=== PATIENT | female | born 1950 | race African-American/Black ===

== ENCOUNTER 2020-02-23 15:12 | Emergency (ER) | payer MEDICARE ==
[~2020-02-23] VITALS: Ht 160 cm; Wt 127.0 kg
--- NOTE | 2020-02-23 15:45 | Emergency Department Note ---
History of Present Illnes History of Present Illness Chief Complaint: Extremity Trauma/Pain History of Present Illness This is a 69 year old female, with a history of ESRD on hemodialysis, chronic atrial fibrillation, CHF, GERD, and NIDDM presents for evaluation of a 62 history of right shoulder pain. Patient's pain is top of the right shoulder, and she denies any falling or trauma to the right upper extremity. Patient has taken Tylenol without relief of pain. The pain sometimes radiates into the right upper extremity, but she's had no numbness, or tingling in the right upper extremity. Patient did attend dialysis today, and came here after her session, due to worsening right shoulder pain. Historian: Patient Arrival Mode: [employer] Required: No Onset (how long ago): day(s) (6) Location: right shoulder Quality: aching, sharp pain Radiation: Reports extremity (RUE;) Severity: moderate Onset quality: gradual Duration (how long): day(s) (6) Timing of current episode: constant Progression: worsening Chronicity: new Context: Denies recent surgery, Denies trauma/injury, Denies new medications Relieving factors: none Exacerbating factors: movement (abducting the RUE increases pain;) Associated symptoms: Reports denies other symptoms Treatments prior to arrival: none Risk factors: DM, Morbid Obesity, ESRD; Past Medical/Family History Physician Review I have reviewed the patient's past medical and family history. Any updates have been documented here. Past Medical History Recent Fever: No Clinical Suspicion of Infectio: No New/Unexplained Change in Ment: No Past Medical History: Diabetes (NIDDM), CHF, A-Fib, ESRD, Hemodyalisis Other Medical History: Adrenal Insufficiency Chronic Steroid Use - for adrenal insufficiency Past Surgical History: T&A, Pacer/AICD Other Surgery: RUE - fistula placement for HD; Social History Smoking Cessation: Never Smoker Counseling Performed: No Alcohol Use: None Any Illegal Drug Use: No TB Exposure/Symptoms: No Physically hurt or threatened: No Family History Family history of heart diseas: Yes Other Is patient up to date on immun: Yes Review of Systems Review of Systems Constitutional: Denies chills, Denies fever EENTM: Denies eye pain Cardiovascular: Reports no symptoms Respiratory: Reports no symptoms Gastrointestinal: Denies nausea Musculoskeletal: Reports joint pain (Right superior shoulder) Integumentary: Denies change in color, Denies change in hair/nails, Denies lumps Neurological: Denies headache, Denies numbness Psychological: Reports no symptoms Hematological/Lymphatic: Reports no symptoms Review of other systems: All other systems negative Physical Exam Related Data Allergies: Coded Allergies: Iodinated Contrast Media (Verified Allergy, Intermediate, rash and skin mcneill, 02/23/20) Physical Exam CONSTITUTIONAL Constitutional: Present well-developed, Present well-nourished, Present other (appears chronically ill;); Absent distressed HENT HENT: Present normocephalic, Present atraumatic, Present oropharynx clear/moist, Present nose normal HENT L/R: Present left ext ear normal, Present right ext ear normal EYES Eyes: Reports PERRL, Reports conjunctivae normal NECK Neck: Present ROM normal PULMONARY Pulmonary: Present effort normal, Present breath sounds normal CARDIOVASCULAR Cardiovascular: Present regular rhythm, Present heart sounds normal, Present capillary refill normal, Present normal rate GASTROINTESTINAL GENITOURINARY SKIN Skin: Present warm, Present dry; Absent rash MUSCULOSKELETAL Musculoskeletal: Present tenderness (ttp of right AC joint, with worsening pain on attempts at abduction, no crepitus; no erythema or warmth); Absent ROM normal NEUROLOGICAL Neurological: Present alert, Present oriented x 3, Present no gross motor or sensory deficits; Absent cranial nerve deficit PSYCHOLOGICAL Psychological: Present mood/affect normal, Present judgement normal Assessment & Plan Medical Decision Making MDM - Explained to patient that she seems to have tendinitis of the right shoulder and possible bursitis of the right before meals joint. X-rays will not revealed this problem. Explained that she can also have a component of arthritis in the right shoulder, as well. Patient is encouraged to the PCP for further diagnostic evaluation and possible referral if her symptoms worsen or persist. - Apply ice to the right shoulder for 15 - 20 minutes several times throughout the day, to help with pain. - Take medications, as directed. - Follow-up with your PCP, for possible Orthopedic referral, if the shoulder pain is persistent. Assessment & Plan Final Impression: (1) Tendonitis of shoulder, right (2) Shoulder pain, right (3) CHF (congestive heart failure) (4) Supplemental oxygen dependent (5) Adrenal insufficiency (6) ESRD (end stage renal disease) on dialysis (7) Diabetes Depart Disposition: HOME, SELF-correction Meds Active Scripts Tramadol Hcl (ULTRAM) 50 Mg Tablet, 1-2 TAB PO Q6H PRN for pain, #20 TAB 0 Refills Do [address] take and drive or operate machinery. Prov:NAEL ALEGRIA MD 02/23/20 NAEL ALEGRIA MD Feb 23, 2020 15:45
--- OUTSIDE RECORDS SUMMARY | 2020-02-23 16:14 | XMS REPORT | Clinical Summary ---
Author Author [facility] Organization [facility] Address Unknown Phone Unavailable Care Team Providers Care Bottling Line Attendant Name Role Phone López Chino MD, Homer PCP Allergies Comments Active Allergy Reactions Severity Noted Date Skin burning Iodine And Iodide Other (See High 07/08/2019 Containing Products Comments) Yeast infections Penicillins Other (See High 07/08/2019 Comments) Vancomycin Itching High 07/08/2019 Medications End Date Status Medication Sig Dispensed Refills Start Date Active pregabalin (LYRICA) 150 150 mg daily. 0 /14/ 201 MG capsule 8 Active apixaban (ELIQUIS) 2.5 mg Take 2.5 mg 0 tablet by mouth 2 (two) times a day. Active glipiZIDE (GLUCOTROL) 2.5 Take 2.5 mg 0 10/0 7/201 MG 24 hr tablet by mouth 9 daily. Active atorvastatin (LIPITOR) 10 Take 10 mg by 0 05/1 9/201 MG tablet mouth daily. 0 Active sevelamer (RENVELA) 800 Take 2,400 mg 0 mg tablet by mouth 3 (three) times a day with meals. Active vit B complex-vitamin Take 1 tablet 0 C-folic acid (NEPHRO-ALEXIS by mouth OTC) 0.8 mg tablet daily. Active levocetirizine (XYZAL) 5 Take 5 mg by 0 MG tablet mouth every evening. Active ergocalciferol (VITAMIN Take 50,000 0 D2) 50,000 unit capsule Units by mouth every 14 (fourteen) days. Active hydrocortisone (CORTEF) 5 Take 10 mg by 0 MG tablet mouth every evening. Active hydrocortisone (CORTEF) Take 20 mg by 0 20 MG tablet mouth every morning. Active midodrine (PROAMATINE) 10 Take 10 mg by 0 MG tablet mouth 3 (three) times a day. Active pantoprazole (PROTONIX) Take 20 mg by 0 20 MG EC tablet mouth daily. 07/29/2019 Discontinued (Stop Taking at Discharge) meloxicam (MOBIC) 7.5 mg Take 7.5 mg 0 tablet by mouth daily. 07/11/2019 Discontinued methylPREDNISolone Take 1 tablet 2 tablet 0 07/08 (MEDROL) 32 MG tablet (32 mg total) 0 by mouth daily for 2 days. Take 32mg oral route 12hrs and 2hrs prior to procedure. 07/11/2019 Discontinued (Stop Taking at Discharge) diphenhydrAMINE Take 2 2 capsule 0 (BenadryL) 25 mg capsule capsules (50 0 mg total) by mouth daily for 1 day. Take 50mg oral route 2hrs prior to procedure. 07/12/2019 Discontinued methylPREDNISolone Take 1 tablet 2 tablet 0 07/11 (MEDROL) 32 MG tablet (32 mg total) 0 by mouth daily for 2 days. Take 32mg oral route 12hrs and 2hrs prior to procedure. 07/29/2019 Discontinued (Stop Taking at Discharge) acetaminophen-codeine Take 1 tablet 15 tablet 0 (TYLENOL WITH CODEINE #3) by mouth 0 300-30 mg per every 6 (six) tabletIndications: acute hours as pain needed for moderate pain for up to 10 days .acute pain. 07/29/2019 Discontinued hydrocortisone (CORTEF) Take 1 tablet 30 tablet 0 20 MG tablet (20 mg total) 0 by mouth daily for 30 days. 07/29/2019 Discontinued hydrocortisone (CORTEF) Take 1 tablet 30 tablet 0 10 MG tablet (10 mg total) 0 by mouth daily for 30 days. 08/28/2019 midodrine (PROAMATINE) 10 Take 2 180 tablet 0 MG tablet tablets (20 0 mg total) by mouth 3 (three) times a day for 30 days. 08/29/2019 pantoprazole (PROTONIX) Take 1 tablet 30 tablet 0 40 MG EC tablet (40 mg total) 0 by mouth daily for 30 days. 08/28/2019 hydrocortisone (CORTEF) Take 1 tablet 30 tablet 0 20 MG tablet (20 mg total) 0 by mouth every morning for 30 days. 08/28/2019 hydrocortisone (CORTEF) Take 1 tablet 30 tablet 0 10 MG tablet (10 mg total) 0 by mouth every evening for 30 days. 09/30/2019 Discontinued linezolid (ZYVOX) 600 mg Take 1 tablet 8 tablet 0 tablet (600 mg 0 total) by mouth 2 (two) times a day for 4 days. 09/30/2019 Discontinued (Stop Taking at Discharge) fluconazole (DIFLUCAN) Take 1 tablet 1 tablet 0 0 150 MG tablet (150 mg 0 total) by mouth once for 1 dose. 10/22/2019 ondansetron ODT (Zofran Take 1 tablet 10 tablet 0 ODT) 4 MG disintegrating (4 mg total) 0 tablet by mouth every 8 (eight) hours as needed for nausea or vomiting for up to 30 days. 09/30/2019 Discontinued (Stop Taking at Discharge) linezolid (ZYVOX) 600 mg Take 1 tablet 8 tablet 0 tablet (600 mg 0 total) by mouth 2 (two) times a day for 4 days. Active Problems Problem Noted Date Encephalopathy acute 07/15/2019 Agitation requiring sedation protocol 07/15/2019 Shock circulatory 07/15/2019 Acute respiratory failure with hypoxia and hypercapni a 07/15/2019 Acute acalculous cholecystitis 07/15/2019 Groin hematoma 07/15/2019 Acute blood loss anemia 07/15/2019 Secondary adrenal insufficiency 07/15/2019 Type 2 diabetes mellitus with hyperglycemia 07/15/19 20 Steroid-induced hyperglycemia 07/15/2019 Current use of steroid medication 07/15/2019 Hypotension 07/14/2019 Cellulitis of arm, right 07/12/2019 ESRD (end stage renal disease) (HCC) 2007 MWF 2019 Last Assessment & Plan: Right arm fistula with malfunction with volume flow of 169 and cephalic outflow occlusion. We will plan for rig ht arm AV fistula revision. We discussed operative complications inclu ding bleeding, thrombosis, failure of the access, swelling, steal syndrome , and need for additional procedures. Atrial fibrillation 07/08/2019 Neuropathy 07/08/2019 HLD (hyperlipidemia) 07/08/2019 Type 2 diabetes mellitus 07/08/2019 Resolved Problems Problem Noted Date Resolved Date Abscess of groin, right 09/11/2019 09/22/2019 Encounters Care Team Description Date Type Specialty Amber Aviles MD ESRD (end stage renal disease) ([facility]) (Pr imary Dx) 12/01/2019 Telemedicine Cardiovascular [facility] 11/27/2019 Abstract Cardiovascular Amber Aviles MD Visit for wound check (Primary Dx) 10/27/2019 Telephone Cardiovascular Consult 10/27/2019 Travel Amber Aviles MD 10/27/2019 Telephone Cardiovascular [facility] 10/23/2019 Abstract Cardiovascular 10/09/2019 Travel Amber Aviles MD 10/08/2019 Telephone Cardiovascular Prosper Banuelos MD Senior, Farhana Babcock MD 09/28/2019 Anesthesia Cardiothoracic Surg Duong Flores MD Right groin incision and drainage and wa shout 09/28/2019 Surgery Cardiothoracic Surg Darryl Armenta MD Nguyen, Thuyen T., MD ESRD (end stage renal disease) ([facility]) (Pr imary Dx); Dyspnea, unspecified type; Bleeding from right hip wound, subsequent encounter; ESRD (end stage renal disease) ([facility]) 2007 MWF; Longstanding persistent atrial fibrillation; Hematoma of groin, subsequent encounter; Type 2 diabetes mellitus with hyperglycemia, without long-term current use of insulin ([facility]) 09/27/2019 [facility] [place] dicine - Encounter 09/30/2019 09/27/2019 Travel Lydia Yanez MD RIGHT GROIN WOUND VAC EXCHANGE, DEBRIDEM ENT 09/19/2019 Surgery Cardiothoracic Surg Tegan Vicente MD McGhee, Myra N., CRNA 09/19/2019 Anesthesia Cardiothoracic Surg Amber Donovan MD RIGHT MEDIAL THIGH WOUND DEBRIDEMENT, LO WER EXTREMITY 09/17/2019 Surgery Cardiothoracic Surg Zurdo Clifton MD Haack, Kristen 09/17/2019 Anesthesia Cardiothoracic Surg Amber Donovan MD INCISION AND DRAINAGE, RIGHT THIGH ABSCE SS 09/12/2019 Surgery Cardiothoracic Surg Prosper Branch MD Alexander, Jason Kad[place]unnel, MD 09/12/2019 Anesthesia Cardiothoracic Surg priscila Event Stacy Go MD Patel, Sachin P., MD Abscess of groin, right (Primary Dx) 09/11/2019 Hospital Nephrology - Encounter 09/22/2019 09/11/2019 Travel Conchita Perez RN 09/11/2019 Telephone Cardiovascular Duong Marshall MD ESRD (end stage renal disease) ([facility]) 200 8 MWF (Primary Dx) 08/26/2019 Telemedicine Cardiovascular Crispin Norton MA 08/25/2019 Telephone Cardiovascular Ivanna Tam MA 08/21/2019 Telephone Cardiovascular Duong Marshall MD 08/20/2019 Telephone Cardiovascular Conchita Perez RN ESRD (end stage renal disease) ([facility]) 200 8 MWF (Primary Dx) 07/28/2019 Telephone Cardiovascular Moody Mayo DO Phan, Hoang Minh, MD Nguyen, Leanne, MD Septic shock ([facility]) (Primary Dx); Cellulitis of arm, right; ESRD (end stage renal disease) ([facility]) 2008 MWF; Hemodynamically unstable; Respiratory distress; Mucopurulent chronic bronchitis ([facility]) 07/12/2019 [facility] dicine - Encounter 07/29/2019 Isaias Lynn MD Weaver, Robert L, MD 07/10/2019 Anesthesia Vascular Surgery Event Duong Marshall MD Revision of right arm AV Fistula with ar tegraft insertion, fistulogram with angioplasty under yenny 07/10/2019 Surgery Vascular Surgery Duong Marshall MD ESRD (end stage renal disease) ([facility]) 07/10/2019 [facility] dicine - Encounter 07/11/2019 Duong Marshall MD ESRD (end stage renal disease) on dialys is ([facility]) 07/10/2019 [facility] Radiology Encounter Duong Marshall MD ESRD (end stage renal disease) on dialys is ([facility]) 07/09/2019 Hospital Radiology Encounter Duong Marshall MD 07/09/2019 Telephone Cardiovascular Duong Marshall MD ESRD (end stage renal disease) ([facility]) (Pr imary Dx) 07/08/2019 Office Visit Cardiovascular Duong Marshall MD End stage renal disease (HCC) (Primary D x) 06/11/2019 Telephone Cardiovascular after 02/22/2019 Surgical History Surgery Date Site/Laterality Comments ARTERIOVENOUS GRAFT PLACEMENT DIALYSIS FISTULA CREATION INSERTION, REVISION, 07/10/2019 Arm Upper/Right Procedur e: Revision of right arm AV Fistula with EXCISION CATHETER, HERO artegraft insertion, fistu logram with angioplasty under yenny; Surgeon: Duong Marshall MD; Location: [facility] OR; Service: Vascular ; Laterality: Right; Medical devices from this surgery are i n the Implants section. INSERT / REPLACE / REMOVE PACEMAKER INCISION AND DRAINAGE, 09/12/2019 Groin/Right Procedu re: INCISION AND DRAINAGE, RIGHT THIGH LOWER EXTREMITY ABSCESS; Surgeon: Amber Aviles MD; Location: [facility]; Service: Vascular; Lat erality: Right; DEBRIDEMENT, LOWER 09/17/2019 Groin/Right Procedure: RIGHT MEDIAL THIGH WOUND DEBRIDEMENT, EXTREMITY LOWER EXTREMITY; Surgeon: Amber Aviles MD; Location: [facility]; Service: Vasc ular; Laterality: Right; APPLICATION OR 09/19/2019 Right Procedure: RIGH T GROIN WOUND VAC EXCHANGE, REPLACEMENT, WOUND VAC DEBRIDEMENT; Surgeon: Lydia Mccormack MD; Location: [facility]; Service: Vascular; Laterality: Right; INCISION AND DRAINAGE, 09/28/2019 Groin/Right Procedu re: Right groin incision and drainage and LOWER EXTREMITY washout; Surgeon: Dara Marshall MD; Location: [facility]; Service: [facility]de; Laterality: Right; SECTION TUBAL LIGATION Medical History Medical History Date Comments Clot right thigh Hyperlipidemia Diabetes mellitus (HCC) Heart disease ESRD (end stage renal disease) ([facility]) MWF with Dr. Jazz Britton at [facility] Arthritis Cataract Both eyes (per patient) CHF (congestive heart failure) ([facility]) GERD (gastroesophageal reflux disease) Neuromuscular disorder ([facility]) Family History Medical History Relation Name Comments Diabetes Brother Kidney disease Brother Diabetes Father Heart disease Father Hypertension Father Kidney disease Father Hypertension Maternal Grandmother Diabetes Mother Hypertension Mother Cancer Sister Relation Name Status Comments Brother Father Maternal Grandmother Mother Sister Social History Date Tobacco Use Types Packs/Day Years Used Quit: 1999 Former Smoker Cigarettes 0.25 Smokeless Tobacco: Never Used Drinks/Week oz/Week Comments Alcohol Use rarely Yes Alcohol Habits Answer Date Recorded How often do you have a drink containing alcohol? Monthly or less 07/08/2019 How many drinks containing alcohol do you have on 1 or 2 07/08/2019 a typical day when you are drinking? How often do you have six or more drinks on one Not asked occasion? Sex Assigned at Date Recorded Female 08/26/2019 10:24 AM CDT Last Filed Vital Signs Reading Time Taken Comments Vital Sign 98/75 09/30/2019 10:48 AM CDT Blood Pressure 83 09/30/2019 10:48 AM CDT Pulse 35.7 C (96.2 F) 09/30/2019 10:48 AM CDT Temperature 18 09/30/2019 10:48 AM CDT Respiratory Rate 96% 09/30/2019 10:48 AM CDT Oxygen Saturation - - Inhaled Oxygen Concentration 118 kg (260 lb) 09/28/2019 12:19 PM CDT Weight 160 cm (5' 3") 09/28/2019 12:19 PM CDT Height 46.06 09/28/2019 12:19 PM CDT Body Mass Index Plan of Treatment Health Maintenance Due Date Last Done Comments DIABETIC RETINAL EYE EXAM 1952 DIABETIC FOOT EXAM 1962 URINE MICROALBUMIN 1962 BREAST CANCER SCREENING 2002 COLONOSCOPY SCREENING 2002 SHINGLES VACCINES (#1) 2002 65+ PNEUMOCOCCAL VACCINE 2017 (1 of 1 - PPSV23) INFLUENZA VACCINE 12/20/2019 Implants Device Identifier Shelf Expiration Date Model / Serial / L ot Implanted Type Area Manufactur er 01/29/2023 [id number] / / [id number] Clip [employer]igt[employer] Weck Hemoclip Plus W/ Medical N/A: N/A TELEFLEX Tape Ti - [id number] Clips for MEDICAL Implanted: Qty: 2 on 07/10/2019 by Duong Michael MD at [facility] 11/20/2023 [id number] / / [id number] Clip Ligtng Weck Hemoclip Plus W/ Medical N/A: N/A TELEFLEX Tape Ti [facility] - [id number] Clips for MEDICAL Implanted: Qty: 1 on 07/10/2019 by Duong Michael, MD at [facility] Pacemaker Pacemaker 02/17/2022 [id number] / / [id number] Graft Artery Bovine Crtd 40cm 7mm - Vascular Right: Arm , ARTEGRAFT [id number] Graft Upper Implanted: Qty: 1 on 07/10/2019 by Duong Marshall MD at [facility] Procedures Comments Procedure Name Priority Date/Time Associated Diag nosis POC GLUCOSE Routine 09/30/2019 12:34 PM CDT POC GLUCOSE Routine 09/30/2019 8:29 AM CDT POC GLUCOSE Routine 09/30/2019 6:18 AM CDT ESTIMATED GFR Routine 09/30/2019 3:45 AM CDT PROTHROMBIN TIME WITH INR Routine 09/30/2019 3:45 AM CDT BASIC METABOLIC PANEL Routine 09/30/2019 3:45 AM CDT HC COMPLETE BLD COUNT Routine 09/30/2019 W/AUTO DIFF 3:45 AM CDT POC GLUCOSE Routine 09/29/2019 9:07 PM CDT POC GLUCOSE Routine 09/29/2019 6:02 PM CDT HC COMPLETE BLD COUNT Routine 09/29/2019 W/AUTO DIFF 2:45 PM CDT POC GLUCOSE Routine 09/29/2019 12:28 PM CDT POC GLUCOSE Routine 09/29/2019 7:19 AM CDT HEMODIALYSIS Routine 09/29/2019 6:44 AM CDT ESTIMATED GFR Routine 09/29/2019 4:00 AM CDT BASIC METABOLIC PANEL Routine 09/29/2019 4:00 AM CDT POC GLUCOSE Routine 09/28/2019 9:01 PM CDT POTASSIUM LEVEL Routine 09/28/2019 8:48 PM CDT HEMODIALYSIS Routine 09/28/2019 6:48 PM CDT POC GLUCOSE Routine 09/28/2019 5:19 PM CDT POC GLUCOSE Routine 09/28/2019 3:17 PM CDT POC GLUCOSE Routine 09/28/2019 2:38 PM CDT POC GLUCOSE Routine 09/28/2019 1:12 PM CDT POC GLUCOSE Routine 09/28/2019 12:47 PM CDT TYPE AND SCREEN Routine 09/28/2019 12:34 PM CDT POTASSIUM LEVEL STAT 09/28/2019 10:26 AM CDT POC GLUCOSE Routine 09/28/2019 7:28 AM CDT PROTHROMBIN TIME WITH INR Routine 09/28/2019 5:40 AM CDT HC COMPLETE BLD COUNT Routine 09/28/2019 W/AUTO DIFF 5:40 AM CDT POC GLUCOSE Routine 09/28/2019 5:03 AM CDT ESTIMATED GFR Routine 09/28/2019 4:00 AM CDT PHOSPHORUS LEVEL Routine 09/28/2019 4:00 AM CDT MAGNESIUM LEVEL Routine 09/28/2019 4:00 AM CDT BASIC METABOLIC PANEL Routine 09/28/2019 4:00 AM CDT POC GLUCOSE Routine 09/27/2019 10:40 PM CDT POC GLUCOSE Routine 09/27/2019 7:25 PM CDT HEPATITIS B SURFACE STAT 09/27/2019 ANTIGEN 5:30 PM CDT HEMODIALYSIS Routine 09/27/2019 4:52 PM CDT POC GLUCOSE Routine 09/27/2019 3:04 PM CDT XR CHEST 1 VW PORTABLE STAT 09/27/2019 12:09 PM CDT ESTIMATED GFR Routine 09/27/2019 11:42 AM CDT TROPONIN Routine 09/27/2019 11:42 AM CDT COMPREHENSIVE METABOLIC Routine 09/27/2019 PANEL 11:42 AM CDT PARTIAL THROMBOPLASTIN Routine 09/27/2019 TIME (PTT) 11:42 AM CDT PROTHROMBIN TIME WITH INR Routine 09/27/2019 11:42 AM CDT HC COMPLETE BLD COUNT Routine 09/27/2019 W/AUTO DIFF 11:42 AM CDT ECG 12-LEAD STAT 09/27/2019 11:16 AM CDT ECG ED PRELIMINARY Routine 09/27/2019 INTERPRETATION 10:59 AM CDT WOUND VAC PLACEMENT Routine 09/22/2019 Abscess of groin, right 2:43 PM CDT POC GLUCOSE Routine 09/22/2019 2:03 PM CDT POC GLUCOSE Routine 09/22/2019 8:39 AM CDT MANUAL DIFFERENTIAL Routine 09/22/2019 8:20 AM CDT ESTIMATED GFR Routine 09/22/2019 8:20 AM CDT PHOSPHORUS LEVEL Routine 09/22/2019 8:20 AM CDT BASIC METABOLIC PANEL Routine 09/22/2019 8:20 AM CDT CBC WITH PLATELET AND Routine 09/22/2019 DIFFERENTIAL 8:20 AM CDT HEMODIALYSIS Routine 09/22/2019 7:22 AM CDT POC GLUCOSE Routine 09/21/2019 9:30 PM CDT POC GLUCOSE Routine 09/21/2019 5:24 PM CDT POC GLUCOSE Routine 09/21/2019 12:28 PM CDT POC GLUCOSE Routine 09/21/2019 8:11 AM CDT POC GLUCOSE Routine 09/20/2019 8:51 PM CDT POC GLUCOSE Routine 09/20/2019 4:53 PM CDT POC GLUCOSE Routine 09/20/2019 12:34 PM CDT POC GLUCOSE Routine 09/20/2019 7:42 AM CDT POC GLUCOSE Routine 09/20/2019 12:06 AM CDT POC GLUCOSE Routine 09/19/2019 7:26 PM CDT POC GLUCOSE Routine 09/19/2019 5:44 PM CDT POC GLUCOSE Routine 09/19/2019 11:49 AM CDT POC GLUCOSE Routine 09/19/2019 10:14 AM CDT POC GLUCOSE Routine 09/19/2019 7:43 AM CDT ESTIMATED GFR Routine 09/19/2019 4:00 AM CDT TYPE AND SCREEN Routine 09/19/2019 4:00 AM CDT PARTIAL THROMBOPLASTIN Routine 09/19/2019 TIME (PTT) 4:00 AM CDT PROTHROMBIN TIME WITH INR Routine 09/19/2019 4:00 AM CDT BASIC METABOLIC PANEL Routine 09/19/2019 4:00 AM CDT HC COMPLETE BLD COUNT Routine 09/19/2019 W/AUTO DIFF 4:00 AM CDT POC GLUCOSE Routine 09/18/2019 8:41 PM CDT POC GLUCOSE Routine 09/18/2019 5:11 PM CDT POC GLUCOSE Routine 09/18/2019 12:09 PM CDT HEMODIALYSIS Routine 09/18/2019 11:25 AM CDT POC GLUCOSE Routine 09/18/2019 8:00 AM CDT HC COMPLETE BLD COUNT Routine 09/18/2019 W/AUTO DIFF 6:20 AM CDT ESTIMATED GFR Routine 09/18/2019 4:00 AM CDT MAGNESIUM LEVEL Routine 09/18/2019 4:00 AM CDT BASIC METABOLIC PANEL Routine 09/18/2019 4:00 AM CDT POC GLUCOSE Routine 09/17/2019 8:51 PM CDT POC GLUCOSE Routine 09/17/2019 6:30 PM CDT POC GLUCOSE Routine 09/17/2019 5:32 PM CDT POC GLUCOSE Routine 09/17/2019 3:51 PM CDT POC GLUCOSE Routine 09/17/2019 2:46 PM CDT POC GLUCOSE Routine 09/17/2019 12:21 PM CDT POC GLUCOSE Routine 09/17/2019 11:34 AM CDT POC GLUCOSE Routine 09/17/2019 7:39 AM CDT POC GLUCOSE Routine 09/17/2019 6:42 AM CDT ESTIMATED GFR Routine 09/17/2019 5:30 AM CDT PARTIAL THROMBOPLASTIN Routine 09/17/2019 TIME (PTT) 5:30 AM CDT PROTHROMBIN TIME WITH INR Routine 09/17/2019 5:30 AM CDT HC COMPLETE BLD COUNT Routine 09/17/2019 W/AUTO DIFF 5:30 AM CDT BASIC METABOLIC PANEL Routine 09/17/2019 5:30 AM CDT POC GLUCOSE Routine 09/17/2019 2:09 AM CDT POC GLUCOSE Routine 09/17/2019 1:02 AM CDT POC GLUCOSE Routine 09/16/2019 8:11 PM CDT POC GLUCOSE Routine 09/16/2019 3:52 PM CDT HEMODIALYSIS Routine 09/16/2019 2:36 PM CDT POC GLUCOSE Routine 09/16/2019 2:14 PM CDT POC GLUCOSE Routine 09/16/2019 12:37 PM CDT POC GLUCOSE Routine 09/16/2019 11:59 AM CDT POC GLUCOSE Routine 09/16/2019 8:25 AM CDT POC GLUCOSE Routine 09/16/2019 7:24 AM CDT HC COMPLETE BLD COUNT Routine 09/16/2019 W/AUTO DIFF 5:00 AM CDT ESTIMATED GFR Routine 09/16/2019 4:00 AM CDT BASIC METABOLIC PANEL Routine 09/16/2019 4:00 AM CDT POC GLUCOSE Routine 09/15/2019 8:15 PM CDT POC GLUCOSE Routine 09/15/2019 6:04 PM CDT POC GLUCOSE Routine 09/15/2019 1:08 PM CDT POC GLUCOSE Routine 09/15/2019 8:37 AM CDT HC COMPLETE BLD COUNT Routine 09/15/2019 W/AUTO DIFF 5:11 AM CDT ESTIMATED GFR Routine 09/15/2019 4:00 AM CDT BASIC METABOLIC PANEL Routine 09/15/2019 4:00 AM CDT POC GLUCOSE Routine 09/14/2019 7:56 PM CDT POC GLUCOSE Routine 09/14/2019 5:05 PM CDT HEMODIALYSIS Routine 09/14/2019 3:25 PM CDT POC GLUCOSE Routine 09/14/2019 12:50 PM CDT POC GLUCOSE Routine 09/14/2019 8:03 AM CDT POC GLUCOSE Routine 09/13/2019 8:23 PM CDT POC GLUCOSE Routine 09/13/2019 5:33 PM CDT POC GLUCOSE Routine 09/13/2019 11:37 AM CDT POC GLUCOSE Routine 09/13/2019 8:06 AM CDT POC GLUCOSE Routine 09/13/2019 5:20 AM CDT PHOSPHORUS LEVEL Routine 09/13/2019 5:00 AM CDT POC GLUCOSE Routine 09/12/2019 10:57 PM CDT POC GLUCOSE Routine 09/12/2019 6:52 PM CDT POC GLUCOSE Routine 09/12/2019 2:41 PM CDT HEMODIALYSIS Routine 09/12/2019 1:35 PM CDT HEPATITIS B SURFACE Routine 09/12/2019 ANTIGEN 1:25 PM CDT POC GLUCOSE Routine 09/12/2019 11:48 AM CDT POC GLUCOSE Routine 09/12/2019 8:47 AM CDT GRAM STAIN Timed 09/12/2019 8:18 AM CDT FUNGUS SMEAR Timed 09/12/2019 8:18 AM CDT AFB CULTURE Timed 09/12/2019 8:18 AM CDT AEROBIC CULTURE Timed 09/12/2019 8:18 AM CDT AFB STAIN Timed 09/12/2019 8:18 AM CDT FUNGUS CULTURE Timed 09/12/2019 8:18 AM CDT ANAEROBIC CULTURE Timed 09/12/2019 8:18 AM CDT ID AN ELECTIVE Routine 09/12/2019 ENDOTRACHEAL AIRWAY 7:52 AM CDT POC GLUCOSE Routine 09/12/2019 6:02 AM CDT ESTIMATED GFR Routine 09/12/2019 1:04 AM CDT HEMOGLOBIN A1C Routine 09/12/2019 1:04 AM CDT PROTHROMBIN TIME WITH INR Routine 09/12/2019 1:04 AM CDT PARTIAL THROMBOPLASTIN Routine 09/12/2019 TIME (PTT) 1:04 AM CDT BASIC METABOLIC PANEL Routine 09/12/2019 1:04 AM CDT HC COMPLETE BLD COUNT Routine 09/12/2019 W/AUTO DIFF 1:04 AM CDT TYPE AND SCREEN Routine 09/12/2019 1:04 AM CDT ESTIMATED GFR STAT 09/11/2019 8:17 PM CDT CREATININE LEVEL STAT 09/11/2019 8:17 PM CDT BLOOD CULTURE, AEROBIC & Routine 09/11/2019 ANAEROBIC 8:17 PM CDT POC GLUCOSE Routine 09/11/2019 7:[address] LOWER EXTREMITY WO Routine 09/11/2019 CONTRAST RIGHT 7:10 PM CDT POC GLUCOSE Routine 09/11/2019 5:54 PM CDT POC GLUCOSE Routine 09/11/2019 12:25 PM CDT SIX MINUTE WALK W/ PULSE Routine 07/29/2019 Septi c shock (HCC) OXIMETRY 2:27 PM CDT POC GLUCOSE Routine 07/29/2019 11:31 AM CDT SMEAR REVIEW Routine 07/29/2019 10:00 AM CDT ESTIMATED GFR Routine 07/29/2019 10:00 AM CDT HC COMPLETE BLD COUNT Routine 07/29/2019 W/AUTO DIFF 10:00 AM CDT BASIC METABOLIC PANEL Routine 07/29/2019 10:00 AM CDT POC GLUCOSE Routine 07/29/2019 7:35 AM CDT POC GLUCOSE Routine 07/29/2019 4:40 AM CDT POC GLUCOSE Routine 07/28/2019 11:26 PM CDT POC GLUCOSE Routine 07/28/2019 9:09 PM CDT POC GLUCOSE Routine 07/28/2019 6:32 PM CDT POC GLUCOSE Routine 07/28/2019 12:50 PM CDT POC GLUCOSE Routine 07/28/2019 8:46 AM CDT HC COMPLETE BLD COUNT Routine 07/28/2019 W/AUTO DIFF 7:20 AM CDT ESTIMATED GFR Routine 07/28/2019 4:00 AM CDT BASIC METABOLIC PANEL Routine 07/28/2019 4:00 AM CDT POC GLUCOSE Routine 07/27/2019 8:33 PM CDT POC GLUCOSE Routine 07/27/2019 4:58 PM CDT HEMODIALYSIS Routine 07/27/2019 4:44 PM CDT SMEAR REVIEW Routine 07/27/2019 10:05 AM CDT HC COMPLETE BLD COUNT Routine 07/27/2019 W/AUTO DIFF 10:05 AM CDT POC GLUCOSE Routine 07/27/2019 9:03 AM CDT ESTIMATED GFR Routine 07/27/2019 4:00 AM CDT BASIC METABOLIC PANEL Routine 07/27/2019 4:00 AM CDT POC GLUCOSE Routine 07/26/2019 8:59 PM SURGICAL PRODUCT SALES CONSULTANT POC GLUCOSE Routine 07/26/2019 4:30 PM SURGICAL PRODUCT SALES CONSULTANT POC GLUCOSE Routine 07/26/2019 11:58 AM SURGICAL PRODUCT SALES CONSULTANT POC GLUCOSE Routine 07/26/2019 8:12 AM SURGICAL PRODUCT SALES CONSULTANT POC GLUCOSE Routine 07/26/2019 5:20 AM SURGICAL PRODUCT SALES CONSULTANT ESTIMATED GFR Routine 07/26/2019 4:09 AM SURGICAL PRODUCT SALES CONSULTANT BASIC METABOLIC PANEL Routine 07/26/2019 4:09 AM SURGICAL PRODUCT SALES CONSULTANT SMEAR REVIEW Routine 07/26/2019 4:00 AM SURGICAL PRODUCT SALES CONSULTANT HC COMPLETE BLD COUNT Routine 07/26/2019 W/AUTO DIFF 4:00 AM SURGICAL PRODUCT SALES CONSULTANT POC GLUCOSE Routine 07/26/2019 12:43 AM SURGICAL PRODUCT SALES CONSULTANT SMEAR REVIEW STAT 07/25/2019 11:00 PM SURGICAL PRODUCT SALES CONSULTANT PROTHROMBIN TIME WITH INR STAT 07/25/2019 11:00 PM SURGICAL PRODUCT SALES CONSULTANT PARTIAL THROMBOPLASTIN STAT 07/25/2019 TIME (PTT) 11:00 PM SURGICAL PRODUCT SALES CONSULTANT HC COMPLETE BLD COUNT STAT 07/25/2019 W/AUTO DIFF 11:00 PM SURGICAL PRODUCT SALES CONSULTANT TROPONIN STAT 07/25/2019 11:00 PM SURGICAL PRODUCT SALES CONSULTANT XR CHEST 1 VW PORTABLE STAT 07/25/2019 10:55 PM [employer] ESTIMATED GFR STAT 07/25/2019 10:18 PM [employer] PHOSPHORUS LEVEL STAT 07/25/2019 10:18 PM [employer]ANT MAGNESIUM LEVEL STAT 07/25/2019 10:18 PM [employer]ANT BASIC METABOLIC PANEL STAT 07/25/2019 10:18 PM [employer]ANT LACTIC ACID LEVEL STAT 07/25/2019 10:18 PM [employer] RESPIRATORY PATHOGEN Routine 07/25/2019 PANEL 10:18 PM [employer]ODUCT SALES CONSULTANT POC GLUCOSE Routine 07/25/2019 9:58 PM [employer]ODUCT SALES CONSULTANT ECG 12-LEAD Routine 07/25/2019 9:57 PM [employer]ODUCT SALES CONSULTANT BLOOD CULTURE, AEROBIC & Routine 07/25/2019 ANAEROBIC 9:12 PM [employer]ODUCT SALES CONSULTANT POC GLUCOSE Routine 07/25/2019 9:10 PM SUR[employer]ICAL [employer]ODUCT SALES CONSULTANT POC GLUCOSE Routine 07/25/2019 4:55 PM SURGICAL [employer]ODUCT SALES CONSULTANT POC GLUCOSE Routine 07/25/2019 1:05 PM SURGICAL [employer]ODUCT SALES CONSULTANT PARTIAL THROMBOPLASTIN Routine 07/25/2019 TIME (PTT) 9:30 AM SURGICAL PRODUCT SALES CONSULTANT PROTHROMBIN TIME WITH INR Routine 07/25/2019 9:30 AM SUR[employer]ICAL [employer]ODUCT SALES CONSULTANT POC GLUCOSE Routine 07/25/2019 7:36 AM SURGICAL [employer]ODUCT SALES CONSULTANT POC GLUCOSE Routine 07/25/2019 6:16 AM SURGICAL PRODUCT SALES CONSULTANT PARTIAL THROMBOPLASTIN Routine 07/25/2019 TIME (PTT) 6:08 AM SURGICAL PRODUCT SALES CONSULTANT POC GLUCOSE Routine 07/25/2019 1:03 AM SURGICAL [employer]ODUCT SALES CONSULTANT TROPONIN Routine 07/25/2019 1:01 AM SURGICAL [employer]ODUCT SALES CONSULTANT MANUAL DIFFERENTIAL STAT 07/25/2019 1:00 AM SURGICAL PRODUCT SALES CONSULTANT PROTHROMBIN TIME WITH INR STAT 07/25/2019 1:00 AM SUR[employer]ICAL [employer]ODUCT SALES CONSULTANT PHOSPHORUS LEVEL STAT 07/25/2019 1:00 AM SUR[employer]ICAL PRODUCT SALES CONSULTANT MAGNESIUM LEVEL STAT 07/25/2019 1:00 AM [employer]ICAL [employer]ODUCT SALES CONSULTANT CBC WITH PLATELET AND STAT 07/25/2019 DIFFERENTIAL 1:00 AM SURGICAL PRODUCT SALES CONSULTANT ESTIMATED GFR STAT 07/25/2019 1:00 AM [employer]ICAL [employer]ODUCT SALES CONSULTANT BASIC METABOLIC PANEL STAT 07/25/2019 1:00 AM SUR[employer]ICAL [employer]ODUCT SALES CONSULTANT ECG 12-LEAD STAT 07/25/2019 12:49 AM SUR[employer]ICAL [employer]ODUCT SALES CONSULTANT POC GLUCOSE Routine 07/24/2019 11:16 PM SUR[employer]ICAL [employer]ODUCT SALES CONSULTANT PARTIAL THROMBOPLASTIN STAT 07/24/2019 TIME (PTT) 10:45 PM [employer]ICAL [employer]ODUCT SALES CONSULTANT PARTIAL THROMBOPLASTIN Routine 07/24/2019 TIME (PTT) 6:30 PM SURGICAL [employer]ODUCT SALES CONSULTANT POC GLUCOSE Routine 07/24/2019 5:59 PM [employer]GICAL [employer]ODUCT SALES CONSULTANT HEMODIALYSIS Routine 07/24/2019 3:16 PM [employer]ICAL [employer]ODUCT SALES CONSULTANT PARTIAL THROMBOPLASTIN Routine 07/24/2019 TIME (PTT) 12:00 PM [employer]ICAL [employer]ODUCT SALES CONSULTANT POC GLUCOSE Routine 07/24/2019 11:30 AM SURGICAL [employer]ODUCT SALES CONSULTANT ULTRAFILTRATION Routine 07/24/2019 9:43 AM SURGICAL [employer]ODUCT SALES CONSULTANT XR CHEST 1 VW PORTABLE STAT 07/24/2019 7:56 AM [employer]ODUCT SALES CONSULTANT POC GLUCOSE Routine 07/24/2019 7:54 AM SUR[employer]ODUCT SALES CONSULTANT POC GLUCOSE Routine 07/24/2019 5:22 AM SUR[employer]ICAL [employer]ODUCT SALES CONSULTANT MANUAL DIFFERENTIAL Routine 07/24/2019 3:30 AM SURGICAL PRODUCT SALES CONSULTANT ESTIMATED GFR Routine 07/24/2019 3:30 AM SURGICAL [employer]ODUCT SALES CONSULTANT BASIC METABOLIC PANEL Routine 07/24/2019 3:30 AM SURGICAL [employer]ODUCT SALES CONSULTANT CBC WITH PLATELET AND Routine 07/24/2019 DIFFERENTIAL 3:30 AM SURGICAL [employer]ODUCT SALES CONSULTANT PARTIAL THROMBOPLASTIN Routine 07/24/2019 TIME (PTT) 3:30 AM SUR[employer]ICAL [employer]ODUCT SALES CONSULTANT POC GLUCOSE Routine 07/24/2019 1:02 AM SUR[employer]ICAL [employer]ODUCT SALES CONSULTANT POC GLUCOSE Routine 07/23/2019 8:39 PM [employer]ODUCT SALES CONSULTANT POC GLUCOSE Routine 07/23/2019 4:47 PM [employer]ODUCT SALES CONSULTANT POC GLUCOSE Routine 07/23/2019 11:39 AM SUR[employer]ODUCT SALES CONSULTANT POC GLUCOSE Routine 07/23/2019 8:57 AM SUR[employer]ICAL [employer]ODUCT SALES CONSULTANT XR CHEST 1 VW PORTABLE STAT 07/23/2019 7:25 AM SUR[employer]ICAL [employer]ODUCT SALES CONSULTANT POC GLUCOSE Routine 07/23/2019 4:55 AM SUR[employer]ICAL [employer]ODUCT SALES CONSULTANT MANUAL DIFFERENTIAL Routine 07/23/2019 3:10 AM SURGICAL [employer]ODUCT SALES CONSULTANT ESTIMATED GFR Routine 07/23/2019 3:10 AM SURGICAL [employer]ODUCT SALES CONSULTANT PHOSPHORUS LEVEL Routine 07/23/2019 3:10 AM SUR[employer]ICAL [employer]ODUCT SALES CONSULTANT MAGNESIUM LEVEL Routine 07/23/2019 3:10 AM SURGICAL [employer]ODUCT SALES CONSULTANT PARTIAL THROMBOPLASTIN Routine 07/23/2019 TIME (PTT) 3:10 AM SURGICAL [employer]ODUCT SALES CONSULTANT BASIC METABOLIC PANEL Routine 07/23/2019 3:10 AM SUR[employer]ICAL [employer]ODUCT SALES CONSULTANT CBC WITH PLATELET AND Routine 07/23/2019 DIFFERENTIAL 3:10 AM SUR[employer]ICAL [employer]ODUCT SALES CONSULTANT POC GLUCOSE Routine 07/23/2019 1:11 AM SUR[employer]ICAL [employer]ODUCT SALES CONSULTANT POC GLUCOSE Routine 07/22/2019 8:14 PM [employer]ICAL [employer]ODUCT SALES CONSULTANT POC GLUCOSE Routine 07/22/2019 4:05 PM [employer]ICAL [employer]ODUCT SALES CONSULTANT POC GLUCOSE Routine 07/22/2019 11:24 AM SUR[employer]ICAL [employer]ODUCT SALES CONSULTANT HEMODIALYSIS Routine 07/22/2019 11:20 AM SUR[employer]ICAL [employer]ODUCT SALES CONSULTANT ULTRAFILTRATION Routine 07/22/2019 9:34 AM SUR[employer]ODUCT SALES CONSULTANT POC GLUCOSE Routine 07/22/2019 8:03 AM [employer]ICAL [employer]ODUCT SALES CONSULTANT XR CHEST 1 VW PORTABLE STAT 07/22/2019 7:05 AM SUR[employer]ODUCT SALES CONSULTANT POC GLUCOSE Routine 07/22/2019 4:38 AM [employer]ODUCT SALES CONSULTANT MANUAL DIFFERENTIAL Routine 07/22/2019 4:10 AM SURGICAL [employer]ODUCT SALES CONSULTANT ESTIMATED GFR Routine 07/22/2019 4:10 AM SURGICAL [employer]ODUCT SALES CONSULTANT PARTIAL THROMBOPLASTIN Routine 07/22/2019 TIME (PTT) 4:10 AM [employer]ODUCT SALES CONSULTANT BASIC METABOLIC PANEL Routine 07/22/2019 4:10 AM [employer]ODUCT SALES CONSULTANT CBC WITH PLATELET AND Routine 07/22/2019 DIFFERENTIAL 4:10 AM SUR[employer]ODUCT SALES CONSULTANT POC GLUCOSE Routine 07/22/2019 12:54 AM [employer]ODUCT SALES CONSULTANT POC GLUCOSE Routine 07/21/2019 8:38 PM SUR[employer]ICAL [employer]ODUCT SALES CONSULTANT PARTIAL THROMBOPLASTIN Timed 07/21/2019 TIME (PTT) 8:25 PM [employer]ICAL [employer]ODUCT SALES CONSULTANT HEMODIALYSIS Routine 07/21/2019 4:22 PM [employer]ICAL [employer]ODUCT SALES CONSULTANT POC GLUCOSE Routine 07/21/2019 4:11 PM [employer]ICAL [employer]ODUCT SALES CONSULTANT POC GLUCOSE Routine 07/21/2019 12:07 PM [employer]ICAL [employer]ODUCT SALES CONSULTANT PARTIAL THROMBOPLASTIN Timed 07/21/2019 TIME (PTT) 10:20 AM SUR[employer]ICAL [employer]ODUCT SALES CONSULTANT XR CHEST 1 VW PORTABLE STAT 07/21/2019 10:05 AM [employer]ODUCT SALES CONSULTANT POC GLUCOSE Routine 07/21/2019 8:09 AM SUR[employer]ICAL [employer]ODUCT SALES CONSULTANT ECG 12-LEAD Routine 07/21/2019 4:49 AM SUR[employer]ODUCT SALES CONSULTANT POC GLUCOSE Routine 07/21/2019 4:37 AM SUR[employer]ICAL [employer]ODUCT SALES CONSULTANT IONIZED CALCIUM, ARTERIAL Routine 07/21/2019 4:15 AM SUR[employer]ICAL [employer]ODUCT SALES CONSULTANT ARTERIAL BLOOD GAS Routine 07/21/2019 4:15 AM SUR[employer]ICAL [employer]ODUCT SALES CONSULTANT PHOSPHORUS LEVEL Routine 07/21/2019 3:45 AM SUR[employer]ICAL [employer]ODUCT SALES CONSULTANT LACTIC ACID LEVEL Routine 07/21/2019 3:45 AM SUR[employer]ODUCT SALES CONSULTANT MAGNESIUM LEVEL Routine 07/21/2019 3:45 AM SUR[employer]ICAL [employer]ODUCT SALES CONSULTANT MANUAL DIFFERENTIAL Routine 07/21/2019 3:45 AM SURGICAL [employer]ODUCT SALES CONSULTANT ESTIMATED GFR Routine 07/21/2019 3:45 AM SUR[employer]ICAL [employer]ODUCT SALES CONSULTANT BASIC METABOLIC PANEL Routine 07/21/2019 3:45 AM SUR[employer]ICAL [employer]ODUCT SALES CONSULTANT CBC WITH PLATELET AND Routine 07/21/2019 DIFFERENTIAL 3:45 AM SURGICAL [employer]ODUCT SALES CONSULTANT PARTIAL THROMBOPLASTIN Timed 07/21/2019 TIME (PTT) 3:45 AM SUR[employer]ICAL [employer]ODUCT SALES CONSULTANT POC GLUCOSE Routine 07/21/2019 12:46 AM SUR[employer]ICAL [employer]ODUCT SALES CONSULTANT POC GLUCOSE Routine 07/20/2019 8:42 PM [employer]ICAL [employer]ODUCT SALES CONSULTANT POC GLUCOSE Routine 07/20/2019 4:43 PM SUR[employer]ICAL [employer]ODUCT SALES CONSULTANT POC GLUCOSE Routine 07/20/2019 12:30 PM SUR[employer]ICAL [employer]ODUCT SALES CONSULTANT POC GLUCOSE Routine 07/20/2019 8:33 AM SUR[employer]ICAL [employer]ODUCT SALES CONSULTANT POC GLUCOSE Routine 07/20/2019 8:30 AM SUR[employer]ICAL [employer]ODUCT SALES CONSULTANT XR CHEST 1 VW PORTABLE STAT 07/20/2019 6:56 AM SUR[employer]ICAL [employer]ODUCT SALES CONSULTANT POC GLUCOSE Routine 07/20/2019 4:44 AM [employer]ICAL [employer]ODUCT SALES CONSULTANT MANUAL DIFFERENTIAL Routine 07/20/2019 4:10 AM SURGICAL [employer]ODUCT SALES CONSULTANT ESTIMATED GFR Routine 07/20/2019 4:10 AM SUR[employer]ICAL [employer]ODUCT SALES CONSULTANT VENOUS BLOOD GAS Routine 07/20/2019 4:10 AM SUR[employer]ICAL [employer]ODUCT SALES CONSULTANT PARTIAL THROMBOPLASTIN Routine 07/20/2019 TIME (PTT) 4:10 AM SURGICAL [employer]ODUCT SALES CONSULTANT PROTHROMBIN TIME WITH INR Routine 07/20/2019 4:10 AM SUR[employer]ICAL [employer]ODUCT SALES CONSULTANT PHOSPHORUS LEVEL Routine 07/20/2019 4:10 AM SUR[employer]ICAL [employer]ODUCT SALES CONSULTANT MAGNESIUM LEVEL Routine 07/20/2019 4:10 AM SUR[employer]ICAL [employer]ODUCT SALES CONSULTANT BASIC METABOLIC PANEL Routine 07/20/2019 4:10 AM [employer]ODUCT SALES CONSULTANT CBC WITH PLATELET AND Routine 07/20/2019 DIFFERENTIAL 4:10 AM SURGICAL [employer]ODUCT SALES CONSULTANT POC GLUCOSE Routine 07/20/2019 1:13 AM SUR[employer]ICAL [employer]ODUCT SALES CONSULTANT PARTIAL THROMBOPLASTIN Routine 07/19/2019 TIME (PTT) 10:30 PM SUR[employer]ICAL [employer]ODUCT SALES CONSULTANT POC GLUCOSE Routine 07/19/2019 9:47 PM SUR[employer]ICAL [employer]ODUCT SALES CONSULTANT POC GLUCOSE Routine 07/19/2019 8:37 PM SURGICAL [employer]ODUCT SALES CONSULTANT CTA ABD/PEL FOR BLEEDING STAT 07/19/2019 8:15 PM SUR[employer]ICAL [employer]ODUCT SALES CONSULTANT POC GLUCOSE Routine 07/19/2019 3:43 PM SUR[employer]ICAL [employer]ODUCT SALES CONSULTANT PARTIAL THROMBOPLASTIN Routine 07/19/2019 TIME (PTT) 3:11 PM SURGICAL PRODUCT SALES CONSULTANT ESTIMATED GFR Routine 07/19/2019 1:03 PM SURGICAL [employer]ODUCT SALES CONSULTANT IONIZED CALCIUM Routine 07/19/2019 1:03 PM SURGICAL PRODUCT SALES CONSULTANT PHOSPHORUS LEVEL Routine 07/19/2019 1:03 PM SURGICAL PRODUCT SALES CONSULTANT MAGNESIUM LEVEL Routine 07/19/2019 1:03 PM SUR[employer]ICAL [employer]ODUCT SALES CONSULTANT BASIC METABOLIC PANEL Routine 07/19/2019 1:03 PM SUR[employer]ICAL [employer]ODUCT SALES CONSULTANT POC GLUCOSE Routine 07/19/2019 12:28 PM SUR[employer]ICAL [employer]ODUCT SALES CONSULTANT US DUPLEX ARTERIAL LOWER STAT 07/19/2019 EXTREMITY RIGHT 12:00 PM SUR[employer]ICAL [employer]ODUCT SALES CONSULTANT POC GLUCOSE Routine 07/19/2019 7:46 AM SURGICAL PRODUCT SALES CONSULTANT PARTIAL THROMBOPLASTIN Routine 07/19/2019 TIME (PTT) 7:30 AM SUR[employer]ICAL [employer]ODUCT SALES CONSULTANT XR CHEST 1 VW PORTABLE STAT 07/19/2019 6:37 AM SURGICAL [employer]ODUCT SALES CONSULTANT POC GLUCOSE Routine 07/19/2019 5:22 AM SURGICAL [employer]ODUCT SALES CONSULTANT SMEAR REVIEW Routine 07/19/2019 12:20 AM SURGICAL [employer]ODUCT SALES CONSULTANT IONIZED CALCIUM Routine 07/19/2019 12:20 AM SURGICAL PRODUCT SALES CONSULTANT ESTIMATED GFR Routine 07/19/2019 12:20 AM SURGICAL PRODUCT SALES CONSULTANT CREATINE KINASE, TOTAL Routine 07/19/2019 (CPK) 12:20 AM SURGICAL PRODUCT SALES CONSULTANT VENOUS BLOOD GAS Routine 07/19/2019 12:20 AM SURGICAL PRODUCT SALES CONSULTANT PARTIAL THROMBOPLASTIN Routine 07/19/2019 TIME (PTT) 12:20 AM SURGICAL PRODUCT SALES CONSULTANT PROTHROMBIN TIME WITH INR Routine 07/19/2019 12:20 AM SURGICAL PRODUCT SALES CONSULTANT PHOSPHORUS LEVEL Routine 07/19/2019 12:20 AM SURGICAL PRODUCT SALES CONSULTANT MAGNESIUM LEVEL Routine 07/19/2019 12:20 AM SURGICAL [employer]ODUCT SALES CONSULTANT BASIC METABOLIC PANEL Routine 07/19/2019 12:20 AM SURGICAL [employer]ODUCT SALES CONSULTANT HC COMPLETE BLD COUNT Routine 07/19/2019 W/AUTO DIFF 12:20 AM SURGICAL [employer]ODUCT SALES CONSULTANT POC GLUCOSE Routine 07/18/2019 9:00 PM SUR[employer]ICAL [employer]ODUCT SALES CONSULTANT POC GLUCOSE Routine 07/18/2019 3:40 PM SURGICAL PRODUCT SALES CONSULTANT ESTIMATED GFR Routine 07/18/2019 12:54 PM SURGICAL [employer]ODUCT SALES CONSULTANT PHOSPHORUS LEVEL Routine 07/18/2019 12:54 PM SURGICAL PRODUCT SALES CONSULTANT MAGNESIUM LEVEL Routine 07/18/2019 12:54 PM SURGICAL PRODUCT SALES CONSULTANT IONIZED CALCIUM Routine 07/18/2019 12:54 PM SURGICAL PRODUCT SALES CONSULTANT BASIC METABOLIC PANEL Routine 07/18/2019 12:54 PM SURGICAL [employer]ODUCT SALES CONSULTANT POC GLUCOSE Routine 07/18/2019 11:34 AM SURGICAL PRODUCT SALES CONSULTANT XR CHEST 1 VW PORTABLE STAT 07/18/2019 10:20 AM SURGICAL PRODUCT SALES CONSULTANT ARTERIAL BLOOD GAS STAT 07/18/2019 9:30 AM SUR[employer]ICAL [employer]ODUCT SALES CONSULTANT POC GLUCOSE Routine 07/18/2019 8:46 AM SURGICAL PRODUCT SALES CONSULTANT VENOUS BLOOD GAS STAT 07/18/2019 8:35 AM SURGICAL PRODUCT SALES CONSULTANT ARTERIAL BLOOD GAS STAT 07/18/2019 8:35 AM SURGICAL PRODUCT SALES CONSULTANT POC GLUCOSE Routine 07/18/2019 7:50 AM SURGICAL PRODUCT SALES CONSULTANT HC COMPLETE BLD COUNT Routine 07/18/2019 W/AUTO DIFF 7:15 AM SURGICAL PRODUCT SALES CONSULTANT POC GLUCOSE Routine 07/18/2019 7:02 AM SURGICAL PRODUCT SALES CONSULTANT POC GLUCOSE Routine 07/18/2019 6:47 AM SURGICAL [employer]ODUCT SALES CONSULTANT POC GLUCOSE Routine 07/18/2019 5:00 AM SURGICAL PRODUCT SALES CONSULTANT TRANSFUSE RED BLOOD CELLS STAT 07/18/2019 4:45 AM SURGICAL PRODUCT SALES CONSULTANT POC GLUCOSE Routine 07/18/2019 1:53 AM SURGICAL PRODUCT SALES CONSULTANT IONIZED CALCIUM, VENOUS Routine 07/18/2019 1:30 AM SURGICAL PRODUCT SALES CONSULTANT SMEAR REVIEW Routine 07/18/2019 1:30 AM SURGICAL PRODUCT SALES CONSULTANT ESTIMATED GFR Routine 07/18/2019 1:30 AM SURGICAL PRODUCT SALES CONSULTANT VENOUS BLOOD GAS Routine 07/18/2019 1:30 AM SURGICAL PRODUCT SALES CONSULTANT PARTIAL THROMBOPLASTIN Routine 07/18/2019 TIME (PTT) 1:30 AM SURGICAL PRODUCT SALES CONSULTANT PROTHROMBIN TIME WITH INR Routine 07/18/2019 1:30 AM SURGICAL PRODUCT SALES CONSULTANT PHOSPHORUS LEVEL Routine 07/18/2019 1:30 AM SURGICAL PRODUCT SALES CONSULTANT MAGNESIUM LEVEL Routine 07/18/2019 1:30 AM SURGICAL PRODUCT SALES CONSULTANT BASIC METABOLIC PANEL Routine 07/18/2019 1:30 AM SURGICAL PRODUCT SALES CONSULTANT HC COMPLETE BLD COUNT Routine 07/18/2019 W/AUTO DIFF 1:30 AM SURGICAL PRODUCT SALES CONSULTANT LACTIC ACID LEVEL Routine 07/18/2019 1:30 AM SURGICAL PRODUCT SALES CONSULTANT POC GLUCOSE Routine 07/17/2019 11:15 PM SURGICAL PRODUCT SALES CONSULTANT POC GLUCOSE Routine 07/17/2019 10:06 PM SURGICAL PRODUCT SALES CONSULTANT POC GLUCOSE Routine 07/17/2019 9:05 PM SURGICAL PRODUCT SALES CONSULTANT POC GLUCOSE Routine 07/17/2019 8:13 PM SURGICAL PRODUCT SALES CONSULTANT POC GLUCOSE Routine 07/17/2019 7:41 PM SURGICAL PRODUCT SALES CONSULTANT PARTIAL THROMBOPLASTIN STAT 07/17/2019 TIME (PTT) 7:40 PM SURGICAL [employer]ODUCT SALES CONSULTANT POC GLUCOSE Routine 07/17/2019 5:49 PM SURGICAL PRODUCT SALES CONSULTANT POC GLUCOSE Routine 07/17/2019 3:59 PM SURGICAL PRODUCT SALES CONSULTANT POC GLUCOSE Routine 07/17/2019 3:17 PM SURGICAL PRODUCT SALES CONSULTANT ESTIMATED GFR Routine 07/17/2019 1:24 PM SURGICAL PRODUCT SALES CONSULTANT PHOSPHORUS LEVEL Routine 07/17/2019 1:24 PM SURGICAL PRODUCT SALES CONSULTANT MAGNESIUM LEVEL Routine 07/17/2019 1:24 PM SURGICAL PRODUCT SALES CONSULTANT IONIZED CALCIUM Routine 07/17/2019 1:24 PM SURGICAL PRODUCT SALES CONSULTANT BASIC METABOLIC PANEL Routine 07/17/2019 1:24 PM SURGICAL PRODUCT SALES CONSULTANT VENOUS BLOOD GAS Routine 07/17/2019 1:05 PM SURGICAL [employer]ODUCT SALES CONSULTANT POC GLUCOSE Routine 07/17/2019 12:11 PM SURGICAL [employer]ODUCT SALES CONSULTANT XR ABDOMEN 1 VW PORTABLE STAT 07/17/2019 10:12 AM SURGICAL PRODUCT SALES CONSULTANT POC GLUCOSE Routine 07/17/2019 10:00 AM SURGICAL PRODUCT SALES CONSULTANT VENOUS BLOOD GAS STAT 07/17/2019 8:45 AM SURGICAL PRODUCT SALES CONSULTANT POC GLUCOSE Routine 07/17/2019 7:18 AM SURGICAL PRODUCT SALES CONSULTANT POC GLUCOSE Routine 07/17/2019 4:33 AM SURGICAL PRODUCT SALES CONSULTANT ARTERIAL BLOOD GAS STAT 07/17/2019 4:30 AM SURGICAL PRODUCT SALES CONSULTANT POC GLUCOSE Routine 07/17/2019 2:02 AM SURGICAL PRODUCT SALES CONSULTANT POC GLUCOSE Routine 07/17/2019 12:30 AM SURGICAL PRODUCT SALES CONSULTANT PREPARE RBC STAT 07/17/2019 12:15 AM SURGICAL PRODUCT SALES CONSULTANT MANUAL DIFFERENTIAL Routine 07/17/2019 12:15 AM SURGICAL PRODUCT SALES CONSULTANT IONIZED CALCIUM, ARTERIAL Routine 07/17/2019 12:15 AM SURGICAL PRODUCT SALES CONSULTANT ARTERIAL BLOOD GAS Routine 07/17/2019 12:15 AM SURGICAL PRODUCT SALES CONSULTANT TYPE AND SCREEN Routine 07/17/2019 12:15 AM SURGICAL PRODUCT SALES CONSULTANT PROTHROMBIN TIME WITH INR Routine 07/17/2019 12:15 AM SURGICAL PRODUCT SALES CONSULTANT PARTIAL THROMBOPLASTIN Routine 07/17/2019 TIME (PTT) 12:15 AM SURGICAL [employer]ODUCT SALES CONSULTANT CBC WITH PLATELET AND Routine 07/17/2019 DIFFERENTIAL 12:15 AM SURGICAL PRODUCT SALES CONSULTANT LACTIC ACID LEVEL Routine 07/17/2019 12:08 AM SURGICAL PRODUCT SALES CONSULTANT ESTIMATED GFR Routine 07/17/2019 12:08 AM SURGICAL PRODUCT SALES CONSULTANT PHOSPHORUS LEVEL Routine 07/17/2019 12:08 AM SURGICAL PRODUCT SALES CONSULTANT MAGNESIUM LEVEL Routine 07/17/2019 12:08 AM SURGICAL PRODUCT SALES CONSULTANT BASIC METABOLIC PANEL Routine 07/17/2019 12:08 AM SURGICAL PRODUCT SALES CONSULTANT POC GLUCOSE Routine 07/16/2019 10:07 PM SURGICAL [employer]ODUCT SALES CONSULTANT POC GLUCOSE Routine 07/16/2019 7:54 PM SURGICAL PRODUCT SALES CONSULTANT POC GLUCOSE Routine 07/16/2019 6:35 PM SURGICAL PRODUCT SALES CONSULTANT POC GLUCOSE Routine 07/16/2019 6:02 PM SURGICAL PRODUCT SALES CONSULTANT POC GLUCOSE Routine 07/16/2019 4:52 PM SURGICAL PRODUCT SALES CONSULTANT POC GLUCOSE Routine 07/16/2019 3:51 PM SUR[employer]ICAL PRODUCT SALES CONSULTANT POC GLUCOSE Routine 07/16/2019 3:11 PM SURGICAL PRODUCT SALES CONSULTANT POC GLUCOSE Routine 07/16/2019 2:05 PM SUR[employer]ICAL [employer]ODUCT SALES CONSULTANT HC COMPLETE BLD COUNT Timed 07/16/2019 W/AUTO DIFF 1:12 PM SURGICAL [employer]ODUCT SALES CONSULTANT ESTIMATED GFR Timed 07/16/2019 1:12 PM SURGICAL PRODUCT SALES CONSULTANT IONIZED CALCIUM Timed 07/16/2019 1:12 PM SURGICAL PRODUCT SALES CONSULTANT PHOSPHORUS LEVEL Timed 07/16/2019 1:12 PM SURGICAL PRODUCT SALES CONSULTANT MAGNESIUM LEVEL Timed 07/16/2019 1:12 PM SURGICAL PRODUCT SALES CONSULTANT BASIC METABOLIC PANEL Timed 07/16/2019 1:12 PM SURGICAL PRODUCT SALES CONSULTANT POC GLUCOSE Routine 07/16/2019 12:08 PM SURGICAL PRODUCT SALES CONSULTANT POC GLUCOSE Routine 07/16/2019 11:10 AM SURGICAL PRODUCT SALES CONSULTANT POC GLUCOSE Routine 07/16/2019 9:58 AM SURGICAL PRODUCT SALES CONSULTANT POC GLUCOSE Routine 07/16/2019 8:56 AM SURGICAL PRODUCT SALES CONSULTANT POC GLUCOSE Routine 07/16/2019 7:47 AM SURGICAL PRODUCT SALES CONSULTANT POC GLUCOSE Routine 07/16/2019 7:00 AM SURGICAL PRODUCT SALES CONSULTANT POC GLUCOSE Routine 07/16/2019 6:08 AM SURGICAL PRODUCT SALES CONSULTANT XR CHEST 1 VW PORTABLE STAT 07/16/2019 5:40 AM SURGICAL PRODUCT SALES CONSULTANT POC GLUCOSE Routine 07/16/2019 4:02 AM SURGICAL PRODUCT SALES CONSULTANT POC GLUCOSE Routine 07/16/2019 3:13 AM SURGICAL PRODUCT SALES CONSULTANT POC GLUCOSE Routine 07/16/2019 2:16 AM SURGICAL PRODUCT SALES CONSULTANT PHOSPHORUS LEVEL Routine 07/16/2019 1:16 AM SURGICAL PRODUCT SALES CONSULTANT MAGNESIUM LEVEL Routine 07/16/2019 1:16 AM SURGICAL PRODUCT SALES CONSULTANT HEPATIC FUNCTION PANEL Routine 07/16/2019 1:16 AM SURGICAL PRODUCT SALES CONSULTANT ESTIMATED GFR Routine 07/16/2019 1:16 AM SURGICAL PRODUCT SALES CONSULTANT LACTIC ACID LEVEL Routine 07/16/2019 1:16 AM SURGICAL PRODUCT SALES CONSULTANT BASIC METABOLIC PANEL Routine 07/16/2019 1:16 AM SURGICAL PRODUCT SALES CONSULTANT POC GLUCOSE Routine 07/16/2019 12:56 AM SURGICAL PRODUCT SALES CONSULTANT ARTERIAL BLOOD GAS Routine 07/16/2019 12:45 AM SURGICAL PRODUCT SALES CONSULTANT IONIZED CALCIUM, ARTERIAL Routine 07/16/2019 12:45 AM SURGICAL PRODUCT SALES CONSULTANT PROTHROMBIN TIME WITH INR Routine 07/16/2019 12:45 AM SURGICAL PRODUCT SALES CONSULTANT PARTIAL THROMBOPLASTIN Routine 07/16/2019 TIME (PTT) 12:45 AM SURGICAL PRODUCT SALES CONSULTANT HC COMPLETE BLD COUNT Routine 07/16/2019 W/AUTO DIFF 12:45 AM SURGICAL PRODUCT SALES CONSULTANT POC GLUCOSE Routine 07/16/2019 12:04 AM SUR[employer]ICAL [employer]ODUCT SALES CONSULTANT HEMODIALYSIS CATHETER Routine 07/15/2019 ESRD (en d stage renal PLACEMENT 11:20 PM SUR[employer]ICAL [employer]ODUCT SALES CONSULTANT disease) (HCC) 2008 MWF POC GLUCOSE Routine 07/15/2019 11:02 PM [employer]ICAL [employer]ODUCT SALES CONSULTANT POC GLUCOSE Routine 07/15/2019 10:18 PM SURGICAL PRODUCT SALES CONSULTANT US DUPLEX HEMODIALYSIS STAT 07/15/2019 AVG AVF ACCESS 9:21 PM [employer]ICAL [employer]ODUCT SALES CONSULTANT POC GLUCOSE Routine 07/15/2019 8:58 PM SUR[employer]ICAL PRODUCT SALES CONSULTANT TRANSFUSE RED BLOOD CELLS Routine 07/15/2019 8:16 PM SURGICAL PRODUCT SALES CONSULTANT POC GLUCOSE Routine 07/15/2019 7:53 PM SURGICAL PRODUCT SALES CONSULTANT POC GLUCOSE Routine 07/15/2019 6:43 PM SURGICAL PRODUCT SALES CONSULTANT TRANSFUSE RED BLOOD CELLS Routine 07/15/2019 4:17 PM SURGICAL PRODUCT SALES CONSULTANT NM HEPATOBILIARY STAT 07/15/2019 2:57 PM SUR[employer]ICAL [employer]ODUCT SALES CONSULTANT POC GLUCOSE Routine 07/15/2019 11:05 AM SURGICAL PRODUCT SALES CONSULTANT SMEAR REVIEW Routine 07/15/2019 8:54 AM SURGICAL PRODUCT SALES CONSULTANT HC COMPLETE BLD COUNT Routine 07/15/2019 W/AUTO DIFF 8:54 AM SUR[employer]ICAL PRODUCT SALES CONSULTANT POC GLUCOSE Routine 07/15/2019 7:18 AM SURGICAL PRODUCT SALES CONSULTANT XR CHEST 1 VW PORTABLE Routine 07/15/2019 6:00 AM SURGICAL PRODUCT SALES CONSULTANT POC GLUCOSE Routine 07/15/2019 4:34 AM SURGICAL PRODUCT SALES CONSULTANT TRANSFUSE RED BLOOD CELLS Routine 07/15/2019 1:53 AM SURGICAL PRODUCT SALES CONSULTANT ESTIMATED GFR Routine 07/15/2019 12:51 AM SURGICAL PRODUCT SALES CONSULTANT PHOSPHORUS LEVEL Routine 07/15/2019 12:51 AM SURGICAL PRODUCT SALES CONSULTANT MAGNESIUM LEVEL Routine 07/15/2019 12:51 AM SURGICAL PRODUCT SALES CONSULTANT BASIC METABOLIC PANEL Routine 07/15/2019 12:51 AM SURGICAL PRODUCT SALES CONSULTANT SMEAR REVIEW Routine 07/15/2019 12:44 AM SURGICAL PRODUCT SALES CONSULTANT PARTIAL THROMBOPLASTIN Routine 07/15/2019 TIME (PTT) 12:44 AM SURGICAL PRODUCT SALES CONSULTANT PROTHROMBIN TIME WITH INR Routine 07/15/2019 12:44 AM SURGICAL PRODUCT SALES CONSULTANT IONIZED CALCIUM, ARTERIAL Routine 07/15/2019 12:44 AM SURGICAL PRODUCT SALES CONSULTANT ARTERIAL BLOOD GAS Routine 07/15/2019 12:44 AM SURGICAL PRODUCT SALES CONSULTANT HC COMPLETE BLD COUNT Routine 07/15/2019 W/AUTO DIFF 12:44 AM SURGICAL PRODUCT SALES CONSULTANT POC GLUCOSE Routine 07/15/2019 12:28 AM SURGICAL PRODUCT SALES CONSULTANT POC GLUCOSE Routine 07/14/2019 8:34 PM SURGICAL [employer]ODUCT SALES CONSULTANT US DUPLEX ARTERIAL UPPER STAT 07/14/2019 EXTREMITY RIGHT 5:11 PM [employer]ICAL [employer]ODUCT SALES CONSULTANT US DUPLEX ARTERIAL LOWER STAT 07/14/2019 EXTREMITY RIGHT 4:00 PM [employer]ODUCT SALES CONSULTANT POC GLUCOSE Routine 07/14/2019 3:31 PM SURGICAL PRODUCT SALES CONSULTANT MANUAL DIFFERENTIAL STAT 07/14/2019 11:45 AM SURGICAL PRODUCT SALES CONSULTANT PARTIAL THROMBOPLASTIN STAT 07/14/2019 TIME (PTT) 11:45 AM [employer]ICAL [employer] SALES CONSULTANT PROTHROMBIN TIME WITH INR STAT 07/14/2019 11:45 AM [employer] SALES CONSULTANT CBC WITH PLATELET AND STAT 07/14/2019 DIFFERENTIAL 11:45 AM [employer]ICAL [employer] SALES CONSULTANT ESTIMATED GFR STAT 07/14/2019 11:41 AM [employer]ICAL [employer] SALES CONSULTANT IONIZED CALCIUM STAT 07/14/2019 11:41 AM [employer] SALES CONSULTANT PHOSPHORUS LEVEL STAT 07/14/2019 11:41 AM [employer] SALES CONSULTANT MAGNESIUM LEVEL STAT 07/14/2019 11:41 AM [employer] SALES CONSULTANT BASIC METABOLIC PANEL STAT 07/14/2019 11:41 AM [employer] SALES CONSULTANT POC GLUCOSE Routine 07/14/2019 11:17 AM [employer] SALES CONSULTANT US DUPLEX HEMODIALYSIS STAT 07/14/2019 AVG AVF ACCESS 10:30 AM SUR[employer]ICAL [employer]ODUCT SALES CONSULTANT TTE COMPLETE, WO STAT 07/14/2019 CONTRAST, W DOPPLER 9:00 AM SUR[employer]ICAL [employer]ODUCT SALES CONSULTANT ([id number]) ESTIMATED GFR STAT 07/14/2019 8:59 AM [employer]ICAL [employer]ODUCT SALES CONSULTANT IONIZED CALCIUM, ARTERIAL STAT 07/14/2019 8:59 AM [employer]ICAL [employer]ODUCT SALES CONSULTANT PROTHROMBIN TIME WITH INR STAT 07/14/2019 8:59 AM [employer]ICAL [employer]ODUCT SALES CONSULTANT PHOSPHORUS LEVEL STAT 07/14/2019 8:59 AM SUR[employer]ICAL [employer] SALES CONSULTANT PARTIAL THROMBOPLASTIN STAT 07/14/2019 TIME (PTT) 8:59 AM [employer]ICAL [employer]ODUCT SALES CONSULTANT MAGNESIUM LEVEL STAT 07/14/2019 8:59 AM [employer]ICAL [employer]ODUCT SALES CONSULTANT LDH STAT 07/14/2019 8:59 AM SUR[employer]ICAL [employer]ODUCT SALES CONSULTANT LACTIC ACID LEVEL STAT 07/14/2019 8:59 AM [employer] SALES CONSULTANT HEPATIC FUNCTION PANEL STAT 07/14/2019 8:59 AM [employer] SALES CONSULTANT HC COMPLETE BLD COUNT STAT 07/14/2019 W/AUTO DIFF 8:59 AM [employer] SALES CONSULTANT BASIC METABOLIC PANEL STAT 07/14/2019 8:59 AM [employer] SALES CONSULTANT ARTERIAL BLOOD GAS STAT 07/14/2019 8:59 AM [employer] SALES CONSULTANT POC GLUCOSE Routine 07/14/2019 7:18 AM [employer] SALES CONSULTANT XR CHEST 1 VW PORTABLE Routine 07/14/2019 6:14 AM [employer] SALES CONSULTANT HEMOGLOBIN A1C Routine 07/14/2019 5:00 AM [employer] SAL[employer] CONSULTANT POC GLUCOSE Routine 07/14/2019 4:58 AM [employer] SALES CONSULTANT HC CVL NON-TUNNELED Routine 07/14/2019 Septic eusebia ck (HCC) INSERT 5YRS OR > 2:43 AM SUR[employer]ICAL [employer]ODUCT SALES CONSULTANT ID INSERT NON-TUNNEL CV Routine 07/14/2019 Septic shock (HCC) CATH 2:43 AM SURGICAL PRODUCT SALES CONSULTANT POC GLUCOSE Routine 07/14/2019 1:37 AM SURGICAL PRODUCT SALES CONSULTANT FIBRINOGEN Timed 07/14/2019 1:30 AM SUR[employer]ICAL PRODUCT SALES CONSULTANT IONIZED CALCIUM, ARTERIAL Routine 07/14/2019 1:30 AM SURGICAL PRODUCT SALES CONSULTANT ESTIMATED GFR Routine 07/14/2019 1:30 AM SURGICAL PRODUCT SALES CONSULTANT PARTIAL THROMBOPLASTIN Timed 07/14/2019 TIME (PTT) 1:30 AM SURGICAL PRODUCT SALES CONSULTANT TROPONIN Routine 07/14/2019 1:30 AM SURGICAL PRODUCT SALES CONSULTANT PHOSPHORUS LEVEL Routine 07/14/2019 1:30 AM SURGICAL PRODUCT SALES CONSULTANT MAGNESIUM LEVEL Routine 07/14/2019 1:30 AM SURGICAL PRODUCT SALES CONSULTANT LDH Routine 07/14/2019 1:30 AM SURGICAL PRODUCT SALES CONSULTANT HEPATIC FUNCTION PANEL Routine 07/14/2019 1:30 AM SURGICAL PRODUCT SALES CONSULTANT ARTERIAL BLOOD GAS Routine 07/14/2019 1:30 AM SURGICAL PRODUCT SALES CONSULTANT HC COMPLETE BLD COUNT Routine 07/14/2019 W/AUTO DIFF 1:30 AM SURGICAL PRODUCT SALES CONSULTANT BASIC METABOLIC PANEL Routine 07/14/2019 1:30 AM SURGICAL PRODUCT SALES CONSULTANT RESPIRATORY PATHOGEN Routine 07/13/2019 PANEL 10:20 PM SURGICAL PRODUCT SALES CONSULTANT GRAM STAIN Routine 07/13/2019 10:20 PM SURGICAL PRODUCT SALES CONSULTANT RESPIRATORY CULTURE Routine 07/13/2019 10:20 PM SURGICAL PRODUCT SALES CONSULTANT US CAROTID DUPLEX RIGHT STAT 07/13/2019 10:05 PM SURGICAL PRODUCT SALES CONSULTANT POC GLUCOSE Routine 07/13/2019 8:47 PM SURGICAL PRODUCT SALES CONSULTANT US GALLBLADDER STAT 07/13/2019 8:11 PM SURGICAL PRODUCT SALES CONSULTANT LACTIC ACID LEVEL STAT 07/13/2019 7:37 PM SURGICAL PRODUCT SALES CONSULTANT ESTIMATED GFR STAT 07/13/2019 7:37 PM SURGICAL PRODUCT SALES CONSULTANT ANTI XA, UNFRACTIONATED STAT 07/13/2019 7:37 PM SURGICAL PRODUCT SALES CONSULTANT TROPONIN STAT 07/13/2019 7:37 PM SURGICAL PRODUCT SALES CONSULTANT BASIC METABOLIC PANEL STAT 07/13/2019 7:37 PM SURGICAL PRODUCT SALES CONSULTANT HC COMPLETE BLD COUNT STAT 07/13/2019 W/AUTO DIFF 7:37 PM SURGICAL PRODUCT SALES CONSULTANT ARTERIAL BLOOD GAS STAT 07/13/2019 7:37 PM SURGICAL PRODUCT SALES CONSULTANT T4, FREE STAT 07/13/2019 7:37 PM SURGICAL PRODUCT SALES CONSULTANT THYROID STIMULATING STAT 07/13/2019 HORMONE 7:37 PM SURGICAL [employer]ODUCT SALES CONSULTANT PARTIAL THROMBOPLASTIN Routine 07/13/2019 TIME (PTT) 7:37 [address] [employer] [address] UPPER EXTREMITY W STAT 07/13/2019 CONTRAST RIGHT 6:46 PM SURGICAL PRODUCT SALES CONSULTANT XR CHEST 1 VW PORTABLE STAT 07/13/2019 6:23 PM SURGICAL [employer]ODUCT SAL[employer]ANT CT ANGIOGRAM CHEST STAT 07/13/2019 ABDOMEN PELVIS W AND OR 5:39 PM SURGICAL [employer]ODUCT SALES CONSULTANT WITHOUT CONTRAST POC GLUCOSE Routine 07/13/2019 5:34 PM SURGICAL [employer] CT HEAD WO CONTRAST STAT 07/13/2019 5:09 PM SUR[employer]ICAL [employer]ODUCT SALES CONSULTANT INTUBATION Routine 07/13/2019 Respiratory dis tress 2:51 PM [employer]ICAL [employer]ODUCT SALES CONSULTANT ID INSERT Routine 07/13/2019 Hemodynamically unstable CATH,ART,PERCUT,SHORTTERM 2:47 PM SURGICAL [employer]ODUCT SALES CONSULTANT HEMOGLOBIN, SYRINGE STAT 07/13/2019 2:35 PM SURGICAL [employer]ODUCT SALES CONSULTANT IONIZED CALCIUM, ARTERIAL STAT 07/13/2019 2:35 PM SURGICAL PRODUCT SALES CONSULTANT LACTIC ACID, SYRINGE STAT 07/13/2019 2:35 PM SURGICAL [employer]ODUCT SALES CONSULTANT ARTERIAL BLOOD GAS STAT 07/13/2019 2:35 PM SUR[employer]ICAL [employer]ODUCT SALES CONSULTANT HEMODIALYSIS CATHETER Routine 07/13/2019 ESRD (en d stage renal PLACEMENT 2:29 PM SURGICAL [employer]ODUCT SALES CONSULTANT disease) (HCC) 2007 MWF XR CHEST 1 VW PORTABLE STAT 07/13/2019 1:32 PM SURGICAL [employer]ODUCT SALES CONSULTANT XR ABDOMEN 1 VW PORTABLE STAT 07/13/2019 1:32 PM SURGICAL [employer]ODUCT SALES CONSULTANT POC GLUCOSE Routine 07/13/2019 11:50 AM SURGICAL PRODUCT SALES CONSULTANT MANUAL DIFFERENTIAL Routine 07/13/2019 11:49 AM SURGICAL PRODUCT SALES CONSULTANT ESTIMATED GFR Routine 07/13/2019 11:49 AM SURGICAL PRODUCT SALES CONSULTANT IONIZED CALCIUM, ARTERIAL Routine 07/13/2019 11:49 AM SURGICAL PRODUCT SALES CONSULTANT ANTI XA, UNFRACTIONATED Routine 07/13/2019 11:49 AM SURGICAL PRODUCT SALES CONSULTANT PARTIAL THROMBOPLASTIN Routine 07/13/2019 TIME (PTT) 11:49 AM SURGICAL PRODUCT SALES CONSULTANT CBC WITH PLATELET AND Routine 07/13/2019 DIFFERENTIAL 11:49 AM SURGICAL PRODUCT SALES CONSULTANT PROTHROMBIN TIME WITH INR Routine 07/13/2019 11:49 AM SURGICAL PRODUCT SALES CONSULTANT PHOSPHORUS LEVEL Routine 07/13/2019 11:49 AM SURGICAL PRODUCT SALES CONSULTANT ARTERIAL BLOOD GAS Routine 07/13/2019 11:49 AM SURGICAL PRODUCT SALES CONSULTANT MAGNESIUM LEVEL Routine 07/13/2019 11:49 AM SURGICAL PRODUCT SALES CONSULTANT LACTIC ACID LEVEL Routine 07/13/2019 11:49 AM SURGICAL PRODUCT SALES CONSULTANT BASIC METABOLIC PANEL Routine 07/13/2019 11:49 AM SURGICAL PRODUCT SALES CONSULTANT BLOOD CULTURE, AEROBIC & Routine 07/13/2019 ANAEROBIC 11:49 AM SURGICAL [employer]ODUCT SALES CONSULTANT POC GLUCOSE Routine 07/13/2019 9:49 AM SURGICAL PRODUCT SALES CONSULTANT BLOOD CULTURE, AEROBIC & Routine 07/13/2019 ANAEROBIC 9:31 AM SURGICAL [employer]ODUCT SALES CONSULTANT XR CHEST 1 VW PORTABLE STAT 07/13/2019 8:29 AM SURGICAL PRODUCT SALES CONSULTANT PREPARE RBC STAT 07/13/2019 8:10 AM SURGICAL PRODUCT SALES CONSULTANT PREPARE RBC STAT 07/13/2019 8:10 AM SURGICAL PRODUCT SALES CONSULTANT ESTIMATED GFR STAT 07/13/2019 8:10 AM SURGICAL PRODUCT SALES CONSULTANT PARTIAL THROMBOPLASTIN STAT 07/13/2019 TIME (PTT) 8:10 AM SURGICAL PRODUCT SALES CONSULTANT PROTHROMBIN TIME WITH INR STAT 07/13/2019 8:10 AM SURGICAL PRODUCT SALES CONSULTANT TYPE AND SCREEN STAT 07/13/2019 8:10 AM SURGICAL PRODUCT SALES CONSULTANT D-DIMER STAT 07/13/2019 8:10 AM SURGICAL PRODUCT SALES CONSULTANT TROPONIN STAT 07/13/2019 8:10 AM SURGICAL PRODUCT SALES CONSULTANT PHOSPHORUS LEVEL STAT 07/13/2019 8:10 AM SURGICAL PRODUCT SALES CONSULTANT MAGNESIUM LEVEL STAT 07/13/2019 8:10 AM SURGICAL PRODUCT SALES CONSULTANT COMPREHENSIVE METABOLIC STAT 07/13/2019 PANEL 8:10 AM SURGICAL PRODUCT SALES CONSULTANT HC COMPLETE BLD COUNT STAT 07/13/2019 W/AUTO DIFF 8:10 AM SURGICAL PRODUCT SALES CONSULTANT LACTIC ACID LEVEL STAT 07/13/2019 8:09 AM SURGICAL PRODUCT SALES CONSULTANT ECG 12-LEAD STAT 07/13/2019 7:32 AM SURGICAL PRODUCT SALES CONSULTANT ECG 12-LEAD Routine 07/13/2019 7:32 AM SURGICAL PRODUCT SALES CONSULTANT POC GLUCOSE Routine 07/13/2019 7:32 AM SURGICAL PRODUCT SALES CONSULTANT TROPONIN Routine 07/13/2019 5:15 AM SURGICAL PRODUCT SALES CONSULTANT LACTIC ACID LEVEL, SEPSIS Routine 07/13/2019 - NOW AND REPEAT 2X EVERY 5:15 AM SURGICAL PRODUCT SALES CONSULTANT 3 HOURS ESTIMATED GFR Routine 07/13/2019 5:15 AM SURGICAL PRODUCT SALES CONSULTANT BASIC METABOLIC PANEL Routine 07/13/2019 5:15 AM SURGICAL PRODUCT SALES CONSULTANT PARTIAL THROMBOPLASTIN Routine 07/13/2019 TIME (PTT) 5:15 AM SURGICAL PRODUCT SALES CONSULTANT PROTHROMBIN TIME WITH INR Routine 07/13/2019 5:15 AM SURGICAL PRODUCT SALES CONSULTANT HC COMPLETE BLD COUNT Routine 07/13/2019 W/AUTO DIFF 5:15 AM SURGICAL PRODUCT SALES CONSULTANT US DUPLEX VENOUS UPPER STAT 07/13/2019 EXTREMITY RIGHT 1:55 AM SURGICAL PRODUCT SALES CONSULTANT ESTIMATED GFR STAT 07/12/2019 9:27 PM SURGICAL PRODUCT SALES CONSULTANT LACTIC ACID LEVEL, SEPSIS STAT 07/12/2019 - NOW AND REPEAT 2X EVERY 9:27 PM SURGICAL PRODUCT SALES CONSULTANT 3 HOURS COMPREHENSIVE METABOLIC STAT 07/12/2019 PANEL 9:27 PM SURGICAL PRODUCT SALES CONSULTANT PARTIAL THROMBOPLASTIN STAT 07/12/2019 TIME (PTT) 9:27 PM SURGICAL PRODUCT SALES CONSULTANT PROTHROMBIN TIME WITH INR STAT 07/12/2019 9:27 PM SURGICAL PRODUCT SALES CONSULTANT HC COMPLETE BLD COUNT STAT 07/12/2019 W/AUTO DIFF 9:27 PM SURGICAL PRODUCT SALES CONSULTANT BLOOD CULTURE, AEROBIC & Routine 07/12/2019 ANAEROBIC 9:27 PM SURGICAL PRODUCT SALES CONSULTANT POC GLUCOSE Routine 07/11/2019 11:10 AM SURGICAL PRODUCT SALES CONSULTANT HEPATITIS B SURFACE STAT 07/11/2019 ANTIGEN 9:45 AM SURGICAL PRODUCT SALES CONSULTANT POC GLUCOSE Routine 07/11/2019 6:44 AM SURGICAL PRODUCT SALES CONSULTANT HC COMPLETE BLD COUNT Routine 07/11/2019 W/AUTO DIFF 6:40 AM SURGICAL PRODUCT SALES CONSULTANT ESTIMATED GFR Routine 07/11/2019 6:38 AM SURGICAL PRODUCT SALES CONSULTANT BASIC METABOLIC PANEL Routine 07/11/2019 6:38 AM SURGICAL PRODUCT SALES CONSULTANT POC GLUCOSE Routine 07/10/2019 9:24 PM SURGICAL PRODUCT SALES CONSULTANT HEMODIALYSIS Routine 07/10/2019 9:04 PM SURGICAL PRODUCT SALES CONSULTANT POC GLUCOSE Routine 07/10/2019 6:38 PM SURGICAL PRODUCT SALES CONSULTANT OR FL > 1 HOUR Routine 07/10/2019 ESRD (end stage renal 5:30 PM SURGICAL [employer]ODUCT SALES CONSULTANT disease) on dialysis (HCC) INSERTION, REVISION, 07/10/2019 ESRD (end stage renal EXCISION CATHETER, HERO 3:38 PM SURGICAL PRODUCT SALES CONSULTANT disease) (HCC ) Case Notes EXTENDED RECOVERY NEEDED Special Needs EXTENDED RECOVERY NEEDED POC PANEL 4 Routine 07/10/2019 2:36 PM SURGICAL PRODUCT SALES CONSULTANT XR CHEST 1 VW PORTABLE Routine 07/10/2019 2:14 PM SURGICAL PRODUCT SALES CONSULTANT ECG 12-LEAD Routine 07/10/2019 1:45 PM SURGICAL PRODUCT SALES CONSULTANT POC GLUCOSE Routine 07/10/2019 1:45 PM SURGICAL PRODUCT SALES CONSULTANT ID AN PERIPHERAL BLOCK Routine 07/10/2019 PROCEDURE FOR PAIN 1:28 PM SURGICAL PRODUCT SALES CONSULTANT POTASSIUM LEVEL STAT 07/10/2019 12:56 PM SURGICAL PRODUCT SALES CONSULTANT POC PANEL 4 Routine 07/10/2019 12:49 PM SURGICAL PRODUCT SALES CONSULTANT POC PANEL 4 Routine 07/10/2019 12:23 PM SURGICAL PRODUCT SALES CONSULTANT US DUPLEX HEMODIALYSIS Routine 07/07/2019 End sta ge renal disease AVG AVF ACCESS 3:03 PM SURGICAL PRODUCT SALES CONSULTANT ([facility] after 02/22/2019 Results * POC glucose (09/30/2019 12:34 PM CDT) Only the most recent of 207 results within the time period is included. [facility] POC glucose 105 (H) 65 - 99 mg/dL JEROME Comment: CATHOLIC Plant Operations Worker Name: [facility] Device ID: [id number] Chartable: [facility] Notified RN Specimen Blood Performing Organization Address City/[facility] Code P abeba Number [facility] DEPARTMENT [address] * Estimated GFR (09/30/2019 3:45 AM CDT) Only the most recent of 41 results within the time period is included. [facility] Estimated GFR 8 (A) mL/min/1.73 m2 JEROME Comment: CATHOLIC [facility] Interpretation G1 >=90 Normal or high G2 60-89 Mildly decreased G3a 45-59 Mildly to moderately decreased G3b 30-44 Moderately to severely decreased G4 15-29 Severely decreased G5 <15 Kidney failure The eGFR was calculated using the Chronic Kidney Disease Epidemiology Collaboration (CKD-EPI) equation. Interpretation is based on recommendations of the National Kidney Foundation-Kidney Disease Outcomes Quality Initiative (NKF-KDOQI) published in 2014. Specimen Performing Organization Address City/[facility]/ZIP Code P abeba Number [facility] [place] [address] PATHOLOGY AND GENOMIC MEDICINE [address] * Prothrombin time with INR (09/30/2019 3:45 AM CDT) Only the most recent of 21 results within the time period is included. [facility] Prothrombin 15.8 (H) 11.5 - 14.5 sec [facility] INR 1.2 JEROME Comment: CATHOLIC The International Normalized HOSPITAL Ratio (INR) is a therapeutic monitoring tool for patients who are stable on oral anticoagulant therapy. An INR of 2.0-3.0 is suggested for deep vein thrombosis/pulmonary embolism. Specimen Blood Performing Organization Address City/State/ZIP Code P abeba Number [facility] DEPARTMENT OF [address] [place] [address] PATHOLOGY [facility] MEDICINE [address] * CBC with platelet and differential (09/30/2019 3:45 AM CDT) Only the most recent of 39 results within the time period is included. [facility] WBC 7.02 4.50 - 11.00 k/uL [facility] RBC 3.43 (L) 4.20 - 5.50 m/uL [facility] HGB 9.6 (L) 12.0 - 16.0 g/dL [facility] HCT 32.4 (L) 37.0 - 47.0 % [facility] MCV 94.5 82.0 - 100.0 fL [facility] MCH 28.0 27.0 - 34.0 pg [facility] MCHC 29.6 (L) 31.0 - 37.0 g/dL [facility] RDW - SD 60.4 (H) 37.0 - 55.0 fL [facility] MPV 12.2 8.8 - 13.2 fL [facility] Platelet count 66 (L) 150 - 400 k/uL [facility] Nucleated RBC 0.00 /100 WBC [facility] Neutrophils 62.7 39.0 - 69.0 % [facility] Lymphocytes 18.9 (L) 25.0 - 45.0 % [facility] Monocytes 15.0 (H) 0.0 - 10.0 % [facility] Eosinophils 2.7 0.0 - 5.0 % [facility] Basophils 0.4 0.0 - 1.0 % [facility] Immature 0.3Comment: "Immature 0.0 - 1.0 % JEROME granulocytes granulocytes" (promyelocytes, METHOD IST myelocytes, metamyelocytes) HOSPITAL Specimen Blood Performing Organization Address City/[facility] P abeba Number [facility] [place] [address] PATHOLOGY AND GENOMIC MEDICINE [address] * Basic metabolic panel (09/30/2019 3:45 AM CDT) Only the most recent of 37 results within the time period is included. Sodium 140 135 - 148 mEq/L [facility] Potassium 4.7 3.5 - 5.0 mEq/L [facility] Chloride 98 98 - 112 mEq/L [facility] CO2 29 24 - 31 mEq/L [facility] Anion gap 13@ANIO 7 - 15 mEq/L [facility] BUN 34 (H) 8 - 23 mg/dL [facility] Creatinine 5.99 (H) 0.50 - 0.90 mg/dL [facility] Glucose 56 (L) 65 - 99 mg/dL [facility] Calcium 8.4 (L) 8.8 - 10.2 mg/dL [facility] Specimen Blood Performing Organization Address [facility] P abeba Number [facility] [place] [address] PATHOLOGY AND [facility] MEDICINE [address] * Potassium level (09/28/2019 8:48 PM CDT) Only the most recent of 3 results within the time period is included. Potassium 4.9 3.5 - 5.0 mEq/L [facility] Specimen Blood Performing Organization Address City/[facility] P abeba Number [facility] [place] [address] PATHOLOGY AND GENOMIC MEDICINE [address] * Type and screen (09/28/2019 12:34 PM CDT) Only the most recent of 5 results within the time period is included. ABO grouping A [facility] Rh type POS [facility] Antibody screen NEG JEROME (gel) [facility] Specimen Blood Performing Organization Address City/State/ZIP Code P abeba Number [facility] [place] [address] PATHOLOGY AND GENOMIC MEDICINE [address] * Phosphorus level (09/28/2019 4:00 AM CDT) Only the most recent of 22 results within the time period is included. Phosphorus 2.9 2.4 - 4.5 mg/dL [facility] Specimen Blood Performing Organization Address City/[facility] P abeba Number [facility] [place] [address] PATHOLOGY AND GENOMIC MEDICINE [address] * Magnesium level (09/28/2019 4:00 AM CDT) Only the most recent of 21 results within the time period is included. Magnesium 2.0 1.6 - 2.4 mg/dL [facility] Specimen Blood Performing Organization Address [facility] P abeba Number [facility] [place] [address] PATHOLOGY AND GENOMIC MEDICINE [address] * Hepatitis B surface antigen (09/27/2019 5:30 PM CDT) Only the most recent of 3 results within the time period is included. Hepatitis B Non-reactive Non-reactive JEROME surface [facility] Specimen Blood Performing Organization Address City/[facility] P abeba Number [facility] DEPARTMENT OF [address] [place] [address] PATHOLOGY AND GENOMIC MEDICINE [address] * XR Chest 1 Vw Portable (09/27/2019 12:09 PM CDT) Only the most recent of 16 results within the time period is included. Specimen Narrative Performed At EXAMINATION: XR CHEST 1 VW PORTABLE RADIANT CLINICAL HISTORY: [address] pain COMPARISON: July 24 IMPRESSION: Cardiomediastinal silhouette is unchang ed. Vascular congestion, bibasilar volume l oss, and pleural effusions are unchanged. A ge related changes in the osseous struc tures. Cardiac conduction device is unchanged . Procedure Note Hm Interface, Radiology Results Incoming - 09/27/2019 12:35 PM CDT EXAMINATION: XR CHEST 1 VW PORTABLE CLINICAL HISTORY: 69 years Female chest pain COMPARISON: July 24 IMPRESSION: Cardiomediastinal silhouette is unchanged. Vascular congestion, bibasilar volume loss, and pleural effusions are unchanged. Age related changes in the osseous structures. Cardiac conduction device is unchanged . Performing Organization Address City/State/ZIP Code P abeba Number [facility] [address] [place] [address] * Troponin (09/27/2019 11:42 AM CDT) Only the most recent of 7 results within the time period is included. Troponin 0.163 (H) 0.000 - 0.040 ng/mL JEROME Comment: CATHOLIC In patients suspected of HOSPITAL having a myocardial infarction, along with all other appropriate clinical measures and actions including ECG and other diagnostics as appropriate, measure Ultra TnI at 0 hrs and at 3 hrs. Myocardial infarction VERY LIKELY The 0 hr TnI level is > 0.10 ng/mL Myocardial infarction LIKELY The 0 hr TnI level is > 0.04 ng/mL and 3 hr level is increased or decreased by at least 0.020 ng/mL Myocardial infarction VERY UNLIKELY Both the 0 hr and 3 hr TnI levels <= 0.04 ng/mL(within normal limits) OR 0 hr is > 0.04 ng/mL and 3 hr is increased OR decreased by less than 0.020 ng/mL Specimen Blood Performing Organization Address City/State/ZIP Code P abeba Number [facility] DEPARTMENT OF [address] [place] [address] PATHOLOGY AND GENOMIC MEDICINE JEROME CATHOLIC [address] [place] [address] HOSPITAL * Partial thromboplastin time, activated (09/27/2019 11:42 AM CDT) Only the most recent of 34 results within the time period is included. PTT 36.1 (H) 23.0 - 36.0 sec JEROME Comment: CATHOLIC PTT therapeutic range for HOSPITAL unfractionated heparin is 61.0-112.0 seconds which corresponds to Anti-Xa 0.3-0.7 U/ml. Specimen Blood Performing Organization Address [facility] P abeba Number [facility] DEPARTMENT OF [address] [place] [address] PATHOLOGY AND GENOMIC MEDICINE [address] * Comprehensive metabolic panel (09/27/2019 11:42 AM CDT) Only the most recent of 3 results within the time period is included. Sodium 140 135 - 148 mEq/L [facility] Potassium 5.3 (H) 3.5 - 5.0 mEq/L [facility] Chloride 98 98 - 112 mEq/L [facility] CO2 23 (L) 24 - 31 mEq/L [facility] Anion gap 19@ANIO (H) 7 - 15 mEq/L [facility] BUN 89 (H) 8 - 23 mg/dL [facility] Creatinine 10.46 (H) 0.50 - 0.90 mg/dL [facility] Glucose 99 65 - 99 mg/dL [facility] Calcium 8.6 (L) 8.8 - 10.2 mg/dL [facility] Protein 8.0 6.3 - 8.3 g/dL JEROME Comment: [facility] [place] 4.6-7.0 g/dL 1 week 4.4-7.6 g/dL 7 months-1year 5.1-7.3 g/dL 1-2 years 5.6-7.5 g/dL >3 years 6.0-8.0 g/dL 18-150 6.3-8.3 g/dL Albumin 3.3 (L) 3.5 - 5.0 g/dL [facility] A/G ratio 0.7 0.7 - 3.8 [facility] Alkaline 68 35 - 104 U/L JEROME phosphatase [facility] AST 25 10 - 35 U/L [facility] ALT 30 5 - 50 U/L [facility] Total bilirubin 0.5 0.0 - 1.2 mg/dL [facility] Specimen Blood Performing Organization Address City/State/ZIP Code P abeba Number [facility] DEPARTMENT OF [address] [place] [address] PATHOLOGY AND GENOMIC MEDICINE JEROME CATHOLIC [address] [place] [address] HOSPITAL * ECG 12 lead (09/27/2019 11:16 AM CDT) Only the most recent of 6 results within the time period is included. Ventricular 80 [facility] rate Atrial rate 80 [facility] ID interval 220 [facility] QRSD interval 154 [facility] QT interval 446 [facility] QTC interval 514 [facility] P axis 1 26 [facility] QRS axis 1 -44 [facility] T wave axis 129 [facility] EKG impression AV dual-paced rhythm with [facility] prolonged AV conduction- Specimen Narrative Performed At This result has an attachment that is n ot available. Performing Organization Address [facility] Code P abeba Number [facility] [address] [place] [address] * ECG ED Preliminary Interpretation - Not an Order (09/27/2019 10:59 AM CDT) Narrative Performed At Darryl Lebron MD 09/30/2019 10 :27 AM ECG ED Preliminary Interpretation - Not an Order Performed by: Darryl Lebron MD Authorized by: Darryl Lebron MD ECG reviewed by ED Physician in the abs ence of a flamer after lasting: yes Interpretation: Interpretation: abnormal Rate: ECG rate: 80 ECG rate assessment: normal Rhythm: Rhythm: paced Ectopy: Ectopy: none QRS: QRS axis: Normal QRS intervals: Normal Conduction: Conduction: normal ST segments: ST segments: Normal T waves: T waves: normal * Wound vac placement (09/22/2019 2:43 PM CDT) Narrative Performed At Adan Middleton NP 09/22/2019 2:45 PM Wound vac placement Date/Time: 09/22/2019 2:43 PM Performed by: Adan Middleton NP Authorized by: Adan Middleton NP Pre-procedure details: Indication: Wound care Wound Description: Wound type: Surgical Eschar tissue present in wound: No Debridement attempted in last 10 days : Yes Debridement date: 09/19/2019 Debridement type: Excisional Serial debridements required: No Wound Measurements: Length (cm): 9 Width (cm): 2 Depth (cm): 2 Area (cm3) formula based on LxW: 18 Volume (cm3) based on Area x D: 36 Wound measurement date: 09/22/2019 Appearance of Wound/Wound Description: Wound full thickness: Yes Undermining: No Tunneling/Sinus: No Granulation: 75-100% Granulation color: Red Drainage: Serosanguinous Drainage amount: Scant Type of foam: Black Size of foam: Medium Malodorous?: Yes Wound Vac Settings: Pressure: 125 Status: Continuous Post-procedure: Patient tolerance: Patient tolerated the procedure well with no immediate complications * Manual differential (09/22/2019 8:20 AM CDT) Only the most recent of 10 results within the time period is included. Manual PERFORMED JEROME differential [facility] Neutrophils 57.0 39.0 - 69.0 % [facility] Lymphocytes 40.0 25.0 - 45.0 % [facility] Monocytes 2.0 0.0 - 10.0 % [facility] Eosinophils 1.0 0.0 - 5.0 % [facility] Basophils 0.0 0.0 - 1.0 % [facility] Metamyelocytes 0 % [facility] Promyelocytes 0 % [facility] Platelet slide Decreased (A) JEROME review [facility] Enlarged Moderate (A) JEROME platelets [facility] Specimen Performing Organization Address City/[facility] Code P abeba Number [facility] [place] [address] PATHOLOGY AND GENOMIC MEDICINE [address] * Fungus smear (09/12/2019 8:18 AM CDT) Fungus smear No fungi observed. JEROME Comment: CATHOLIC Specimen Information HOSPITAL Specimen Source: Abscess Specimen Site: Thigh: Right thigh abscess culture Specimen Abscess Performing Organization Address City/[facility]/[place] [address] PATHOLOGY AND GENOMIC MEDICINE [address] * AFB culture (09/12/2019 8:18 AM CDT) AFB culture No growth after 6 weeks of JEROME isolate incubation. CATHOLIC Comment: HOSPITAL Specimen Information Specimen Source: Abscess Specimen Site: Thigh: Right thigh abscess culture Specimen Tissue - Thigh Performing Organization Address City/[facility]/ZIP Code P abeba Number [facility] DEPARTMENT OF [address] [place] [id number] PATHOLOGY AND [employer] / [employer] MEDICINE JEROME CATHOLIC [address] [place], [place] [id number] HOSPITAL * Aerobic culture (09/12/2019 8:18 AM CDT) Aerobic culture Staphylococcus aureus DIA isolate Many CATHOLIC susceptibility to follow HOSPITAL This organism is Methicillin Resistant. (A) Comment: Specimen Information Specimen Source: Abscess Specimen Site: Thigh: Right thigh abscess culture Aerobic culture Enterococcus faecalis ALVARES isolate Many CATHOLIC susceptibility to follow HOSPITAL Enterococcus susceptible to high levels of Gentamicin. Susceptibility results indicate synergy with Penicillins and Vancomycin. This organism is Vancomycin Sensitive. (A) Specimen Tissue - Thigh Antibiotic Method Susceptibility Organism Ampicillin BETZY mcg/mL: Resistant Staphylococcus aureus Cefazolin BETZY mcg/mL: Resistant Staphylococcus aureus Chloramphenicol BETZY mcg/mL: Susceptible Staphylococcus aureus Clindamycin BETZY >4 mcg/mL: Resistant Staphylococcus aureus Doxycycline BETZY <=0.5 mcg/mL: Susceptible Staphylococcus aureus Erythromycin BETZY >4 mcg/mL: Resistant Staphylococcus aureus Linezolid BETZY <=1 mcg/mL: Susceptible Staphylococcus aureus Minocycline BETZY <=1 mcg/mL: Susceptible Staphylococcus aureus Oxacillin BETZY >4 mcg/mL: Resistant Staphylococcus aureus Penicillin G BETZY >1 mcg/mL: Resistant Staphylococcus aureus Rifampin BETZY <=0.25 mcg/mL: Susceptible Staphylococcus aureus Tetracycline BETZY <=0.5 mcg/mL: Susceptible Staphylococcus aureus Tigecycline BETZY <=0.125 mcg/mL: Susceptible Staphylococcus aureus Trimethoprim/Sulfamethoxazole BETZY <=0.5/9.5 mcg/mL: Susceptible Staphylococcus aureus Vancomycin BETZY 1 mcg/mL: Susceptible Staphylococcus aureus Ciprofloxacin BETZY mcg/mL: Resistant Staphylococcus aureus Ampicillin BETZY 1 mcg/mL: Susceptible Enterococcus faecalis Erythromycin BETZY >4 mcg/mL: Resistant Enterococcus faecalis Gentamicin-Syn BETZY <=500 mcg/mL: Susceptible Enterococcus faecalis Linezolid BETZY <=1 mcg/mL: Susceptible Enterococcus faecalis Minocycline BETZY >8 mcg/mL: Resistant Enterococcus faecalis Vancomycin BETZY 1 mcg/mL: Susceptible Enterococcus faecalis Tigecycline BETZY <=0.125 mcg/mL: Susceptible Enterococcus faecalis Performing Organization Address City/State/ZIP Code P abeba Number [facility] DEPARTMENT OF [address] [place] [id number] PATHOLOGY AND GENOMIC MEDICINE JEROME CATHOLIC [address] [place] [address] * Gram stain (09/12/2019 8:18 AM CDT) Only the most recent of 2 results within the time period is included. Gram stain Rare WBC's ALVARES isolate Occasional Gram positive cocci METHOD IST in [facility] HOSPITAL Comment: Specimen Information Specimen Source: Abscess Specimen Site: Thigh: Right thigh abscess culture Specimen Abscess Performing Organization Address [facility]/ZIP [facility] P abeba Number [facility] [place] [address] PATHOLOGY AND GENOMIC MEDICINE JEROME CATHOLIC [address] [place] [address] * AFB stain (09/12/2019 8:18 AM CDT) AFB stain No acid fast bacilli (AFB) JEROME seen. CATHOLIC Comment: HOSPITAL Specimen Information Specimen Source: Abscess Specimen Site: Thigh: Right thigh abscess culture Specimen Tissue - Thigh Performing Organization Address [facility] P abeba Number [facility] [place] [address] PATHOLOGY AND GENOMIC MEDICINE JEROME CATHOLIC [address] [place] [address] HOSPITAL * Fungus culture (09/12/2019 8:18 AM CDT) Fungus culture No growth after 4 weeks of JEROME isolate incubation. CATHOLIC Comment: HOSPITAL Specimen Information Specimen Source: Abscess Specimen Site: Thigh: Right thigh abscess culture Specimen Tissue - Thigh Performing Organization Address [facility] P abeba Number [facility] [place] [address] PATHOLOGY AND GENOMIC MEDICINE JEROME CATHOLIC [address] [place] [address] HOSPITAL * Anaerobic culture (09/12/2019 8:18 AM CDT) Anaerobic No anaerobic organisms JEROME culture isolate isolated. CATHOLIC Comment: HOSPITAL Specimen Information Specimen Source: Abscess Specimen Site: Thigh: Right thigh abscess culture Specimen Tissue - Thigh Performing Organization Address City/[facility]/ZIP [facility] [place] [address] PATHOLOGY AND GENOMIC MEDICINE [place] [address] HOSPITAL * Airway (09/12/2019 7:52 AM CDT) Narrative Performed At Onesimo Carreno MD 09/12/2019 7:52 AM Airway Date/Time: 09/12/2019 7:52 AM Performed by: Onesimo Carreno MD Authorized by: Prosper Banuelos MD Location: OR Urgency: Elective Difficult Airway: No Resident/NET UI DEVELOPER/AA: Onesimo Carreno MD Performed by: resident/NET UI DEVELOPER/AA Preoxygenated with 100% O2: Yes C-spine Precautions Maintained Througho ut: No Mask Ventilation: Not attempted Final Airway Type: Endotracheal airwa y Final Endotracheal Airway: ETT Cuffed: Yes Technique Used: Video laryngoscopy Insertion Site: Oral Laryngoscope Blade/Videolaryngoscope Bl sandy Size: 4 ETT Size (mm): 7.0 Measured from: Teeth ETT to Teeth (cm): 20 Placement Verified by: CO2 detection Laryngoscopic view: Grade I - full vi ew of glottis Rapid Sequence Induction (RSI): No Modified RSI: No Number of Attempts at Approach: 1 * Hemoglobin A1c (09/12/2019 1:04 AM CDT) Only the most recent of 2 results within the time period is included. Hemoglobin A1C 6.8 (H) 4.0 - 5.6 % JEROME Comment: CATHOLIC HbA1c cutoffs for diagnosing HOSPITAL diabetes: 4.0% - 5.6% = normal 5.7% - 6.4% = increased risk for diabetes (prediabetes)9 >=6.5% = diabetes9 Goals for glycemic control (ADA 2016) < 7.0% Target for non adults with diabetes. More or less stringent targets may be appropriate for individual patients. <7.5% Target for Children and adolescents with type 1 diabetes. A hemoglobin variant peak was detected in the A1c HPLC study. This peak did not seem to interfere with the A1c percentage calculation. However, if clinically indicated, hemoglobin electrophoresis should be ordered to further evaluate this finding. This variant may impact the red blood cell turnover rate. The clinical utility of Hemoglobin A1c measurement for monitoring long-term glucose control in the setting of hemoglobin variants has not been well characterized. REVIEWED BY DADA MEJIA [facility] Blood Performing Organization Address City/State/ZIP Code P abeba Number [facility] DEPARTMENT OF [address] [place] [address] PATHOLOGY AND GENOMIC MEDICINE JEROME CATHOLIC [address] [place] [address] HOSPITAL * Blood culture, aerobic & anaerobic (09/11/2019 8:17 PM CDT) Only the most recent of 5 results within the time period is included. Blood culture No growth after 5 days of JEROME isolate incubation. CATHOLIC Comment: HOSPITAL Specimen Information Specimen Source: Blood Specimen Site: Antecubital Left Specimen Blood Performing Organization Address City/[facility]/ZIP Code P abeba Number [facility] [place] [address] PATHOLOGY AND GENOMIC MEDICINE [address] * Creatinine level (09/11/2019 8:17 PM CDT) Creatinine 7.17 (H) 0.50 - 0.90 mg/dL [facility] Specimen Blood Performing Organization Address City/[facility] [place] [address] PATHOLOGY AND GENOMIC MEDICINE [address] * CT Lower Extremity Wo Contrast Right (09/11/2019 7:10 PM CDT) Specimen Narrative Performed At EXAMINATION: CT LOWER EXTREMITY WO CONTRAST RIGHT [facility] CLINICAL HISTORY: Right thigh abscess TECHNIQUE: Multi-detector computed axia l tomography of the thigh was performed without IV iodinated contrast. Sagittal and coronal computerized reformatted images of the body were created at a rkstation and archived for review. DOSE REDUCTION: CT imaging was performe d with iterative reconstruction technique and/or automated exposure control to re duce radiation dose. COMPARISON: None IMPRESSION: 1.Large subcutaneous abscess in the pro ximal aspect of the anteromedial right thigh. FINDINGS: 9.2 x 0.7 x 4.9 cm complex fl uid collection located within the subcutaneous fat of the proximal jesus medial right thigh. The presence of associated inflammatory changes within the subcutaneous fat and skin favor abscess. Reactive right iliac and inguinal chain lymphadenopathy. Diffuse and severe arterial calcificati ons. Deep soft tissues are unremarkable. Severe degenerative disc disease and sp ondylosis at the lumbosacral junction. Moderate arthrosis of the right hip and knee. Remainder of the exam is unremarkable. [facility] Procedure Note Hm Interface, Radiology Results Incoming - 09/11/2019 7:21 PM CDT EXAMINATION: CT LOWER EXTREMITY WO CONTRAST RIGHT CLINICAL HISTORY: Right thigh abscess TECHNIQUE: Multi-detector computed axial tomography of the thigh was performed without IV iodinated contrast. Sagittal and coronal computerized reformatted images of the body were created at a workstation and archived for review. DOSE REDUCTION: CT imaging was performed with iterative reconstruction technique and/or automated exposure control to reduce radiation dose. COMPARISON: None IMPRESSION: 1.Large subcutaneous abscess in the prox imal aspect of the anteromedial right thigh. FINDINGS: 9.2 x 0.7 x 4.9 cm complex fluid collection located within the subcutaneous fat of the proximal anteromedial right thigh. The presence of associated inflammatory changes within the subcutaneous fat and skin favor abscess. Reactive right iliac and inguinal chain lymphadenopathy. Diffuse and severe arterial calcifications. Deep soft tissues are unremarkable. Severe degenerative disc disease and spondylosis at the lumbosacral junction. Moderate arthrosis of the right hip and knee. Remainder of the exam is unremarkable. [facility] Performing Organization Address City/State/ZIP Code P abeba Number [facility] [address] [place] [address] * Six minute walk w/ pulse oximetry (07/29/2019 2:27 PM CDT) Heart Rate at 86.00 1/min [facility] Rest SPO2 at Rest 100.00 % [facility] BP Systolic at 92.00 mmHg [facility] Rest BP Diastolic at 53.00 mmHg [facility] Rest Supplemental O2 0.00 L/min [facility] at Rest Heart Rate 107.00 1/min [facility] after 1 minute SPO2 after 1 99.00 % [facility] minute Supplemental O2 0.00 L/min [facility] after 1 minute Heart Rate 113.00 1/min [facility] after 2 minutes SPO2 after 2 99.00 % [facility] minutes Supplemental O2 0.00 L/min [facility] after 2 minutes Heart Rate 118.00 1/min [facility] after 3 minutes SPO2 after 3 95.00 % [facility] minutes Supplemental O2 0.00 L/min [facility] after 3 minutes Heart Rate 101.00 1/min [facility] after 4 minutes SPO2 after 4 87.00 % [facility] minutes Supplemental O2 2.00 L/min [facility] after 4 minutes Heart Rate 108.00 1/min [facility] after 5 minutes SPO2 after 5 99.00 % [facility] minutes Supplemental O2 2.00 L/min [facility] after 5 minutes Six Minute Walk 20.00 192.73 - 470.73 m [facility] ON Distance in m Heart Rate 105.00 1/min [facility] after 6 minutes Highest Heart 118.00 1/min [facility] Rate SPO2 after 6 98.00 % [facility] minutes Lowest SpO2 87.00 % [facility] BP Systolic 116.00 mmHg [facility] after 6 minutes BP Diastolic 55.00 mmHg [facility] after 6 minutes Supplemental O2 2.00 L/min [facility] after 6 minutes Lap Count 0.00 [facility] Six Minute Walk 332 [facility] Distance Predicted Specimen Narrative Performed At This result has an attachment that is n ot available. Performing Organization Address City/[facility]/ZIP [place] [address] * Smear review (07/29/2019 10:00 AM CDT) Only the most recent of 8 results within the time period is included. Platelet slide Wily slt decr JEROME review [facility] Anisocytosis Moderate [facility] Polychromasia Moderate [facility] Ovalocytes Moderate [facility] Enlarged Moderate (A) JEROME platelets [facility] Giant platelets Occasional [facility] Specimen Performing Organization Address [facility] P abeba Number [facility] DEPARTMENT OF [address] [place] [address] PATHOLOGY AND GENOMIC MEDICINE [address] * Respiratory pathogen panel (07/25/2019 10:18 PM SURGICAL PRODUCT SALES CONSULTANT) Only the most recent of 2 results within the time period is included. Respiratory Negative for all pathogens JEROME pathogen panel tested: CATHOLIC Negative for Adenovirus [facility] Negative for Coronavirus HKU1 Negative for Coronavirus NL63 Negative for Coronavirus 229E Negative for Coronavirus OC43 Negative for Human Metapneumovirus Negative for Rhinovirus/Enterovirus Negative for Influenza A Negative for Influenza A/H1 Negative for Influenza A/H3 Negative for Influenza A/H1-2009 Negative for Influenza B Negative for Parainfluenza Virus 1 Negative for Parainfluenza Virus 2 Negative for Parainfluenza Virus 3 Negative for Parainfluenza Virus 4 Negative for Respiratory Syncytial Virus Negative for Bordetella pertussis Negative for Chlamydophila pneumoniae Negative for Mycoplasma pneumoniae This real-time PCR assay detects the presence of nucleic acids (RNA or DNA) for the respiratory pathogens listed. A result of "Not-detected" does not exclude the possibility of the presence of one or more pathogens at concentrations less than the detectable limits of the assay. Comment: Specimen Information Specimen Source: Nares Specimen Site: Not specified Specimen Nares - Not specified Performing Organization Address [facility]/[place] [address] * Lactic acid level (07/25/2019 10:18 PM SURGICAL PRODUCT SALES CONSULTANT) Only the most recent of 9 results within the time period is included. Lactic acid 2.8 (H) 0.5 - 2.2 mmol/L [facility] Specimen Blood Performing Organization Address City/[facility]/ZIP Code P abeba Number [address] * Ionized calcium, arterial (07/21/2019 4:15 AM SURGICAL PRODUCT SALES CONSULTANT) Only the most recent of 8 results within the time period is included. Ionized 1.10 (L) 1.11 - 1.32 mmol/L [facility] Specimen Blood Narrative Performed At ____ABG results called to and read back by MAINE JONES ON/[facility](name/location) [facility] DEPARTMENT OF at 07/21/2019 04:31 (date/time) by YOUSIF_. PATHOLOGY AND [facility] MEDICINE Performing Organization Address City/[facility]/ZIP [facility] [place] [address] PATHOLOGY AND [facility] MEDICINE [address] * Arterial blood gas (07/21/2019 4:15 AM SURGICAL PRODUCT SALES CONSULTANT) Only the most recent of 12 results within the time period is included. pH, arterial 7.31 (L)Comment: Results 7.35 - 7.45 [place] double checked. [facility] pCO2, arterial 49 (H) 35 - 45 mmHg [facility] pO2, arterial 42 (LL) 80 - 90 mmHg [facility] Bicarbonate, 24.0 21.0 - 28.0 mmol/L [facility] Base excess, -2 -2 - 2 mEq/L [facility] O2 saturation, 75 (L) 95 - 100 % JEROME arterial [facility] Specimen Blood Performing Organization Address City/State/ZIP Code P abeba Number [facility] [place] [address] PATHOLOGY AND GENOMIC MEDICINE [address] * Venous blood gas (07/20/2019 4:10 AM SURGICAL PRODUCT SALES CONSULTANT) Only the most recent of 6 results within the time period is included. pH, venous 7.31 (L) 7.32 - 7.42 [facility] pCO2, venous 50 45 - 51 mmHg [facility] pO2, venous 42 (H) 25 - 40 mmHg [facility] Base excess, -1 -2 - 2 meq/L JEROME venous [facility] O2 saturation, 76 (H) 40 - 70 % [facility] Bicarbonate, 24.5 21.0 - 28.0 mmol/L [facility] Specimen Blood Performing Organization Address City/[facility] [place] [address] PATHOLOGY AND GENOMIC MEDICINE [address] * CTA ABD/PEL for BLEEDING (07/19/2019 8:15 PM SURGICAL PRODUCT SALES CONSULTANT) Specimen Narrative Performed At EXAMINATION: CTA ABD PEL FOR BLEEDING [facility] CLINICAL HISTORY: right gorin hematom a COMPARISON: CTA abdomen and pelvis Fe brumomence 2019 TECHNIQUE: Precontrast scans obtained t hrough the abdomen and pelvis Post intravenous scans were obtained fo llowing bolus intravenous contrast administration from the abdomen through the pelvis. Delayed abdomen and pelvis scans obtained. 2-D and 3-D reconstruct ions obtained. [address] imaging was performed with iterative reconstruction technique and/or automated exposure control to reduce ra diation dose. FINDINGS: Abdomen: Small right pleural effusion which is n ew as compared to previous Mild patchy bibasilar atelectasis. Mode rate cardiomegaly. Diffuse coronary artery calcifications. No free intraperitoneal air or fluid. Vicarious excretion of contrast in the gallbladder. Mild fatty infiltration of the liver. N o focal hepatic abnormality. Spleen unremarkable. Adrenal glands normal size. Pancreas unremarkable in appearance. Atrophic appearing kidneys demonstratin g symmetrical bilateral function. No renal mass or hydronephrosis. No obstru cting tract calculus. Bilateral small renal cortical cyst spine in appearance . Abdominal aorta normal caliber. Scatter ed atherosclerosis. No abdominal adenopathy. No bowel obstruction in the abdomen. Sc attered diverticulosis. No diverticulitis. Pelvis: Moderate soft tissue hematoma medial ri ght inguinal region which is new compared to previous. Hematoma measures up to ap proximately 8.1 cm x 4.8 cm and extends over approximately 15 cm in superior in ferior extent. Focal 2.7 cm x 1.8 cm hyperdensity just inferior to the superficial femoral vei n bifurcation. No active extravasation seen on CTA sequences. Findings are mos t in keeping with a hematoma. Scattered diverticulosis. No bowel obst ruction. Fat-containing umbilical hernia similar to previous. Normal appendix. Uterus grossly unremarkable. Ovaries ar e grossly unremarkable and similar in appearance to previous. No pelvic mass or sidewall adenopathy. No free fluid in the pelvis. Bladder grossly unremarkable. CTA: Right-sided medial inguinal and up per thigh hematoma is confirmed. There is no arterial extravasation associated wi th a hematoma. Considerable cardiomegaly. Pacer device in place. Abdominal aorta normal caliber. Mild sc attered atherosclerosis. Celiac axis and superior mesenteric artery origins inta ct. Renal artery origins intact. Atherosclerotic change at the inferior mesenteric artery origin without significant occlusive change Aortic bifurcation well-maintained. Mil d diffuse atherosclerotic changes in the common iliac arteries bilaterally. Lopez c bifurcation well-maintained. External iliac arteries intact in appearance bryan aterally. Common femoral arteries well-maintained. Mild scattered atherosclerotic changes at th e superficial femoral profunda bifurcation levels. Inferior epigastric arteries are well-m aintained bilaterally. Left-sided femoral venous catheter exte nds to left mid external iliac vein. Moderate degenerative changes throughou t the visualized thoracic and lumbar spine IMPRESSION: Moderate right inguinal and medial thig h hematoma. No arterial extravasation. Hematoma is medial to the venous struct ures. Small right pleural effusion Cardiomegaly as before. Diffuse atherosclerosis Fatty infiltration liver. Atrophic appearing kidneys as on previo us with bilateral benign-appearing renal cortical cysts Scattered diverticulosis without divert iculitis or bowel obstruction Normal appendix [facility]-[id number] Procedure Note Hm Interface, Radiology Results Incoming - 07/19/2019 8:45 PM SURGICAL PRODUCT SALES CONSULTANT EXAMINATION: CTA ABD PEL FOR BLEEDING CLINICAL HISTORY: right gorin hematoma COMPARISON: CTA abdomen and pelvis July 13, 2019 TECHNIQUE: Precontrast scans obtained through the abdomen and pelvis Post intravenous scans were obtained following bolus intravenous contrast administration from the abdomen through the pelvis. Delayed abdomen and pelvis scans obtained. 2-D and 3-D reconstructions obtained. [address] imaging was performed with iterative reconstruction technique and/or automated exposure control to reduce radiation dose. FINDINGS: Abdomen: Small right pleural effusion which is new as compared to previous Mild patchy bibasilar atelectasis. Moderate cardiomegaly. Diffuse coronary artery calcifications. No free intraperitoneal air or fluid. Vicarious excretion of contrast in the gallbladder. Mild fatty infiltration of the liver. No focal hepatic abnormality. Spleen unremarkable. Adrenal glands normal size. Pancreas unremarkable in appearance. Atrophic appearing kidneys demonstrating symmetrical bilateral function. No renal mass or hydronephrosis. No obstructing tract calculus. Bilateral small renal cortical cyst spine in appearance. Abdominal aorta normal caliber. Scattered atherosclerosis. No abdominal adenopathy. No bowel obstruction in the abdomen. Scattered diverticulosis. No diverticulitis. Pelvis: Moderate soft tissue hematoma medial right inguinal region which is new compared to previous. Hematoma measures up to approximately 8.1 cm x 4.8 cm and extends over approximately 15 cm in superior inferior extent. Focal 2.7 cm x 1.8 cm hyperdensity just inferior to the superficial femoral vein bifurcation. No active extravasation seen on CTA sequences. Findings are most in keeping with a hematoma. Scattered diverticulosis. No bowel obstruction. Fat-containing umbilical hernia similar to previous. Normal appendix. Uterus grossly unremarkable. Ovaries are grossly unremarkable and similar in appearance to previous. No pelvic mass or sidewall adenopathy. No free fluid in the pelvis. Bladder grossly unremarkable. CTA: Right-sided medial inguinal and upper thigh hematoma is confirmed. There is no arterial extravasation associated with a hematoma. Considerable cardiomegaly. Pacer device in place. Abdominal aorta normal caliber. Mild scattered atherosclerosis. Celiac axis and superior mesenteric artery origins intact. Renal artery origins intact. Atherosclerotic change at the inferior mesenteric artery origin without significant occlusive change Aortic bifurcation well-maintained. Mild diffuse atherosclerotic changes in the common iliac arteries bilaterally. Iliac bifurcation well-maintained. External iliac arteries intact in appearance bilaterally. Common femoral arteries well- maintained. Mild scattered atherosclerotic changes at the superficial femoral profunda bifurcation levels. Inferior epigastric arteries are well-maintained bilaterally. Left-sided femoral venous catheter extends to left mid external iliac vein. Moderate degenerative changes throughout the visualized thoracic and lumbar spine IMPRESSION: Moderate right inguinal and medial thigh hematoma. No arterial extravasation. Hematoma is medial to the venous structures. Small right pleural effusion Cardiomegaly as before. Diffuse atherosclerosis Fatty infiltration liver. Atrophic appearing kidneys as on previous with bilateral benign-appearing renal cortical cysts Scattered diverticulosis without diverticulitis or bowel obstruction Normal appendix [facility]-[id number] Performing Organization Address City/[facility]/ZIP Code P abeba Number [facility] [address] [place] [address] * Ionized calcium (07/19/2019 1:03 PM SURGICAL PRODUCT SALES CONSULTANT) Only the most recent of 6 results within the time period is included. pH 7.45 [facility] Ionized calcium 1.16 1.11 - 1.32 mmol/L [facility] Specimen Plasma specimen Performing Organization Address City/[facility] P abeba Number [facility] DEPARTMENT OF [address] [place] [address] PATHOLOGY AND GENOMIC MEDICINE [address] * Us duplex arterial lower extremity (07/19/2019 12:00 PM SURGICAL PRODUCT SALES CONSULTANT) Only the most recent of 2 results within the time period is included. Specimen Narrative Performed At [facility] U ltrasound Laboratory Lower Extremity Arterial Duplex Report [address] [place] [address] Pat.Name: MARY DE LA GARZA Pat.ID: [id number] .Date: 07/19/2019 Refer.MD: ERLINDA GO MD Exam Time: 11:35:00 AM Study Type:LE Arterial Height: 63in Age: 12 1950,69Y Sex: FEMALE Sonogrphr: Harris Ruffin RDMS, AURELIOT Pat. Stat.:Inpatient Room: [place] [address] Tape Vol: ST, CPT - 4: 52096 Echo Event ID:[id number] Order ID: [id number] Reason for Study:Palpable lump noted in the right groin following catheterization of the femoral artery. History of ESRD, afib, neuropathy, hyperlipidemia, type 2 diab etes, hypotension. Procedures: Colorflow, Grayscale/2D, Pu lsed wave Doppler Race: B SUMMARY: DUPLEX SCAN OBSERVATIONS: RIGHT: The common femoral artery and vein is visualized . Hypoechoic, well-defined areas noted in the medial right groin; Doppler signals are absent. Measurement of the first lesion closer (anteromedial) to the common femoral ar ynes measures 1.39 x 0.78 x 1.28 cm (Trans x AP x Long); the second lesion, located more medially measures: 3.89 x 2.73 x 1.47 cm (Long x Trans x AP). The visualized veins are compressible without echogeni c material noted within the lumen; colorflow and Doppler signals ar e normal. PRELIMINARY FINDINGS: 1. Two hematomas noted in the right joni in, anteromedial to the right common femoral vessels. 1A. First lesion closer (anteromedial) to the common femoral artery measures 1.39 x 0.78 x 1.28 cm (Trans x AP x Long); 1B. The second lesion, located more med ially measures: 3.89 x 2.73 x 1.47 cm (Long x Trans x AP). 2. No evidence of a pseudoaneurysm (P SA) or PSA neck noted. 3. Visualized veins demonstrate lakisha l findings; no evidence of a traumatic fistula present. Findings given to Dr. Jaz Molina ring Duplex on 07/19/19. PHYSICIAN INTERPRETATION: 1. Two hematomas noted in the right joni in, anteromedial to the right common femoral vessels. 1A. First lesion closer (anteromedial) to the common femoral artery measures 1.39 x 0.78 x 1.28 cm (Trans x AP x Long); 1B. The second lesion, located more med ially measures: 3.89 x 2.73 x 1.47 cm (Long x Trans x AP). 2. No evidence of a pseudoaneurysm (P SA) or PSA neck noted. 3. Visualized veins demonstrate lakisha l findings; no evidence of a traumatic fistula present. FINDINGS: Signed 07/19/2019 03:25 PM Sunny Knight MD, RPVI Procedure Note Interface, Radiology Results In - 07/19/2019 3:[address] [facility] Vascular Ultrasound Laboratory Lower Extremity Arterial Duplex Report [id number] [address] Pat.Name: MARY DE LA GARZA Pat.ID: [id number] .Date: 07/19/2019 Refer.MD: ERLINDA GO MD Exam Time: 11:35:00 AM Study Type:LE Arterial Height: 63in Age: 14 1950,69Y Sex: FEMALE Sonogrphr: Harris Ruffin RDMS, RVT Pat. Stat.:Inpatient Room: [address] Vol: , [facility] - 4: [address] Echo Event ID:[id number] Order ID: [id number] Reason for Study:Palpable lump noted in the right groin following catheterization of the femoral artery. History of ESRD, afib, neuropathy, hyperlipidemia, type 2 diabetes, hypotension. Procedures: Colorflow, Grayscale/2D, Pulsed wave Doppler Race: B SUMMARY: DUPLEX SCAN OBSERVATIONS: RIGHT: The common femoral artery and vein is visualized . Hypoechoic, well-defined areas noted in the medial right groin; Doppler signals are absent. Measurement of the first lesion closer (anteromedial) to the common femoral art priscila measures 1.39 x 0.78 x 1.28 cm (Trans x AP x Long); the second lesion, located more medially measures: 3.89 x 2.73 x 1.47 cm (Long x Trans x AP). The visualized veins are compressible without echogenic material noted within the lumen; colorflow and Doppler signals are normal. PRELIMINARY FINDINGS: 1. Two hematomas noted in the right groi n, anteromedial to the right common femoral vessels. 1A. First lesion closer (anteromedial) t o the common femoral artery measures 1.39 x 0.78 x 1.28 cm (Trans x AP x Long); 1B. The second lesion, located more medi ally measures: 3.89 x 2.73 x 1.47 cm (Long x Trans x AP). 2. No evidence of a pseudoaneurysm (PSA ) or PSA neck noted. 3. Visualized veins demonstrate normal findings; no evidence of a traumatic fistula present. Findings given to Dr. Jaz Wang during Duplex on 07/19/19. PHYSICIAN INTERPRETATION: 1. Two hematomas noted in the right groi n, anteromedial to the right common femoral vessels. 1A. First lesion closer (anteromedial) t o the common femoral artery measures 1.39 x 0.78 x 1.28 cm (Trans x AP x Long); 1B. The second lesion, located more medi ally measures: 3.89 x 2.73 x 1.47 cm (Long x Trans x AP). 2. No evidence of a pseudoaneurysm (PSA ) or PSA neck noted. 3. Visualized veins demonstrate normal findings; no evidence of a traumatic fistula present. FINDINGS: Signed 07/19/2019 03:25 PM Sunny Knight MD, RPVI Performing Organization Address [facility] Code P abeba Number [facility] [address] [place] [address] * Creatine kinase, total (CPK) (07/19/2019 12:20 AM SURGICAL PRODUCT SALES CONSULTANT) Creatine kinase 106 26 - 192 U/L [facility] Specimen Plasma specimen Performing Organization Address [facility] P abeba Number [facility] DEPARTMENT OF [address] [place] [address] PATHOLOGY AND GENOMIC MEDICINE [address] * Ionized calcium, venous (07/18/2019 1:30 AM SURGICAL PRODUCT SALES CONSULTANT) Pathologist Hector Ionized 1.11 1.11 - 1.32 mmol/L [facility] calcium, venous [facility] Specimen Performing Organization Address [facility] P abeba Number [facility] DEPARTMENT OF [address] [place] [address] PATHOLOGY AND GENOMIC MEDICINE [address] * XR Abdomen 1 Vw Portable (07/17/2019 10:12 AM SURGICAL PRODUCT SALES CONSULTANT) Only the most recent of 2 results within the time period is included. Specimen Narrative Performed At EXAMINATION: XR ABDOMEN 1 VW PORTABLE [facility] CLINICAL HISTORY: NGT placement COMPARISON: 07/13/2019 IMPRESSION: Nasogastric tube has advanced and now h as its tip in gastric antrum. Bowel gas pattern is nonobstructive. There is no gross intra-abdominal free air. [facility]-[id number] Procedure Note Hm Interface, Radiology Results Incoming - 07/17/2019 10:32 AM SURGICAL PRODUCT SALES CONSULTANT EXAMINATION: XR ABDOMEN 1 VW PORTABLE CLINICAL HISTORY: NGT placement COMPARISON: 07/13/2019 IMPRESSION: Nasogastric tube has advanced and now has its tip in gastric antrum. Bowel gas pattern is nonobstructive. There is no gross intra-abdominal free air. [facility]-[id number] Performing Organization Address [facility] [place] [address] * Prepare RBC, 1 Units (07/17/2019 12:15 AM SURGICAL PRODUCT SALES CONSULTANT) Only the most recent of 3 results within the time period is included. Pathologist [facility] Product name Red Blood Cells -1, Leukored [facility] Unit number [id number] [facility] Product code [id number] [facility] Dispense status Transfused [facility] Blood [id number] JEROME expiration date [facility] Blood type code 6200 [facility] Blood type A POSITIVE [facility] Compatibility Compatible [facility] Specimen Blood Performing Organization Address [facility] P aebba Number [facility] DEPARTMENT [address] [address] PATHOLOGY AND GENOMIC MEDICINE [address] * Hepatic function panel (07/16/2019 1:16 AM SURGICAL PRODUCT SALES CONSULTANT) Only the most recent of 3 results within the time period is included. Pathologist [facility] Albumin 2.8 (L) 3.5 - 5.0 g/dL [facility] Total bilirubin 0.7 0.0 - 1.2 mg/dL [facility] Bilirubin 0.3 0.0 - 0.3 mg/dL [facility] direct [facility] Alkaline 39 35 - 104 U/L [facility] phosphatase [facility] Protein 6.1 (L) 6.3 - 8.3 g/dL [facility] Comment: CATHOLIC Wmtirku1651.6-7.0 g/dL [facility] 1 jjui9788.4-7.6 g/dL 7 months-1xtpk785.1-7.3 g/dL 1-2 dyvuu799.6-7.5 g/dL >3 kyqgm156.0-8.0 g/dL 18-6886777.3-8.3 g/dL ALT 14 5 - 50 U/L [facility] AST 50 (H) 10 - 35 U/L [facility] Specimen Plasma specimen Performing Organization Address City/State/ZIP Code P abeba Number [facility] DEPARTMENT OF [address] [place] [address] PATHOLOGY AND GENOMIC MEDICINE [address] * HEMODIALYSIS CATHETER PLACEMENT (07/15/2019 11:20 PM SURGICAL PRODUCT SALES CONSULTANT) Narrative Performed At Thalia Benitez 07/15/2019 11 :25 PM Hemodialysis catheter placement Date/Time: 07/15/2019 11:20 PM Performed by: Thalia Benitez Authorized by: Thalia Benitez Consent: Consent obtained: Emergent situatio n and written Consent given by: Patient and healt hcare agent Risks discussed: Arterial puncture, incorrect placement, pneumothorax, nerve damage, infection and bleeding Alternatives discussed: Delayed joe atment and no treatment Theodore protocol: Procedure explained and questions ans wered to patient or proxy's satisfaction: yes Relevant documents present and verifi ed: yes Test results available and properly l abeled: yes Imaging studies available: yes Required blood products, implants, de vices, and special equipment available: yes Site/side marked: yes Immediately prior to procedure, a ryan funez out was called: yes Patient identity confirmed: [facility] hospital-assigned identification number Pre-procedure details: Indication: Vascular access for HD Hand hygiene: Hand hygiene performed prior to insertion Sterile barrier technique: All elemen ts of maximal sterile technique followed Skin preparation: 2% chlorhexidine Skin preparation agent: Skin preparat ion agent completely dried prior to procedure Procedure details: Procedure supplies: Temporary dialy sis catheter Catheter size: 20 cm Catheter Site Laterality: Left Post-procedure details: Post-procedure: Dressing applied an d line sutured Patient tolerance of procedure: Antionette erated well, no immediate complications Comments: Previous temporary dialysis catheter malfunction. Hemodialysis catheter replaced using J- wire technique. * Us duplex hemodialysis avg avf access (07/15/2019 9:21 PM SURGICAL PRODUCT SALES CONSULTANT) Only the most recent of 3 results within the time period is included. Specimen Narrative Performed At [facility] ltrasound Laboratory AV [place] t - Fistula Report [address] [place] [address] Pat.Name: MARY DE LA GARZA Pat.ID: [id number] .Date: 07/15/2019 Refer.MD: ERLINDA GO MD Exam Time: 7:43:00 PM Study Type:AV Graft - Fistula Height: 63in Weight: 260lb BSA: 2.16 m2 Age: 14 1950,69Y Sex: FEMALE Sonogrphr: Roblero Vi, RVT Pat. Stat.:Inpatient Room: [address] Vol: , CPT - 4: 79844 Echo Event ID:[id number] Order ID: [id number] Reason for Study:Concern for thrombosis of right upper arm AVF. S/P revision of right arm AV Fistula with a rtegraft insertion on 07/10/2019. Procedures: B-flow imaging, Colorflow, Grayscale/2D, Pulsed wave Doppler Race: B SUMMARY: DUPLEX SCAN OBSERVATIONS: RIGHT: There is a patent AV fistula see n in the distal upper arm. The arterial anastomosis is seen at the fee ding brachial artery. Elevated velocity is seen in the arterial anasto mosis (ratio 4.52). There is bright echogenic material seen in the A V fistula at the distal upper arm. There is a thickening wall with hy poechonic material seen in the AV fistula at the distal upper arm. Pat ency is seen throughout the AVF at the mid and proximal upper arm. Ther e is an artegraft which is connected to the axillary vein, as well as the venous portion of the venous fistula. Elevated velocity is se en at the venous anastomosis (ratio 3.47). The axillary vein and sub clavian vein are patent. Volume flow of brachial artery and axillary ar ynes are listed below. There is absent colorflow and Doppler signals se en in the proximal upper arm cephalic vein. DOPPLER FINDINGS: ARTERY LOCATION PSV (cm/sec) RIGHT Brachial Proximal-third 153 Mid-third 139 Distal-third 63 AV fistula Anastamosis 285 Juxta 511 Distal-third 215 151 Mid-thid 91 Proximal-third 74 Jump graft UA-proximal 91 Venous Anastomosis UA-proximal 316 374 Axillary vein Proximal-third 152 Armpit 35 Shoulder 47 Subclavian vein Proximal-third 57 VOLUME FLOW: Brachial 518 cc/min 482 cc/min Axillary 586 cc/min 540 cc/min PRELIMINARY FINDINGS: 1. Patent AV fistula seen in the right distal upper arm. 2. Patent right artegraft which is conn ected to the right axillary vein, as well as the venous portion of the right venous fistula. 3. >50% stenosis of right arterial anas tomosis (ratio 4.52). 4. >50% stenosis of right venous anasto mosis (ratio 3.47). 5. Volume flow of right brachial melvi ry and axillary artery are listed above. 6. Occlusion of right cephalic vein at proximal upper arm; this is a known thing. PHYSICIAN INTERPRETATION: Decreased flow volume. >50% stenosis of right arterial anastom osis (ratio 4.52). >50% stenosis of right venous anastomos is (ratio 3.47). Occlusion of right cephalic vein at pro ximal upper arm; this is a known thing. FINDINGS: Signed 07/15/2019 10:46 PM Sunny Knight MD, RPVI Procedure Note Interface, Radiology Results In - 07/15/2019 10:[address] [facility] Vascular Ultrasound Laboratory AV Graft - Fistula Report [address] [place] [address], [place] [address] Pat.Name: MARY DE LA GARZA.ID: [id number] .Date: 07/15/2019 Refer.MD: ERLINDA GO MD Exam Time: 7:43:00 PM Study Type:AV Graft - Fistula Height: 63in Weight: 260lb BSA: 2.16 m2 Age: 14 1950,69Y Sex: FEMALE Sonogrphr: Roblero Vi, RVT Pat. Stat.:Inpatient Room: [place] [address] Tape Vol: , CPT - 4: 52945 Echo Event ID:[id number] Order ID: [id number] Reason for Study:Concern for thrombosis of right upper arm AVF. S/P revision of right arm AV Fistula with artegraft insertion on 07/10/2019. Procedures: B-flow imaging, Colorflow, Grayscale/2D, Pulsed wave Doppler Race: B SUMMARY: DUPLEX SCAN OBSERVATIONS: RIGHT: There is a patent AV fistula seen in the distal upper arm. The arterial anastomosis is seen at the feeding brachial artery. Elevated velocity is seen in the arterial anastomosis (ratio 4.52). There is bright echogenic material seen in the AV fistula at the distal upper arm. There is a thickening wall with hypoechonic material seen in the AV fistula at the distal upper arm. Patency is seen throughout the AVF at the mid and proximal upper arm. There is an artegraft which is connected to the axillary vein, as well as the venous portion of the venous fistula. Elevated velocity is seen at the venous anastomosis (ratio 3.47). The axillary vein and subc lavian vein are patent. Volume flow of brachial artery and axillary artery are listed below. There is absent colorflow and Doppler signals seen in the proximal upper arm cephalic vein. DOPPLER FINDINGS: ARTERY LOCATION PSV (cm/sec) RIGHT Brachial Proximal-third 153 Mid-third 139 Distal-third 63 AV fistula Anastamosis 285 Juxta 511 Distal-third 215 151 Mid-thid 91 Proximal-third 74 Jump graft UA-proximal 91 Venous Anastomosis UA-proximal 316 374 Axillary vein Proximal-third 152 Armpit 35 Shoulder 47 Subclavian vein Proximal-third 57 VOLUME FLOW: Brachial 518 cc/min 482 cc/min Axillary 586 cc/min 540 cc/min PRELIMINARY FINDINGS: 1. Patent AV fistula seen in the right d istal upper arm. 2. Patent right artegraft which is conne cted to the right axillary vein, as well as the venous portion of the right venous fistula. 3. >50% stenosis of right arterial anast omosis (ratio 4.52). 4. >50% stenosis of right venous anastom osis (ratio 3.47). 5. Volume flow of right brachial artery and axillary artery are listed above. 6. Occlusion of right cephalic vein at p roximal upper arm; this is a known thing. PHYSICIAN INTERPRETATION: Decreased flow volume. >50% stenosis of right arterial anastomosis (ratio 4.52). >50% stenosis of right venous anastomosis (ratio 3.47). Occlusion of right cephalic vein at proximal upper arm; this is a known thing. FINDINGS: Signed 07/15/2019 10:46 PM Sunny Knight MD, RPVI Performing Organization Address City/State/ZIP Code [facility] Number CUPID [address] [place] [address] * Transfuse RBC (07/15/2019 8:16 PM SURGICAL PRODUCT SALES CONSULTANT) Only the most recent of 2 results within the time period is included. * NM Hepatobiliary (HIDA Scan) (07/15/2019 2:57 PM SURGICAL PRODUCT SALES CONSULTANT) Specimen Narrative Performed At PROCEDURE: RI HEPATOBILIARY (HIDA SCAN) [facility] INDICATION: Evaluate for cholecystiti s. TECHNIQUE: The patient was injected wit h 5 mCi of Tc-99m Choletec, IV. Dynamic planar images of the abdomen were acqui red for 1 hour. FINDINGS: Tracer is seen within the g allbladder and small bowel by one hour. IMPRESSION: 1. No evidence for acute cholecystiti s, cystic duct obstruction, or common bile duct obstruction. [facility]-[id number] Procedure Note Interface, Radiology Results Incoming - 07/15/2019 3:04 PM SURGICAL PRODUCT SALES CONSULTANT PROCEDURE: NM HEPATOBILIARY (HIDA SCAN) INDICATION: Evaluate for cholecystitis. TECHNIQUE: The patient was injected with 5 mCi of Tc-99m Choletec, IV. Dynamic planar images of the abdomen were acquired for 1 hour. FINDINGS: Tracer is seen within the gallbladder and small bowel by one hour. IMPRESSION: 1. No evidence for acute cholecystitis, cystic duct obstruction, or common bile duct obstruction. [facility]-[id number] Performing Organization Address City/State/ZIP Code P abeba Number [facility] [address] [place] [address] * Us duplex arterial upper extremity (07/14/2019 5:11 PM SURGICAL PRODUCT SALES CONSULTANT) Specimen Narrative Performed At [facility] Vascular U ltrasound Laboratory Upper Extr emity Arterial Report [address] [facility] [address], [place] [address] Pat.Name: MARY DE LA GARZA Pat.ID: [id number] St.Date: 07/14/2019 Refer.MD: ANGY AMATO MD Exam Time: 10:14:00 AM Study Type:UE Arterial Height: 63in Weight: 260lb BSA: 2.16 m2 Age: 14 1950,69Y Sex: FEMALE Sonogrphr: Sugar Yan RVT, COURTNEY Chinchilla, ANUJA Pat. Stat.:Inpatient Room: [place] [address] Tape Vol: JJ, CPT - 4: 38604 Echo Event ID:[id number] Order ID: [id number] Reason for Study:Evaluation for steal study on right upper arm. PMH of ESRD on HD MWF, T2DM, CAD, PAF on el iquis, s/p RUE AVF revision and thrombectomy who initially presented to ED on 07/12 with RUE pain and swelling 2 days postop. Procedures: Colorflow, Grayscale/2D, No n-imaging continuous wave Doppler, PPG waveform tracing, Pulsed w ave Doppler Race: B SUMMARY: DUPLEX SCAN OBSERVATIONS: Right: Calcified arterial jose are not ed throughout the extremity. Diminished colorflow and Doppler signal s are noted in the proximal and mid radial artery; absent flow noted in the distal segment. Remaining of the visualized arteries are patent; colorflow and Doppler signals are present. SEGMENTAL PRESSURE: RIGHT LEFT Brachial 101 132 3rd Finger 0.30 0.94 PRELIMINARY FINDINGS: 1. Diminished colorflow and Doppler sig nals are noted in the right proximal and mid radial artery. 2. Possible occlusion of the right dist al radial artery. 3. Calcified arterial jose noted throu ghout the extremity. 4. The finger/brachial index on the rig ht falls into the moderate-severe category and normal on the left. 5. Abnormal waveforms seen in the 3rd f ingers, bilaterally. 6. Physiological study demonstrates neg ative for steal study. 7. Technically difficult and limited st udy due to patient unstable and unable to cooperate. PHYSICIAN INTERPRETATION: 1. Diminished colorflow and Doppler sig nals are noted in the right proximal and mid radial artery. 2. Possible occlusion of the right dist al radial artery. 3. Calcified arterial jose noted throu ghout the extremity. 4. The finger/brachial index on the rig ht falls into the moderate-severe category and normal on the left. 5. Abnormal waveforms seen in the 3rd f ingers, bilaterally. 6. Physiological study demonstrates neg ative for steal study. FINDINGS: MEASUREMENTS: DOPPLER Right Brachial Dist Brachial Dist P 159 cm/s Right Brachial Mid Brachial Mid PS 109 cm/s Right D Radial Radial Dist PSV 0 cm/s Right M Radial Radial Mid PSV 35.5 cm/s Right P Radial Radial Prox PSV 34 cm/s Right Ulnar Dist Ulnar Dist PSV 110 cm/s Right Ulnar Mid Ulnar Mid PSV 54 cm/s Right P Ulnar Ulnar Prox PSV 59.2 cm/s Right Axillary Mid Axillary Mid PS 129 cm/s Right Brachial Prox Brachial Prox P 111 cm/s Signed 07/14/2019 06:21 PM Sunny Knight MD, RPVI Procedure Note Interface, Radiology Results In - 07/14/2019 6:22 PM SURGICAL PRODUCT SALES CONSULTANT Vascular Ultrasound Laboratory Upper Extremity Arterial Report [address] [place] [address] Pat.Name: MARY DE LA GARZA Pat.ID: [id number] .Date: 07/14/2019 Refer.MD: ANGY AMATO MD Exam Time: 10:14:00 AM Study Type:UE Arterial Height: 63in Weight: 260lb BSA: 2.16 m2 Age: 14 1950,69Y Sex: FEMALE Sonogrphr: Sugar Yan RVT, COURTNEY Renteria, ANUJA Pat. Stat.:Inpatient Room: [place] [address] Tape Vol: JJ, CPT - 4: 91049 Echo Event ID:[id number] Order ID: [id number] Reason for Study:Evaluation for steal study on right upper arm. PMH of ESRD on HD MWF, T2DM, CAD, PAF on eliquis, s/p RUE AVF revision and thrombectomy who initially presented to ED on 07/12 with RUE pain and swelling 2 days postop. Procedures: Colorflow, Grayscale/2D, Non-imaging continuous wave Doppler, PPG waveform tracing, Pulsed wave Doppler Race: B SUMMARY: DUPLEX SCAN OBSERVATIONS: Right: Calcified arterial jose are noted throughout the extremity. Diminished colorflow and Doppler signals are noted in the proximal and mid radial artery; absent flow noted in the distal segment. Remaining of the visualized arteries are patent; colorflow and Doppler signals are present. SEGMENTAL PRESSURE: RIGHT LEFT Brachial 101 132 3rd Finger 0.30 0.94 PRELIMINARY FINDINGS: 1. Diminished colorflow and Doppler sign als are noted in the right proximal and mid radial artery. 2. Possible occlusion of the right dista l radial artery. 3. Calcified arterial jose noted throug hout the extremity. 4. The finger/brachial index on the righ t falls into the moderate-severe category and normal on the left. 5. Abnormal waveforms seen in the 3rd fi ngers, bilaterally. 6. Physiological study demonstrates nega tive for steal study. 7. Technically difficult and limited nigel dy due to patient unstable and unable to cooperate. PHYSICIAN INTERPRETATION: 1. Diminished colorflow and Doppler sign als are noted in the right proximal and mid radial artery. 2. Possible occlusion of the right dista l radial artery. 3. Calcified arterial jose noted throug hout the extremity. 4. The finger/brachial index on the righ t falls into the moderate-severe category and normal on the left. 5. Abnormal waveforms seen in the 3rd fi ngers, bilaterally. 6. Physiological study demonstrates nega tive for steal study. FINDINGS: MEASUREMENTS: DOPPLER Right Brachial Dist Brachial Dist P 159 cm/s Right Brachial Mid Brachial Mid PS 109 cm/s Right D Radial Radial Dist PSV 0 cm/s Right M Radial Radial Mid PSV 35.5 cm/s Right P Radial Radial Prox PSV 34 cm/s Right Ulnar Dist Ulnar Dist PSV 110 cm/s Right Ulnar Mid Ulnar Mid PSV 54 cm/s Right P Ulnar Ulnar Prox PSV 59.2 cm/s Right Axillary Mid Axillary Mid PS 129 cm/s Right Brachial Prox Brachial Prox P 111 cm/s Signed 07/14/2019 06:21 PM Sunny Knight MD, RPVI Performing Organization Address City/State/ZIP Code P abeba Number [facility] [address] [place] [address] * Echocardiogram complete w contrast and 3D if needed (07/14/2019 9:00 AM SURGICAL PRODUCT SALES CONSULTANT) Specimen Narrative Performed At [facility] Echo cardiography Report [id number] [facility], [place] [address] Pat.Name: MARY DE LA GARZA.ID: [id number] .Date: 07/14/2019 Refer.MD: ERLINDA GO MD Exam Time: 7:55:00 AM Study Type:Routine Echo Height: 63in Weight: 260lb BSA: 2.16 m2 Age: 14 1950,69Y Sex: FEMALE BP: 111/54 Sonogrphr: Lizzy Cortes RDCS, RVSPat. Stat.:Inpatient Room: [place] [address] Study Status:Final Echo Event ID:[id number] Order ID: [id number] Reason for Study:Hypotension-suspected cardiac etiology History / Clinical:Atrial Fibrillation, Chronic Renal Failure, Diabetes, Hyperlipidemia Procedures: 2D Echo, Colorflow Doppler, Intravenous Optison Contrast SUMMARY: Technically difficult study. Severe asymmetric septal hypertrophy (h ypertrophic cardiomyopathy cannot be excluded). No evidence of dynamic LVOT obstruction . Normal LVEF Normal RV systolic function. FINDINGS: LV: LV size is normal. There i s severe asymmetric LV hypertrophy. LV EF is n ormal. Overall wall motion is normal. Estimated EF is 65-69% Septal motion is paradoxical secondary to LBBB or co nduction abnormality. RV: RV size is normal. A pacem rj wire is seen in the RV. RV systolic function is no rmal. LA: LA volume is difficult to assess. RA: RA volume is difficult to assess. A pacemaker wire is seen. AO: Aortic root diameter is no rmal in size. Ascending aorta diameter is normal. AMANDA: No pericardial effusion. Th ere is an anterior space consistent with a promi nent epicardial fat pad. SVn: Inferior vena cava is norm al. AV: Mild calcification of AV l eaflets. Tri cuspid aortic valve. MV: Mild mitral annular calcif ication. Mild mitral regurgitation. PV: No structural PV abnormali ties noted. TV: No structural TV abnormali ties noted. Roa: LV relaxation is impaired. Other: Estimated PA systolic press ure is 35 mmHg, assuming a mean RAP of 5 mmHg. MEASUREMENTS: 2D Parasternal Long Kegley Ao An 2.4 cm LVPWd 1.1 cm Ao Rtd 3.8 cm Index 1.7 cm/m2 LA Ds 3.7 cm LVIDd 4.6 cm Index 2.1 cm/m2 RWT 0.48 LVIDs 3.3 cm LV Mass 217 g (87-129) LV%fs 28 % LVM Index 100 g/m Ventricular Septum IVSd 1.8 cm LA Sng Plane LA Area 25 cm (8.8-2 3.4) LA Vol 68 ml Index 32 ml/m2 LA LngAx 8.2 cm Aorta Ao Asc 3.8 cm (2.1-3. 4) LVOT Stroke Vol LVOT 2.1 cm LVOT LVOT Area 3.5 cm DOPPLER LVOT Stroke Vol LVOT TVI 16 cm LVOT CI 2.1 l/m/m LVOT SV 57 ml HR 80 bpm LVOT CO 4.5 l/min LVOT SVi 26 ml/m Signed 07/14/2019 10:48 AM Adeel Godwin MD Procedure Note Interface, Radiology Results In - 07/14/2019 10:[address] [facility] Echocardiography Report [id number] [address] [facility].Name: MARY DE LA GARZA.ID: [id number] St.Date: 07/14/2019 Refer.MD: ERLINDA GO MD Exam Time: 7:55:00 AM Study Type:Routine Echo Height: 63in Weight: 260lb BSA: 2.16 m2 Age: 14 1950,69Y Sex: FEMALE BP: 111/54 Sonogrphr: Lizzy Cortes RDCS, RVSPat. Stat.:Inpatient Room: [place] [address] Study Status:Final Echo Event ID:[id number] Order ID: [id number] Reason for Study:Hypotension-suspected cardiac etiology History / Clinical:Atrial Fibrillation, Chronic Renal Failure, Diabetes, Hyperlipidemia Procedures: 2D Echo, Colorflow Doppler, Intravenous Optison Contrast SUMMARY: Technically difficult study. Severe asymmetric septal hypertrophy (hypertrophic cardiomyopathy cannot be excluded). No evidence of dynamic LVOT obstruction. Normal LVEF Normal RV systolic function. FINDINGS: LV: LV size is normal. There is severe asymmetric LV hypertrophy. LV EF is normal. Overall wall motion is normal. Estimated EF is 65-69% Septal motion is paradoxical secondary to LBBB or conduction abnormality. RV: RV size is normal. A pacemaker wire is seen in the RV. RV systolic function is normal. LA: LA volume is difficult to assess. RA: RA volume is difficult to assess. A pacemaker wire is seen. AO: Aortic root diameter is normal in size. Ascending aorta diameter is normal. AMANDA: No pericardial effusion. There is an anterior space consistent with a prominent epicardial fat pad. SVn: Inferior vena cava is normal. AV: Mild calcification of AV leaflets. Tri cuspid aortic valve. MV: Mild mitral annular calcification. Mild mitral regurgitation. PV: No structural PV abnormalities noted. TV: No structural TV abnormalities noted. Roa: LV relaxation is impaired. Other: Estimated PA systolic pressure is 35 mmHg, assuming a mean RAP of 5 mmHg. MEASUREMENTS: 2D Parasternal Long Kegley Ao An 2.4 cm LVPWd 1.1 cm Ao Rtd 3.8 cm Index 1.7 cm/m2 LA Ds 3.7 cm LVIDd 4.6 cm Index 2.1 cm/m2 RWT 0.48 LVIDs 3.3 cm LV Mass 217 g (87-129) LV%fs 28 % LVM Index 100 g/m Ventricular Septum IVSd 1.8 cm LA Sng Plane LA Area 25 cm (8.8-23.4) LA Vol 68 ml Index 32 ml/m2 LA LngAx 8.2 cm Aorta Ao Asc 3.8 cm (2.1-3.4) LVOT Stroke Vol LVOT 2.1 cm LVOT LVOT Area 3.5 cm DOPPLER LVOT Stroke Vol LVOT TVI 16 cm LVOT CI 2.1 l/m/m LVOT SV 57 ml HR 80 bpm LVOT CO 4.5 l/min LVOT SVi 26 ml/m Signed 07/14/2019 10:48 AM Adeel Godwin MD Performing Organization Address City/[facility]/ZIP Code P abeba Number [facility] [address] [place] [address] * LDH (07/14/2019 8:59 AM SURGICAL PRODUCT SALES CONSULTANT) Only the most recent of 2 results within the time period is included. LDH 246 (H) 87 - 225 U/L [facility] Specimen Plasma specimen Performing Organization Address City/State/ZIP Code P abeba Number [facility] DEPARTMENT OF [address] [place] [address] PATHOLOGY AND GENOMIC MEDICINE [address] * Central Line Insertion (07/14/2019 2:43 AM SURGICAL PRODUCT SALES CONSULTANT) Narrative Performed At Emilia Owens NP 07/14/2019 2:45 AM Central Line Insertion Performed by: Emilia Owens NP Authorized by: Emilia Owens NP Consent: Consent obtained: Written Consent given by: Healthcare agent (son) Risks discussed: Arterial puncture, incorrect placement, nerve damage, infection and bleeding Alternatives discussed: No treatmen t and delayed treatment Theodore protocol: Procedure explained and questions ans wered to patient or proxy's satisfaction: yes Immediately prior to procedure, a ryan funez out was called: yes Patient identity confirmed: Sanford tejeda Pre-procedure details: Hand hygiene: Hand hygiene performed prior to insertion Sterile barrier technique: All elemen ts of maximal sterile technique followed Skin preparation: Chloraprep Skin preparation agent: Skin preparat ion agent completely dried prior to procedure Anesthesia (see MAR for exact dosages): Anesthesia method: Local infiltrati on Local anesthetic: Lidocaine 1% w/o epi Procedure details: Catheter type: Triple lumen Catheter size: 7 Fr Catheter length (cm): 20cm Catheter site: femoral vein Catheter Site Laterality: Left Patient position: Flat Ultrasound guidance: yes Successful placement: yes Post-procedure details: Post-procedure: Dressing applied an d line sutured Assessment: Blood return through al l ports and free fluid flow Patient tolerance of procedure: Antionette erated well, no immediate complications * Fibrinogen (07/14/2019 1:30 AM SURGICAL PRODUCT SALES CONSULTANT) Pathologist [facility] Fibrinogen 559 (H) 200 - 450 mg/dL [facility] Specimen Blood Performing Organization Address City/[facility] P abeba Number [facility] DEPARTMENT OF [address] [place] [address] PATHOLOGY AND GENOMIC MEDICINE [address] * Respiratory culture (07/13/2019 10:20 PM SURGICAL PRODUCT SALES CONSULTANT) Pathologist [facility] Respiratory No growth after 2 days. JEROME culture isolate Comment: CATHOLIC Specimen Information HOSPITAL Specimen Source: Mini bronchial alveolar lavage Specimen Site: RIGHT LUNG Specimen Mini bronchial alveolar lavage Performing Organization Address City/State/ZIP Code P abeba Number [facility] DEPARTMENT OF [address] [facility] [place] [address] PATHOLOGY AND GENOMIC MEDICINE JEROME CATHOLIC [address] [place] [address] HOSPITAL * Us carotid duplex (07/13/2019 10:05 PM SURGICAL PRODUCT SALES CONSULTANT) Specimen Narrative Performed At [facility] Carotid A rtery Duplex Report [address] [facility] [address], [place] [address] For data quality consultant purposes, the cat egorization of the degree of the stenosis of this exam is based on criteria descr ibed in the IAC carotid stenosis grading white paper( www.intersocietal.org/Vasc ular) and Kaylin Easley., Kaci Foy., et al. Carotid artery stenosis: klein-scale and Doppler US diagnosis--Society of Radiologists in Ultrasound Consensus Conference. Radiol ogy. 2003 Nov; 229(2):340-6. Pat.Name: MARY DE LA GARZA Pat.ID: [id number] St.Date: 07/13/2019 Refer.MD: ERLINDA GO MD Exam Time: 8:20:00 PM Study Type:Carotid Height: 53in Weight: 260lb BSA: 1.91 m2 Age: 14 1950,69Y Sex: FEMALE Sonogrphr: COURTNEY Claros Pat. Stat.:Inpatient Room: [place] [address] Tape Vol: , CPT - 4: 55414 Echo Event ID:[id number] Order ID: [id number] Reason for Study:New onset of visual ch anges. History DM2, ESRD, Afib, and HLD. Procedures: Colorflow, Grayscale/2D, Pu lsed wave Doppler Race: -Honduran SUMMARY: PHYSICAL ASSESSMENT Blood Pressure Right AV fistula Left 127/61 CAROTID ARTERY SCAN RIIGHT: There is hard calcified plaqu e in the mid common carotid artery, bulb extending to the external and internal carotid artery. Difficulty in visualizing the internal and external carotid artery due to body habitus. Colorlfow and Doppler are normal. There is antegrade vertebral flow noted. LEFT: Not visualized due to lines and dressing. PRELIMINARY FINDINGS 1. <50% stenosis in the right bulb an d proximal internal carotid artery. 2. <50% stenosis in the right proximale xternal carotid artery. 3. There is antegrade vertebral flow on the right. 4. Non-stenotic hard calcified plaque i n the mid common carotid artery on the right. 5. The mid and distal internal carotid arteriey was not visualized due to body habitus of patient and no bobil ity. PHYSICIAN INTERPRETATION Unilateral carotid duplex examination d emonstrated atherosclerotic plaques in the right bulb/ CCA. Less than 50% stenosis in the right int ernal carotid artery. FINDINGS: Carotid Findings: Right Left Verteb.Flw Antegrade Subclavian AVF MEASUREMENTS: DOPPLER Right CCA Dist CCA Dist PSV 57.5 cm/s CCA Dist EDV 8.64 cm/s Right CCA Mid CCA Mid PSV 57.3 cm/s CCA Mid EDV 7.7 cm/s Right CCA Prox CCA Prox PSV 95.1 cm/s CCA Prox EDV 10.3 cm/s Right ICA Prox ICA Prox PSV 36.4 cm/s ICA Prox EDV 7.8 cm/s Right ECA Prox ECA Prox PSV 75.8 cm/s ECA Prox EDV 7.9 cm/s Right ICA/CCA Ratio ICA/CCA PSV 0.635 Signed 07/14/2019 08:02 AM Sunny Knight MD, RPVI Procedure Note Interface, Radiology Results In - 07/14/2019 8:[address] [facility] Vascular Ultrasound Laboratory Carotid Artery Duplex Report [address] [facility], [place] [address], [place] [address] For data quality consultant purposes, the categorization of the degree of the stenosis of this exam is based on criteria described in the IAC carotid stenosis grading white paper( www.intersocietal.org/Vascular) and Kaylin Easley., Tessy Foy, et al. Carotid artery stenosis: klein-scale and Doppler US diagnosis--Society of Radiologists in Ultrasound Consensus Conference. Radiology. 2003 Nov; 229(2):340-6. Pat.Name: MARY DE LA GARZA Pat.ID: [id number] St.Date: 07/13/2019 Refer.MD: ERLINDA GO MD Exam Time: 8:20:00 PM Study Type:Carotid Height: 53in Weight: 260lb BSA: 1.91 m2 Age: 14 1950,69Y Sex: FEMALE Sonogrphr: COURTNEY Claros Pat. Stat.:Inpatient Room: [place] [address] Tape Vol: , CPT - 4: 809[address] Echo Event ID:[id number] Order ID: [id number] Reason for Study:New onset of visual changes. History DM2, ESRD, Afib, and HLD. Procedures: Colorflow, Grayscale/2D, Pulsed wave Doppler Race: -Honduran SUMMARY: PHYSICAL ASSESSMENT Blood Pressure Right AV fistula Left 127/61 CAROTID ARTERY SCAN RIIGHT: There is hard calcified plaque in the mid common carotid artery, bulb extending to the external and internal carotid artery. Difficulty in visualizing the internal and external carotid artery due to body habitus. Colorlfow and Doppler are normal. There is antegrade vertebral flow noted. LEFT: Not visualized due to lines and dressing. PRELIMINARY FINDINGS 1. <50% stenosis in the right bulb and proximal internal carotid artery. 2. <50% stenosis in the right proximalex ternal carotid artery. 3. There is antegrade vertebral flow on the right. 4. Non-stenotic hard calcified plaque in the mid common carotid artery on the right. 5. The mid and distal internal carotid a rteriey was not visualized due to body habitus of patient and no bobility. PHYSICIAN INTERPRETATION Unilateral carotid duplex examination demonstrated atherosclerotic plaques in the right bulb/ CCA. Less than 50% stenosis in the right internal carotid artery. FINDINGS: Carotid Findings: Right Left Verteb.Flw Antegrade Subclavian AVF MEASUREMENTS: DOPPLER Right CCA Dist CCA Dist PSV 57.5 cm/s CCA Dist EDV 8.64 cm/s Right CCA Mid CCA Mid PSV 57.3 cm/s CCA Mid EDV 7.7 cm/s Right CCA Prox CCA Prox PSV 95.1 cm/s CCA Prox EDV 10.3 cm/s Right ICA Prox ICA Prox PSV 36.4 cm/s ICA Prox EDV 7.8 cm/s Right ECA Prox ECA Prox PSV 75.8 cm/s ECA Prox EDV 7.9 cm/s Right ICA/CCA Ratio ICA/CCA PSV 0.635 Signed 07/14/2019 08:02 AM Sunny Knight MD, RPVI Performing Organization Address City/State/ZIP Code P [facility] Number C[facility] [address] [place] [address] * US Gallbladder (07/13/2019 8:11 PM SURGICAL PRODUCT SALES CONSULTANT) Specimen Narrative Performed At EXAMINATION: US GALLBLADDER [facility] CLINICAL HISTORY: stranding on CT kallie und gallbladder COMPARISON: None. FINDINGS: Gallbladder: There is mild to moderate distention of the gallbladder with circumferential wall thickening measuri ng up to 9 mm. No definite stones are seen. CBD: 3 mm , within normal limits. Portal vein: The portal vein demonstrat es normal hepatopedal flow. The portal vein measures 1 cm. IMPRESSION: Circumferential gallbladder wall thicke yakov, with onion peel appearance. Acalculous cholecystitis should be cons idered and correlated. [facility]-[id number] Procedure Note Hm Interface, Radiology Results Incoming - 07/13/2019 8:56 PM SURGICAL PRODUCT SALES CONSULTANT EXAMINATION: US GALLBLADDER CLINICAL HISTORY: stranding on CT around gallbladder COMPARISON: None. FINDINGS: Gallbladder: There is mild to moderate distention of the gallbladder with circumferential wall thickening measuring up to 9 mm. No definite stones are seen. CBD: 3 mm , within normal limits. Portal vein: The portal vein demonstrates normal hepatopedal flow. The portal vein measures 1 cm. IMPRESSION: Circumferential gallbladder wall thickening, with onion peel appearance. Acalculous cholecystitis should be considered and correlated. [facility]-[id number] Performing Organization Address [facility]/ZIP [facility] P abeba Number [facility] [address] [place] [address] * Anti Xa, unfractionated (07/13/2019 7:37 PM SURGICAL PRODUCT SALES CONSULTANT) Only the most recent of 2 results within the time period is included. [facility] Anti Xa, >1.10 (H)Comment: Therapeutic 0.30 - 0.70 U/mL JEROME unfractionated Range: 0.30 - 0.70 U/mL [facility] Specimen Blood Performing Organization Address [facility] [place] [address] PATHOLOGY AND [facility] MEDICINE [address] * Thyroid stimulating hormone (07/13/2019 7:37 PM SURGICAL PRODUCT SALES CONSULTANT) [facility] TSH 0.66 0.27 - 4.20 uIU/mL [facility] Specimen Plasma specimen Performing Organization Address [facility] [place] [address] PATHOLOGY AND [facility] MEDIC[facility] [address] * T4, free (07/13/2019 7:37 PM SURGICAL PRODUCT SALES CONSULTANT) [facility] T4, free 1.4 0.9 - 1.7 ng/dL [facility] Specimen Plasma specimen Performing Organization Address [facility]/ZIP Code P abeba Number [place] [id number] [place] [address] PATHOLOGY AND GENOMIC MEDICINE ALVARES CATHOLIC [address] [place] [address] HOSPITAL * CT Upper Extremity W Contrast Rt (07/13/2019 6:46 PM SURGICAL PRODUCT SALES CONSULTANT) Specimen Narrative Performed At EXAMINATION: CT UPPER EXTREMITY W CONTRAST RIGHT H M [facility] CLINICAL HISTORY: Possible cellulitis vs AV fistula infection TECHNIQUE: CT of the right upper arm wi th contrast. Reformatted images also reviewed. Automatic exposure control or iterative reconstruction techniques used to reduce dose. COMPARISON: None. IMPRESSION: 1.Right upper arm AV fistula is seen fr om the level of the elbow to the upper arm. The dilated segment of the AV fist mohan appears patent although there may be small amount of peripheral thrombus pro ducing heterogeneity. No drainable fluid collections are seen around the AV fistula. Just above the AV fistula, there is a thrombosed vascular structure or graft, with small amount of adjacent gas and no associated fluid collection, best seen on images 9 8 through 111 of series 306. Small amount of gas is also noted more distally at the arterial joe stomosis without collection. Findings should be correlated with timing and ty pe of recent procedure. 2.Bones and joints are intact. Muscles of the right upper arm appear unremarkable. [facility]-[id number] Procedure Note [facility], Radiology Results Incoming - 07/13/2019 7:40 PM SURGICAL PRODUCT SALES CONSULTANT EXAMINATION: CT UPPER EXTREMITY W CONTRAST RIGHT CLINICAL HISTORY: Possible cellulitis vs AV fistula infection TECHNIQUE: CT of the right upper arm with contrast. Reformatted images also reviewed. Automatic exposure control or iterative reconstruction techniques used to reduce dose. COMPARISON: None. IMPRESSION: 1.Right upper arm AV fistula is seen fro m the level of the elbow to the upper arm. The dilated segment of the AV fistula appears patent although there may be small amount of peripheral thrombus producing heterogeneity. No drainable fluid collections are seen around the AV fistula. Just above the AV fistula, there is a thrombosed vascular structure or graft, with small amount of adjacent gas and no associated fluid collection, best seen on images 98 through 111 of series 306. Small amount of gas is also noted more distally at the arterial anastomosis without collection. Findings should be correlated with timing and type of recent procedure. 2.Bones and joints are intact. Muscles o f the right upper arm appear unremarkable. [id number] Performing Organization Address City/State/ZIP Code P abeba Number [facility] [address] [place] [address] * CT Angiogram Chest W Contrast Abdomen W Contrast Pelvis W Contrast (07/13/2019 5:39 PM SURGICAL PRODUCT SALES CONSULTANT) Specimen Narrative Performed At EXAMINATION: CT ANGIOGRAM CHEST ABDOMEN PELVIS W AN D OR WITHOUT CONTRAST OTONIEL ZIMMERMAN CLINICAL HISTORY: Possible mesenteric ischemia TECHNIQUE: Multiple CT angiographic lorrie ges of the chest, abdomen, and pelvis were obtained following intravenous adm inistration of iodinated contrast. Multiple computerized reformatted image s as well as 3-D volume rendered images on a dedicated postprocessing workstation at the [employer] scanner under concurrent supervision archived and interpreted pe r CTA protocol.. All CT images were acquired using radiation dose lowering technique with automated exposure control and / or iterative reconstruction. COMPARISON: No IMPRESSION: CTA: Mild calcified plaque in the thoracic a josé luis only at the arch. The thoracic aorta is well-maintained with no stenosis, di lation or dissection. Aortic arch branch vessels are widely p atent. Mild to moderate coronary artery calcif ications. Abdominal aorta tapers normally with on ly mild calcified plaque distally. It is slightly tortuous, though no stenosis, dilation or dissection. Calcified plaque in the common and inte rnal and external iliacs bilaterally, most pronounced in the common iliacs, w hich are tortuous, though appear widely patent. Calcified plaque in the interna l iliacs with mild diffuse disease. The external iliacs are widely patent. Common femoral and visua lized portions of profundus femoris and superficial femoral arteries are widely patent with only mild scattered calcified plaque. Calcified plaque within the celiac trun k, mild, without stenosis. More pronounced calcified plaque throughout the splenic artery with mild diffuse disease distally, otherwise well-mainta ined. The other celiac trunk branch vessels are widely patent. Mild plaque within the common hepatic artery . The SMA demonstrates mild calcified migdalia que distally, though no significant stenosis is identified. Calcified plaqu e at the LORRIE origin, with possible short segment of mild stenosis at the origin, otherwise well-maintained. Minimal calcified plaque in the main re nal arteries bilaterally, though otherwise well-maintained. CHEST: Bibasilar atelectasis. Lungs otherwise clear. ET tube tip in the trachea above the ca luis antonio satisfactory. Pacemaker left chest wall. Tiny amount of soft tissue gas at the right axilla consistent with recent intervention, can be correlated with th e clinical scenario. No fluid collection. No axillary, mediastinal or hilar lymph adenopathy. Heart is enlarged. No pericardial or pleural effusion. ABDOMEN: Evaluation of solid abdominal organs li mited as they are imaged in the arterial phase only per CTA protocol. Morbid obe sity. Associated beam hardening artifact from the large body habitus degrades im age quality and decreases sensitivity of exam. Vicarious excretion of contrast in the gallbladder, with adjacent mild stranding, correlation with ultrasound advised. The liver is lobulated in surface conto ur indicating chronic liver disease, with heterogeneous enhancement somewhat nodu lar, inferiorly in the right hepatic lobe, likely from perfusional anomalies . No definite liver mass is detected. Pancreas, spleen, adrenals grossly unre markable. The kidneys are atrophic with subcentim eter hypodensities likely all cysts. PELVIS: Small ventral on the local hernia conta ining fat only. Normal-sized external iliac chain lymph nodes. No free fluid or fluid collection identified within the abdomen or pelvis Urinary bladder collapsed. Uterus and r ight adnexa grossly unremarkable. The left ovary is somewhat prominent in size for patient's age. No discrete mass is identified, though an outpatient ult rasound is advised once acute issues resolve. Pelvic floor relaxation with mild recta l prolapse. The sigmoid is tortuous. Colonic diverticulosis most pronounced distally. NG tube tip in the mid body of stomach. Bowel loop show no evidence of obstruction. Otherwise grossly unremarkable without enteric contrast. Visualized bones show no suspicious lesion. SUMMARY: 1.Scattered calcified plaque without fo abran stenosis or thrombosis identified. Image quality degraded as detailed abov e. No bowel wall thickening to indicate ischemia. 2.Stranding adjacent to the gallbladder , further evaluation by ultrasound is recommended. 3.Many other incidental findings, see jaren pabon. [facility]-[id number] Procedure Note Interface, Radiology Results - 07/13/2019 6:01 PM SURGICAL PRODUCT SALES CONSULTANT EXAMINATION: CT ANGIOGRAM CHEST ABDOMEN PELVIS W AND OR WITHOUT CONTRAST CLINICAL HISTORY: Possible mesenteric ischemia TECHNIQUE: Multiple CT angiographic images of the chest, abdomen, and pelvis were obtained following intravenous administration of iodinated contrast. Multiple computerized reformatted images as well as 3-D volume rendered images on a dedicated postprocessing workstation at the acquisition scanner under concurrent supervision archived and interpreted per CTA protocol.. All CT images were acquired using radiation dose lowering technique with automated exposure control and / or iterative reconstruction. COMPARISON: No IMPRESSION: CTA: Mild calcified plaque in the thoracic aorta only at the arch. The thoracic aorta is well-maintained with no stenosis, dilation or dissection. Aortic arch branch vessels are widely patent. Mild to moderate coronary artery calcifications. Abdominal aorta tapers normally with only mild calcified plaque distally. It is slightly tortuous, though no stenosis, dilation or dissection. Calcified plaque in the common and internal and external iliacs bilaterally, most pronounced in the common iliacs, which are tortuous, though appear widely patent. Calcified plaque in the internal iliacs with mild diffuse disease. The external iliacs are widely patent. Common femoral and visualized portions of profundus femoris and superficial femoral arteries are widely patent with only mild scattered calcified plaque. Calcified plaque within the celiac trunk, mild, without stenosis. More pronounced calcified plaque throughout the splenic artery with mild diffuse disease distally, otherwise well-maintained. The other celiac trunk branch vessels are widely patent. Mild plaque within the common hepatic artery. The SMA demonstrates mild calcified plaque distally, though no significant stenosis is identified. Calcified plaque at the LORRIE origin, with possible short segment of mild stenosis at the origin, otherwise well-maintained. Minimal calcified plaque in the main renal arteries bilaterally, though otherwise well-maintained. CHEST: Bibasilar atelectasis. Lungs otherwise clear. ET tube tip in the trachea above the pito satisfactory. Pacemaker left chest wall. Tiny amount of soft tissue gas at the right axilla consistent with recent intervention, can be correlated with the clinical scenario. No fluid collection. No axillary, mediastinal or hilar lymphadenopathy. Heart is enlarged. No pericardial or pleural effusion. ABDOMEN: Evaluation of solid abdominal organs limited as they are imaged in the arterial phase only per CTA protocol. Morbid obesity. Associated beam hardening artifact from the large body habitus degrades image quality and decreases sensitivity of exam. Vicarious excretion of contrast in the gallbladder, with adjacent mild stranding, correlation with ultrasound advised. The liver is lobulated in surface contour indicating chronic liver disease, with heterogeneous enhancement somewhat nodular, inferiorly in the right hepatic lobe, likely from perfusional anomalies. No definite liver mass is detected. Pancreas, spleen, adrenals grossly unremarkable. The kidneys are atrophic with subcentimeter hypodensities likely all cysts. PELVIS: Small ventral on the local hernia containing fat only. Normal-sized external iliac chain lymph nodes. No free fluid or fluid collection identified within the abdomen or pelvis Urinary bladder collapsed. Uterus and right adnexa grossly unremarkable. The left ovary is somewhat prominent in size for patient's age. No discrete mass is identified, though an outpatient ultrasound is advised once acute issues resolve. Pelvic floor relaxation with mild rectal prolapse. The sigmoid is tortuous. Colonic diverticulosis most pronounced distally. NG tube tip in the mid body of stomach. Bowel loop show no evidence of obstruction. Otherwise grossly unremarkable without enteric contrast. Visualized bones show no suspicious lesion. SUMMARY: 1.Scattered calcified plaque without foc al stenosis or thrombosis identified. Image quality degraded as detailed above. No bowel wall thickening to indicate ischemia. 2.Stranding adjacent to the gallbladder, further evaluation by ultrasound is recommended. 3.Many other incidental findings, see ab ove. [id number] Performing Organization Address City/State/ZIP Code P abeba Number [facility] [address] [place] [address] * CT Head Wo Contrast (07/13/2019 5:09 PM SURGICAL PRODUCT SALES CONSULTANT) Specimen Narrative Performed At EXAMINATION: CT HEAD WO CONTRAST [facility] COMPARISON: None CLINICAL HISTORY Altered level of consc iousness (LOC) unexplained. TECHNIQUE: Non-contrast CT scan of the head with thin-section contiguous transaxial images from the skull base t o the vertex. CT scans are performed using radiation dose reduction techniques. Technical factors are evaluated and adjusted to e nsure appropriate moderation of exposure. Automated dose management technology is applied to adjust radiation exposure while achieving a highly diagnostic quality image. FINDINGS: Nonenhanced emergency cranial CT was pe rformed at approximately 1513 hours. There is ventricular and sulcal dilatat ion consistent with generalized atrophy. There are white matter lucencies in the centrum semiovale bilaterally. There is no acute hemorrhage or extra-a xial mass or fluid collection Bone settings demonstrate the calvarium to be intact. There is mucosal thickening throughout the sinuses. Bila teral symmetrical exophthalmos with increased intraorbital fat and prominen ce of the rectus muscles suggestive of thyroid eye disease. Please correlate clinically IMPRESSION: Generalized involutional changes and di ffuse chronic microvascular disease. No acute hemorrhage. Bilateral symmetrical exophthalmos with increased intraorbital fat and prominence of the rectus muscles sugges tive of thyroid eye disease. Please correlate clinically. [facility]-[id number] Procedure Note Interface, Radiology Results Incoming - 07/13/2019 5:18 PM SURGICAL PRODUCT SALES CONSULTANT EXAMINATION: CT HEAD WO CONTRAST COMPARISON: None CLINICAL HISTORY Altered level of consciousness (LOC) unexplained. TECHNIQUE: Non-contrast CT scan of the head with thin-section contiguous transaxial images from the skull base to the vertex. CT scans are performed using radiation dose reduction techniques. Technical factors are evaluated and adjusted to ensure appropriate moderation of exposure. Automated dose management technology is applied to adjust radiation exposure while achieving a highly diagnostic quality image. FINDINGS: Nonenhanced emergency cranial CT was performed at approximately 1513 hours. There is ventricular and sulcal dilatation consistent with generalized atrophy. There are white matter lucencies in the centrum semiovale bilaterally. There is no acute hemorrhage or extra-axial mass or fluid collection Bone settings demonstrate the calvarium to be intact. There is mucosal thickening throughout the sinuses. Bilateral symmetrical exophthalmos with increased intraorbital fat and prominence of the rectus muscles suggestive of thyroid eye disease. Please correlate clinically IMPRESSION: Generalized involutional changes and diffuse chronic microvascular disease. No acute hemorrhage. Bilateral symmetrical exophthalmos with increased intraorbital fat and prominence of the rectus muscles suggestive of thyroid eye disease. Please correlate clinically. [id number] Performing Organization Address City/State/ZIP Code P abeba Number [facility] [address] [place] [address] * Intubation (07/13/2019 2:51 PM SURGICAL PRODUCT SALES CONSULTANT) Narrative Performed At Ehsan Richardson DO 020 3:10 PM Intubation Date/Time: 07/13/2019 2:51 PM Performed by: Adal Yanes Authorized by: Ehsan Richardson DO Consent: Consent obtained: Emergent situatio n Theodore protocol: Test results available and properly l abeled: yes Imaging studies available: yes Required blood products, implants, de vices, and special equipment available: yes Immediately prior to procedure, a ryan funez out was called: yes Patient identity confirmed: [facility] hospital-assigned identification number Pre-procedure details: Patient status: Altered mental stat us Mallampati score: 3 Pretreatment medications: Fentanyl Induction: ketamine. Paralytics: Rocuronium Procedure details: Preoxygenation: Bag valve mask CPR in progress: no Intubation method: Oral Technique: Video laryngoscopy Laryngoscope blade: Mac 3 Grade view: 2 Difficult airway?: Yes Tube size (mm): 7.5 Tube type: Cuffed Number of attempts: 1 Tube visualized through cords: yes Placement assessment: ETT to lip: 25 ETT to teeth: 24 Tube secured with: ETT contreras Breath sounds: Equal Placement verification: chest rise, c ondensation, CXR verification, direct visualization, equal breath soun ds, ETCO2 detector and tube exhalation CXR findings: ETT in proper place Post-procedure details: Patient tolerance of procedure: Antionette erated well, no immediate complications * Arterial Line Insertion (07/13/2019 2:47 PM SURGICAL PRODUCT SALES CONSULTANT) Narrative Performed At Ehsan Richardson DO 020 3:11 PM Arterial Line Insertion Date/Time: 07/13/2019 2:47 PM Performed by: Adal Yanes Authorized by: Ehsan Richardson DO Consent: Consent obtained: Emergent situatio n Indications: Indications: hemodynamic monitoring a nd multiple ABGs Pre-procedure details: Skin preparation: 2% Chlorhexidine Sedation: Sedation type: Anxiolysis and deep Anesthesia (see MAR for exact dosages): Anesthesia method: None Procedure details: Location: R femoral Placement technique: Seldinger Ultrasound guidance: yes Number of attempts: 1 Transducer: waveform confirmed Post-procedure details: Post-procedure: Sterile dressing ap plied and sutured Patient tolerance of procedure: Antionette erated well, no immediate complications Comments: Indication: Hemodynamic instability Assessment: Ultrasound information and findings: -Prior to insertion of arterial line, U ltrasound used to visualized the Right : Femoral. The vessel was shown t o be patent. No stenosis or thrombus identified. -Contraindication for placement with an y surveyed vessels: Yes, Location: Left, Radial, Describe issue: unable to visualize, no strong palpable pulse Procedure: -Using real-time ultrasound guidance, n eedle tip visualized entering vessel and J-wire inserted through need le with modified Seldinger technique. -Right : Femoral cannulated successfull y, longitudinal and lateral views of guide wire obtained via Ultrasound t o verify placement. Hard copy of images placed in patient chart. Ultrasound Vascular access CPT: 11982 * Lactic acid, syringe (07/13/2019 2:35 PM SURGICAL PRODUCT SALES CONSULTANT) Lactic acid, 2.5 (H) 0.5 - 2.2 mmol/L [facility] Specimen Blood Performing Organization Address City/State/ZIP Code P abeba Number [facility] DEPARTMENT OF [address] [place] [address] PATHOLOGY AND GENOMIC MEDICINE [address] * Hemoglobin, syringe (07/13/2019 2:35 PM SURGICAL PRODUCT SALES CONSULTANT) Hemoglobin, 9.7 (L) 12.0 - 16.0 g/dL [facility] Specimen Blood Performing Organization Address City/State/ZIP Code P abeba Number [facility] DEPARTMENT OF [address] [place] [address] PATHOLOGY AND GENOMIC MEDICINE [address] * HEMODIALYSIS CATHETER PLACEMENT (07/13/2019 2:29 PM SURGICAL PRODUCT SALES CONSULTANT) Narrative Performed At Ehsan Richardson DO 020 12:51 PM Hemodialysis catheter placement Date/Time: 07/13/2019 2:30 PM Performed by: Rani Payan Authorized by: Erlinda Go MD Consent: Consent obtained: Emergent situatio n Theodore protocol: Relevant documents present and verifi ed: yes Test results available and properly l abeled: yes Imaging studies available: yes Required blood products, implants, de vices, and special equipment available: yes Immediately prior to procedure, a ryan e out was called: yes Patient identity confirmed: Verball y with patient and arm band Pre-procedure details: Indication: Vascular access for HD Hand hygiene: Hand hygiene performed prior to insertion Sterile barrier technique: All elemen ts of maximal sterile technique followed Skin preparation: 2% chlorhexidine Skin preparation agent: Skin preparat ion agent completely dried prior to procedure Anesthesia (see MAR for exact dosages): Anesthesia method: Local infiltrati on Local anesthetic: Lidocaine 1% w/o epi Procedure details: Procedure supplies: Trialysis Catheter size: 24cm Catheter Site Laterality: Left Post-procedure details: Post-procedure: Dressing applied an d line sutured Patient tolerance of procedure: Antionette erated well, no immediate complications Comments: Indication: Hemodialysis Assessment: Ultrasound information and findings: -Prior to insertion of CVC, Ultrasound used to visualized the Left : Internal Jugular. The vessel was shown to be patent and compressible. No stenosis or thrombus identified. -Contraindication for placement with an y surveyed vessels: Yes, Location: Right, Internal Jugular, Describe issue : not clearly visualized, short wide enck Procedure: -Using real-time ultrasound guidance, n eedle tip visualized entering vessel and J-wire inserted through need le with modified Seldinger technique. -Left : Internal Jugular cannulated suc cessfully, longitudinal and lateral views of guide wire obtained via Ultras ound to verify placement. Hard copy of images placed in patient chart. Ultrasound Vascular access CPT: 95450 Central line / HD catheter CPT: 28049 * D-dimer (07/13/2019 8:10 AM SURGICAL PRODUCT SALES CONSULTANT) D-dimer 1.45 (H) 0.00 - 0.40 ug/mL JEROME Comment: FEU CATHOLIC Units are ug/ml F[facility] Equivalent Unit. When combined with low clinical probability, D-dimer results of less than 0.5 ug/ml FEU have a good negative predictive value in excluding PE or DVT. For D-dimer results greater than 0.5 ug/ml FEU further testing is indicated if PE or DVT is suspected clinically. Elevated D-dimer results have been reported in DVT, PE, and DIC cases and may indicate the presence of a clot. D-dimer results may be elevated due to old age, , inflammatory diseases, trauma, post-operative states, sepsis, and malignancies. Specimen Blood Performing Organization Address [facility] P abeba Number [facility] [place] [address] PATHOLOGY AND [facility] MEDICINE [address] * Lactic acid level, SEPSIS - Now and repeat 2x every 3 hours (07/13/2019 5:15 AM SURGICAL PRODUCT SALES CONSULTANT) Only the most recent of 2 results within the time period is included[facility] Lactic acid 6.6 (HH) 0.5 - 2.2 mmol/L [facility] Specimen Plasma specimen Performing Organization Address [facility] P abeba Number [facility] [place] [address] PATHOLOGY AND GENOMIC MEDICINE [address] * Us duplex venous upper extremity (07/13/2019 1:55 AM SURGICAL PRODUCT SALES CONSULTANT) Specimen Narrative Performed At [facility] CUPSD Vascular U ltrasound Laboratory Upper Extr emity Venous Report [address] [place] [address] [address], [place] [address] Pat.Name: MARY DE LA GARZA Pat.ID: [id number] .Date: 07/13/2019 Refer.MD: ANGY AMATO MD Exam Time: 12:44:00 AM Study Type:UE Venous Height: 53in BSA: 1.91 m2 Age: 12 1950,69Y Sex: FEMALE Sonogrphr: COURTNEY Claros Pat . Stat.:Inpatient Room: ED41 Tape Vol: VM, CPT - 4: 15244 Echo Event ID:[id number] Order ID: [id number] Reason for Study:Right arm pain and swe lling. History of cellulitis of right arm, ESRD, DM2, and HLD. Procedures: Colorflow, Grayscale/2D, Pu lsed wave Doppler Race: B SUMMARY: DUPLEX SCAN OBSERVATIONS Right Left IJ Normal Subclavian Patent Patent Axillary Normal Brachial Normal Basilic Normal Cephalic Obstructed RIGHT: The cephalic vein is non-compr essible and filled with echogenic material within the lumen, co lorlfow and Doppler is absent. The proximal axillary vein was not visu alized. The subclavian vein is difficult to visualize and to see compr ession, although colorflow and Doppler are present. There is an AV fis keila noted in the upper arm. The internal jugular vein is small in c aliber proximally. LEFT: The subclavian vein is difficul t to visualize and see compressions. Colorlfow and Doppler sig nals are present. PRELIMINARY FINDINGS 1.Evidence of superficial venous thromb osis of the cephalic vein on the right. 2. 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 3. Unable to rule out thrombosis in bot h right and left subclavian veins due to difficulty in visualizatio n, but colorflow and Doppler are present. 4.Technically difficult study due to un cooperative patient and body habitus. PHYSICIAN INTERPRETATION Venous examination of the right upper e xtremity and neck demonstrated no evidence of deep venous thrombosis . Evidence of superficial venous thrombos is of the cephalic vein on the right. There is an AV fistula noted in the r [facility] upper [facility]. FINDINGS: Signed 07/13/2019 09:39 PM Sunny Knight MD, RPVI Procedure Note Interface, Radiology Results In - 07/13/2019 9:[address] [facility] Vascular Ultrasound Laboratory Upper Extremity Venous Report [address] [place] [address] Pat.Name: MARY DE LA GARZA Pat.ID: [id number] .Date: 07/13/2019 Refer.MD: ANGY AMATO MD Exam Time: 12:44:00 AM Study Type:UE Venous Height: 53in BSA: 1.91 m2 Age: 14 1950,69Y Sex: FEMALE Sonogrphr: COURTNEY Claros Pat. Stat.:Inpatient Room: ED41 Tape Vol: VM, CPT - 4: 49674 Echo Event ID:[id number] Order ID: [id number] Reason for Study:Right arm pain and swelling. History of cellulitis of right arm, ESRD, DM2, and HLD. Procedures: Colorflow, Grayscale/2D, Pulsed wave Doppler Race: B SUMMARY: DUPLEX SCAN OBSERVATIONS Right Left IJ Normal Subclavian Patent Patent Axillary Normal Brachial Normal Basilic Normal Cephalic Obstructed RIGHT: The cephalic vein is non-compressible and filled with echogenic material within the lumen, colorlfow and Doppler is absent. The proximal axillary vein was not visualized. The subclavian vein is difficult to visualize and to see compression, although colorflow and Doppler are present. There is an AV fistula noted in the upper arm. The internal jugular vein is small in caliber proximally. LEFT: The subclavian vein is difficult to visualize and see compressions. Colorlfow and Doppler signals are present. PRELIMINARY FINDINGS 1.Evidence of superficial venous thrombo sis of the cephalic vein on the right. 2. There is an AV fistula noted in the r ight upper arm. 3. Unable to rule out thrombosis in both right and left subclavian veins due to difficulty in visualization, but colorflow and Doppler are present. 4.Technically difficult study due to unc ooperative patient and body habitus. PHYSICIAN INTERPRETATION Venous examination of the right upper extremity and neck demonstrated no evidence of deep venous thrombosis. Evidence of superficial venous thrombosis of the cephalic vein on the right. 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 FINDINGS: Signed 07/13/2019 09:39 PM Sunny Knight MD, RPVI Performing Organization Address [facility]/ZIP Code P abeba Number [facility] [address] [place] [address] * OR [place] > I Hour (07/10/2019 5:30 PM SURGICAL PRODUCT SALES CONSULTANT) Specimen Narrative Performed At EXAMINATION: OR [place] > 1 HOUR HM [facility] C-arm fluoroscopy was requested in OR. Location: [facility] OR 1 Procedure: Right Upper Extremity AVF Re vision W/ Graft Placement and Angioplasty Start: 160 End: 1729 Fluoro Time: 2:32 min Dose: 22.77 mGy Tech: SW Chooos OEC 10 IMPRESSION: Separate operative report will be issue d by the physician performing the procedure. [id number] Procedure Note Hm Interface, Radiology Results Incoming - 07/10/2019 7:37 PM SURGICAL PRODUCT SALES CONSULTANT EXAMINATION: OR [place] > 1 HOUR C-arm fluoroscopy was requested in OR. Location: [facility] OR 1 Procedure: Right Upper Extremity AVF Revision W/ Graft Placement and Angioplasty Start: 160 End: 1730 Fluoro Time: 2:32 min Dose: 22.77 mGy Tech: SW GE OEC 10 IMPRESSION: Separate operative report will be issued by the physician performing the procedure. [id number] Performing Organization Address City/State/ZIP Code P abeba Number [facility] [address] [place] [address] * POC panel 4 (07/10/2019 2:36 PM SURGICAL PRODUCT SALES CONSULTANT) Only the most recent of 3 results within the time period is included. POC sodium 134 (L) 135 - 148 mmol/L [facility] POC potassium 5.6 (H) 3.5 - 5.0 mmol/L [facility] POC hematocrit 37 37 - 47 % [facility] POC glucose 187 (H) 65 - 99 mg/dL [facility] Comment: CATHOLIC Plant Operations Worker Name: [id number] Device ID: [id number] Specimen Performing Organization Address City/State/ZIP Code P abeba Number [facility] DEPARTMENT OF [address] [place] [address] PATHOLOGY AND GENOMIC MEDICINE [address] * Peripheral Block (07/10/2019 1:28 PM SURGICAL PRODUCT SALES CONSULTANT) Narrative Performed At Eric Samson MD 07/10/2019 1:46 PM Peripheral Block Performed by: Eric Samson MD Authorized by: Duong Marshall MD Patient Location: Pre-op End Time: 07/10/2019 1:44 PM Reason for Block: at surgeon's request, post-op pain management, primary anesthetic Staff: Resident/NET UI DEVELOPER/AA: Eric Samson MD Performed by: Resident/NET UI DEVELOPER/AA Preprocedure: patient identified, IV ch ecked, site and side verified, risks and benefits discussed, procedure verified, surgical consent complete, patient position confirmed, m onitors and equipment checked, pre-op evaluation complete and site tejinder gil Time Out Performed: 07/10/2019 1:31 PM Peripheral Nerve Block: Patient Position: Sitting Prep: ChloraPrep Monitoring: Blood pressure monitori ng, continuous pulse oximetry and heart rate Block Type: Interscalene (28ml for sc and 10 ml for ICBN) Laterality: Right Injection Technique: Single injection Procedures: ultrasound guided and nerve stimulator Ultrasound documentation: Printed/migdalia winston in chart Local Infiltration (See MAR for details ): Lidocaine Loss of Twitch: 0.4 mA Needle: Needle Type: Pajunk Needle Gauge: 22 G Needle Length: 8 cm Assessment: Injection Assessment: Visualized ne edle/local anesthetic surrounding nerve, visualized pertinent vascular st ructures and nerves, needle tip visualized at all times during injectio n of medication, intermittent aspiration during local anesthetic admi nistration and no symptoms of intraneural/intravenous injection Paresthesia Pain: None Heart Rate Change: No Slow Fractionated Injection: Yes Block outcome: No apparent complica tions, patient comfortable and patient tolerated procedure well after 02/22/2019 Additional Health Concerns Last Indicated Resolved Time Infection Onset Date 09/15/2019 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
--- OUTSIDE RECORDS SUMMARY | 2020-02-23 16:15 | XMS REPORT | Clinical Summary ---
Author Author [facility] Address Unknown Phone Unavailable Care Team Providers Care Medicare Biller Name Role Phone Homer Dawn MD PCP Unavailable Chalino Ramos 33 Unavailable Allergies Comments Active Allergy Reactions Severity Noted Date Codeine 07/10/2016 Colchicine 07/10/2016 Agent given was Isovue-300. Vaginal burning during injection. Swollen lips. Mucocitis. Iodine And Iodide Hives, High 11/14/2016 Containing Products Itching Yeast infection Penicillins Other (See High 10/03/2007 Comments) Swelling of lips Vancomycin Analogues Swelling Medium 6 Medications End Date Status Medication Sig Dispensed Refills Start Date Active sevelamer (RENVELA) 800 Take 4,000 mg 0 mg tablet by mouth 3 (three) times daily with meals . Active HYDROcodone-acetaminophen Take 1 tablet 0 (NORCO 10-325) 10-325 mg by mouth per tabletIndications: every 12 pain (twelve) hours as needed. Active calcitriol (ROCALTROL) Take 0.5 mcg 0 0.5 MCG by mouth capsuleIndications: low daily Take on amount of calcium in the mon, wed and blood Sunday, Take every day on non-dialysis days.. Active allopurinol (ZYLOPRIM) Take 300 mg 0 300 MG tablet by mouth daily. Active atorvastatin (LIPITOR) 10 Take 10 mg by 0 MG tablet mouth nightly. Active CALCIUM CARBONATE (TUMS Take 2 0 ULTRA ORAL)Indications: tablets by ESRD (end stage renal mouth as disease) (HCC) needed (Takes at dialysis) . Active apixaban (ELIQUIS) 2.5 mg Take 2.5 mg 0 Tab tablet by mouth 2 (two) times daily. Active pregabalin (LYRICA) 150 Resume if 0 MG capsule taking prior 8 to admission. Active hydrOXYzine (ATARAX) 50 Take 1 tablet 15 tablet 0 MG tablet (50 mg total) 9 by mouth every 8 (eight) hours as needed for Itching for up to 15 doses. Active glipiZIDE (GLUCOTROL XL) Take 2.5 mg 1 02/24 2.5 MG 24 hr tablet by mouth 9 daily. Active hydrocortisone (CORTEF) Take 1 tablet 30 tablet 0 10 MG tablet (10 mg total) 0 by mouth daily with dinner. Active hydrocortisone (CORTEF) Take 1 tablet 30 tablet 0 20 MG tablet (20 mg total) 0 by mouth daily with breakfast. 05/21/2019 Discontinued midodrine (PROAMATINE) 10 Take 10 mg by 0 MG tablet mouth 3 (three) times daily. 05/21/2019 Discontinued fludrocortisone Take 1 tablet 60 tablet 0 02/09/20 1 (FLORINEF) 0.1 mg tablet (0.1 mg 9 total) by mouth 2 (two) times daily. 05/24/2019 Discontinued cetirizine (ZYRTEC) 10 MG Take 1 tablet 5 tablet 0 tablet (10 mg total) 9 by mouth daily. 05/24/2019 Discontinued famotidine (PEPCID) 40 MG Take 1 tablet 5 tablet 0 tablet (40 mg total) 9 by mouth daily for 5 doses. 05/24/2019 Discontinued predniSONE (DELTASONE) 20 Take 2 8 tablet 0 MG tablet tablets (40 9 mg total) by mouth daily for 4 days. 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 04/30/2018 Atrial fib/flutter, transient 01/03/2018 ESRD (end stage renal disease) 01/03/2018 COPD (chronic obstructive pulmonary disease) 018 Hyperkalemia 12/24/2017 Malfunction of arteriovenous dialysis fistula 2016 ESRD (end stage renal disease) on dialysis 6 Congestive heart failure 08/13/2007 Overview: Overview: ICD-10 Depressive disorder, not elsewhere classified 2007 Gout, unspecified 08/13/2007 Overview: Overview: ICD-10 Diabetes mellitus Sleep apnea Coronary artery disease Chronic back pain CHF (congestive heart failure) ESRD on hemodialysis Resolved Problems Problem Noted Date Resolved Date Severe sepsis 02/05/2019 05/23/2019 Hypotension 02/05/2019 05/23/2019 Acute on chronic diastolic (congestive) heart failure 04/2005/23/2019 Fever in adult 04/30/2018 05/23/2019 Pleural effusion on right 04/30/2018 05/23/2019 Volume overload 01/05/2018 05/23/2019 Hypercapnia 12/26/2017 05/23/2019 Hypotension 12/21/2016 05/23/2019 Acute post-hemorrhagic anemia 02/09/2016 05/23/19 20 Hemorrhage of arteriovenous fistula, initial encounter 05/23/2019 Substernal chest pain 05/24/2015 05/23/2019 Chest pain 04/21/2013 05/23/2019 Encounters Care Team Description Date Type Specialty Victoriano Shepard MD Yoon, MD Ginger Llanos, Justice Maldonado MD Hypoglycemia (Primary Dx); Hyperkalemia; ESRD (end stage renal disease) ([facility]); Pruritus; Generalized weakness; Elevated troponin 05/21/2019 Hospital General Internal [place] dicine - Encounter 05/25/2019 05/21/2019 Travel Praveen Bolaños MD Pruritus (Primary Dx); ESRD (end stage renal disease) on dialysis ([facility]) 2019 Emergency Emergency Medicine 2019 Orders Only General Internal Oh dicine 2019 Travel Yuriy Yu Jr., MD Allergic reaction, initial encounter (Pr imary Dx); Pruritus; ESRD (end stage renal disease) ([facility]) 05/16/2019 Emergency Emergency Medicine 05/16/2019 Travel after 02/22/2019 Immunizations Name Dates Previously Given Next Due Pneumococcal Conjugate 04/30/2018 (Deferred: ) (Prevnar) 13-Valent Social History Date Tobacco Use Types Packs/Day Years Used Former Smoker Smokeless Tobacco: Never Used Comments: quit in 1996 Alcohol Use Drinks/Week oz/Week Comments Yes "occassional adi" Sex Assigned at Date Recorded Not on file Industry Job Start Date Occupation Not on file Not on file Not on file Travel End Travel History Travel Start No recent travel history available. Last Filed Vital Signs Time Taken Vital Sign Reading 05/24/2019 7:44 PM FISHING MANAGER Blood Pressure 117/59 05/24/2019 7:44 PM FISHING MANAGER Pulse 61 05/24/2019 7:44 PM FISHING MANAGER Temperature 37.1 C (98.8 F) 05/24/2019 7:44 PM FISHING MANAGER Respiratory Rate 18 05/24/2019 7:44 PM FISHING MANAGER Oxygen Saturation 97% 05/23/2019 11:50 PM FISHING MANAGER Inhaled Oxygen 21% Concentration 05/23/2019 4:25 PM FISHING MANAGER Weight 112.8 kg (248 lb 10.9 oz) 05/21/2019 6:41 AM FISHING MANAGER Height 160 cm (5' 3") 05/23/2019 4:25 PM FISHING MANAGER Body Mass Index 44.05 Plan of Treatment Health Maintenance Due Date Last Done Comments BREAST CANCER SCREENING 1952 COLON CANCER SCREENING 1952 COLONOSCOPY DIABETIC EYE EXAM 1962 DIABETIC FOOT EXAM 1962 URINE MICROALBUMIN 1962 MEDICARE ANNUAL WELLNESS 07/20/2002 (YEAR 2 or FIRST YEAR if no IPPE) PNEUMOCOCCAL 65+ 2017 HIGH/HIGHEST RISK (1 of 2 - PCV13) HEMOGLOBIN A1C 11/20/2019 05/22/2019, 019, 02/06/2019, Additional history exists INFLUENZA VACCINE (#1) 2020 04/06/2006 Implants Device Identifier Shelf Expiration Date Model / Serial / L ot Implanted Type Area Manufactur er 02/17/2021 [id number] / [id number] / [id number] Graft,Seal Ptfe Straight Central Graft/Patc Left: Arm Upp er TERUMO Supp Vascutek [id number] - h CARDIOVASC [id number] ULAR Implanted: Qty: 1 on 12/21/2016 by Victoriano Prado MD Procedures Comments Procedure Name Priority Date/Time Associated Diag nosis RHYTHM STRIP - SCAN 05/27/2019 2:02 PM FISHING MANAGER POCT-GLUCOSE METER Routine 05/24/2019 7:57 PM FISHING MANAGER HEMODIALYSIS INPATIENT Routine 05/24/2019 4:42 PM FISHING MANAGER POCT-GLUCOSE METER Routine 05/24/2019 4:34 PM FISHING MANAGER POCT-GLUCOSE METER Routine 05/24/2019 11:49 AM FISHING MANAGER POCT-GLUCOSE METER Routine 05/24/2019 8:[address] LUMBAR SPINE WITHOUT CHELLY 05/24/2019 IV CONTRAST 8:28 AM FISHING MANAGER POCT-GLUCOSE METER Routine 05/24/2019 7:53 AM FISHING MANAGER PHOSPHORUS Routine 05/24/2019 6:51 AM FISHING MANAGER MAGNESIUM Routine 05/24/2019 6:51 AM FISHING MANAGER BASIC METABOLIC PANEL (7) Routine 05/24/2019 6:51 AM FISHING MANAGER POCT-GLUCOSE METER Routine 05/23/2019 7:58 PM FISHING MANAGER POCT-GLUCOSE METER Routine 05/23/2019 5:11 PM FISHING MANAGER REPORT OF PROCEDURE - 05/23/2019 ENDOSCOPY SCAN 2:23 PM FISHING MANAGER HEMODIALYSIS INPATIENT Routine 05/23/2019 1:28 PM FISHING MANAGER POCT-GLUCOSE METER Routine 05/23/2019 11:25 AM FISHING MANAGER POCT-GLUCOSE METER Routine 05/23/2019 7:01 AM FISHING MANAGER POCT-GLUCOSE METER Routine 05/23/2019 5:53 AM FISHING MANAGER CORTISOL,60 MIN Routine 05/23/2019 1:40 AM FISHING MANAGER PHOSPHORUS Add-On 05/23/2019 1:40 AM FISHING MANAGER MAGNESIUM Routine 05/23/2019 1:40 AM FISHING MANAGER BASIC METABOLIC PANEL (7) Routine 05/23/2019 1:40 AM FISHING MANAGER CORTISOL,30 MIN Routine 05/23/2019 1:13 AM FISHING MANAGER CORTISOL,BASELINE Routine 05/23/2019 12:20 AM FISHING MANAGER ACTH STIMULATION Routine 05/23/2019 12:20 AM FISHING MANAGER POCT-GLUCOSE METER Routine 05/22/2019 10:23 PM FISHING MANAGER POCT-GLUCOSE METER Routine 05/22/2019 5:[address] BRAIN WITHOUT IV Routine 05/22/2019 CONTRAST 3:54 PM FISHING MANAGER POCT-GLUCOSE METER Routine 05/22/2019 11:42 AM FISHING MANAGER POCT-GLUCOSE METER Routine 05/22/2019 8:36 AM FISHING MANAGER POCT-GLUCOSE METER Routine 05/22/2019 7:40 AM FISHING MANAGER CREATINE KINASE (CK) Add-On 05/22/2019 4:52 AM FISHING MANAGER TSH/FREE T4 IF INDICATED Routine 05/22/2019 4:52 AM FISHING MANAGER CORTISOL Routine 05/22/2019 4:52 AM FISHING MANAGER CBC (HEMOGRAM ONLY) Routine 05/22/2019 4:52 AM FISHING MANAGER MAGNESIUM Routine 05/22/2019 4:52 AM FISHING MANAGER BASIC METABOLIC PANEL (7) Routine 05/22/2019 4:52 AM FISHING MANAGER HEMOGLOBIN A1C Routine 05/22/2019 4:52 AM FISHING MANAGER POCT-GLUCOSE METER Routine 05/22/2019 1:41 AM FISHING MANAGER HEMODIALYSIS INPATIENT Routine 05/21/2019 8:21 PM FISHING MANAGER ECG 12-LEAD Routine 05/21/2019 5:22 PM FISHING MANAGER Procedure Note - Interface, External Ris In - 05/21/2019 5:25 PM FISHING MANAGER Ventricula r Rate 60 BPM Atrial Rate 60 BPM QRS Duration 198 ms Q-T Interval 590 ms QTC Calculatio n(Bazett) 590 ms R [place] -60 degrees T [place] 127 degrees AV dual-paced rhythm Abnormal ECG When compared with ECG of 9 10:55, Premature ventricula r complexes are no longer Present Vent. rate has decreased BY 11 BPM ECG 12-LEAD STAT 05/21/2019 5:22 PM FISHING MANAGER LIPASE Add-On 05/21/2019 3:43 PM FISHING MANAGER TROPONIN I Routine 05/21/2019 3:43 PM FISHING MANAGER HEPATITIS B SURFACE Routine 05/21/2019 ANTIGEN 3:42 PM FISHING MANAGER POCT-GLUCOSE METER Routine 05/21/2019 3:30 PM FISHING MANAGER ALKALINE PHOSPHATASE STAT 05/21/2019 8:33 AM FISHING MANAGER BILIRUBIN, ADULT TOTAL STAT 05/21/2019 8:33 AM FISHING MANAGER AST (SGOT) STAT 05/21/2019 8:33 AM FISHING MANAGER ALT (SGPT) STAT 05/21/2019 8:33 AM FISHING MANAGER TROPONIN I STAT 05/21/2019 8:33 AM FISHING MANAGER BASIC METABOLIC PANEL (7) STAT 05/21/2019 8:33 AM FISHING MANAGER B-TYPE NATRIURETIC FACTOR STAT 05/21/2019 (BNP) 8:02 AM FISHING MANAGER XR CHEST 1 VIEW STAT 05/21/2019 PORTABLE/BEDSIDE 7:20 AM FISHING MANAGER CBC W/PLT COUNT & AUTO STAT 05/21/2019 DIFFERENTIAL 7:11 AM FISHING MANAGER CBC W/PLT COUNT & AUTO STAT 05/21/2019 DIFFERENTIAL 7:11 AM FISHING MANAGER POTASSIUM STAT 2019 12:29 PM FISHING MANAGER XR CHEST 1 VIEW STAT 2019 PORTABLE/BEDSIDE 11:35 AM FISHING MANAGER CBC W/PLT COUNT & AUTO STAT 2019 DIFFERENTIAL 11:23 AM FISHING MANAGER MAGNESIUM STAT 2019 11:23 AM FISHING MANAGER TROPONIN I STAT 2019 11:23 AM FISHING MANAGER COMPREHENSIVE METABOLIC STAT 2019 PANEL 11:23 AM FISHING MANAGER CBC W/PLT COUNT & AUTO STAT 2019 DIFFERENTIAL 11:23 AM FISHING MANAGER ECG 12-LEAD STAT 2019 10:55 AM FISHING MANAGER after 02/22/2019 Results * RHYTHM STRIP - SCAN (05/27/2019 2:02 PM FISHING MANAGER) Narrative Performed At This result has an attachment that is n ot available. * POC-Glucose meter (05/24/2019 7:57 PM FISHING MANAGER) Only the most recent of 17 results within the time period is included. POC-Glucose Meter 129 (H)Comment: : TESTED AT 70 - 110 mg/dL [address] [address]: [employer] Tender ID = [id number] for CARLOS MCCLOUD Specimen Blood Performing Organization Address City/State/Zipcode Ph one Number [address] [facility] * HEMODIALYSIS INPATIENT (05/24/2019 4:42 PM FISHING MANAGER) Narrative Performed At Lloyd Galloway RN 05/24/2019 4:47 PM HD terminated early per pt request due to having stomach cramps. Notified Panda Lieberman And benito to di scontinue HD. Total UF-2.5L. Pt awake and alert, not in dis tress. Lab Results Component Value Date WBC 5.4 05/22/2019 HGB 11.8 05/22/2019 HCT 34.7 05/22/2019 MCV 89.0 05/22/2019 PLT 108 (L) 05/22/2019 Lab Results Component Value Date GLUCOSE 77 05/24/2019 CALCIUM 7.4 (L) 05/24/2019 NA 136 05/24/2019 K 4.8 05/24/2019 CO2 20 (L) 05/24/2019 CL 99 05/24/2019 BUN 105 (H) 05/24/2019 CREATININE 14.41 (H) 05/24/2019 Lab Results Component Value Date HEPBSAG Nonreactive 05/21/2019 Vitals: 05/24/19 1643 BP: Pulse: 60 Resp: 18 Temp: 98.3 F (36.8 C) SpO2: 99% * CT spine lumbar without IV contrast (05/24/2019 8:28 AM FISHING MANAGER) Specimen Narrative Performed At FINAL REPORT [place] RIS CT, SPINE, LUMBAR, WO CONTRAST INDICATION: CT lumbosacral spine - 69 y o ESRD on HD pt admitted with c/o b/l LE weakness, had steroid inject ion done \\E\\E E\\E\\2 weeks ago for back pain. COMPARISON: None TECHNIQUE: Contiguous noncontrast axial images of the lumbar spine are obtained. Computer reformatted coronal and sagitt al images are also provided. Axial images are available in both bone and soft tissue algorithm. DOSE REDUCTION: Dose modulation, iterat deangelo reconstruction, and/or weight-based adjustment of the mA/kV wa s utilized to reduce the radiation dose to as low as reasonably achievable. FINDINGS: Nomenclature: L5-S1 is axial image 73. Alignment: Normal. Vertebrae: No acute fracture. Advanced endplate degenerative changes throughout. No aggressive osseous lesio ns. Spondylosis: Extensive calcification of the ligamentum flavum combined with facet arthropathy produci ng severe canal stenosis at L2-3, L3-4, and L4-5. Severe right fora hosea stenosis at L5-S1. Moderate foraminal stenosis bilaterally at multiple other levels. Soft tissues: Extensive arterial athero sclerosis. Atrophic kidneys. IMPRESSION: Advanced degenerative changes of the lesli mbar spine as above. Signed: Jorje Garcia MD Report Verified Date/Time: 0 08:49:04 Procedure Note Interface, External Ris In - 05/24/2019 8:52 AM FISHING MANAGER FINAL REPORT CT, SPINE, LUMBAR, WO CONTRAST INDICATION: CT lumbosacral spine - 69 yo ESRD on HD pt admitted with c/o b/l LE weakness, had steroid injection done \\E\\E E\\E\\2 weeks ago for back pain. COMPARISON: None TECHNIQUE: Contiguous noncontrast axial images of the lumbar spine are obtained. Computer reformatted coronal and sagittal images are also provided. Axial images are available in both bone and soft tissue algorithm. DOSE REDUCTION: Dose modulation, iterative reconstruction, and/or weight-based adjustment of the mA/kV was utilized to reduce the radiation dose to as low as reasonably achievable. FINDINGS: Nomenclature: L5-S1 is axial image 73. Alignment: Normal. Vertebrae: No acute fracture. Advanced endplate degenerative changes throughout. No aggressive osseous lesions. Spondylosis: Extensive calcification of the ligamentum flavum combined with facet arthropathy producing severe canal stenosis at L2-3, L3-4, and L4-5. Severe right foraminal stenosis at L5-S1. Moderate foraminal stenosis bilaterally at multiple other levels. Soft tissues: Extensive arterial atherosclerosis. Atrophic kidneys. IMPRESSION: Advanced degenerative changes of the lumbar spine as above. Signed: Jorje Garcia MD Report Verified Date/Time: 05/24/2019 08:49:04 Performing Organization Address City/[facility] Ph one Number [facility] RIS * Phosphorus (05/24/2019 6:51 AM FISHING MANAGER) Only the most recent of 2 results within the time period is included. Phosphorus 9.2 (HH) 2.3 - 4.7 mg/dL [facility] Specimen Blood Performing Organization Address City/[facility] Ph one Number [place] [address] [facility] * Magnesium (05/24/2019 6:51 AM FISHING MANAGER) Only the most recent of 4 results within the time period is included. Magnesium 2.2 1.6 - 2.6 mg/dL [facility] Specimen Blood Performing Organization Address [facility]/Zipcode Ph one Number [place] [phone] [place], [place] [address] [facility] * Basic metabolic panel (05/24/2019 6:51 AM FISHING MANAGER) Only the most recent of 4 results within the time period is included. Sodium 136 136 - 145 meq/L [facility] Potassium 4.8 3.5 - 5.1 meq/L [facility] Chloride 99 98 - 107 meq/L [facility] CO2 20 (L) 22 - 29 meq/L [facility] BUN 105 (H) 7 - 21 mg/dL [facility] Creatinine 14.41 (H) 0.57 - 1.25 mg/dL [facility] Glucose 77 70 - 105 mg/dL [facility] Calcium 7.4 (L) 8.4 - 10.2 mg/dL [facility] EGFR 3Comment: ESTIMATED GFR IS NOT mL/min/1.[address] [facility] ACCURATE CREATININE [facility] CLEARANCE IN PREDICTING GLOMERULAR FILTRATION RATE. ESTIMATED GFR IS NOT APPLICABLE FOR DIALYSIS PATIENTS. Specimen Blood Performing Organization Address City/[facility] one [address] [facility] * EKG-SCANNED (05/23/2019 2:23 PM FISHING MANAGER) Narrative Performed At This result has an attachment that is n ot available. * CORTISOL,60 MIN (05/23/2019 1:40 AM FISHING MANAGER) Cortisol, Baseline 3.1 mcg/dL [facility] Cortisol 30 minute 10.5 mcg/dL [facility] Cortisol, 60 Minute 11.6 ug/dL [facility] Specimen Blood Narrative Performed At ACTH STIMULATION TEST INTERPRETATION MARQUES HANLEY [facility] (Synonyms: Cortrosyn Test, Cosyntropin or Corticotrop in Stimulation Test) [facility] Adenocorticotropic hormone (ACTH)is a t ropic hormone, made in the pituitary gland, which travels trhough the bloods tream and stimulates the cortex of the adrenal glands to release cortisol. Cor tisol is a primary hormone, which aids the body's metabolism of fats, carbohyd rates, and protein as well as sodium and potassium regulation. ACTH Stimulation Test: Exogenous admini stration of biologically active ACTH stimulates the secretion of cortisol fr om the adrenal gland. This test is used to evaluate adrenal function by measuri ng cortisol levels at baseline and at 30 and 60 minutes after the administration of 250 micrograms of cosyntropin (Cortrosyn). Patients who have received exogenous corticosteroids immediately prior to performing the ACTH Stimulatio n Test will often have elevated baseline cortisol levels, which may lead to erro neous interpretation of test results. The notable exception is with dexamethasone . Normal Response: An increase in cortiso l after stimulation by ACTH is normal. Post-stimulation cortisol concentration should be greater than 20 mcg/dL or the rate of rise from baseline cortisol eusebia uld be greater than or equal to 9 mcg/dL. Patients with sepsis or septic shock: A ccording to a study by Saundra et al (LEBRON 2000,283(8):1038-45), the ACTH Stimulat ion Test provides important prognostic information. This study defined 3 group s of patients with sepsis or septic shock: 1. Good Survival: Low basal cortiso l (<or=34 mcg/dL) and high ACTH response (>9mcg/dL) 2.Intermediate Survival: Low ba keyur cortisol (<34 mcg/dL) and low response to ACTH (<or=9 mcg/dL) OR High basal cortisol (>34 mc g/dL) or high ACTH response (>9 mcg/dL) 3.Poor Survival: High basal cor tisol (>34 mcg/dL) and low ACTH response (<or=9 mcg/dL). Treatment of patients with relative adr enal dysfunction may be indicated based on test results and the clinical condit ion of the patient. Additional information, including treatment recomm endations, is available in critically ill patients, approved by the Pharmacy, Nut rition, and Therapeutics Committee on 04/29/2004 and available through the [facility] Policy and Procedure Section on The Source. Do not run this test if systemic hydroc ortisone, methylprednisolone, prednisolone or prednisone has been adm inistered within the past 24 hours.Draw baseline cortisol level just prior to cosyntropin administration.Administer cosyntrop in 0.25 mg diluted in 2-5 mL of normal saline slow IV Push over a period of 2 minutes.Draw serum cortisol level 3 0 minutes after cosyntropin administration.Draw serum cortisol level 60 minutes after cosyntropin administration. Performing Organization Address City/State/Zipcode Ph one Number [address] [facility] [facility] * CORTISOL,30 MIN (05/23/2019 1:13 AM FISHING MANAGER) Cortisol, Baseline 3.1 mcg/dL [facility] Cortisol, 30 Minute 10.5 ug/dL [facility] Specimen Blood Narrative Performed At ACTH STIMULATION TEST INTERPRETATION MARQUES HANLEY [facility] (Synonyms: Cortrosyn Test, Cosyntropin or Corticotrop in Stimulation Test) [facility] Adenocorticotropic hormone (ACTH)is a t ropic hormone, made in the pituitary gland, which travels trhough the bloods tream and stimulates the cortex of the adrenal glands to release cortisol. Cor tisol is a primary hormone, which aids the body's metabolism of fats, carbohyd rates, and protein as well as sodium and potassium regulation. ACTH Stimulation Test: Exogenous admini stration of biologically active ACTH stimulates the secretion of cortisol fr om the adrenal gland. This test is used to evaluate adrenal function by measuri ng cortisol levels at baseline and at 30 and 60 minutes after the administration of 250 micrograms of cosyntropin (Cortrosyn). Patients who have received exogenous corticosteroids immediately prior to performing the ACTH Stimulatio n Test will often have elevated baseline cortisol levels, which may lead to erro neous interpretation of test results. The notable exception is with dexamethasone . Normal Response: An increase in cortiso l after stimulation by ACTH is normal. Post-stimulation cortisol concentration should be greater than 20 mcg/dL or the rate of rise from baseline cortisol eusebia uld be greater than or equal to 9 mcg/dL. Patients with sepsis or septic shock: A ccording to a study by Saundra et al (LEBRON 2000,283(8):1487-71), the ACTH Stimulat ion Test provides important prognostic information. This study defined 3 group s of patients with sepsis or septic shock: 1. Good Survival: Low basal cortiso l (<or=34 mcg/dL) and high ACTH response (>9mcg/dL) 2.Intermediate Survival: Low ba keyur cortisol (<34 mcg/dL) and low response to ACTH (<or=9 mcg/dL) OR High basal cortisol (>34 mc g/dL) or high ACTH response (>9 mcg/dL) 3.Poor Survival: High basal cor tisol (>34 mcg/dL) and low ACTH response (<or=9 mcg/dL). Treatment of patients with relative adr enal dysfunction may be indicated based on test results and the clinical condit ion of the patient. Additional information, including treatment recomm endations, is available in critically ill patients, approved by the Pharmacy, Nut rition, and Therapeutics Committee on 04/29/2004 and available through the [facility] Policy and Procedure Section on The Source. Do not run this test if systemic hydroc ortisone, methylprednisolone, prednisolone or prednisone has been adm inistered within the past 24 hours.Draw baseline cortisol level just prior to cosyntropin administration.Administer cosyntrop in 0.25 mg diluted in 2-5 mL of normal saline slow IV Push over a period of 2 minutes.Draw serum cortisol level 3 0 minutes after cosyntropin administration.Draw serum cortisol level 60 minutes after cosyntropin administration. Performing Organization Address City/State/Zipcode Ph one Number [place] [place] [address] [facility] * CORTISOL,BASELINE (05/23/2019 12:20 AM FISHING MANAGER) Cortisol, Baseline 3.1 ug/dL [facility] Specimen Blood Narrative Performed At ACTH STIMULATION TEST INTERPRETATION MARQUES HANLEY [facility] (Synonyms: Cortrosyn Test, Cosyntropin or Corticotrop in Stimulation Test) [facility] Adenocorticotropic hormone (ACTH)is a t ropic hormone, made in the pituitary gland, which travels trhough the bloods tream and stimulates the cortex of the adrenal glands to release cortisol. Cor tisol is a primary hormone, which aids the body's metabolism of fats, carbohyd rates, and protein as well as sodium and potassium regulation. ACTH Stimulation Test: Exogenous admini stration of biologically active ACTH stimulates the secretion of cortisol fr om the adrenal gland. This test is used to evaluate adrenal function by measuri ng cortisol levels at baseline and at 30 and 60 minutes after the administration of 250 micrograms of cosyntropin (Cortrosyn). Patients who have received exogenous corticosteroids immediately prior to performing the ACTH Stimulatio n Test will often have elevated baseline cortisol levels, which may lead to erro neous interpretation of test results. The notable exception is with dexamethasone . Normal Response: An increase in cortiso l after stimulation by ACTH is normal. Post-stimulation cortisol concentration should be greater than 20 mcg/dL or the rate of rise from baseline cortisol eusebia uld be greater than or equal to 9 mcg/dL. Patients with sepsis or septic shock: A ccording to a study by Saundra et al (LEBRON 2000,283(8):1038-45), the ACTH Stimulat ion Test provides important prognostic information. This study defined 3 group s of patients with sepsis or septic shock: 1. Good Survival: Low basal cortiso l (<or=34 mcg/dL) and high ACTH response (>9mcg/dL) 2.Intermediate Survival: Low ba keyur cortisol (<34 mcg/dL) and low response to ACTH (<or=9 mcg/dL) OR High basal cortisol (>34 mc g/dL) or high ACTH response (>9 mcg/dL) 3.Poor Survival: High basal cor tisol (>34 mcg/dL) and low ACTH response (<or=9 mcg/dL). Treatment of patients with relative adr enal dysfunction may be indicated based on test results and the clinical condit ion of the patient. Additional information, including treatment recomm endations, is available in critically ill patients, approved by the Pharmacy, Nut rition, and Therapeutics Committee on 04/29/2004 and available through the [facility] Policy and Procedure Section on The Source. Do not run this test if systemic hydroc ortisone, methylprednisolone, prednisolone or prednisone has been adm inistered within the past 24 hours.Draw baseline cortisol level just prior to cosyntropin administration.Administer cosyntrop in 0.25 mg diluted in 2-5 mL of normal saline slow IV Push over a period of 2 minutes.Draw serum cortisol level 3 0 minutes after cosyntropin administration.Draw serum cortisol level 60 minutes after cosyntropin administration. Performing Organization Address City/State/Zipcode bret Number [facility] [address] [place], [place] [address] [facility] * CT brain without IV contrast (05/22/2019 3:54 PM FISHING MANAGER) Specimen Narrative Performed At FINAL REPORT [facility] CT, BRAIN, WITHOUT CONTRAST INDICATION: generalized weakness, thoug h more so in b/l proximal LE - ongoing for past 2 weeks generalized weakness, though more so in b/l proximal LE - ongoing for past 2 weeks TECHNIQUE: Noncontrast axial imaging wa s obtained from the vertex to the skull base. Axial images were recon structed using a bone algorithm. DOSE REDUCTION: Dose modulation, iterat deangelo reconstruction, and/or weight-based adjustment of the mA/kV wa s utilized to reduce the radiation dose to as low as reasonably achievable. COMPARISON: CT 11/21/2011 FINDINGS: Intracranial: Generalized cerebral atro phy with ex vacuo dilatation of the ventricular system proportionate to sulci. Scattered foci of hypoattenuation within the periventricu lar and subcortical white matter are a nonspecific finding common ly attributed to chronic small vessel ischemic disease. No intracrania l hemorrhage or abnormal extra-axial collection. No evidence of acute territorial infarct. No mass effect. No hydrocephalus. Osseous structures: No fracture. No mary picious lesion. Paranasal sinuses and mastoid air cells : No evidence of sinusitis. Mastoids are clear. Orbital contents: Globes are intact. IMPRESSION: No acute intracranial hemorrhage or ter ritorial infarct. Generalized parenchymal volume loss and chronic microvascular changes, commensurate with age. If there is persistent clinical concern for intracranial pathology, MR examination is recommended [facility]. Signed: Jorje Garcia MD Report Verified Date/Time: 0 16:58:01 Procedure Note Interface, External Ris In - 05/22/2019 5:00 PM FISHING MANAGER FINAL REPORT CT, BRAIN, WITHOUT CONTRAST INDICATION: generalized weakness, though more so in b/l proximal LE - ongoing for past 2 weeks generalized weakness, though more so in b/l proximal LE - ongoing for past 2 weeks TECHNIQUE: Noncontrast axial imaging was obtained from the vertex to the skull base. Axial images were reconstructed using a bone algorithm. DOSE REDUCTION: Dose modulation, iterative reconstruction, and/or weight-based adjustment of the mA/kV was utilized to reduce the radiation dose to as low as reasonably achievable. COMPARISON: CT 11/21/2011 FINDINGS: Intracranial: Generalized cerebral atrophy with ex vacuo dilatation of the ventricular system proportionate to sulci. Scattered foci of hypoattenuation within the periventricular and subcortical white matter are a nonspecific finding commonly attributed to chronic small vessel ischemic disease. No intracranial hemorrhage or abnormal extra-axial collection. No evidence of acute territorial infarct. No mass effect. No hydrocephalus. Osseous structures: No fracture. No suspicious lesion. Paranasal sinuses and mastoid air cells: No evidence of sinusitis. Mastoids are clear. Orbital contents: Globes are intact. IMPRESSION: No acute intracranial hemorrhage or territorial infarct. Generalized parenchymal volume loss and chronic microvascular changes, commensurate with age. If there is persistent clinical concern for intracranial pathology, MR examination is recommended for further characterization. Signed: Jorje Garcia MD Report Verified Date/Time: 05/22/2019 16:58:01 Performing Organization Address City/[facility] Ph one Number [facility] * Cortisol (05/22/2019 4:52 AM FISHING MANAGER) Cortisol, Total 2.7 (L) 3.7 - 19.4 ug/dL [facility] Specimen Blood Performing Organization Address [facility] Ph one Number [facility] [address] [place], [place] [address] [facility] * TSH/Free T4 If Indicated (05/22/2019 4:52 AM FISHING MANAGER) TSH 0.43 0.35 - 4.94 uIU/mL [facility] Specimen Blood Performing Organization Address [facility] Ph one Number [address] 0 [phone] [place] [address] * CBC (Hemogram only) (05/22/2019 4:52 AM FISHING MANAGER) WBC 5.4 3.5 - 10.5 K/L [facility] RBC 3.90 (L) 3.93 - 5.22 M/L [facility] Hemoglobin 11.8 11.2 - 15.7 GM/DL [facility] Hematocrit 34.7 34.1 - 44.9 % [facility] MCV 89.0 79.4 - 94.8 fL [facility] MCH 30.3 25.6 - 32.2 pg [facility] MCHC 34.0 32.2 - 35.5 GM/DL [facility] RDW 14.8 (H) 11.7 - 14.4 % [facility] Platelets 108 (L) 150 - 450 K/CU MM [facility] MPV 12.4 (H) 9.4 - 12.3 fL [facility] nRBC 0 0 - 0 /100 WBC [facility] Specimen Blood Performing Organization Address City/[facility] Ph one Number [place] [address] [address] [phone] [place] [address] * Hemoglobin A1c (05/22/2019 4:52 AM FISHING MANAGER) Hemoglobin A1C 7.2 (H) 4.3 - 6.1 % [facility] Specimen Blood Performing Organization Address City/[facility] Ph one Number [place] [address] [address] [phone] [place] [address] * Creatine Kinase (CK) (05/22/2019 4:52 AM FISHING MANAGER) Total CK 53 29 - 200 U/L [facility] Specimen Blood Performing Organization Address City/State/Zipcode Ph one Number [facility] [address] [place] [id number] [facility] * HEMODIALYSIS INPATIENT (05/21/2019 8:21 PM FISHING MANAGER) Narrative Performed At Anju Mayen RN 05/22/2019 12: 23 AM Completed 4 hours of HD via right UA AV F, with net fluid removed of 4 liters.Asymptomatic hypotensio n during dialysis treatment. MAP was WDL.Report given to primary RNSara. Lab Results Component Value Date WBC 5.6 05/21/2019 HGB 12.3 05/21/2019 HCT 37.4 05/21/2019 MCV 92.1 05/21/2019 PLT 125 (L) 05/21/2019 Lab Results Component Value Date GLUCOSE 59 (L) 05/21/2019 CALCIUM 7.8 (L) 05/21/2019 NA 137 05/21/2019 K 5.9 (H) 05/21/2019 CO2 22 05/21/2019 CL 96 (L) 05/21/2019 BUN 121 (H) 05/21/2019 CREATININE 16.11 (H) 05/21/2019 Results for MARY DE LA GARZA ( ) as of 05/21/2019 20:22 Ref. Range 05/21/2019 15:42 Hepatitis B Surface Ag Latest Ref Range : NonreactiveNonreactive * ECG 12 lead (05/21/2019 5:22 PM FISHING MANAGER) Only the most recent of 2 results within the time period is included. Specimen Narrative Performed At Ventricular Rate 60 BPM GE MUSE Atrial Rate 60 BPM QRS Duration 198 ms Q-T Interval 590 ms QTC Calculation(Bazett) 590 ms R [place] -60 degrees T [place] 127 degrees AV dual-paced rhythm Abnormal ECG When compared with ECG of 18-MAY-2019 1 0:55, Premature ventricular complexes are no longer Present Vent. rate has decreased BY11 BPM Confirmed by MD ARUN, TANIYA ([id number]) o n 05/22/2019 3:50:33 PM Procedure Note Interface, External Ris In - 05/22/2019 3:50 PM FISHING MANAGER Ventricular Rate 60 BPM Atrial Rate 60 BPM QRS Duration 198 ms Q-T Interval 590 ms QTC Calculation(Bazett) 590 ms R [place] -60 degrees T [place] 127 degrees AV dual-paced rhythm Abnormal ECG When compared with ECG of 18-MAY-2019 10:55, Premature ventricular complexes are no longer Present Vent. rate has decreased BY 11 BPM Confirmed by MD DIAS JORGE ([id number]) on 05/22/2019 3:50:33 PM Performing Organization Address [facility] one Number TATIANA PETE * Troponin I (05/21/2019 3:43 PM FISHING MANAGER) Only the most recent of 3 results within the time period is included. Troponin I 0.10 (H) 0.00 - 0.03 ng/mL [facility] Specimen Blood Narrative Performed At Troponin I (TnI) levels must be interpreted in the co ntext of the presenting [facility] symptoms and the clinical findings. Elevated TnI leve ls indicate myocardial [facility] damage, but are not specific for ischem ic heart disease. Elevated TnI levels are seen in patients with other cardiac con ditions (including myocarditis and congestive heart failure), and slight T nI elevations occur in patients with other conditions, including sepsis, gabriella al failure, acidosis, acute neurological disease, and persistent tachyarrhythmia . Performing Organization Address [facility] one Number [address] [address] [facility] * Lipase (05/21/2019 3:43 PM FISHING MANAGER) Lipase 105 (H) 8 - 78 U/L [facility] Specimen Blood Narrative Performed At Add on please [facility] Performing Organization Address [facility] one Number [address] [facility] * Hepatitis B surface antigen (05/21/2019 3:42 PM FISHING MANAGER) HBsAg Screen Nonreactive Nonreactive [facility] Specimen Blood Performing Organization Address [facility] one Number [address] [facility] [place] * ALT (SGPT) (05/21/2019 8:33 AM FISHING MANAGER) ALT 26 6 - 55 U/L [facility] Specimen Blood Performing Organization Address [facility] Ph one Number [address] 0 [phone] [place] [address] * AST (SGOT) (05/21/2019 8:33 AM FISHING MANAGER) AST 17 5 - 34 U/L [facility] Specimen Blood Performing Organization Address [facility] Ph one [address] 0 [phone] [place] [address] * Alkaline phosphatase (05/21/2019 8:33 AM FISHING MANAGER) Alkaline Phosphatase 47 40 - 150 U/L [facility] Specimen Blood Performing Organization Address [facility] one [address] 0 [phone] [place] [address] * Bilirubin, adult total (05/21/2019 8:33 AM FISHING MANAGER) Total Bilirubin 0.9 0.2 - 1.2 mg/dL [facility] Specimen Blood Performing Organization Address [facility] one [address] 0 [phone] [place] [address] * B-type Natriuretic Factor (BNP) (05/21/2019 8:02 AM FISHING MANAGER) BNP 479 (H) 0 - 100 pg/mL [facility] Specimen Blood Performing Organization Address [facility] one [address] 0 [phone] [place] [address] * XR chest 1 view portable / bedside (05/21/2019 7:20 AM FISHING MANAGER) Only the most recent of 2 results within the time period is included. Specimen Narrative Performed At FINAL REPORT [facility] INDICATION: CHEST PAIN TECHNIQUE: Chest radiograph, single view, portable technique. FINDINGS / IMPRESSION: The heart shadow is enlarged and there is a multilead left subclavian pacemaker. No definite pulmonary edema, sensitivity decreased because of large habitus. No focal lung abnorma lity, pneumothorax, or pleural effusion demonstrated. Signed: Hector Mosquera MD Report Verified Date/Time: 0 07:43:57 Reading Location: [address] Transiti onal Reading Room Procedure Note Interface, External Ris In - 05/21/2019 7:46 AM FISHING MANAGER FINAL REPORT INDICATION: CHEST PAIN TECHNIQUE: Chest radiograph, single view, portable technique. FINDINGS / IMPRESSION: The heart shadow is enlarged and there is a multilead left subclavian pacemaker. No definite pulmonary edema, sensitivity decreased because of large habitus. No focal lung abnormality, pneumothorax, or pleural effusion demonstrated. Signed: Hector Mosquera MD Report Verified Date/Time: 05/21/2019 07:43:57 Reading Location: [address] Transitional Reading Room Performing Organization Address City/State/Zipcode Ph one Number [facility] * CBC with platelet count + automated diff (05/21/2019 7:11 AM FISHING MANAGER) Only the most recent of 2 results within the time period is included. WBC 5.6 3.5 - 10.5 K/L [facility] RBC 4.06 3.93 - 5.22 M/L [facility] Hemoglobin 12.3 11.2 - 15.7 GM/DL [facility] Hematocrit 37.4 34.1 - 44.9 % [facility] MCV 92.1 79.4 - 94.8 fL [facility] MCH 30.3 25.6 - 32.2 pg [facility] MCHC 32.9 32.2 - 35.5 GM/DL [facility] RDW 15.3 (H) 11.7 - 14.4 % [facility] Platelets 125 (L) 150 - 450 K/CU MM [facility] MPV 12.7 (H) 9.4 - 12.3 fL [facility] nRBC 0 0 - 0 /100 WBC [facility] % Neutros 60 % [facility] % Lymphs 25 % [facility] % Monos 13 % [facility] % Eos 1 % [facility] % Baso 0 % [facility] # Neutros 3.36 1.56 - 6.13 K/L [facility] # Lymphs 1.43 1.18 - 3.74 K/L [facility] # Monos 0.74 (H) 0.24 - 0.36 K/L [facility] # Eos 0.07 0.04 - 0.36 K/L [facility] # Baso 0.01 0.01 - 0.08 K/L [facility] Immature 1 0 - 1 % [facility] Granulocytes-Relative [facility] Specimen Blood Performing Organization Address City/[facility] one Number [address] [facility] * Potassium (2019 12:29 PM FISHING MANAGER) Potassium 4.8 3.5 - 5.1 meq/L [facility] Specimen Blood Performing Organization Address City/[facility] Ph one Number [address] [facility] * Comprehensive metabolic panel (2019 11:23 AM FISHING MANAGER) Protein, Total 7.9Comment: Specimen slightly 6.0 - 8.3 gm/dL [facility] Albumin 4.0Comment: Specimen slightly 3.5 - 5.0 g/dL [facility] Alkaline Phosphatase 49 40 - 150 U/L [facility] Total Bilirubin 0.7Comment: Specimen slightly 0.2 - 1.2 mg/dL [facility] Sodium 138 136 - 145 meq/L [facility] Potassium 5.4 (H)Comment: Specimen 3.5 - 5.1 meq/L [facility] Chloride 98 98 - 107 meq/L [facility] CO2 19 (L) 22 - 29 meq/L [facility] BUN 125 (H) 7 - 21 mg/dL [facility] Creatinine 16.10 (H)Comment: Specimen 0.57 - 1.25 mg/dL [facility] Glucose 148 (H) 70 - 105 mg/dL [facility] Calcium 8.5 8.4 - 10.2 mg/dL [facility] AST 23Comment: Specimen slightly 5 - 34 U/L [facility] ALT 21Comment: Specimen slightly 6 - 55 U/L [facility] EGFR 3Comment: ESTIMATED GFR IS NOT mL/min/1.[address] [facility] ACCURATE CREATININE [facility] CLEARANCE IN PREDICTING GLOMERULAR FILTRATION RATE. ESTIMATED GFR IS NOT APPLICABLE FOR DIALYSIS PATIENTS. Specimen Blood Performing Organization Address City/State/Zipcode Ph one Number [address] MEDICAL CENTER after 02/22/2019 Insurance Payer Benefit Subscriber ID Type Phone Address Plan / Group MEDICARE MEDICARE A xxxxxxxxxxx Medicare B MEDICAID MEDICAID xxxxxxxxx [place] [id number] Advance Directives For more information, please contact: [facility] [address] [place], [place] [address] Date Inactivated Comments Code Status Date Activated 05/25/2019 8:47 AM Full Code 05/21/2019 3:46 PM This code status was determined by: Patient 02/08/2019 9:17 PM Full Code 02/05/2019 11:01 AM This code status was determined by: Patient 02/05/2019 11:01 AM Full Code 02/05/2019 3:17 AM This code status was determined by: Patient 04/19/2017 8:34 PM Full Code 04/17/2017 6:38 PM This code status was determined by: Patient 12/22/2016 5:51 PM Full Code 12/21/2016 7:02 AM This code status was determined by: Patient
--- OUTSIDE RECORDS SUMMARY | 2020-02-23 16:16 | XMS REPORT | Continuity of Care Document ---
Author Author [facility] t Organization [facility] t Address [address] [place] [address] Phone Unavailable Care Team Providers Care Remote Computer Terminal Operator Name Role Phone López NICOLE, Homer PCP Unavailable Stefan NICOLE, Fouzia Attphys Arjun BROOKS, Caroline Attphys Unavailable Bernardino NICOLE, Darryl Attphys Leidy NICOLE, Sunitha Kumar Attphys Joanna NICOLE, Felipe Watters Attphys Vin NICOLE, Ritesh Cheng Attphys Senior NICOLE, Yoko Delcid Attphys Carlos NICOLE, Marilynn Herr Attphys Beau NICOLE, Indra Freeman Attphys [phone] Amandeep NICOLE, Wili Javed Attphys Rosa Maria Manuel CRNA Attphys Kathleen NICOLE, Gene Renner Attphys [phone] Briana Reyes Attphys Hiram NICOLE, Korey Nino Attphys [phone] Chris TORREZ, Conchita Attphys Unavailable Errol BROOKS, Crispin Attphys Unavailable Winnie Tam MA Attphys Unavailable Jose Mayo DO Attphys Christiano NICOLE, Cordell Nelson Attphys Leidy NICOLE, Km Attphys Leah NICOLE, Isaias Attphys Mali NICOLE, Oracio Reyes Attphys Devyn NICOLE, David Pastrana Attphys Tamra NICOLE, Alexandro Alysia Attphys Ginger NICOLE, Ralph Rendon Attphys DAVID KUMARI Attphys Unavailable Miky NICOLE, Heather Morton Attphys HEATHER CANNON Attphys Unavailable Gigi NICOLE, Samra Yan Attphys JESSIE MARTINEZ Attphys Unavailable JORJE BENITEZ Attphys Unavailable Ritesh PEARCE Attphys Unavailable Panda ULLOA Attphys Unavailable JESSIE ART Attphys Unavailable SHANA VILLA Attphys Unavailable STACY GO Admphys Unavailable ANGY ALVARADO Admphys Unavailable DUONG BANG Admphys Unavailable RALPH MILES JUSTICE Admphys Unavailable TAMRA, HYUNNA ALYSIA Admphys Unavailable DELICIA BEASLEY Admphys Unavailable Ritesh PEARCE Admphys Unavailable LOTUS SANDOVAL Admphys Unavailable JUSTICE BAER Admphys Unavailable SHANA VILLA Admphys Unavailable Payers Payer Name Policy Type Policy Number Effective Date Expiration Date S kelsey MEDICAREMEDICARE PART A AND [id number] 2002-PresentHOUS GABRIELLE PAMedicare [id number] 2001 00:00:00 Clyde Uatsdin [id number] 2017-PresentMedicaid [id number] 2017 00:00:00 Clyde Alcaraz MEDICAREMEDICARE A BxxxxxxxxxxxMedicare xxxxxxxxxxx [facility] MEDICAIDMEDICAID OF [place]xxxxxxxx[place]icaid xxxxxxxxx [facility] Problems Condition Name Condition Details Condition Category Status Onset Date Resolution Date Last Treatment Date Treating Clinician Comments Source Encephalopathy acute Encephalopathy acute Disease Active 00:00:00 Clyde Alcaraz Agitation requiring sedation protocol Agitation requiring se dation protocol Disease Active 2019-07-15 00:00:00 Clyde Alcaraz Shock circulatory Shock circulatory Disease Active 2019-07-15 00:00:00 Clyde Alcaraz Acute respiratory failure with hypoxia and hypercapnia Acute respiratory failure with hypoxia and hypercapnia Disease Active 2019-07-15 00:00:00 Clyde Alcaraz Acute acalculous cholecystitis Acute acalculous cholecystitis Disea se Active 2019-07-15 00:00:00 Clyde Alcaraz Groin hematoma Groin hematoma Disease Active 2019-07-15 00:00:00 Clyde Alcaraz Acute blood loss anemia Acute blood loss anemia Disease Active 2019-07-15 00:00:00 Clyde molina Secondary adrenal insufficiency Secondary adrenal insufficiency Dis ease Active 2019-07-15 00:00:00 Clyde Alcaraz Type 2 diabetes mellitus with hyperglycemia Type 2 kanika betes mellitus with hyperglycemia Disease Active 2019-07-15 00:00:00 Clyde Alcaraz Steroid-induced hyperglycemia Steroid-induced hyperglycemia Disease Active 2019-07-15 00:00:00 Clyde Alcaraz Current use of steroid medication Current use of steroid medicat ion Disease Active 2019-07-15 00:00:00 [place] [facility] Hypotension Hypotension Disease Active 2019-07-14 00:00:00 Clyde Alcaraz Cellulitis of arm, right Cellulitis of arm, right Disease Acti ve 2019-07-12 00:00:00 Clyde molina ESRD (end stage renal disease) ([facility]) 2007 MWF ESRD (en d stage renal disease) ([facility]) 2007 MWF Disease Active 2019-07-08 00:00:00 Last Assessment & Plan: Right arm fistula with malfunction with volume flow of 169 and cephalic outflow occlusion. We will plan for right arm AV fistula revision. We discussed operative complications including bleeding, thrombosis, failure of the access, swelling, steal syndrome, and need for additional procedures. Clyde Alcaraz Atrial fibrillation Atrial fibrillation Disease Active 2019-07-08 00:00 :00 Clyde Alcaraz Neuropathy Neuropathy Disease Active 2019-07-08 00:00:00 Clyde Alcaraz HLD (hyperlipidemia) HLD (hyperlipidemia) Disease Active 00:00:00 Clyde Alcaraz Type 2 diabetes mellitus Type 2 diabetes mellitus Disease Acti ve 2019-07-08 00:00:[address] Lumbosacral stenosis Lumbosacral stenosis Disease Active 00:00:00 [facility] Elevated troponin I level Elevated troponin I level Disease Ac tive 2019-05-23 00:00:00 [facility] Hypoglycemia Hypoglycemia Disease Active 2019-05-21 00:00:00 [facility] Hypertension Hypertension Disease Active 2019-02-07 00:00:00 [facility] Peripheral vascular disease Peripheral vascular disease Disease Active 2019-02-07 00:00:00 [facility] Chronic renal failure Chronic renal failure Disease Active 201 01-28-20 00:00:00 [facility] Arthritis Arthritis Disease Active 2019-02-07 00:00:00 [facility] Hyperlipidemia Hyperlipidemia Disease Active 2019-02-07 00:00:00 [facility] Anemia in ESRD (end-stage renal disease) Anemia in ESR D (end-stage renal disease) Disease Active 2019-02-06 00:00:00 [facility] Thrombocytopenia Thrombocytopenia Disease Active 2018-05-03 00:00:00 [facility] Chronic anticoagulation Chronic anticoagulation Disease Active 2018-05-03 00:00:00 [facility] Non-insulin treated type 2 diabetes mellitus Non-insul in treated type 2 diabetes mellitus Disease Active 2018-05-03 00:00:00 [facility] Chronic combined systolic and diastolic 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 Disease Act deangelo 2018-04-30 00:00:00 [facility] Atrial fib/flutter, transient Atrial fib/flutter, transient Disease Active 2018-01-03 00:00:00 [facility] ESRD (end stage renal disease) ESRD (end stage renal disease) Disea se Active 2018-01-03 00:00:00 [facility] COPD (chronic obstructive pulmonary disease) COPD (chr onic obstructive pulmonary disease) Disease Active 2017-12-26 00:00:00 [facility] Hyperkalemia Hyperkalemia Disease Active 2017-12-24 00:00:00 [facility] Malfunction of arteriovenous dialysis fistula Malfunct ion of arteriovenous dialysis fistula Disease Active 2016-11-23 00:00:00 [facility] ESRD (end stage renal disease) on dialysis ESRD (end s tage renal disease) on dialysis Disease Active 2016-02-09 00:00:00 [facility] Depressive disorder, not elsewhere classified Depressi ve disorder, not elsewhere classified Disease Active 2007-08-13 00:00:00 [facility] Gout, unspecified Gout, unspecified Disease Active 2007-08-13 00:00:00 Overview: Overview: ICD-10 [facility] Diabetes mellitus Diabetes mellitus Disease Active [facility] Sleep apnea Sleep apnea Disease Active [facility] Coronary artery disease Coronary artery disease Disease Active [facility] Chronic back pain Chronic back pain Disease Active [facility] CHF (congestive heart failure) CHF (congestive heart failure) Disease Active [facility] ESRD on hemodialysis ESRD on hemodialysis Disease Active [facility] History of Past Illness Condition Name Condition Details Condition Category Status Onset Date Resolution Date Last Treatment Date Treating Clinician Comments Source Abscess of groin, right Abscess of groin, right Disease Resolv ed 2019-09-11 00:00:00 2019-09-22 00:00:00 2019-09-22 10:42:08 H maile Alcaraz Severe sepsis Severe sepsis Disease Resolved 2019-02-05 00:00:00 2019-05-23 00:00:00 2019-05-23 08:36:38 [facility] Hypotension Hypotension Disease Resolved 2019-02-05 00:00:00 00:00:00 2019-05-23 08:36:47 [facility] Acute on chronic diastolic (congestive) heart failure Acute on chronic diastolic (congestive) heart failure Disease Resolved 2018-05-03 00:00:00 2 00:00:00 2019-05-23 08:37:30 [facility] Fever in adult Fever in adult Disease Resolved 2018-04-30 00:00: 00 2019-05-23 00:00:00 2019-05-23 08:36:59 [facility] Pleural effusion on right Pleural effusion on right Disease Re solved 2018-04-30 00:00:00 2019-05-23 00:00:00 2019-05-23 08:36:43 [facility] Volume overload Volume overload Disease Resolved 2018-01-05 00:0 0:00 2019-05-23 00:00:00 2019-05-23 08:36:29 [facility] Hypercapnia Hypercapnia Disease Resolved 2017-12-26 00:00:00 202 00:00:00 2019-05-23 08:36:51 [facility] Hypotension Hypotension Disease Resolved 2016-12-21 00:00:00 202 00:00:00 2019-05-23 08:36:46 [facility] Acute post-hemorrhagic anemia Acute post-hemorrhagic anemia Disease Resolved 2016-02-09 00:00:00 2019-05-23 00:00:00 2019-05-23 08:37:25 [facility] Hemorrhage of arteriovenous fistula, initial encounter Hemorrhage of arteriovenous fistula, initial encounter Disease Resolved 2016-01 00:00:00 2019-05-23 00:00:00 2019-05-23 08:36:54 [facility] Substernal chest pain Substernal chest pain Disease Resolved 2015-05-24 00:00:00 2019-05-23 00:00:00 2019-05-23 08:36:33 [facility] Chest pain Chest pain Disease Resolved 2013-04-21 00:00:00 00:00:00 2019-05-23 08:37:19 [facility] Allergies, Adverse Reactions, Alerts Allergy Name Allergy Type Status Severity Reaction(s) Onset Date Inacti ve Date Treating Clinician Comments Source Iodine And Iodide Containing Products Propensity to adverse reactions to drug Active Other (See Comments) 2019-07-08 00:00:00 Skin burning Tang Uatsdin Penicillins Propensity to adverse reactions to drug Active Other (See Comments) 2019-07-08 00:00:00 Yeast infections [place] [facility] Vancomycin Propensity to adverse reactions to drug Active Itching 2019-07-08 00:00:00 Tang Method[facility] t Iodine And Iodide Containing Products Drug Allergy Active Hives, Itching 2016-11-14 00:00:00 Agent given was Isov ue-300. Vaginal burning during injection. Swollen lips. Mucocitis. [facility] Codeine Propensity to adverse reactions Active 2016-07-10 0 0:00:00 [facility] Colchicine Propensity to adverse reactions Active 2016-06-22 0 00:00:00 [facility] Vancomycin Analogues Propensity to adverse reactions Active Swelling 2016-02-11 00:00:00 Swelling of lips [facility] Penicillins Drug Allergy Active Other (See Comments) 2007-10-03 00:00:00 Yeast infection [facility] Family History Family Member Diagnosis Comments Start Date Stop Date Source Natural brother Diabetes [place] [facility] Natural brother Kidney disease [place] [facility] Natural father Diabetes [place] [facility] Natural father Heart disease [place] [facility] Natural father Hypertension [place] [facility] Natural father Kidney disease [place] Maternal grandmother Hypertension [place] Natural mother Diabetes [place] [facility] Natural mother Hypertension [place] [facility] Natural sister Cancer [place] [facility] Social History Social Habit Start Date Stop Date Quantity Comments Source History of tobacco use Current smoker Tang [facility] History SDOH Alcohol Binge [place] [facility] Sex Assigned At F Cristiana ston Uatsdin Cigarettes smoked current (pack per day) - Reported 00:00:00 2019-11-27 00:00:00 Clyde Colinist Tobacco use and exposure 2019-11-27 00:00:00 2019-11-27 00:00:00 Suzan byrd used Tang Uatsdin Alcohol intake 2019-11-27 00:00:00 2019-11-27 00:00:00 Current drinker of alcohol (finding) Tang Uatsdin Alcohol Comment 2019-09-12 00:00:2019-09-12 00:00:00 rarely Clyde Alcaraz History SDOH Alcohol Frequency 2019-07-08 00:00:00 2019-07-08 00:00:0 0 2 Clyde Alcaraz History SDOH Alcohol Std Drinks 2019-07-08 00:00:00 2019-07-08 00:00: 00 1 Clyde Alcaraz Tobacco Comment 2016-11-23 00:00:00 2016-11-23 00:00:00 quit in 1996 [facility] Smoking Status Start Date Stop Date Source Former smoker 2019-11-27 00:00:00 2019-11-27 00:00:00 Clyde Alcaraz Medications Ordered Medication Name Filled Medication Name Start Date Stop Da te Current Medication? Ordering Clinician Indication Dosage Frequency Signature (SIG) Comments Components Source apixaban (ELIQUIS) 2.5 mg tablet 2019-11-27 13:57:32 Yes 2.5mg Q.5D Take 2.5 mg by mouth 2 (two) times a day. Gee Alcaraz sevelamer (RENVELA) 800 mg tablet 2019-11-27 13:57:32 Ye s 2400mg Q.[id number] Take 2,400 mg by mouth 3 (three) times a day with meals. Clyde Alcaraz vit B complex-vitamin C-folic acid (NEPHRO-ALEXIS OTC) 0.8 mg tablet 2019-11-27 13:57:32 Yes 1{tbl} QD Take 1 tablet by mouth daily. Clyde Alcaraz levocetirizine (XYZAL) 5 MG tablet 2019-11-27 13:57:32 Yes 5mg QD Take 5 mg by mouth every evening. Clyde Metho dist ergocalciferol (VITAMIN D2) 50,000 unit capsule 2019-11-27 13:57 :32 Yes [id number] Q14D Take 50,000 Units by mouth every 14 (fourteen) days. Clyde Alcaraz hydrocortisone (CORTEF) 5 MG tablet 2019-11-27 13:57:32 Yes 10mg QD Take 10 mg by mouth every evening. Clyde Il thodist hydrocortisone (CORTEF) 20 MG tablet 2019-11-27 13:57:32 Ye s 20mg QD Take 20 mg by mouth every morning. Shae Alcaraz midodrine (PROAMATINE) 10 MG tablet 2019-11-27 13:57:32 Yes 10mg Q.[id number] Take 10 mg by mouth 3 (three) times a day. Clyde Alcaraz pantoprazole (PROTONIX) 20 MG EC tablet 2019-11-27 13:57:32 Yes 20mg QD Take 20 mg by mouth daily. Clyde jain linezolid (ZYVOX) 600 mg tablet 2019-09-30 00:00:00 00:00:00 No 600mg Q.5D Take 1 tablet (600 m g total) by mouth 2 (two) times a day for 4 days. Clyde Alcaraz fluconazole (DIFLUCAN) 150 MG tablet 2019-09-26 00:00: 00 2019-09-30 00:00:00 No 150mg Take 1 tablet (150 mg total) by mouth on ce for 1 dose. Clyde Alcaraz ondansetron ODT (Zofran ODT) 4 MG disintegrating tablet 2019-09-22 00:00:00 2019-10-22 23:59:00 No 4mg Q8H Take 1 tablet (4 mg total) by mouth every 8 (eight) hours as needed for nausea or vomiting for up to 30 days. Clyde Alcaraz linezolid (ZYVOX) 600 mg tablet 2019-09-22 00:00:00 00:00:00 No 600mg Q.5D Take 1 tablet (600 m g total) by mouth 2 (two) times a day for 4 days. Clyde Alcaraz pantoprazole (PROTONIX) 40 MG EC tablet 00:00:00 2019-08-29 23:59:00 No 40mg QD Take 1 tablet (40 mg total) by mouth daily for 30 days. Clyde Alcaraz hydrocortisone (CORTEF) 20 MG tablet 2019-07-30 00:00: 00 2019-07-29 00:00:00 No 20mg QD Take 1 tablet (20 mg total) by mouth [place] for 30 days. Clyde Alcaraz meloxicam (MOBIC) 7.5 mg tablet 2019-07-29 17:41:14 00:00:00 No 7.5mg QD Take 7.5 mg by mouth daily. Clyde Alcaraz midodrine (PROAMATINE) 10 MG tablet 2019-07-29 00:00:0 0 2019-08-28 23:59:00 No 20mg Q.[id number] Take 2 tablets (20 mg total) by mouth 3 (three) times a day for 30 days. Clyde molina hydrocortisone (CORTEF) 20 MG tablet 2019-07-29 00:00: 00 2019-08-28 23:59:00 No 20mg QD Take 1 tablet (20 mg tota l) by mouth every morning for 30 days. Clyde Alcaraz hydrocortisone (CORTEF) 10 MG tablet 2019-07-29 00:00: 00 2019-08-28 23:59:00 No 10mg QD Take 1 tablet (10 mg tota l) by mouth every evening for 30 days. Clyde Alcaraz hydrocortisone (CORTEF) 10 MG tablet 2019-07-29 00:00: 00 2019-07-29 00:00:00 No 10mg QD Take 1 tablet (10 mg total) by mouth [place] for 30 days. Clyde Alcaraz acetaminophen-codeine (TYLENOL WITH CODEINE #3) 300-30 mg pe r tablet 2019-07-11 00:00:00 2019-07-29 00:00:00 No acute pain 1{tbl} Q6H Take 1 tablet by mouth every 6 (six) hours as needed for moderate pain for up to 10 days .acute pain. Clyde Alcaraz methylPREDNISolone (MEDROL) 32 MG tablet 2019-06 00:00:00 2019-07-12 00:00:00 No 32mg QD Take 1 tablet (32 mg total) by mouth daily for 2 days. Take 32mg oral route 12hrs and 2hrs prior to procedure. Clyde Alcaraz methylPREDNISolone (MEDROL) 32 MG tablet 2019-06 00:00:2019-07-11 00:00:00 No 32mg QD Take 1 tablet (32 mg total) by mouth daily for 2 days. Take 32mg oral route 12hrs and 2hrs prior to procedure. Clyde Alcaraz diphenhydrAMINE (BenadryL) 25 mg capsule 2019-06 00:00:00 2019-07-11 00:00:00 No 50mg QD Take 2 capsule s (50 mg total) by mouth daily for 1 day. Take 50mg oral route 2hrs prior to procedure. Clyde Alcaraz sevelamer (RENVELA) 800 mg tablet 2019-05-25 06:47:34 Yes 4000mg Take 4,000 mg by mouth 3 (three) times daily with meals . [facility] calcitriol (ROCALTROL) 0.5 MCG capsule 2019-05-25 06:47:34 Yes low amount of calcium in the blood .5ug QD Take 0.5 mcg by mouth daily Take on sun, sun and Sunday, Take every day on non-dialysis days.. [facility] hydrocortisone (CORTEF) 10 MG tablet 2019-05-25 00:00:00 Ye s 10mg Take 1 tablet (10 mg total) by mouth daily with dinner. [facility] hydrocortisone (CORTEF) 20 MG tablet 2019-05-25 00:00:00 Ye s 20mg Take 1 tablet (20 mg total) by mouth daily with breakfast. [facility] midodrine (PROAMATINE) 10 MG tablet 2019-05-21 15:40:5 0 2019-05-21 00:00:00 No 10mg Q.[id number] Take 10 mg by mouth 3 (th ree) times daily. [facility] hydrOXYzine (ATARAX) 50 MG tablet 2019 00:00:00 Yes 50mg Take 1 tablet (50 mg total) by mouth every 8 (eight) hours as needed for Itching for up to 15 doses. [facility] cetirizine (ZYRTEC) 10 MG tablet 2019-05-16 00:00:00 2019-05 00:00:00 No 10mg QD Take 1 tablet (10 mg total) by mouth daily. [facility] famotidine (PEPCID) 40 MG tablet 2019-05-16 00:00:00 2019-05 00:00:00 No 40mg QD Take 1 tablet (40 mg total) by mouth daily for 5 doses. [facility] predniSONE (DELTASONE) 20 MG tablet 2019-05-16 00:00:0 0 2019-05-24 00:00:00 No 40mg QD Take 2 tablets (40 mg total) by mouth da frantz for 4 days. [facility] glipiZIDE (GLUCOTROL XL) 2.5 MG 24 hr tablet 2019-02-24 00:00:00 Yes 2.5mg QD Take 2.5 mg by mouth daily. [facility] glipiZIDE (GLUCOTROL) 2.5 MG 24 hr tablet 2019-02-24 00:00:00 Yes 2.5mg QD Take 2.5 mg by mouth daily. Cristiana Alcaraz fludrocortisone (FLORINEF) 0.1 mg tablet 2019-01 00:00:00 2019-05-21 00:00:00 No .1mg Q.5D Take 1 tablet (0.1 mg total) by mouth 2 (two) times daily. [facility] CALCIUM CARBONATE (TUMS ULTRA ORAL) 2019-02-05 09:27:48 Yes ESRD (end stage renal disease) (HCC) 2{tbl} Take 2 tablet s by mouth as needed (Takes at dialysis) . [facility] pregabalin (LYRICA) 150 MG capsule 2018-05-03 00:00:00 Yes Resume if taking prior to admission. [facility] pregabalin (LYRICA) 150 MG capsule 2018-05-03 00:00:00 Yes 150mg QD 150 mg daily. Clyde Alcaraz apixaban (ELIQUIS) 2.5 mg Tab tablet 2017-12-24 12:19:49 Ye s 2.5mg Q.5D Take 2.5 mg by mouth 2 (two) times daily. [facility] allopurinol (ZYLOPRIM) 300 MG tablet 2013-10-22 17:11:37 Ye s 300mg QD Take 300 mg by mouth daily. [facility] atorvastatin (LIPITOR) 10 MG tablet 2013-10-22 17:11:37 Yes 10mg QD Take 10 mg by mouth nightly. [facility] HYDROcodone-acetaminophen (NORCO 10-325) 10-325 mg per table t 2013-04-22 02:07:40 Yes pain 1{tbl} Take 1 tab let by mouth every 12 (twelve) hours as needed. [facility] atorvastatin (LIPITOR) 10 MG tablet 2009-10-06 00:00:00 Yes 10mg QD Take 10 mg by mouth daily. Clyde Alcaraz Vital Signs Vital Name Observation Time Observation Value Comments Source Systolic blood pressure 2019-09-30 10:48:20 98 mm[Hg] Clyde Alcaraz Diastolic blood pressure 2019-09-30 10:48:20 75 mm[Hg] Clyde Alcaraz Heart rate 2019-09-30 10:48:20 83 /min Clyde Alcaraz Body temperature 2019-09-30 10:48:20 35.67 Lisa [place] Respiratory rate 2019-09-30 10:48:20 18 /min [place] Oxygen saturation in Arterial blood by Pulse oximetry 09-29 10:48:20 96 /min Clyde Alcaraz Body height 2019-09-28 12:19:00 160 cm Cldye Alcaraz Body weight 2019-09-28 12:19:00 117.935 kg Clyde Alcaraz BMI 2019-09-28 12:19:00 46.06 kg/m2 [place] [facility] Systolic blood pressure 2019-05-24 19:44:00 117 mm[Hg] [facility] Diastolic blood pressure 2019-05-24 19:44:00 59 mm[Hg] [facility] Heart rate 2019-05-24 19:44:00 61 /min [facility] Body temperature 2019-05-24 19:44:00 37.11 Lisa [facility] Respiratory rate 2019-05-24 19:44:00 18 /min [facility] Oxygen saturation in Arterial blood by Pulse oximetry 05-24 19:44:00 97 [facility] Measured 2019-05-23 16:25:00 112.8 kg [facility] BMI 2019-05-23 16:25:00 44.05 kg/m2 [facility] Body height 2019-05-21 06:41:00 160 cm [facility] Procedures Procedure Date / Time Performed Performing Clinician Sourc e POC GLUCOSE 2019-09-30 12:34:00 Stacy Go [facility] POC GLUCOSE 2019-09-30 08:29:00 Stacy Go [facility] POC GLUCOSE 2019-09-30 06:18:00 Stacy Go [facility] HC COMPLETE BLD COUNT W/AUTO DIFF 2019-09-30 03:45:00 GoArchie paz brandi RalphVinicius Tang [facility] BASIC METABOLIC PANEL 2019-09-30 03:45:00 GoStacy paz [place] PROTHROMBIN TIME WITH INR 2019-09-30 03:45:00 Go Farheencassi RalphVinicius Tang [place] ESTIMATED GFR 2019-09-30 03:45:00 Go, Archiebrandi RalphVinicius Tang [facility] POC GLUCOSE 2019-09-29 21:07:00 Go Stacy SmithVinicius [facility] POC GLUCOSE 2019-09-29 18:02:00 Go Stacy SmithVinicius [facility] HC COMPLETE BLD COUNT W/AUTO DIFF 2019-09-29 14:45:00 Go, Archie brandi RalphVinicius Tang [place] POC GLUCOSE 2019-09-29 12:28:00 Go, Farheencassi RalphVinicius [facility] POC GLUCOSE 2019-09-29 07:19:00 Go, Farheencassi RalphVinicius [facility] HEMODIALYSIS 2019-09-29 06:44:04 Joey Doty Meth odist BASIC METABOLIC PANEL 2019-09-29 04:00:00 GoStacy paz [place] ESTIMATED GFR 2019-09-29 04:00:00 Go, Archiebrandi RalphVinicius [facility] POC GLUCOSE 2019-09-28 21:01:00 Leidy Farheencassi RalphVinicius [facility] POTASSIUM LEVEL 2019-09-28 20:48:00 Kathryn Hale [facility] HEMODIALYSIS 2019-09-28 18:48:20 Kathryn Hale [place] POC GLUCOSE 2019-09-28 17:19:00 GoStacy [facility] POC GLUCOSE 2019-09-28 15:17:00 GoStacy [facility] POC GLUCOSE 2019-09-28 14:38:00 Go Archiebrandi [facility] POC GLUCOSE 2019-09-28 13:12:00 GoStacy [facility] POC GLUCOSE 2019-09-28 12:47:00 Go Archiebrandi SmithVinicius [facility] TYPE AND SCREEN 2019-09-28 12:34:00 Duong Bang [facility] POTASSIUM LEVEL 2019-09-28 10:26:00 Poppy Dalton [facility] POC GLUCOSE 2019-09-28 07:28:00 GoStacy RalphVinicius [facility] HC COMPLETE BLD COUNT W/AUTO DIFF 2019-09-28 05:40:00 Archie Go PROTHROMBIN TIME WITH INR 2019-09-28 05:40:00 Stacy Go [place] POC GLUCOSE 2019-09-28 05:03:00 Stacy [facility] BASIC METABOLIC PANEL 2019-09-28 04:00:00 Stacy Go [facility] MAGNESIUM LEVEL 2019-09-28 04:00:00 Stacy [facility] PHOSPHORUS LEVEL 2019-09-28 04:00:00 Stacy Go M ethodist ESTIMATED GFR 2019-09-28 04:00:00 Stacy Go [facility] POC GLUCOSE 2019-09-27 22:40:00 Stacy [facility] POC GLUCOSE 2019-09-27 19:25:00 Stacy [facility] HEPATITIS B SURFACE ANTIGEN 2019-09-27 17:30:00 Kathryn Hale HEMODIALYSIS 2019-09-27 16:52:22 Kathryn Haleist POC GLUCOSE 2019-09-27 15:04:00 Stacy [facility] XR CHEST 1 VW PORTABLE 2019-09-27 12:09:20 Darryl Lebron HC COMPLETE BLD COUNT W/AUTO DIFF 2019-09-27 11:42:00 Jazz Lebron PROTHROMBIN TIME WITH INR 2019-09-27 11:42:00 Darryl Lebron PARTIAL THROMBOPLASTIN TIME (PTT) 2019-09-27 11:42:00 Jazz Lebron COMPREHENSIVE METABOLIC PANEL 2019-09-27 11:42:00 BernardinoFatimah [place] [facility] TROPONIN 2019-09-27 11:42:00 Darryl Lebron [facility] ESTIMATED GFR 2019-09-27 11:42:00 Darryl Lebron [facility] ECG 12-LEAD 2019-09-27 11:16:05 Darryl Lebron [facility] ECG ED PRELIMINARY INTERPRETATION 2019-09-27 10:59:21 Jazz Lebron [facility] WOUND VAC PLACEMENT 2019-09-22 14:43:44 Adan Middleton Clyde [facility] POC GLUCOSE 2019-09-22 14:03:00 Nemesio Kennedy [facility] POC GLUCOSE 2019-09-22 08:39:00 Nemesio Kennedy [facility] CBC WITH PLATELET AND DIFFERENTIAL 2019-09-22 08:20:00 Ashvin Hale [facility] BASIC METABOLIC PANEL 2019-09-22 08:20:00 Kathryn Hale [facility] PHOSPHORUS LEVEL 2019-09-22 08:20:00 Kathryn Hale [facility] ESTIMATED GFR 2019-09-22 08:20:00 Kathryn Hale MANUAL DIFFERENTIAL 2019-09-22 08:20:00 Kathryn Hale [facility] HEMODIALYSIS 2019-09-22 07:22:07 Kathryn Hale [facility] POC GLUCOSE 2019-09-21 21:30:00 Nemesio Kennedy [facility] POC GLUCOSE 2019-09-21 17:24:00 Nemesio Kennedy [facility] POC GLUCOSE 2019-09-21 12:28:00 Nemesio Kennedy [facility] POC GLUCOSE 2019-09-21 08:11:00 Nemesio Kennedy [facility] POC GLUCOSE 2019-09-20 20:51:00 Nemesio Kennedy [facility] POC GLUCOSE 2019-09-20 16:53:00 Nemesio Kennedy [facility] POC GLUCOSE 2019-09-20 12:34:00 Nemesio Kennedy [facility] POC GLUCOSE 2019-09-20 07:42:00 Carlos Nemesio Tang [facility] POC GLUCOSE 2019-09-20 00:06:00 Nemesio Kennedy [facility] POC GLUCOSE 2019-09-19 19:26:00 Nemesio Kennedy [facility] POC GLUCOSE 2019-09-19 17:44:00 Nemesio Kennedy [facility] POC GLUCOSE 2019-09-19 11:49:00 Nemesio Kennedy [facility] POC GLUCOSE 2019-09-19 10:14:00 Kennedy Nemesio Tang [facility] POC GLUCOSE 2019-09-19 07:43:00 Nemesio Kennedy [facility] HC COMPLETE BLD COUNT W/AUTO DIFF 2019-09-19 04:00:00 Rohan An BASIC METABOLIC PANEL 2019-09-19 04:00:00 Rohan Busby PROTHROMBIN TIME WITH INR 2019-09-19 04:00:00 Katalina Busby PARTIAL THROMBOPLASTIN TIME (PTT) 2019-09-19 04:00:00 Rohan An [facility] TYPE AND SCREEN 2019-09-19 04:00:00 Rohan Busby ESTIMATED GFR 2019-09-19 04:00:00 Nemesio Kennedy [facility] POC GLUCOSE 2019-09-18 20:41:00 Nemesio Kennedy [facility] POC GLUCOSE 2019-09-18 17:11:00 Nemesio Kennedy [facility] POC GLUCOSE 2019-09-18 12:09:00 Nemesio Kennedy [facility] HEMODIALYSIS 2019-09-18 11:25:23 Lydia Yanez [facility] POC GLUCOSE 2019-09-18 08:00:00 Nemesio Kennedy [facility] HC COMPLETE BLD COUNT W/AUTO DIFF 2019-09-18 06:20:00 Jayla Murray BASIC METABOLIC PANEL 2019-09-18 04:00:00 Faisal Murray MAGNESIUM LEVEL 2019-09-18 04:00:00 Faisal Murray ESTIMATED GFR 2019-09-18 04:00:00 Nemesio Kennedy [facility] POC GLUCOSE 2019-09-17 20:51:00 Nemesio Kennedy [facility] POC GLUCOSE 2019-09-17 18:30:00 Nemesio Kennedy [facility] POC GLUCOSE 2019-09-17 17:32:00 Nemesio Kennedy [facility] POC GLUCOSE 2019-09-17 15:51:00 Nemesio Kennedy [facility] POC GLUCOSE 2019-09-17 14:46:00 Nemesio Kennedy [facility] POC GLUCOSE 2019-09-17 12:21:00 Nemesio Kennedy [facility] POC GLUCOSE 2019-09-17 11:34:00 Nemesio Kennedy [facility] POC GLUCOSE 2019-09-17 07:39:00 Nemesio Kennedy [facility] POC GLUCOSE 2019-09-17 06:42:00 Nemesio Kennedy [facility] BASIC METABOLIC PANEL 2019-09-17 05:30:00 Gene Rowley HC COMPLETE BLD COUNT W/AUTO DIFF 2019-09-17 05:30:00 Scotty Rowley PROTHROMBIN TIME WITH INR 2019-09-17 05:30:00 Gene oRwley PARTIAL THROMBOPLASTIN TIME (PTT) 2019-09-17 05:30:00 Scotty Rowley ESTIMATED GFR 2019-09-17 05:30:00 Nemesio Kennedy [facility] POC GLUCOSE 2019-09-17 02:09:00 Nemesio Kennedy [facility] POC GLUCOSE 2019-09-17 01:02:00 Nemesio Kennedy [facility] POC GLUCOSE 2019-09-16 20:11:00 Nemesio Kennedy [facility] POC GLUCOSE 2019-09-16 15:52:00 Nemesio Kennedy [facility] HEMODIALYSIS 2019-09-16 14:36:47 Joey Doty Meth odist POC GLUCOSE 2019-09-16 14:14:00 Nemesio Kennedy [facility] POC GLUCOSE 2019-09-16 12:37:00 Nemesio Kennedy [facility] POC GLUCOSE 2019-09-16 11:59:00 Nemesio Kennedy [facility] POC GLUCOSE 2019-09-16 08:25:00 Nemesio Kennedy [facility] POC GLUCOSE 2019-09-16 07:24:00 Carlos Nemesio Tang [facility] HC COMPLETE BLD COUNT W/AUTO DIFF 2019-09-16 05:00:00 Genesis Kennedy [facility] BASIC METABOLIC PANEL 2019-09-16 04:00:00 Nemesio Kennedy on [facility] ESTIMATED GFR 2019-09-16 04:00:00 Nemesio Kennedy [facility] POC GLUCOSE 2019-09-15 20:15:00 Nemesio Kennedy [facility] POC GLUCOSE 2019-09-15 18:04:00 Nemesio Kennedy [facility] POC GLUCOSE 2019-09-15 13:08:00 Nemesio Kennedy [facility] POC GLUCOSE 2019-09-15 08:37:00 Nemesio Kennedy [facility] HC COMPLETE BLD COUNT W/AUTO DIFF 2019-09-15 05:11:00 Genesis Kennedy [facility] BASIC METABOLIC PANEL 2019-09-15 04:00:00 Nemesio Kennedy on [facility] ESTIMATED GFR 2019-09-15 04:00:00 Nemesio Kennedy [facility] POC GLUCOSE 2019-09-14 19:56:00 Nemesio Kennedy [facility] POC GLUCOSE 2019-09-14 17:05:00 Nemesio Kennedy [facility] HEMODIALYSIS 2019-09-14 15:25:55 Harsh Joshi on [facility] POC GLUCOSE 2019-09-14 12:50:00 Nemesio Kennedy [facility] POC GLUCOSE 2019-09-14 08:03:00 Nemesio Kennedy [facility] POC GLUCOSE 2019-09-13 20:23:00 Nemesio Kennedy [facility] POC GLUCOSE 2019-09-13 17:33:00 Nemesio Kennedy [facility] POC GLUCOSE 2019-09-13 11:37:00 Nemesio Kennedy [facility] POC GLUCOSE 2019-09-13 08:06:00 Nemesio Kennedy [facility] POC GLUCOSE 2019-09-13 05:20:00 Nemesio Kennedy [facility] PHOSPHORUS LEVEL 2019-09-13 05:00:00 Harsh Joshi [facility] POC GLUCOSE 2019-09-12 22:57:00 Nemesio Kennedy [facility] POC GLUCOSE 2019-09-12 18:52:00 Nemesio Kennedy [facility] POC GLUCOSE 2019-09-12 14:41:00 Nemesio Kennedy [facility] HEMODIALYSIS 2019-09-12 13:35:11 Harsh Joshi on [facility] HEPATITIS B SURFACE ANTIGEN 2019-09-12 13:25:00 Harsh Joshi [facility] POC GLUCOSE 2019-09-12 11:48:00 Nemesio Kennedy [facility] POC GLUCOSE 2019-09-12 08:47:00 Nemesio Kennedy [facility] ANAEROBIC CULTURE 2019-09-12 08:18:00 Fouzia Ricketts [facility] FUNGUS CULTURE 2019-09-12 08:18:00 Fouzia Ricketts Meth [facility] AFB STAIN 2019-09-12 08:18:00 Fouzia Ricketts [facility] AEROBIC CULTURE 2019-09-12 08:18:00 Fouzia Ricketts Meth [facility] AFB CULTURE 2019-09-12 08:18:00 Fouzia Ricketts [facility] GRAM STAIN 2019-09-12 08:18:00 Fouzia Ricketts Meth od[facility] DC AN ELECTIVE ENDOTRACHEAL AIRWAY 2019-09-12 07:52:12 Onesimo Valdes [facility] POC GLUCOSE 2019-09-12 06:02:00 Nemesio Kennedy [facility] TYPE AND SCREEN 2019-09-12 01:04:00 Rohan Busby [facility] HC COMPLETE BLD COUNT W/AUTO DIFF 2019-09-12 01:04:00 Genesis Kennedy [facility] BASIC METABOLIC PANEL 2019-09-12 01:04:00 Nemesio Kennedy on [facility] PARTIAL THROMBOPLASTIN TIME (PTT) 2019-09-12 01:04:00 Rohan An [facility] PROTHROMBIN TIME WITH INR 2019-09-12 01:04:00 Katalina Busby [facility] HEMOGLOBIN A1C 2019-09-12 01:04:00 Nemesio Kennedy [facility] ESTIMATED GFR 2019-09-12 01:04:00 Nemesio Kennedy [facility] BLOOD CULTURE, AEROBIC & ANAEROBIC 2019-09-11 20:17:00 James Pinon [facility] CREATININE LEVEL 2019-09-11 20:17:00 James Pinon [facility] ESTIMATED GFR 2019-09-11 20:17:00 James Pinon [facility] POC GLUCOSE 2019-09-11 19:39:[address] Nem[address] Met hod[facility] CT LOWER EXTREMITY WO CONTRAST RIGHT 2019-09-11 19:10:23 Lydia Camacho [facility] POC GLUCOSE 2019-09-11 17:54:00 Nemesio Kennedy [facility] POC GLUCOSE 2019-09-11 12:25:00 Stacy Go Il thodist SIX MINUTE WALK W/ PULSE OXIMETRY 2019-07-29 14:27:50 Erica Go [facility] POC GLUCOSE 2019-07-29 11:31:00 Km Go odhoward BASIC METABOLIC PANEL 2019-07-29 10:00:00 Km Go [facility] HC COMPLETE BLD COUNT W/AUTO DIFF 2019-07-29 10:00:00 Erica Go ESTIMATED GFR 2019-07-29 10:00:00 Km Go [facility] SMEAR REVIEW 2019-07-29 10:00:00 Go[facility]m [place] [facility] POC GLUCOSE 2019-07-29 07:35:00 [facility] [place] [facility] POC GLUCOSE 2019-07-29 04:40:00 [facility] [place] [facility] POC GLUCOSE 2019-07-28 23:26:00 [facility] [place] [facility] POC GLUCOSE 2019-07-28 21:09:00 Go[facility] [place] [facility] POC GLUCOSE 2019-07-28 18:32:00 Go[facility] [place] [facility] POC GLUCOSE 2019-07-28 12:50:00 [facility] [place] [facility] POC GLUCOSE 2019-07-28 08:46:00 Go[facility] [place] [facility] HC COMPLETE BLD COUNT W/AUTO DIFF 2019-07-28 07:20:00 GoErica paz [place] [facility] BASIC METABOLIC PANEL 2019-07-28 04:00:00 Go Km Lazaro n [facility] ESTIMATED GFR 2019-07-28 04:00:00 GoKm ye [place] [facility] POC GLUCOSE 2019-07-27 20:33:00 Go[facility] [place] [facility] POC GLUCOSE 2019-07-27 16:58:00 [facility] [place] [facility] HEMODIALYSIS 2019-07-27 16:44:00 Jesus Farnsworth [place] [facility] HC COMPLETE BLD COUNT W/AUTO DIFF 2019-07-27 10:05:00 GoErica ye Tang [facility] SMEAR REVIEW 2019-07-27 10:05:00 Go[facility] [place] [facility] POC GLUCOSE 2019-07-27 09:03:00 Go[facility] [place] [facility] BASIC METABOLIC PANEL 2019-07-27 04:00:00 Go, Km Robertto n [facility] ESTIMATED GFR 2019-07-27 04:00:00 OgKm [place] [facility] POC GLUCOSE 2019-07-26 20:59:00 GoKm [place] [facility] POC GLUCOSE 2019-07-26 16:30:00 GoKm [place] [facility] POC GLUCOSE 2019-07-26 11:58:00 Go[facility]m [place] [facility] POC GLUCOSE 2019-07-26 08:12:00 GoKm paz Meth odist POC GLUCOSE 2019-07-26 05:20:00 GoKm ye [facility] odist BASIC METABOLIC PANEL 2019-07-26 04:09:00 eLidy Km Robertto femi [facility] ESTIMATED GFR 2019-07-26 04:09:00 Go, Km Tang [facility] HC COMPLETE BLD COUNT W/AUTO DIFF 2019-07-26 04:00:00 LeidyErica Clyde [facility] SMEAR REVIEW 2019-07-26 04:00:00 Km Go Meth odist POC GLUCOSE 2019-07-26 00:43:00 GoKm paz Meth odist TROPONIN 2019-07-25 23:00:00 Emelia Neves odist HC COMPLETE BLD COUNT W/AUTO DIFF 2019-07-25 23:00:00 Gilberto Neves PARTIAL THROMBOPLASTIN TIME (PTT) 2019-07-25 23:00:00 Gilberto Neves PROTHROMBIN TIME WITH INR 2019-07-25 23:00:00 Emelia Neves [facility] SMEAR REVIEW 2019-07-25 23:00:00 Emelia Neves odhoward XR CHEST 1 VW PORTABLE 2019-07-25 22:55:12 Emelia Neves on [facility] RESPIRATORY PATHOGEN PANEL 2019-07-25 22:18:00 Emelia Neves [facility] LACTIC ACID LEVEL 2019-07-25 22:18:00 Emelia Neves [facility] BASIC METABOLIC PANEL 2019-07-25 22:18:00 Emelia Neves [facility] MAGNESIUM LEVEL 2019-07-25 22:18:00 Emelia Neves Meth odist PHOSPHORUS LEVEL 2019-07-25 22:18:00 Emelia Neves hodist ESTIMATED GFR 2019-07-25 22:18:00 Emelia Neves Meth od[facility] POC GLUCOSE 2019-07-25 21:58:00 Leidy Km Tang Meth [facility] ECG 12-LEAD 2019-07-25 21:57:40 Carolina Clemens on [facility] BLOOD CULTURE, AEROBIC & ANAEROBIC 2019-07-25 21:12:00 Oracio Go [facility] POC GLUCOSE 2019-07-25 21:10:00 GoKm paz Meth odist POC GLUCOSE 2019-07-25 16:55:00 GoKm paz Meth odist POC GLUCOSE 2019-07-25 13:05:00 GoKm ye Meth odist PROTHROMBIN TIME WITH INR 2019-07-25 09:30:00 Km Go [facility] PARTIAL THROMBOPLASTIN TIME (PTT) 2019-07-25 09:30:00 Erica Go [facility] POC GLUCOSE 2019-07-25 07:36:00 GoKm paz Meth odist POC GLUCOSE 2019-07-25 06:16:00 GoKm ye Meth odist PARTIAL THROMBOPLASTIN TIME (PTT) 2019-07-25 06:08:00 Leidy Erica schultz Tang [facility] POC GLUCOSE 2019-07-25 01:03:00 GoKm paz Meth odist TROPONIN 2019-07-25 01:01:00 GoKm paz Meth odist BASIC METABOLIC PANEL 2019-07-25 01:00:00 Kristen Elizondo [facility] ESTIMATED GFR 2019-07-25 01:00:00 Kristen Elizondo on [facility] CBC WITH PLATELET AND DIFFERENTIAL 2019-07-25 01:00:00 Winnie Elizondo [facility] MAGNESIUM LEVEL 2019-07-25 01:00:00 Kristen Elizondo on [facility] PHOSPHORUS LEVEL 2019-07-25 01:00:00 Kristen Elizondo [facility] PROTHROMBIN TIME WITH INR 2019-07-25 01:00:00 Kristen Elizondo [facility] MANUAL DIFFERENTIAL 2019-07-25 01:00:00 Kristen Elizondo [facility] ECG 12-LEAD 2019-07-25 00:49:06 Kristen Elizondo on [facility] POC GLUCOSE 2019-07-24 23:16:00 GoKm paz Meth odist PARTIAL THROMBOPLASTIN TIME (PTT) 2019-07-24 22:45:00 Erica Go [facility] PARTIAL THROMBOPLASTIN TIME (PTT) 2019-07-24 18:30:00 GoErica paz [facility] POC GLUCOSE 2019-07-24 17:59:00 GoKm paz Meth odist HEMODIALYSIS 2019-07-24 15:16:02 Jesus Farnsworth [facility] PARTIAL THROMBOPLASTIN TIME (PTT) 2019-07-24 12:00:00 Ehsan Richardson Clyde [facility] POC GLUCOSE 2019-07-24 11:30:00 GoKm ye Meth odist ULTRAFILTRATION 2019-07-24 09:43:31 Jesus Farnsworth [facility] XR CHEST 1 VW PORTABLE 2019-07-24 07:56:55 Adal Yanesu stofemi [facility] POC GLUCOSE 2019-07-24 07:54:00 GoKm ye Tang Meth odist POC GLUCOSE 2019-07-24 05:22:00 GoKm paz Meth odist PARTIAL THROMBOPLASTIN TIME (PTT) 2019-07-24 03:30:00 GoErica paz Tang [facility] CBC WITH PLATELET AND DIFFERENTIAL 2019-07-24 03:30:00 GoOracio easean Clyde [facility] BASIC METABOLIC PANEL 2019-07-24 03:30:00 GoKm paz n [facility] ESTIMATED GFR 2019-07-24 03:30:00 GoKm Tang Meth odist MANUAL DIFFERENTIAL 2019-07-24 03:30:00 GoKm paz [place] POC GLUCOSE 2019-07-24 01:02:00 GoKm paz Tang Meth odist POC GLUCOSE 2019-07-23 20:39:00 GoKm paz Tang Meth odist POC GLUCOSE 2019-07-23 16:47:00 GoKm ye Tang Meth odist POC GLUCOSE 2019-07-23 11:39:00 GoKm ye Tang Meth odist POC GLUCOSE 2019-07-23 08:57:00 GoKm paz Tang Meth odist XR CHEST 1 VW PORTABLE 2019-07-23 07:25:00 Adal Yanes Cristiana ston [facility] POC GLUCOSE 2019-07-23 04:55:00 GoKm ye Meth odist CBC WITH PLATELET AND DIFFERENTIAL 2019-07-23 03:10:00 [place] [facility] BASIC METABOLIC PANEL 2019-07-23 03:10:00 Aixa, [place] [facility] PARTIAL THROMBOPLASTIN TIME (PTT) 2019-07-23 03:10:00 GoErica paz [facility] MAGNESIUM LEVEL 2019-07-23 03:10:00 Elana Delong ethodist PHOSPHORUS LEVEL 2019-07-23 03:10:00 Elana Delong [facility] ESTIMATED GFR 2019-07-23 03:10:00 Elana Delong M ethodist MANUAL DIFFERENTIAL 2019-07-23 03:10:00 Elana Delong on [facility] POC GLUCOSE 2019-07-23 01:11:00 GoKm Tang Meth odist POC GLUCOSE 2019-07-22 20:14:00 Go Km [place] [facility] POC GLUCOSE 2019-07-22 16:05:00 GoKm [place] [facility] POC GLUCOSE 2019-07-22 11:24:00 GoKm Tang Meth odist HEMODIALYSIS 2019-07-22 11:20:27 Jesus Farnsworth [facility] ULTRAFILTRATION 2019-07-22 09:34:02 Jesus Farnsworth [facility] POC GLUCOSE 2019-07-22 08:03:00 GoConnorlamberto Tang Meth odist XR CHEST 1 VW PORTABLE 2019-07-22 07:05:00 Adal Yanes [facility] POC GLUCOSE 2019-07-22 04:38:00 GoKm Tang Meth odist CBC WITH PLATELET AND DIFFERENTIAL 2019-07-22 04:10:00 [place] [facility] BASIC METABOLIC PANEL 2019-07-22 04:10:00 [place] n [facility] PARTIAL THROMBOPLASTIN TIME (PTT) 2019-07-22 04:10:00 GoErica ye [facility] ESTIMATED GFR 2019-07-22 04:10:00 GoKm paz Tang Meth odist MANUAL DIFFERENTIAL 2019-07-22 04:10:00 Go, Km Colinist POC GLUCOSE 2019-07-22 00:54:00 Go Km Tang Meth odist POC GLUCOSE 2019-07-21 20:38:00 Go, Km Tang Meth odist PARTIAL THROMBOPLASTIN TIME (PTT) 2019-07-21 20:25:00 GoErica ye Clyde [facility] HEMODIALYSIS 2019-07-21 16:22:25 Jesus Farnsworth [facility] POC GLUCOSE 2019-07-21 16:11:00 Go Km Tang Meth odist POC GLUCOSE 2019-07-21 12:07:00 Go Km Tang Meth odist PARTIAL THROMBOPLASTIN TIME (PTT) 2019-07-21 10:20:00 Emilia Owens XR CHEST 1 VW PORTABLE 2019-07-21 10:05:55 Adal Yanes POC GLUCOSE 2019-07-21 08:09:00 GoKm paz odhoward ECG 12-LEAD 2019-07-21 04:49:22 Elana Delong M ethodist POC GLUCOSE 2019-07-21 04:37:00 GoKm paz odist ARTERIAL BLOOD GAS 2019-07-21 04:15:00 Elana Delong IONIZED CALCIUM, ARTERIAL 2019-07-21 04:15:00 Elana Delong PARTIAL THROMBOPLASTIN TIME (PTT) 2019-07-21 03:45:00 Emilia Owens CBC WITH PLATELET AND DIFFERENTIAL 2019-07-21 03:45:00 [place] BASIC METABOLIC PANEL 2019-07-21 03:45:00 [place] ESTIMATED GFR 2019-07-21 03:45:00 Km Go odist MANUAL DIFFERENTIAL 2019-07-21 03:45:00 Km Go MAGNESIUM LEVEL 2019-07-21 03:45:00 GoKm paz Meth odist LACTIC ACID LEVEL 2019-07-21 03:45:00 Km Go Me thodist PHOSPHORUS LEVEL 2019-07-21 03:45:00 GoKm paz hodist POC GLUCOSE 2019-07-21 00:46:00 GoKm paz [place] Meth odist POC GLUCOSE 2019-07-20 20:42:00 GoKm paz Tang Meth odist POC GLUCOSE 2019-07-20 16:43:00 GoKm paz [place] [facility] od[facility] POC GLUCOSE 2019-07-20 12:30:00 GoKm paz [place] Meth od[facility] POC GLUCOSE 2019-07-20 08:33:00 GoKm ye [place] Meth odist POC GLUCOSE 2019-07-20 08:30:00 GoKm paz [place] [facility] od[facility] XR CHEST 1 VW PORTABLE 2019-07-20 06:56:32 Adal Yanes [facility] POC GLUCOSE 2019-07-20 04:44:00 GoKm ye Tang Royce odist CBC WITH PLATELET AND DIFFERENTIAL 2019-07-20 04:10:00 Tabatha Yanes [facility] BASIC METABOLIC PANEL 2019-07-20 04:10:00 Adal Yanes ton [facility] MAGNESIUM LEVEL 2019-07-20 04:10:00 Adal Yanes Me [facility]odist PHOSPHORUS LEVEL 2019-07-20 04:10:00 Farzana Adaledgar Tang M ethodist PROTHROMBIN TIME WITH INR 2019-07-20 04:10:00 Adal Yanes [facility] PARTIAL THROMBOPLASTIN TIME (PTT) 2019-07-20 04:10:00 Adal Yanes Natelogan Tang [facility] VENOUS BLOOD GAS 2019-07-20 04:10:00 Farzana Adaledgar Tang M ethodist ESTIMATED GFR 2019-07-20 04:10:00 GoKm paz Tang Meth odist MANUAL DIFFERENTIAL 2019-07-20 04:10:00 GoKm paz Tang [facility] POC GLUCOSE 2019-07-20 01:13:00 GoKm paz Tang Meth odist PARTIAL THROMBOPLASTIN TIME (PTT) 2019-07-19 22:30:00 Angel Denis [facility] POC GLUCOSE 2019-07-19 21:47:00 GoKm paz [place] [facility] od[facility] POC GLUCOSE 2019-07-19 20:37:00 GoKm paz [place] Meth odist CTA ABD/PEL FOR BLEEDING 2019-07-19 20:15:19 JoleneDeboao Fernando maile [facility] POC GLUCOSE 2019-07-19 15:43:00 Km Go Meth odist PARTIAL THROMBOPLASTIN TIME (PTT) 2019-07-19 15:11:00 Angel Denis [facility] BASIC METABOLIC PANEL 2019-07-19 13:03:00 Ed Go [facility] MAGNESIUM LEVEL 2019-07-19 13:03:00 Ed Go ethodist PHOSPHORUS LEVEL 2019-07-19 13:03:00 Ed Goist IONIZED CALCIUM 2019-07-19 13:03:00 Ed Go ethodist ESTIMATED GFR 2019-07-19 13:03:00 Ed Go ethodist POC GLUCOSE 2019-07-19 12:28:00 Km Go Meth odist US DUPLEX ARTERIAL LOWER EXTREMITY RIGHT 2019-07-19 12:00:00 Zaynab Pak [facility] POC GLUCOSE 2019-07-19 07:46:00 Km Go Meth odist PARTIAL THROMBOPLASTIN TIME (PTT) 2019-07-19 07:30:00 Angel Denis XR CHEST 1 VW PORTABLE 2019-07-19 06:37:49 Adal Yanes [facility] POC GLUCOSE 2019-07-19 05:22:00 Km Go Meth odist HC COMPLETE BLD COUNT W/AUTO DIFF 2019-07-19 00:20:00 Adal Yanes [facility] BASIC METABOLIC PANEL 2019-07-19 00:20:00 Adal Yanes [facility] MAGNESIUM LEVEL 2019-07-19 00:20:00 Adal Yanes Me thodist PHOSPHORUS LEVEL 2019-07-19 00:20:00 Adal Yanes ethodist PROTHROMBIN TIME WITH INR 2019-07-19 00:20:00 Adal Yanes [facility] PARTIAL THROMBOPLASTIN TIME (PTT) 2019-07-19 00:20:00 Adal Yanes VENOUS BLOOD GAS 2019-07-19 00:20:00 Adal Yanesip Tang Jamaal ethodist CREATINE KINASE, TOTAL (CPK) 2019-07-19 00:20:00 Pinky Pinon jaren Clyde Colinist ESTIMATED GFR 2019-07-19 00:20:00 Zi nilay Tang Met hodist IONIZED CALCIUM 2019-07-19 00:20:00 Zi nilay Tang Met hodist SMEAR REVIEW 2019-07-19 00:20:00 James Pinon Met hodist POC GLUCOSE 2019-07-18 21:00:00 Go, Km Tang Meth odist POC GLUCOSE 2019-07-18 15:40:00 GoKm paz Tang Meth odist BASIC METABOLIC PANEL 2019-07-18 12:54:00 Lali Denis [facility] IONIZED CALCIUM 2019-07-18 12:54:00 Lali Denis Meth odist MAGNESIUM LEVEL 2019-07-18 12:54:00 Lali Denis Meth odist PHOSPHORUS LEVEL 2019-07-18 12:54:00 Lali Denis Met hodist ESTIMATED GFR 2019-07-18 12:54:00 Adeel Lalijian Tang Meth odist POC GLUCOSE 2019-07-18 11:34:00 Km Go Tang Royce odist XR CHEST 1 VW PORTABLE 2019-07-18 10:20:00 Adal Yanes Nate Zendejas rodger [facility] ARTERIAL BLOOD GAS 2019-07-18 09:30:00 AdeelLali Clyde M ethodist POC GLUCOSE 2019-07-18 08:46:00 GoKm paz Tang Meth odist VENOUS BLOOD GAS 2019-07-18 08:35:00 Rani Payan [facility] POC GLUCOSE 2019-07-18 07:50:00 GoKm paz Tang Meth odist HC COMPLETE BLD COUNT W/AUTO DIFF 2019-07-18 07:15:00 Johanna Stone [facility] POC GLUCOSE 2019-07-18 07:02:00 Go, Km Tang Meth odist POC GLUCOSE 2019-07-18 06:47:00 GoKm paz Tang Meth odist POC GLUCOSE 2019-07-18 05:00:00 GoKm paz [place] Meth odist TRANSFUSE RED BLOOD CELLS 2019-07-18 04:45:04 BerthaJohanna U[facility] POC GLUCOSE 2019-07-18 01:53:00 GoKm paz Meth odist LACTIC ACID LEVEL 2019-07-18 01:30:00 Adal Yanes [facility] HC COMPLETE BLD COUNT W/AUTO DIFF 2019-07-18 01:30:00 Adal Yanes [facility] BASIC METABOLIC PANEL 2019-07-18 01:30:00 Adal Yanes [facility] MAGNESIUM LEVEL 2019-07-18 01:30:00 Adal Yanes Me thodist PHOSPHORUS LEVEL 2019-07-18 01:30:00 Adal Yanes M ethodist PROTHROMBIN TIME WITH INR 2019-07-18 01:30:00 Adal Yanes [facility] PARTIAL THROMBOPLASTIN TIME (PTT) 2019-07-18 01:30:00 Adal Yanes VENOUS BLOOD GAS 2019-07-18 01:30:00 Adal Yanes ethodist ESTIMATED GFR 2019-07-18 01:30:00 Km Go Meth odist SMEAR REVIEW 2019-07-18 01:30:00 Km Go odist IONIZED CALCIUM, VENOUS 2019-07-18 01:30:00 Km Go ton [place] POC GLUCOSE 2019-07-17 23:15:00 GoKm paz [facility] odist POC GLUCOSE 2019-07-17 22:06:00 GoKm paz Tang [facility] od[facility] POC GLUCOSE 2019-07-17 21:05:00 Go[facility] pa[facility] POC GLUCOSE 2019-07-17 20:13:00 GoKm paz Tang [facility] POC GLUCOSE 2019-07-17 19:41:00 Km Go [facility] odist PARTIAL THROMBOPLASTIN TIME (PTT) 2019-07-17 19:40:00 Erica Go [place] POC GLUCOSE 2019-07-17 17:49:00 GoKm paz [facility] odist POC GLUCOSE 2019-07-17 15:59:00 GoKm paz Tang [facility] od[facility] POC GLUCOSE 2019-07-17 15:17:00 GoKm paz [facility] od[facility] BASIC METABOLIC PANEL 2019-07-17 13:24:00 Lali Denis [facility] IONIZED CALCIUM 2019-07-17 13:24:00 AdeelLali Clyde Meth odist MAGNESIUM LEVEL 2019-07-17 13:24:00 AdeelLali Tang [facility] odist PHOSPHORUS LEVEL 2019-07-17 13:24:00 Lali Denis Met hodist ESTIMATED GFR 2019-07-17 13:24:00 AdeelLali Tang [facility] od[facility] VENOUS BLOOD GAS 2019-07-17 13:05:00 AdeelLali Tang Met hodist POC GLUCOSE 2019-07-17 12:11:00 GoKm paz [facility] odist XR ABDOMEN 1 VW PORTABLE 2019-07-17 10:12:31 Lali Denis ston [facility] POC GLUCOSE 2019-07-17 10:00:00 GoKm paz Tang [facility] od[facility] VENOUS BLOOD GAS 2019-07-17 08:45:00 Adal Yanes ethodist POC GLUCOSE 2019-07-17 07:18:00 GoKm paz Tang [facility] od[facility] POC GLUCOSE 2019-07-17 04:33:00 GoKm paz Tang [facility] od[facility] ARTERIAL BLOOD GAS 2019-07-17 04:30:00 Johanna Stone ethodist POC GLUCOSE 2019-07-17 02:02:00 GoKm paz Atng Meth odist POC GLUCOSE 2019-07-17 00:30:00 GoKm paz Tang [facility] od[facility] CBC WITH PLATELET AND DIFFERENTIAL 2019-07-17 00:15:00 Johanna Stone PARTIAL THROMBOPLASTIN TIME (PTT) 2019-07-17 00:15:00 Johanna Stone PROTHROMBIN TIME WITH INR 2019-07-17 00:15:00 Johanna Stone [place] ARTERIAL BLOOD GAS 2019-07-17 00:15:00 Johanna Stone ethodist IONIZED CALCIUM, ARTERIAL 2019-07-17 00:15:00 Johanna Stoneist MANUAL DIFFERENTIAL 2019-07-17 00:15:00 Johanna Stone PREPARE RBC 2019-07-17 00:15:00 Johanna Stone Meth odist BASIC METABOLIC PANEL 2019-07-17 00:08:00 Bertha Johanna Adithya Lazaro n [place] MAGNESIUM LEVEL 2019-07-17 00:08:00 BerthaJohanna Tang Meth odist PHOSPHORUS LEVEL 2019-07-17 00:08:00 BerthaJohanna Tang Met hodist ESTIMATED GFR 2019-07-17 00:08:00 BerthaJohanna Tang Meth odist LACTIC ACID LEVEL 2019-07-17 00:08:00 Bertha Johanna Haji Tang [facility] POC GLUCOSE 2019-07-16 22:07:00 [facility] [place] [facility] POC GLUCOSE 2019-07-16 19:54:00 Go [facility] odist POC GLUCOSE 2019-07-16 18:35:00 Go [facility] odist POC GLUCOSE 2019-07-16 18:02:00 Go, [facility] Meth odist POC GLUCOSE 2019-07-16 16:52:00 Go, [facility] Meth odist POC GLUCOSE 2019-07-16 15:51:00 Go [facility] odist POC GLUCOSE 2019-07-16 15:11:00 Go [facility] odist POC GLUCOSE 2019-07-16 14:05:00 Go, [facility] [place] [facility] BASIC METABOLIC PANEL 2019-07-16 13:12:00 Vu Reyes on [facility] MAGNESIUM LEVEL 2019-07-16 13:12:00 Vu Reyes Met hodist PHOSPHORUS LEVEL 2019-07-16 13:12:00 Vu Reyes Me [facility] IONIZED CALCIUM 2019-07-16 13:12:00 Vu Reyes Met hodist ESTIMATED GFR 2019-07-16 13:12:00 Vu Reyes Met hodist HC COMPLETE BLD COUNT W/AUTO DIFF 2019-07-16 13:12:00 Rita Canales [facility] POC GLUCOSE 2019-07-16 12:08:00 GoKm paz [place] [facility] odist POC GLUCOSE 2019-07-16 11:10:00 GoKm paz [place] [facility] odist POC GLUCOSE 2019-07-16 09:58:00 Go, [facility] Meth odist POC GLUCOSE 2019-07-16 08:56:00 GoKm ye Tang Meth odist POC GLUCOSE 2019-07-16 07:47:00 GoKm paz Tang Meth odist POC GLUCOSE 2019-07-16 07:00:00 GoKm paz Tang Meth odist POC GLUCOSE 2019-07-16 06:08:00 GoKm paz [facility] odist XR CHEST 1 VW PORTABLE 2019-07-16 05:40:00 Thalia Benitez [place] POC GLUCOSE 2019-07-16 04:02:00 Go [facility] [place] [facility] POC GLUCOSE 2019-07-16 03:13:00 Go [facility] [place] [facility] od[facility] POC GLUCOSE 2019-07-16 02:16:00 Go, [facility] od[facility] BASIC METABOLIC PANEL 2019-07-16 01:16:00 Km Go n [place] LACTIC ACID LEVEL 2019-07-16 01:16:00 Adal Yanes ESTIMATED GFR 2019-07-16 01:16:00 Connor Gone [facility] HEPATIC FUNCTION PANEL 2019-07-16 01:16:00 Km Go on [place] MAGNESIUM LEVEL 2019-07-16 01:16:00 Km Go Tang Meth odist PHOSPHORUS LEVEL 2019-07-16 01:16:00 Km Go Met hodist POC GLUCOSE 2019-07-16 00:56:00 Km Go Tang Royce odist HC COMPLETE BLD COUNT W/AUTO DIFF 2019-07-16 00:45:00 Erica Go PARTIAL THROMBOPLASTIN TIME (PTT) 2019-07-16 00:45:00 Erica Go PROTHROMBIN TIME WITH INR 2019-07-16 00:45:00 Km Go IONIZED CALCIUM, ARTERIAL 2019-07-16 00:45:00 Km Go ARTERIAL BLOOD GAS 2019-07-16 00:45:00 Km Go M ethodist POC GLUCOSE 2019-07-16 00:04:00 Km Go Meth odist HEMODIALYSIS CATHETER PLACEMENT 2019-07-15 23:20:54 Farooq Benitez [facility] POC GLUCOSE 2019-07-15 23:02:00 Km Go Meth odist POC GLUCOSE 2019-07-15 22:18:00 Km Go Meth odist US DUPLEX HEMODIALYSIS AVG AVF ACCESS 2019-07-15 21:21:31 Arlet reneaLisa byrd Clyde [place]din POC GLUCOSE 2019-07-15 20:58:00 Km Go Meth odist TRANSFUSE RED BLOOD CELLS 2019-07-15 20:16:31 Adal Yanes [place] POC GLUCOSE 2019-07-15 19:53:00 Km Go Meth odist POC GLUCOSE 2019-07-15 18:43:00 Km Go odist TRANSFUSE RED BLOOD CELLS 2019-07-15 16:17:31 Adal Yanes NM HEPATOBILIARY 2019-07-15 14:57:59 Adal Yanes M ethodist POC GLUCOSE 2019-07-15 11:05:00 Km Go odist HC COMPLETE BLD COUNT W/AUTO DIFF 2019-07-15 08:54:00 Titi Benitez SMEAR REVIEW 2019-07-15 08:54:00 Thalia Benitez [place] POC GLUCOSE 2019-07-15 07:18:00 Km Go odist XR CHEST 1 VW PORTABLE 2019-07-15 06:00:00 Thalia Benitez [place] POC GLUCOSE 2019-07-15 04:34:00 Km Go Meth odist TRANSFUSE RED BLOOD CELLS 2019-07-15 01:53:54 Thalia Benitez BASIC METABOLIC PANEL 2019-07-15 00:51:00 Km Go MAGNESIUM LEVEL 2019-07-15 00:51:00 Thalia Benitez PHOSPHORUS LEVEL 2019-07-15 00:51:00 Thalia Benitez ESTIMATED GFR 2019-07-15 00:51:00 Km Go Meth odist HC COMPLETE BLD COUNT W/AUTO DIFF 2019-07-15 00:44:00 LeidyErica Clyde [place] ARTERIAL BLOOD GAS 2019-07-15 00:44:00 Thalia Benitez [place] IONIZED CALCIUM, ARTERIAL 2019-07-15 00:44:00 Leidy Km zarate [place] PROTHROMBIN TIME WITH INR 2019-07-15 00:44:00 Thalia Benitez [place] PARTIAL THROMBOPLASTIN TIME (PTT) 2019-07-15 00:44:00 Titi Benitez [place] SMEAR REVIEW 2019-07-15 00:44:00 GoKm paz Meth odist POC GLUCOSE 2019-07-15 00:28:00 Km Go Meth odist POC GLUCOSE 2019-07-14 20:34:00 Km Go Meth odist US DUPLEX ARTERIAL UPPER EXTREMITY RIGHT 2019-07-14 17:11:47 Zaynab Pak [place] US DUPLEX ARTERIAL LOWER EXTREMITY RIGHT 2019-07-14 16:00:00 Adal Mosher [place] POC GLUCOSE 2019-07-14 15:31:00 Km Go odhoward CBC WITH PLATELET AND DIFFERENTIAL 2019-07-14 11:45:00 Tabatha Yanes PROTHROMBIN TIME WITH INR 2019-07-14 11:45:00 Adal Yanes PARTIAL THROMBOPLASTIN TIME (PTT) 2019-07-14 11:45:00 Adal Yanes MANUAL DIFFERENTIAL 2019-07-14 11:45:00 Lali Denis [facility] BASIC METABOLIC PANEL 2019-07-14 11:41:00 Vu Reyes on [facility] MAGNESIUM LEVEL 2019-07-14 11:41:00 Vu Reyes Met hodist PHOSPHORUS LEVEL 2019-07-14 11:41:00 Vu Reyes Me thodist IONIZED CALCIUM 2019-07-14 11:41:00 Vu Reyes Met hodist ESTIMATED GFR 2019-07-14 11:41:00 Vu Reyes Met hodist POC GLUCOSE 2019-07-14 11:17:00 Km Go Meth odist US DUPLEX HEMODIALYSIS AVG AVF ACCESS 2019-07-14 10:30:00 Law Y jose antonio Rodriguez Clyde Alcaraz TTE COMPLETE, WO CONTRAST, W DOPPLER ([id number]) 2019-07-14 09:0 0:00 Eunice Canales ARTERIAL BLOOD GAS 2019-07-14 08:59:00 Eunice Canales BASIC METABOLIC PANEL 2019-07-14 08:59:00 Eunice Canales mba HC COMPLETE BLD COUNT W/AUTO DIFF 2019-07-14 08:59:00 Rita Canalesa Monique Alcaraz HEPATIC FUNCTION PANEL 2019-07-14 08:59:00 Eunice Canales LACTIC ACID LEVEL 2019-07-14 08:59:00 Eunice Canales LDH 2019-07-14 08:59:00 Eunice Canales [place] MAGNESIUM LEVEL 2019-07-14 08:59:00 KeEunice huertamba Gee usgabrielle [place] PARTIAL THROMBOPLASTIN TIME (PTT) 2019-07-14 08:59:00 Rita Canales PHOSPHORUS LEVEL 2019-07-14 08:59:00 KeEunice huertaa Fernando ouston [facility] PROTHROMBIN TIME WITH INR 2019-07-14 08:59:00 Eunice Canaels Che IONIZED CALCIUM, ARTERIAL 2019-07-14 08:59:00 Eunice Canales Che ESTIMATED GFR 2019-07-14 08:59:00 Euncie Canalesa Gee uston [place] POC GLUCOSE 2019-07-14 07:18:00 Km Go XR CHEST 1 VW PORTABLE 2019-07-14 06:14:43 Eunice Canales HEMOGLOBIN A1C 2019-07-14 05:00:00 Km Go Meth odist POC GLUCOSE 2019-07-14 04:58:00 GoKm paz odhoward HC CVL NON-TUNNELED INSERT 5YRS OR > 2019-07-14 02:43:23 Emilia Dooley POC GLUCOSE 2019-07-14 01:37:00 Km Go odhoward BASIC METABOLIC PANEL 2019-07-14 01:30:00 Km Go HC COMPLETE BLD COUNT W/AUTO DIFF 2019-07-14 01:30:00 Erica Go antoine Clyde Alcaraz ARTERIAL BLOOD GAS 2019-07-14 01:30:00 KeEunice huerta HEPATIC FUNCTION PANEL 2019-07-14 01:30:00 Eunice Canales LDH 2019-07-14 01:30:00 KeEunice huerta MAGNESIUM LEVEL 2019-07-14 01:30:00 KeEunice huerta [place] PHOSPHORUS LEVEL 2019-07-14 01:30:00 KeEunice huerta TROPONIN 2019-07-14 01:30:00 Charlotte Villafuerte hodist PARTIAL THROMBOPLASTIN TIME (PTT) 2019-07-14 01:30:00 Emilia Owens ESTIMATED GFR 2019-07-14 01:30:00 KeEunice huerta [place] IONIZED CALCIUM, ARTERIAL 2019-07-14 01:30:00 Eunice Canales Che FIBRINOGEN 2019-07-14 01:30:00 Emilia Oewns RESPIRATORY CULTURE 2019-07-13 22:20:00 Km Go GRAM STAIN 2019-07-13 22:20:00 Km Go RESPIRATORY PATHOGEN PANEL 2019-07-13 22:20:00 Km Go US CAROTID DUPLEX RIGHT 2019-07-13 22:05:30 Terrence Sun POC GLUCOSE 2019-07-13 20:47:00 Km Go US GALLBLADDER 2019-07-13 20:11:09 Detmelba, Charlotte Tang Met daríoist PARTIAL THROMBOPLASTIN TIME (PTT) 2019-07-13 19:37:00 Ercia Go antoine Clyde Alcaraz THYROID STIMULATING HORMONE 2019-07-13 19:37:00 Noy, Charlotte Alcaraz T4, FREE 2019-07-13 19:37:00 Detmelba, Charlotte Tang Met daríoist ARTERIAL BLOOD GAS 2019-07-13 19:37:00 Eunice Canales HC COMPLETE BLD COUNT W/AUTO DIFF 2019-07-13 19:37:00 Rita Canales BASIC METABOLIC PANEL 2019-07-13 19:37:00 Km Go TROPONIN 2019-07-13 19:37:00 Km Go odhoward ANTI XA, UNFRACTIONATED 2019-07-13 19:37:00 Km Go ESTIMATED GFR 2019-07-13 19:37:00 Km Go Meth odhoward LACTIC ACID LEVEL 2019-07-13 19:37:[address] UPPER EXTREMITY W CONTRAST RIGHT 2019-07-13 18:46:08 Gene Rowley XR CHEST 1 VW PORTABLE 2019-07-13 18:23:[address] ANGIOGRAM CHEST ABDOMEN PELVIS W AND OR WITHOUT CONTRAST 2019-07-13 17:39:52 Gene Rowley POC GLUCOSE 2019-07-13 17:34:[address] HEAD WO CONTRAST 2019-07-13 17:09:15 Josr Kim INTUBATION 2019-07-13 14:51:14 Adal Yanes Me thodist DC INSERT CATH,ART,PERCUT,SHORTTERM 2019-07-13 14:47:46 Rita Yanes ARTERIAL BLOOD GAS 2019-07-13 14:35:00 Km Go ethodist LACTIC ACID, SYRINGE 2019-07-13 14:35:00 Km Go IONIZED CALCIUM, ARTERIAL 2019-07-13 14:35:00 Km Go HEMOGLOBIN, SYRINGE 2019-07-13 14:35:00 Km Go HEMODIALYSIS CATHETER PLACEMENT 2019-07-13 14:29:59 Jorge LuisisabelleOracio bradysuraj Strong Clyde Alcaraz XR CHEST 1 VW PORTABLE 2019-07-13 13:32:45 Eunice Canales umbjaren Alcaraz XR ABDOMEN 1 VW PORTABLE 2019-07-13 13:32:22 Eunice Canales Chep chugarrya Clyde Alcaraz POC GLUCOSE 2019-07-13 11:50:00 Km Go Meth odhoward BLOOD CULTURE, AEROBIC & ANAEROBIC 2019-07-13 11:49:00 Eunice Hannafederico Alcaraz BASIC METABOLIC PANEL 2019-07-13 11:49:00 Km Go LACTIC ACID LEVEL 2019-07-13 11:49:00 Km Go Me thodist MAGNESIUM LEVEL 2019-07-13 11:49:00 Km Go odhoward ARTERIAL BLOOD GAS 2019-07-13 11:49:00 Km Go M ethodist PHOSPHORUS LEVEL 2019-07-13 11:49:00 Km Go PROTHROMBIN TIME WITH INR 2019-07-13 11:49:00 Km Go CBC WITH PLATELET AND DIFFERENTIAL 2019-07-13 11:49:00 Oraico Go PARTIAL THROMBOPLASTIN TIME (PTT) 2019-07-13 11:49:00 Erica Go ANTI XA, UNFRACTIONATED 2019-07-13 11:49:00 Km Go IONIZED CALCIUM, ARTERIAL 2019-07-13 11:49:00 Km Go ESTIMATED GFR 2019-07-13 11:49:00 Km Go odist MANUAL DIFFERENTIAL 2019-07-13 11:49:00 Km Go POC GLUCOSE 2019-07-13 09:49:00 Km Go Meth odhoward BLOOD CULTURE, AEROBIC & ANAEROBIC 2019-07-13 09:31:00 JulioLilianjose antoniolucretia Clyde Alcaraz XR CHEST 1 VW PORTABLE 2019-07-13 08:29:01 Josr Kim [place] HC COMPLETE BLD COUNT W/AUTO DIFF 2019-07-13 08:10:00 Colten Kimdionisiofernando Alcaraz COMPREHENSIVE METABOLIC PANEL 2019-07-13 08:10:00 Colten Kim dionisiofernando Alcaraz MAGNESIUM LEVEL 2019-07-13 08:10:00 TonydelorisColtenlucretia Clyde Il thodist PHOSPHORUS LEVEL 2019-07-13 08:10:00 TonydelorisColtenlucretia Clyde M ethodist TROPONIN 2019-07-13 08:10:00 TonydelorisJosr Il thodist D-DIMER 2019-07-13 08:10:00 Colten Kimlucretia Clyde Il thodist TYPE AND SCREEN 2019-07-13 08:10:00 Josr Kim Il thodist PROTHROMBIN TIME WITH INR 2019-07-13 08:10:00 Julio Lilianjose antoniolucretia Clyde Alcaraz PARTIAL THROMBOPLASTIN TIME (PTT) 2019-07-13 08:10:00 Colten Kimdionisiofernando Alcaraz ESTIMATED GFR 2019-07-13 08:10:00 Julio Lilianjose antoniolucretia Clyde Il thodist PREPARE RBC 2019-07-13 08:10:00 Adal Yanes Il thodist LACTIC ACID LEVEL 2019-07-13 08:09:00 Colten Kimdionisiofernando Alcaraz ECG 12-LEAD 2019-07-13 07:32:47 Tonydeloris Lilianjose antoniolucretia Clyde Il thodist POC GLUCOSE 2019-07-13 07:32:00 Km Go Meth odist HC COMPLETE BLD COUNT W/AUTO DIFF 2019-07-13 05:15:00 Noah Alvarado PROTHROMBIN TIME WITH INR 2019-07-13 05:15:00 Angy Alvarado PARTIAL THROMBOPLASTIN TIME (PTT) 2019-07-13 05:15:00 Noah Alvarado BASIC METABOLIC PANEL 2019-07-13 05:15:00 Christiano Angy Robertralph escudero [facility] ESTIMATED GFR 2019-07-13 05:15:00 Christiano Angy Tang Met hodist LACTIC ACID LEVEL, SEPSIS - NOW AND REPEAT 2X EVERY 3 HOURS 2019-07-13 05:15:00 ChristianoAngy [place] TROPONIN 2019-07-13 05:15:00 ChristianoAngy Met hodist US DUPLEX VENOUS UPPER EXTREMITY RIGHT 2019-07-13 01:55:56 Christiano Angy Tang [facility] BLOOD CULTURE, AEROBIC & ANAEROBIC 2019-07-12 21:27:00 Oracio Go [place] HC COMPLETE BLD COUNT W/AUTO DIFF 2019-07-12 21:27:00 Ana Paula Mayo PROTHROMBIN TIME WITH INR 2019-07-12 21:27:00 Moody Mayo [place] PARTIAL THROMBOPLASTIN TIME (PTT) 2019-07-12 21:27:00 Ana Paula Mayo COMPREHENSIVE METABOLIC PANEL 2019-07-12 21:27:00 Moody Mayo LACTIC ACID LEVEL, SEPSIS - NOW AND REPEAT 2X EVERY 3 HOURS 2019-07-12 21:27:00 Moody Mayo ESTIMATED GFR 2019-07-12 21:27:00 Moody Mayo POC GLUCOSE 2019-07-11 11:10:00 Duong Bang Il thodist HEPATITIS B SURFACE ANTIGEN 2019-07-11 09:45:00 Jesus Farnsworth [place] POC GLUCOSE 2019-07-11 06:44:00 JoannaDuong Il thodist HC COMPLETE BLD COUNT W/AUTO DIFF 2019-07-11 06:40:00 Olivia Bang BASIC METABOLIC PANEL 2019-07-11 06:38:00 Duong Bang [place] ESTIMATED GFR 2019-07-11 06:38:00 Duong Bang Me thodist POC GLUCOSE 2019-07-10 21:24:00 Duong Bang Il thodist HEMODIALYSIS 2019-07-10 21:04:06 Jesus Farnsworth POC GLUCOSE 2019-07-10 18:38:00 Joanna, Duong Tang Me thodist OR [place] > 1 HOUR 2019-07-10 17:30:00 JoannaDuong ye Me thodist INSERTION, REVISION, EXCISION CATHETER, HERO 2019-07-10 15:3 8:00 JoannaDuong ye [place] POC PANEL 4 2019-07-10 14:36:00 JoannaDuong Me thodist XR CHEST 1 VW PORTABLE 2019-07-10 14:14:18 JoannaDuong ye ECG 12-LEAD 2019-07-10 13:45:06 JoannaDuong ye thodist POC GLUCOSE 2019-07-10 13:45:00 JoannaDuong thodist DC AN PERIPHERAL BLOCK PROCEDURE FOR PAIN 2019-07-10 13:28:56 Eric Garza POTASSIUM LEVEL 2019-07-10 12:56:00 Sim Yañez [place] POC PANEL 4 2019-07-10 12:49:00 JoannaDuong ye Me thodist POC PANEL 4 2019-07-10 12:23:00 JoannaDuong ye Me thodist US DUPLEX HEMODIALYSIS AVG AVF ACCESS 2019-07-07 15:03:16 Duong Bang RHYTHM STRIP - SCAN 2019-05-27 14:02:34 Provider, Default Elvis henning [facility] POCT-GLUCOSE METER 2019-05-24 19:57:00 Justice Miles [facility] HEMODIALYSIS INPATIENT 2019-05-24 16:42:03 Joey Doty CH I [facility] POCT-GLUCOSE METER 2019-05-24 16:34:00 Justice Miles [facility] POCT-GLUCOSE METER 2019-05-24 11:49:00 Justice Miles [facility] POCT-GLUCOSE METER 2019-05-24 08:43:00 Justice Miles [facility] CT LUMBAR SPINE WITHOUT IV CONTRAST 2019-05-24 08:28:00 Jazz Miles [facility] POCT-GLUCOSE METER 2019-05-24 07:53:00 Justice Miles [facility] BASIC METABOLIC PANEL (7) 2019-05-24 06:51:00 Tamra, Alysia Hyunn a [facility] MAGNESIUM 2019-05-24 06:51:00 Tamra, Alysia Hyunna [facility] PHOSPHORUS 2019-05-24 06:51:00 Justice Miles [facility] POCT-GLUCOSE METER 2019-05-23 19:58:00 Justice Miles [facility] POCT-GLUCOSE METER 2019-05-23 17:11:00 Justice Miles [facility] REPORT OF PROCEDURE - ENDOSCOPY SCAN 2019-05-23 14:23:55 Pro vider, Default Scanning [facility] HEMODIALYSIS INPATIENT 2019-05-23 13:28:14 Joey Doty CH I [facility] POCT-GLUCOSE METER 2019-05-23 11:25:00 Justice Miles [facility] POCT-GLUCOSE METER 2019-05-23 07:01:00 Justice Miles [facility] POCT-GLUCOSE METER 2019-05-23 05:53:00 Justice Miles [facility] BASIC METABOLIC PANEL (7) 2019-05-23 01:40:00 Tamra Alysia Hyunn a [facility] MAGNESIUM 2019-05-23 01:40:00 Tamra Alysia Hyunna [facility] PHOSPHORUS 2019-05-23 01:40:00 Justice Miles [facility] CORTISOL,60 MIN 2019-05-23 01:40:00 Edmund [facility] CORTISOL,30 MIN 2019-05-23 01:13:00 Edmund Pauline [facility] ACTH STIMULATION 2019-05-23 00:20:00 Edmund Pauline [facility] CORTISOL,BASELINE 2019-05-23 00:20:00 Pauline Shaffer [facility] POCT-GLUCOSE METER 2019-05-22 22:23:00 Justice Miles [facility] POCT-GLUCOSE METER 2019-05-22 17:11:[address] [facility] BRAIN WITHOUT IV CONTRAST 2019-05-22 15:54:00 Justice Miles [facility] POCT-GLUCOSE METER 2019-05-22 11:42:00 HasJustice mayer [facility] POCT-GLUCOSE METER 2019-05-22 08:36:00 Justice Miles [facility] POCT-GLUCOSE METER 2019-05-22 07:40:00 Tamra, [facility] HEMOGLOBIN A1C 2019-05-22 04:52:00 Tamra, [facility] BASIC METABOLIC PANEL (7) 2019-05-22 04:52:00 [facility] MAGNESIUM 2019-05-22 04:52:00 Tamra, [facility] CBC (HEMOGRAM ONLY) 2019-05-22 04:52:00 Tamra, [facility] CORTISOL 2019-05-22 04:52:00 Jyoti Brittonah Ann [facility] TSH/FREE T4 IF INDICATED 2019-05-22 04:52:00 Reba [facility] CREATINE KINASE (CK) 2019-05-22 04:52:00 Justice Miles [facility] POCT-GLUCOSE METER 2019-05-22 01:41:00 Tamra, [facility] HEMODIALYSIS INPATIENT 2019-05-21 20:21:23 Jyoti Brittonah [facility] ECG 12-LEAD 2019-05-21 17:22:42 Unknown, Hl7 Doctor [facility] TROPONIN I 2019-05-21 15:43:00 TamraAlysia escudero [facility] LIPASE 2019-05-21 15:43:00 [facility] ANTIGEN 2019-05-21 15:42:00 Kim Britton [facility] POCT-GLUCOSE METER 2019-05-21 15:30:00 [facility] BASIC METABOLIC PANEL (7) 2019-05-21 08:33:00 Devyn Cabell [facility] TROPONIN I 2019-05-21 08:33:00 Sixto [facility] ALT (SGPT) 2019-05-21 08:33:00 [facility] AST (SGOT) 2019-05-21 08:33:00 Sixto [facility] BILIRUBIN, ADULT TOTAL 2019-05-21 08:33:00 Victoriano Kumari [facility] ALKALINE PHOSPHATASE 2019-05-21 08:33:00 SixtoVictoriano [facility] B-TYPE NATRIURETIC FACTOR (BNP) 2019-05-21 08:02:00 Manuela Kumari [facility] XR CHEST 1 VIEW PORTABLE/BEDSIDE 2019-05-21 07:20:00 Jerri Kumari [facility] CBC W/PLT COUNT & AUTO DIFFERENTIAL 2019-05-21 07:11:00 Winnie Kumari [facility] POTASSIUM 2019 12:29:00 Praveen Cannon [facility] XR CHEST 1 VIEW PORTABLE/BEDSIDE 2019 11:35:00 Oracio Cannon [facility] COMPREHENSIVE METABOLIC PANEL 2019 11:23:00 Priyanka Cannon [facility] TROPONIN I 2019 11:23:00 Praveen Cannon [facility] MAGNESIUM 2019 11:23:00 Praveen Cannon [facility] CBC W/PLT COUNT & AUTO DIFFERENTIAL 2019 11:23:00 Praveen Cannon [facility] ECG 12-LEAD 2019 10:55:16 Praveen Cannon [facility] Plan of Care Planned Activity Planned Date Details Comments Source Future Scheduled Test 2020-01-20 00:00:00 INFLUENZA VACCINE (#1) [code = INFLUENZA VACCINE (#1)] [facility] Future Scheduled Test 2019-12-20 00:00:00 INFLUENZA VACCINE [code = INFLUENZA VACCINE] [facility] Scheduled Test 2019-11-20 00:00:00 Hemoglobin A1c shara surement (procedure) [code = 80937865] [facility] Future Scheduled Test 2017 00:00:00 PNEUMOCOCCAL 65+ H IGH/HIGHEST RISK (1 of 2 - PCV13) [code = PNEUMOCOCCAL 65+ HIGH/HIGHEST RISK (1 of 2 - PCV13)] [facility] Future Scheduled Test 2017 00:00:00 65+ PNEUMOCOCCAL V ACCINE (1 of 1 - PPSV23) [code = 65+ PNEUMOCOCCAL VACCINE (1 of 1 - PPSV23)] [facility] Scheduled Test 2002-07-20 00:00:00 MEDICARE ANNUAL WE LLNESS (YEAR 2 or FIRST YEAR if no IPPE) [code = MEDICARE ANNUAL WELLNESS (YEAR 2 or FIRST YEAR if no IPPE)] [facility] Future Scheduled Test 2002 00:00:00 BREAST CANCER SCRE ENING [code = BREAST CANCER SCREENING] [facility] Scheduled Test 2002 00:00:00 COLONOSCOPY SCREEN ING [code = COLONOSCOPY SCREENING] [facility] Scheduled Test 2002 00:00:00 SHINGLES VACCINES (#1) [code = SHINGLES VACCINES (#1)] [facility] Scheduled Test 1962 00:00:00 DIABETIC EYE EXAM [code = DIABETIC EYE EXAM] [facility] Future Scheduled Test 1962 00:00:00 Diabetic foot exam ination (regime/therapy) [code = 268430555] [facility] Future Scheduled Test 1962 00:00:00 Urine screening fo r protein (procedure) [code = 849135054] [facility] Future Scheduled Test 1962 00:00:00 DIABETIC FOOT EXAM [code = DIABETIC FOOT EXAM] [facility] Future Scheduled Test 1962 00:00:00 URINE MICROALBUMIN [code = URINE MICROALBUMIN] [facility] Future Scheduled Test 1952 00:00:00 Screening for gertrude gnant neoplasm of breast (procedure) [code = 633048405] [facility] edical [place] Future Scheduled Test 1952 00:00:00 Screening for gertrude gnant neoplasm of colon (procedure) [code = 261888473] [facility] Future Scheduled Test 1952 00:00:00 DIABETIC RETINAL E YE EXAM [code = DIABETIC RETINAL EYE EXAM] Clyde Alcaraz Encounters Start Date/Time End Date/Time Encounter Type Admission Type [facility] Care Department Encounter ID Source 2019-12-01 00:00:00 2019-12-01 00:00:00 Outpatient FOUZIA RICKETTS [facility] [id number] [place] 2019-09-27 00:00:00 2019-09-30 00:00:00 Inpatient STACY GO [facility] [id number] [place] 2019-09-11 00:00:00 2019-09-22 00:00:00 Inpatient NEMESIO KENNEDY [facility] 064 [id number] [place] 2019-07-12 00:00:00 2019-07-29 00:00:00 Inpatient KM GO [facility] 012 [id number] [place] 2019-07-10 00:00:00 2019-07-11 00:00:00 Outpatient DUONG BANG [facility] [id number] Clyde Alcaraz 2019-07-10 00:00:00 2019-07-10 00:00:00 Outpatient DUONG BANG [facility] [id number] Clyde Colinist 2019-07-09 00:00:00 2019-07-09 00:00:00 Outpatient DUONG BANG [facility] [id number] [place] [facility] Results Test Description Test Time Test Comments Results Result Comments Source AFB culture 2019-10-25 00:13:13 Test Item AFB culture isolate (test code = 543-9) No growth after 6 we eks of incubation. Specimen InformationSpecimen Source: AbscessSpecimen Site: Thigh: Right thigh abscess culture Clyde Hickmanngus [id number] 00:15:10* Test Item Value Reference Range Interpretation Comments Fungus culture isolate (test code = 1441) No growth af ter 4 weeks of incubation. Specimen Information Specimen Source: AbscessSpecimen Site: Thigh: Right thigh abscess culture Clyde Dean [id number] 12:35:54* Test Item Value Reference Range Interpretation Comments POC glucose (test code = 30655-2) 105 mg/dL 65-99 H Die Reamer Name: Bradford Gilbert ID: [id number]: [facility] Notified assistant boys track coach Interpretation (test code = 94692-1) Abnormal [place] MethodistProthrombin time with [id number] 05:05:18* Test Item Value Reference Range Interpretation Comments Prothrombin time (test code = 5902-2) 15.8 11.5- 14.5 sec H INR (test code = 41206-8) 1.2 Th e International Normalized Ratio (INR) is a therapeutic monitoring tool for patients who are stable on oral anticoagulant therapy. An INR of 2.0-3.0 is suggested for deep vein thrombosis/pulmonary embolism. Lab Interpretation (test code = 58889-4) Abnormal [place] UatsdinBasi metabolic [id number] 04:59:44* Test Item Value Reference Range Interpretation Comments Sodium (test code = 2951-2) 140 135- 148 mEq/L Potassium (test code = 2823-3) 4.7 3.5- 5.0 mEq/L Chloride (test code = 2075-0) 98 98- 112 mEq/L CO2 (test code = 8-9) 29 24- 31 mEq/L Anion gap (test code = 19162-1) 13@ANIO 7- 15 mEq/L BUN (test code = 3094-0) 34 mg/dL 8-23 H Creatinine (test code = 2160-0) 5.99 mg/dL 0.5-0.9 H Glucose (test code = 2345-7) 56 mg/dL 65-99 L Calcium (test code = 24170-7) 8.4 mg/dL 8.8-10.2 L Lab Interpretation (test code = 50356-4) Abnormal [place] MethodistEstimated [id number] 04:59:42* Test Item Value Reference Range Interpretation Comments Estimated GFR (test code = 5488) 8 mL/min/1.73 m2 A Catergory Units InterpretationG1 >=90 Normal or highG2 60-89 Mildly axoxlolnrP7n 45-59 Mildly to moderately rmpozyoerW5d 30-44 Moderately to severely decreasedG4 15-29 Severely decreasedG5 <15 Kidney failureThe eGFR was calculated using the Chronic Kidney Disease Epidemiology Collaboration (CKD-EPI) equation. Interpretation is based on recommendations of the National Kidney Foundation-Kidney Disease Outcomes Quality Initiative (NKF-KDOQI) published in 2014. Lab Interpretation (test code = 82732-7) Abnormal [place] MethodistCBC with platelet and [id number] 04:33:49* Test Item Value Reference Range Interpretation Comments WBC (test code = 10039-8) 7.02 4.50- 11.00 k/uL RBC (test code = 96984-2) 3.43 m/uL 4.2-5.5 L HGB (test code = 718-7) 9.6 g/dL 12-16 L HCT (test code = 4544-3) 32.4 % 37-47 L MCV (test code = 787-2) 94.5 fL 82-100 MCH (test code = 785-6) 28.0 pg 27-34 MCHC (test code = 786-4) 29.6 g/dL 31-37 L RDW - SD (test code = 99583-3) 60.4 fL 37-55 H MPV (test code = 04577-8) 12.2 fL 8.8-13.2 Platelet count (test code = 34036-6) 66 150- 400 k/uL L Nucleated RBC (test code = 16119-6) 0.00 /100 WBC Neutrophils (test code = 48688-6) 62.7 % 39-69 Lymphocytes (test code = 89630-2) 18.9 % 25-45 L Monocytes (test code = 13849-7) 15.0 % 0-10 H Eosinophils (test code = 63927-5) 2.7 % 0-5 Basophils (test code = 76014-7) 0.4 % 0-1 Immature granulocytes (test code = 57026-8) 0.3 % 0-1 "Immature granulocytes" (promyelocytes, myelocytes, metamyelocytes) Lab Interpretation (test code = 18677-7) Abnormal [facility] [id number] 21:20:54* Test Item Value Reference Range Interpretation Comments Potassium (test code = 2823-3) 4.9 3.5- 5.0 mEq/L [facility] and [id number] 13:36:00* Test Item Value Reference Range Interpretation Comments ABO grouping (test code = 883-9) A Rh type (test code = 71217-4) POS Antibody screen (gel) (test code = 890-4) NEG [facility]Magnesium [id number] 07:22:25* Test Item Value Reference Range Interpretation Comments Magnesium (test code = 37412-0) 2.0 mg/dL 1.6-2.4 [facility]Phosphorus [id number] 07:22:25* Test Item Value Reference Range Interpretation Comments Phosphorus (test code = 2777-1) 2.9 mg/dL 2.4-4.5 [facility]Hepatitis B surface [id number] 18:41:38* Test Item Value Reference Range Interpretation Comments Hepatitis B surface Ag (test code = 5195-3) Non-reactive Non-reacti ve [facility] 12 [id number] 15:30:05* Test Item Value Reference Range Interpretation Comments Ventricular rate (test code = 253) 80 Atrial rate (test code = 255) 80 DC interval (test code = 266) 220 QRSD interval (test code = 260) 154 QT interval (test code = 264) 446 QTC interval (test code = 265) 514 P axis 1 (test code = 267) 26 QRS axis 1 (test code = 268) -44 T wave axis (test code = 270) 129 EKG impression (test code = 273) AV dual-paced rhythm with prolonged AV conduction- Clyde AlcarazXR Chest 1 Vw Hvmyazwb7181-46-35 12:32:38Hm Interface, Radiology Results Incoming - 09/27/2019 12:35 PM CDTEXAMINATION: XR CHEST 1 VW PORTABLECLINICAL HISTORY: 69 years Female chest painCOMPARISON: July 24IMPRESSION:Cardiomediastinal silhouette is unchanged. Vascular congestion, bibasilar volume loss, and pleural effusions are unchanged. Age related changes in the osseous structures.Cardiac conduction device is unchanged. [place] MethodistPartial thromboplastin time, uqccqujof0893-44-15 12:30:16* Test Item Value Reference Range Interpretation Comments PTT (test code = 62361-3) 36.1 23.0- 36.0 sec H PTT therapeutic range for unfractionated heparin is61.0-112.0 seconds which corresponds to Anti-Xa0.3-0.7 U/ml. Lab Interpretation (test code = 60054-7) Abnormal [place] WcxbgjxxyAoztqomo5503-81-20 12:29:22* Test Item Value Reference Range Interpretation Comments Troponin (test code = 93196-7) 0.163 ng/mL 0-0.04 H In patients suspected of having a myocardial infarction, along with all other appropriate clinical measures and actions including ECG and other diagnostics as appropriate, measure Ultra TnI at 0 hrs and at 3 hrs.Myocardial infarction VERY LIKELYThe 0 hr TnI level is > 0.10 ng/mL Mario cardial infarction LIKELYThe 0 hr TnI level is > 0.04 ng/mL and 3 hr level is increased or decreased by at least 0.020 ng/mL Myocardi al infarction VERY UNLIKELYBoth the 0 hr and 3 hr TnI levels <= 0.04 ng/mL(within normal limits) OR 0 hr is > 0.04 ng/mL and 3 hr is increased OR decreased by less than 0.020 ng/mL Lab Interpretation (test code = 61680-1) Abnormal [place] MethodistComprehensive metabolic uhvwd0296-86-04 12:29:17* Test Item Value Reference Range Interpretation Comments Sodium (test code = 2951-2) 140 135- 148 mEq/L Potassium (test code = 2823-3) 5.3 3.5- 5.0 mEq/L H Chloride (test code = 5-0) 98 98- 112 mEq/L CO2 (test code = 2027-9) 23 24- 31 mEq/L L Anion gap (test code = 29074-0) 19@ANIO 7- 15 mEq/L H BUN (test code = 3094-0) 89 mg/dL 8-23 H Creatinine (test code = 2160-0) 10.46 mg/dL 0.5-0.9 H Glucose (test code = 2345-7) 99 mg/dL 65-99 Calcium (test code = 67362-4) 8.6 mg/dL 8.8-10.2 L Protein (test code = 2885-2) 8.0 g/dL 6.3-8.3 -[place] 4.6- 7.0 g/dL1 week 4.4-7.6 g/dL7 months-1year 5.1-7.3 g/dL1-2 years 5.6-7.5 g/dL>3 years 6.0-8.0 g/cF90-550 6.3-8.3 g/dL Albumin (test code = 1751-7) 3.3 g/dL 3.5-5 L A/G ratio (test code = 1759-0) 0.7 0.7-3.8 Alkaline phosphatase (test code = 6768-6) 68 U/L 35-104 AST (test code = 1920-8) 25 U/L 10-35 ALT (test code = 1742-6) 30 U/L 5-50 Total bilirubin (test code = 1974-) 0.5 mg/dL 0-1.2 Lab Interpretation (test code = 73008-3) [facility]normal [place] [place] Interpretation - Not an Pjgha7072-73-05 10:59:21* Test Item Value Reference Range Interpretation Comments CARO (test code = CARO) Darryl Lebron MD 09/18 10:27 [facility] ED Preliminary Interpretation - Not an OrderPerformed by: Darryl Lebron MDAuthorized by: Darryl Lebron MD ECG reviewed by ED Physician in the abse nce of a shirring machine operator automatic: yes Interpretation: Interpretation: abnormal Rate: ECG rate: 80 ECG rate assessment: normal Rhythm: Rhythm: paced Ectopy: Ectopy: none QRS: QRS axis: Normal QRS intervals: NormalConduction: Conduction: normal ST segments: ST segments: NormalT waves: T waves: normal Lab Interpretation (test code = 23259-1) Abnormal [place] MethodistWound vac gjvnreozr6735-28-38 14:43:44LiAdan Mahajan NP 09/22/2019 2:45 PMWound vac placementDate/Time: 09/22/2019 2:43 PMPerformed by: Adan Middleton NPAuthorized by: Adan Middleton NP Pre-procedure details: Indication: Wound careWound Description: Wound type: Surgical Eschar tissue present in wound: No Debridement attempted in last 10 days: Yes Debridement date: 09/19/2019 Debridement type: Excisional Serial debridements required: No Wound Measurements: Length (cm): 9 Width (cm): 2 Depth (cm): 2 Area (cm3) formula based on LxW: 18 Volume (cm3) based on Area x D: 36 Wound measurement date: 09/22/2019Appearance of Wound/Wound Description: Wound full thickness: Yes Undermining: No Tunneling/Sinus: No Granulation: 75-100% Granulation color: Red Drainage: Serosanguinous Drainage amount: Scant Type of foam: Black Size of foam: Medium Malodorous?: Yes Wound Vac Settings: Pressure: 125 Status: ContinuousPost-procedure: Patient tolerance: Patient tolerated the procedure w ell with no immediate complications [place] MethodistManual differential 2019-09-22 09:32:31* Test Item Value Reference Range Interpretation Comments Manual differential (test code = 58594-4) PERFORMED Neutrophils (test code = 23982-0) 57.0 % 39-69 Lymphocytes (test code = 04262-0) 40.0 % 25-45 Monocytes (test code = 81976-3) 2.0 % 0-10 Eosinophils (test code = 09770-4) 1.0 % 0-5 Basophils (test code = 97421-0) 0.0 % 0-1 Metamyelocytes (test code = 740-1) 0 % Promyelocytes (test code = 783-1) 0 % Platelet slide review (test code = 28573-9) Decreased A Enlarged platelets (test code = 64841-7) Moderate A Lab Interpretation (test code = 59898-6) Abnormal [place] MethodistBlood culture, aerobic & weahklnsy3078-08-81 22:33:06* Test Item Value Reference Range Interpretation Comments Blood culture isolate (test code = 600-7) No growth after 5 days of incubation. Specimen InformationSpecimen Source: BloodSpecimen Site: Antecubital Left [place] MethodistAnaerobic wfiiqse5526-42-74 07:58:20* Test Item Value Reference Range Interpretation Comments Anaerobic culture isolate (test code = 552) No anaerobic organis ms isolated. Specimen InformationSpecimen Source: Abs cessSpecimen Site: Thigh: Right thigh abscess culture [place] MethodistAFB bvsle9359-90-34 12:09:01* Test Item Value Reference Range Interpretation Comments AFB stain (test code = 676-7) No acid fast bacilli (AFB) seen. Specimen InformationSpecimen Source: AbscessSpecimen Site: Thigh: Right thigh abscess culture [place] MethodistFungus xdzsw4819-94-16 12:09:01* Test Item Value Reference Range Interpretation Comments Fungus smear (test code = 1443) No fungi observed. Specimen InformationSpecimen Source: AbscessSpecimen Site: Thigh: Right thigh abscess culture [place] MethodistGram sjrnx8216-48-98 12:09:01Gram stain isolateRare WBC'sOccasional Gram positive cocci in pairs Comment: Specimen InformationSpecimen Source: AbscessSpecimen Site: Thigh: Right thigh abscess culture [facility] MethodistHemoglobin [id number] 09:41:42* Test Item Value Reference Range Interpretation Comments Hemoglobin A1C (test code = 01790-1) 6.8 % 4-5.6 H HbA1c cutoffs for diagnosing diabetes:4.0% - 5.6% = normal5.7% - 6.4% = increased risk for diabetes (prediabetes)9>=6.5% = qnlvxygp3Pewwy for glycemic control (ADA 2016)< 7.0% Target for non adults with diabetes. [...] of hemoglobin variants has not been well characterized.REVIEWED BY DADA MEJIA Lab Interpretation (test code = 68915-7) Abnormal [place] HlsvdaqswZubyxd4626-16-51 07:52:12Onesimo Carreno MD 09/12/2019 7:52 AMAirwayDate/Time: 09/12/2019 7:52 AMPerformed by: Onesimo Carreno MDAuthorized by: Prosper Banuelos MD Location: ORUrgency: ElectiveDifficult Airway: No Resident/COMMERCIAL COUNSEL/AA: Onesimo Carreno MDPerformed by: resident/COMMERCIAL COUNSEL/AAPreoxygenated with 100% O2: Yes C-spine Precautions Maintained Throughout: No Mask Ventilation: Not attemptedFinal Airway Type: Endotracheal airwayFinal Endotracheal Airway: ETTCuffed: Yes Technique Used: Video laryngoscopyInsertion Site: OralLaryngoscope Blade/Vide olaryngoscope Blade Size: 4ETT Size (mm): 7.0Measured from: TeethETT to Teeth (cm): 20Placement Verified by: CO2 detection Laryngoscopic view: Grade I - f ull view of glottisRapid Sequence Induction (RSI): No Modified RSI: No Number of Attempts at Approach: 1[place] MethodistCreatinine cghoj7333-14-65 21:03:24 * Test Item Value Reference Range Interpretation Comments Creatinine (test code = 2160-0) 7.17 mg/dL 0.5-0.9 H Lab Interpretation (test code = 47321-8) Abnormal [place] MethodistPA Lower Extremity Wo Contrast Usrid9525-32-32 19:18:47Hm Interface, Radiology Results 09/11/2019 7:21 PM CDTEXAMINATION: CT LOWER EXTREMITY WO CONTRAST RIGHTCLINICAL HISTORY: Right thigh abscessTECHNIQUE: Multi-detector computed axial tomography of the thigh was performed without IV iodinated contrast. Sagittal and coronal computerized reformatted images of the body were created at a workstation and archived for review.DOSE REDUCTION: CT imaging was performed with iterative reconstruction technique and/or automated e xposure control to reduce radiation dose.COMPARISON: NoneIMPRESSION:1.Large subc utaneous abscess in the proximal aspect of the anteromedial right thigh.FINDINGS : 9.2 x 0.7 x 4.9 cm complex fluid collection located within the subcutaneous fa t of the proximal anteromedial right thigh. The presence of associated inflammat ory changes within the subcutaneous fat and skin favor abscess.Reactive right il iac and inguinal chain lymphadenopathy.Diffuse and severe arterial calcification s.Deep soft tissues are unremarkable.Severe degenerative disc disease and spondy losis at the lumbosacral junction.Moderate arthrosis of the right hip and knee.R emainder of the exam is unremarkable.HMRM-SPHYESL [place] MethodistSix minute walk w/ pulse ivfddobe4734-30-64 14:27:50* Test Item Value Reference Range Interpretation Comments Heart Rate at Rest (test code = 5603) 86 1/min SPO2 at Rest (test code = 5604) 100 % BP Systolic at Rest (test code = 5605) 92 mmHg BP Diastolic at Rest (test code = 5606) 53 mmHg Supplemental O2 at Rest (test code = 5607) 0 L/min Heart Rate after 1 minute (test code = 5608) 107 1/min SPO2 after 1 minute (test code = 5609) 99 % Supplemental O2 after 1 minute (test code = 5612) 0 L/min Heart Rate after 2 minutes (test code = 5613) 113 1/min SPO2 after 2 minutes (test code = 5614) 99 % Supplemental O2 after 2 minutes (test code = 5617) 0 L/min Heart Rate after 3 minutes (test code = 5618) 118 1/min SPO2 after 3 minutes (test code = 5619) 95 % Supplemental O2 after 3 minutes (test code = 5622) 0 L/min Heart Rate after 4 minutes (test code = 5623) 101 1/min SPO2 after 4 minutes (test code = 5624) 87 % Supplemental O2 after 4 minutes (test code = 5627) 2 L/min Heart Rate after 5 minutes (test code = 5628) 108 1/min SPO2 after 5 minutes (test code = 5629) 99 % Supplemental O2 after 5 minutes (test code = 5632) 2 L/min Six Minute Walk Distance in m (test code = 5633) 20 m 192.7 3-470.73 Heart Rate after 6 minutes (test code = 5634) 105 1/min Highest Heart Rate (test code = 5635) 118 1/min SPO2 after 6 minutes (test code = 5636) 98 % Lowest SpO2 (test code = 5637) 87 % BP Systolic after 6 minutes (test code = 5639) 116 mmHg BP Diastolic after 6 minutes (test code = 5640) 55 mmHg Supplemental O2 after 6 minutes (test code = 5641) 2 L/min Lap Count (test code = 5642) 0 Six Minute Walk Distance Predicted (test code = 5645) 332 [place] MethodistSmear lxcwec3897-04-77 13:41:25* Test Item Value Reference Range Interpretation Comments Platelet slide review (test code = 47974-1) Wily slt decr Anisocytosis (test code = 702-1) Moderate Polychromasia (test code = 46034-9) Moderate Ovalocytes (test code = 774-0) Moderate Enlarged platelets (test code = 83145-9) Moderate A Giant platelets (test code = 5908-9) Occasional Lab Interpretation (test code = 58906-2) Abnormal [place] MethodistRespiratory pathogen pejsl9933-15-60 10:58:07Respiratory pathogen panelNegative for all pathogens tested:Negative for AdenovirusNegative for Coronavirus NXF7Cfaxwvkw for Coronavirus IE15Mvqbhmdo for Coronavirus 229ENegative for Coronavirus QZ13Gmvruysw for Human MetapneumovirusNegative for Rhinovirus/EnterovirusNegative for Influenza ANegative for Influenza A/H1N egative for Influenza A/I0Yuvgmhsk for Influenza A/H1-2009Negative for Influenza BNegative for Parainfluenza Virus 1Negative for Parainfluenza Virus 2Negative f or Parainfluenza Virus 3Negative for Parainfluenza Virus 4Negative for Respirato ry Syncytial VirusNegative for Bordetella pertussisNegative for Chlamydophila pn eumoniaeNegative for Mycoplasma pneumoniaeThis real-time PCR assay detects the p resence of nucleic acids (RNA or DNA) for the respiratory pathogens listed. A r esult of "Not-detected" does not exclude the possibility of the presence of one or more pathogens at concentrations less than the detectable limits of the assay . Comment: Specimen InformationSpecimen Source: NaresSpecimen Site: Not specifie d [facility] MethodistLactic acid [id number] 23:50:42* Test Item Value Reference Range Interpretation Comments Lactic acid (test code = 97196-8) 2.8 mmol/L 0.5-2.2 H Lab Interpretation (test code = 88052-6) Abnormal [place] MethodistIonized calcium, lkyjdygs0349-00-37 05:11:49* Test Item Value Reference Range Interpretation Comments Ionized calcium, arterial (test code = 74833-8) 1.10 mmol/L 1.11-1 .32 L CARO (test code = CARO) ____ABG results called to an d read back by [facility](name/location)at 07/21/2019 04:31 (date/time) by YOUSIF_. Lab Interpretation (test code = 86677-6) Abnormal [place] MethodistArterial blood [id number] 04:30:50* Test Item Value Reference Range Interpretation Comments pH, arterial (test code = 2744-1) 7.31 7.35-7.45 L Results double checked. pCO2, arterial (test code = 2019-8) 49 35- 45 mmHg H pO2, arterial (test code = 2703-7) 42 80- 90 mmHg LL Bicarbonate, arterial (test code = 1960-4) 24.0 mmol/L 21-28 Base excess, arterial (test code = 1925-7) -2 -2 - 2 mEq- L O2 saturation, arterial (test code = 2708-6) 75 % 95-100 L Lab Interpretation (test code = 44573-3) Abnormal [place] MethodistVenous blood nwj8193-90-23 04:37:10* Test Item Value Reference Range Interpretation Comments pH, venous (test code = 2746-6) 7.31 7.32-7.42 L pCO2, venous (test code = 2020-) 50 45- 51 mmHg pO2, venous (test code = 2705-2) 42 25- 40 mmHg H Base excess, venous (test code = 1927-3) -1 meq/L -2-2 O2 saturation, venous (test code = 2711-0) 76 % 40-70 H Bicarbonate, venous (test code = 36922-7) 24.5 mmol/L 21-28 Lab Interpretation (test code = 06768-7) Abnormal [place] MethodistCTA ABD/PEL for WTQPLMMP1406-81-28 20:42:38Hm Interface, Radiology Results 07/19/2019 8:45 PM CSTEXAMINATION: CTA ABD PEL FOR BLEEDINGCLINICAL HISTORY: right gorin hematomaCOMPARISON: CTA abdomen and pelvis July 13, 2019TECHNIQUE: Precontrast scans obtained through the abdomen and pelvisPost intravenous scans were obtained following bolus int ravenous contrast administration from the abdomen through the pelvis. Delayed ab domen and pelvis scans obtained. 2-D and 3-D reconstructions obtained. 989 total images utilizedCT imaging was performed with iterative reconstruction technique and/or automated exposure control to reduce radiation dose. FINDINGS:Abdomen:Sm all right pleural effusion which is new as compared to previousMild patchy bibas ilar atelectasis. Moderate cardiomegaly. Diffuse coronary artery calcifications. No free intraperitoneal air or fluid.Vicarious excretion of contrast in the gall bladder.Mild fatty infiltration of the liver. No focal hepatic abnormality. Sple en unremarkable.Adrenal glands normal size.Pancreas unremarkable in appearance.A trophic appearing kidneys demonstrating symmetrical bilateral function. No renal mass or hydronephrosis. No obstructing tract calculus. Bilateral small renal cortical cyst spine in appearance.Abdominal aorta normal caliber. Scattered ath erosclerosis.No abdominal adenopathy.No bowel obstruction in the abdomen. Scatte red diverticulosis. No diverticulitis.Pelvis:Moderate soft tissue hematoma media l right inguinal region which is new compared to previous. Hematoma measures up to approximately 8.1 cm x 4.8 cm and extends over approximately 15 cm in superio r inferior extent. Focal 2.7 cm x 1.8 cm hyperdensity just inferior to the super ficial femoral vein bifurcation. No active extravasation seen on CTA sequences. Findings are most in keeping with a hematoma.Scattered diverticulosis. No bowel obstruction. Fat-containing umbilical hernia similar to previous.Normal appendix .Uterus grossly unremarkable. Ovaries are grossly unremarkable and similar in ap pearance to previous. No pelvic mass or sidewall adenopathy. No free fluid in th e pelvis.Bladder grossly unremarkable.CTA: Right-sided medial inguinal and upper thigh hematoma is confirmed. There is no arterial extravasation associated with a hematoma.Considerable cardiomegaly. Pacer device in place.Abdominal aorta nor mal caliber. Mild scattered atherosclerosis. Celiac axis and superior mesenteric artery origins intact. Renal artery origins intact. Atherosclerotic change at t he inferior mesenteric artery origin without significant occlusive changeAortic bifurcation well-maintained. Mild diffuse atherosclerotic changes in the common iliac arteries bilaterally. Iliac bifurcation well-maintained. External iliac ar teries intact in appearance bilaterally. Common femoral arteries well-maintained . Mild scattered atherosclerotic changes at the superficial femoral profunda bif urcation levels.Inferior epigastric arteries are well-maintained bilaterally.Lef t-sided femoral venous catheter extends to left mid external iliac vein.Moderate degenerative changes throughout the visualized thoracic and lumbar spineIMPRESS ION:Moderate right inguinal and medial thigh hematoma. No arterial extravasation .Hematoma is medial to the venous structures.Small right pleural effusionCardiom egaly as before.Diffuse atherosclerosisFatty infiltration liver.Atrophic appeari ng kidneys as on previous with bilateral benign-appearing renal cortical cystsSc attered diverticulosis without diverticulitis or bowel obstructionNormal appendi [facility]-[id number] MethodLos [facility] duplex arterial lower hsoaxmqjg6648-98-77 15:25:00Interface, Radiology Results In - 07/19/2019 3:25 PM [facility] Vascular Ultrasound Laboratory Lower Extremity Arterial Duplex Report [id number] [address]Ewz.Name: LÁZARO PETERSON Pat.ID: [id number] .Date: 07/19/2019 Refer.MD: KM GO MD Exam Time: 11:35:00 AM Study Type:LE Arterial Height: 63in Age: 12 1950,69Y Sex: FEMALE Sonogrphr: Harris Ruffin RDMS, RVT Pat. Stat.:Inpatient Room: [address] Vol: ST, CPT - 4: 17448 Echo Event ID:[id number] Order ID: [id number] Reason for Study:Palpable lump noted in the right groin followingcatheterization of the femoral artery. History of ESRD, afib,neuropathy, hyperlipidemia, type 2 diabetes, hypotension.Procedures: Colorflow, Grayscale/2D, Pulsed wave DopplerRace: B -----SUMMARY: DUPLEX SCAN OBSERVATIONS:RIGHT: The common femoral artery and vein is visualized . Hypoechoic, well-defined ar eas noted in the medial right groin;Doppler signals are absent. Measurement of t he first lesion closer(anteromedial) to the common femoral artery measures 1.39 x 0.78 x1.28 cm (Trans x AP x Long); the second lesion, located more mediallymea sures: 3.89 x 2.73 x 1.47 cm (Long x Trans x AP). The visualizedveins are compre ssible without echogenic material noted within thelumen; colorflow and Doppler s ignals are normal.PRELIMINARY FINDINGS:1. Two hematomas noted in the right groin , anteromedial to the rightcommon femoral vessels.1A. First lesion closer (anter omedial) to the common femoral arterymeasures 1.39 x 0.78 x 1.28 cm (Trans x AP x Long);1B. The second lesion, located more medially measures: 3.89 x 2.73 x1.47 cm (Long x Trans x AP).2. No evidence of a pseudoaneurysm (PSA) or PSA neck no sangeeta.3. Visualized veins demonstrate normal findings; no evidence of atraumatic fistula present.Findings given to Dr. Jaz Wang during Duplex on 07/19/19.PH YSICIAN INTERPRETATION: 1. Two hematomas noted in the right groin, anteromedial to the rightcommon femoral vessels.1A. First lesion closer (anteromedial) to the common femoral arterymeasures 1.39 x 0.78 x 1.28 cm (Trans x AP x Long);1B. The second lesion, located more medially measures: 3.89 x 2.73 x1.47 cm (Long x Tra ns x AP).2. No evidence of a pseudoaneurysm (PSA) or PSA neck noted.3. Visuali zed veins demonstrate normal findings; no evidence of atraumatic fistula present . FINDINGS: --Signed 07/19/2019 03:25 Vahid Knight MD, RPVIClyde MethodistIonized rlzggtk9027-19-75 14:49:16* Test Item Value Reference Range Interpretation Comments pH (test code = 2753-2) 7.45 Ionized calcium (test code = 1995-0) 1.16 mmol/L 1.11-1.32 [place] MethodistCreatine kinase, total (CPK)2019-07-19 01:11:57* Test Item Value Reference Range Interpretation Comments Creatine kinase (test code = 2157-6) 106 U/L 26-192 [place] MethodistPrepare RBC, 1 Xbqep1604-86-11 04:11:00* Test Item Value Reference Range Interpretation Comments Product name (test code = 25) Red Blood Cells -1, Leukored Unit number (test code = 2535078) [id number] Product code (test code = 3092) [id number] Dispense status (test code = 24) Transfused Blood expiration date (test code = ) 919111089212 Blood type code (test code = 308) 4086 Blood type (test code = 1314) A POSITIVE Compatibility (test code = 6400) Compatible [place] MethodistIonized calcium, ktazep1195-14-51 03:16:30* Test Item Value Reference Range Interpretation Comments Ionized calcium, venous (test code = 56268-3) 1.11 mmol/L 1.11-1.3 2 [place] MethodistXR Abdomen 1 Vw Iylslglx4570-45-53 10:29:13Hm Interface, Radiology Results - 07/17/2019 10:32 AM CSTEXAMINATION: XR ABDOMEN 1 VW PORTABLECLINICAL HISTORY: NGT placementCOMPARISON: 07/13/2019 I MPRESSION:Nasogastric tube has advanced and now has its tip in gastric antrum. Bowel gas pattern is nonobstructive. There is no gross intra-abdominal free air. [facility]-[id number] MethodistRespiratory tqecknh3061-51-00 09:53:04* Test Item Value Reference Range Interpretation Comments Respiratory culture isolate (test code = 44271-6) No growth after 2 days. Specimen InformationSpecimen Source: Mini bronchial alveolar lavage Specimen Site: RIGHT LUNG [place] MethodistHepatic function dpspx8877-67-83 01:46:56* Test Item Value Reference Range Interpretation Comments Albumin (test code = 1751-7) 2.8 g/dL 3.5-5 L Total bilirubin (test code = 1974-2) 0.7 mg/dL 0-1.2 Bilirubin direct (test code = 1967-7) 0.3 mg/dL 0-0.3 Alkaline phosphatase (test code = 6768-6) 39 U/L 35-104 Protein (test code = 2885-2) 6.1 g/dL 6.3-8.3 L Ekqscob7065.6-7.0 g/dL1 isez0273.4-7.6 g/dL7 months-8qvet346.1-7.3 g/dL1-2 wgmig990.6-7.5 g/dL>3 fzfax975.0-8.0 g/tE38-1247217.3-8.3 g/dL ALT (test code = 1742-6) 14 U/L 5-50 AST (test code = 1920-8) 50 U/L 10-35 H Lab Interpretation (test code = 40767-3) Abnormal [place] MethodistHEMODIALYSIS CATHETER [id number] 23:20:54LyThalia rodriguez 07/15/2019 11:25 PMHemodialysis catheter placementDate/Time: 07/15/2019 11:20 PMPerformed by: Thalia Benitezuthorized by: Thalia Benitez Consent: Consent obtained: Emergent situation and written Consent given by: Patient and healthcare agent Risks discussed: Arterial puncture, incorrect placement, pneumothorax, nerve damage, infection and bleeding Alternatives discussed: Delayed treatment and no treatmentUniversal protocol: Procedure explained and questions answered to patient or proxy's satisfaction: yes Relevant documents present and verified: yes Test results available and pro perly labeled: yes Imaging studies available: yes Required blood products, implants, devices, and special equipment available: yes Site/side marked: yes Immediately prior to procedure, a time out was called: yes Patient ident ity confirmed: Arm band and hospital-assigned identification numberPre-procedur e details: Indication: Vascular access for HD Hand hygiene: Hand hygiene per formed prior to insertion Sterile barrier technique: All elements of maximal sterile technique followed Skin preparation: 2% chlorhexidine Skin preparat ion agent: Skin preparation agent completely dried prior to procedure Procedure details: Procedure supplies: Temporary dialysis catheter Catheter size: 20 cm Catheter Site Laterality: LeftPost-procedure details: Post-procedure: D ressing applied and line sutured Patient tolerance of procedure: Tolerated wel l, no immediate complicationsComments: Previous temporary dialysis catheter m alfunction. Hemodialysis catheter replaced using J- wire technique. [facility] duplex hemodialysis avg avf [id number] 22:46:00Interface, Radiology Results In - 07/15/2019 10:46 PM [facility] Vascular Ultrasound Laboratory AV Graft - Fistula Report [address] [place] [address] Pat.Name: LÁZARO PETERSON Pat.ID: [id number] .Date: 07/15/2019 Refer.MD: KM GO MD Exam Time: 7:43:00 PM Study Type:AV Graft - Fistula Height: 63in Weight: 260lb BSA: 2.16 m2 Age: 14 1950,69Y Sex: FEMALE Sonogrphr: Hannah Vi, RVT Pat. Stat.:Inpatient Room: [place] [address] Tape Vol: HV, CPT - 4: 92696 Echo Event ID:[id number] Order ID: [id number] Reason for Study:Concern for thrombosis of right upper arm AVF. S/Prevision of right arm AV Fistula with artegraft insertion on 07/10/2019. Procedures: B-flow imaging, Colorflow, Grayscale/2D, Pulsed waveDopp lerRace: B SUMMAR Y: DUPLEX SCAN OBSERVATIONS:RIGHT: There is a patent AV fistula seen in the distal upper arm. Thearterial anastomosis is seen at the feeding brachial artery. Elevatedvelocity is seen in the arterial anasto mosis (ratio 4.52). There isbright echogenic material seen in the AV fistula at the distal upperarm. There is a thickening wall with hypoechonic material seen i n theAV fistula at the distal upper arm. Patency is seen throughout the AVFat th e mid and proximal upper arm. There is an artegraft which isconnected to the axi llary vein, as well as the venous portion of thevenous fistula. Elevated velocit y is seen at the venous anastomosis(ratio 3.47). The axillary vein and subclavia n vein are patent. Volumeflow of brachial artery and axillary artery are listed below. There isabsent colorflow and Doppler signals seen in the proximal upper a rmcephalic vein. DOPPLER FINDINGS: ARTERY LOCATION PSV (cm/sec)RIGHT Brac hial Proximal-third 153 Mid-third 139 Distal-third 63 AV fistula Anastamosis 285 Juxta 511 Distal-third 215 151 Mid-thid 91 Proximal-third 74 Jump graft UA-proximal 91 Venous Anastomosis UA-proximal 316 374 Axillary vein Proximal-third 152 Armpit 35 Shoulder 47 Subclavian vein Proximal-third 57 VOLUME FLOW: Brachial 518 cc/min 482 cc/min Axillary 586 cc/min 540 cc/min PRELIMINARY FINDINGS:1. Patent AV fistula seen in the right distal upper arm.2. Patent right artegraft which is connected to the right axillaryvein, as well as the venous portion of the right venous fistula.3. >50% stenosis of right arterial anastomosis (ratio 4.52).4. >50% stenosis of right venous anastomosis (ratio 3.47).5. Volume flow of right brachial artery and axillary artery arelisted above.6. Occlusion of right cephalic vein at proximal upper arm; this is aknown thing.PHYSICIAN INTERPRETATION: Decreased flow volume. >50% stenosis of right arterial anastomosis (ratio 4.52).>50% stenosis of right venous anastomosis (ratio 3.47).Occlusion of right cephalic vein at proximal upper arm; this is aknown thing. -------FINDINGS: Signed 07/15/2019 10:46 PMZs gian Knight MD, [facility]IDA Scan[facility]2019-07-15 15:01:06Hm Interface, Radiology Results 07/15/2019 3:04 PM CSTPROCEDURE: [place] HEPATOBILIARY (HIDA SCAN)INDICATION: Evaluate for cholecystitis.TECHNIQUE: The patient was injected with 5 mCi of Tc-99m Choletec, IV. Dynamic planar images of the abdomen were acquired for 1 hour.FINDINGS: Tracer is seen within the gallbladder and small bowel by one hour.IMPRESSION:1. No evidence for acute cholecystitis, cystic duct obstruction, or common bile duct obstruction.[facility]-[id number] Uatsdin duplex arterial upper [id number] 18:21:00Interface, Radiology Results In 07/14/2019 6:22 PM [facility] Vascular Ultrasound Laboratory Upper Extremity Arterial Report [id number] [address]Tdo.Name: LÁZARO PETERSON.ID: [id number] .Date: 07/14/2019 Refer.MD: ANGY ALVARADO MD Exam Time: 10:14:00 AM Study Type:UE Arterial Height: 63in Weight: 260lb BSA: 2.16 m2 Age: 14 1950,69Y Sex: FEMALE Sonogrphr: Sugar Yan RVT, COURTNEY Renteria, [facility] CENTERPat. Stat.:Inpatient Room: [address] Vol: KAILASH, CPT - 4: 56235 Echo Event ID:[id number] Order ID: [id number] Reason for Study:Evaluation for steal study on right upper arm. PMHof ESRD on HD MWF, T2DM, CAD, PAF on eliquis, s/p RUE AVF revision andthrombectomy who initially presented to ED on 07/12 with RUE pain andswelling 2 days postop.Procedures: Colorflow, Grayscale/2D, Non-imaging continuous waveDoppler, PPG waveform tracing, Pulsed wave DopplerRace: B - SUMMARY: D UPLEX SCAN OBSERVATIONS:Right: Calcified arterial jose are noted throughout the extremity.Diminished colorflow and Doppler signals are noted in the proximal an dmid radial artery; absent flow noted in the distal segment. Remainingof the vis ualized arteries are patent; colorflow and Doppler signalsare present. SEGMENTAL PRESSURE: RIGHT LEFT Brachial 101 1323rd Finger 0.30 0.94 PRELIMINARY FINDINGS:1. Diminished colorflow and Doppler signals are noted in the rightproximal and mid radial artery.2. Possible occlusion of the right di stal radial artery.3. Calcified arterial jose noted throughout the extremity.4. The finger/brachial index on the right falls into themoderate-severe category a nd normal on the left.5. Abnormal waveforms seen in the 3rd fingers, bilaterally .6. Physiological study demonstrates negative for steal study.7. Technically dif ficult and limited study due to patient unstable andunable to cooperate.PHYSICIA N INTERPRETATION: 1. Diminished colorflow and Doppler signals are noted in the r ightproximal and mid radial artery.2. Possible occlusion of the right distal rad ial artery.3. Calcified arterial jose noted throughout the extremity.4. The fin tiffany/brachial index on the right falls into themoderate-severe category and lakisha l on the left.5. Abnormal waveforms seen in the 3rd fingers, bilaterally.6. Phys iological study demonstrates negative for steal study. FINDINGS: MEASUREMENTS: DOPPLERRight Brachial Dist Brachial Dist P 159 cm/s Right Brachial Mid Brachial Mid PS 109 cm/s Right D Radial Radial Dist PSV 0 cm/s Right M Radial Radial Mid PSV 35.5 cm/s Right P Radial Radial Prox PSV 34 cm/s Right Ulnar Dist Ulnar Dist PSV 110 cm/s Right Ulnar Mid Ulnar Mid PSV 54 cm/s Right P Uln ar Ulnar Prox PSV 59.2 cm/s Right Axillary Mid Axillary Mid PS 12 9 cm/s Right Brachial Prox Brachial Prox P 111 cm/s Signed 0 07/14/2019 06:21 PMZsolt Eugene MD, [facility] MethodistEchocardiogram complete w contrast and 3D if [id number] 10:48:00Interface, Radiology Results In - 07/14/2019 10:50 AM [facility] Echocardiography Report [id number]Name: LÁZARO PETERSON.ID: [id number] .Date: 07/14/2019 Refer.MD: MK GO MD Exam Time: 7:55:00 AM Study Type:Routine Echo Height: 63in Weight: 260lb BSA: 2.16 m2 Age: 14 1950,69Y Sex: FEMALE BP: 111/54 Sonogrphr: Lizzy Cortes RDCS, RVSPat. Stat.:Inpatient Room: [place] [address] Study Status:Final Echo Event ID:[id number] Order ID: [id number] Reason for Study:Hypotension-suspected cardiac etiologyHistory / Clinical:Atrial Fibrillation, Chronic Renal Failure,Diabetes, HyperlipidemiaProcedures: 2D Echo, Colorflow Doppler, Intravenous Optison Contrast SUMMARY:---- Technically difficult study.Severe asymmetric se ptal hypertrophy (hypertrophic cardiomyopathycannot be excluded).No evidence of dynamic LVOT obstruction.Normal LVEFNormal RV systolic function. FINDINGS: LV: LV si ze is normal. There is severe asymmetric LV hypertrophy. LV EF is norm al. Overall wall motion is normal. Estimated EF is 65-69% Septal motio n is paradoxical secondary to LBBB or conduction abnormality.RV: RV size is normal. A pacemaker wire is seen in the RV. RV systolic fu nction is normal.LA: LA volume is difficult to assess.RA: RA volume is difficult to assess. A pacemaker wire is seen.AO: Aortic root diameter is normal in size. Ascending aorta diameter is normal.AMANDA: No per icardial effusion. There is an anterior space consistent with a promin ent epicardial fat pad.SVn: Inferior vena cava is normal.AV: Mild abran cification of AV leaflets. Tri cuspid aortic valve.MV: Mild mitral annular calcification. Mild mitral regurgitation. PV: No structural PV a bnormalities noted.TV: No structural TV abnormalities noted.Roa: LV r elaxation is impaired.Other: Estimated PA systolic pressure is 35 mmHg, assum ing a mean RAP of 5 mmHg. MEASUREME NTS: 2DPara sternal [place] Ao An 2.4 cm LVPWd 1.1 cm A o Rtd 3.8 cm Index 1.7 cm/m2 LA Ds 3.7 cm LVIDd 4.6 cm Index 2.1 cm/m2 RWT 0.48 LVIDs 3.3 cm LV Mass 217 g (87-129) LV%fs 28 % LVM Index 100 g/m 2Ventricular Septum IVSd 1.8 cm LA Sng Plane LA Area 25 cm2 (8.8-23.4) LA Vol 68 ml Index 32 ml/m2 LA Lng Ax 8.2 cm Aorta Ao Asc 3.8 cm (2.1-3.4)LVOT Stro ke Vol LVOT 2.1 cm LVOT LVOT Area 3.5 cm2 DOPPLERLVOT Stroke Vol LVOT TVI 16 cm LVOT CI 2.1 l/m/m2 LVOT SV 57 ml HR 80 bpm LVOT CO 4.5 l/min LVOT SVi 26 ml/m2 Signed 07/14/2019 10:48 Ricardo Godwin [facility] 2019-07-14 09:52:42* Test Item Value Reference Range Interpretation Comments LDH (test code = 63397-0) 246 U/L 87-225 H Lab Interpretation (test code = 05474-2) Abnormal [facility] carotid [id number] 08:02:00Interface, Radiology Results In - 07/14/2019 8:02 AM [facility] Vascular Ultrasound Laboratory Carotid Artery Duplex Report [address] [address], [place] [address] For lead quality control technician purposes, the categorization of the degree of the stenosis of this exam is based on criteria described in the IAC carotid stenosis grading white paper( www.intersocietal.org/Vascular) and Kaylin Easley., Law CViniciusB., et al. Carotid artery stenosis: klein-scale and Doppler US diagnosis--Society of Radiologists in Ultrasound Consensus C onference. Radiology. 2003 Nov; 229(2):340-6. Pat.Name: LÁZARO PETERSON Pat.ID: [id number] .Date: 07/13/2019 Refer.MD: Oracio GO MD Exam Time: 8:20:00 PM Study Type:Carotid Height: 53in Weight: 260lb BSA: 1.91 m2 Age: 14 1950,69Y Sex: FEMALE Sonogrphr: COURTNEY Claros Pat. Stat.:Inpatient Room: [place] [address] Tape Vol: VM, CPT - 4: 93164 Echo Event ID:[id number] Order ID: [id number] Reason for Study:New onset of visual changes. History D M2, ESRD, Afib,and HLD.Procedures: Colorflow, Grayscale/2D, Pulsed wave DopplerR fay: -Fijian SUMMARY:-- PHYSICAL ASSESSMENT Blood Pressur e Right AV fistula Left 127/61 CAROTID ARTERY SCANRIIGHT: There is hannah rd calcified plaque in the mid common carotidartery, bulb extending to the exter nal and internal carotid artery.Difficulty in visualizing the internal and exter nal carotid artery dueto body habitus. Colorlfow and Doppler are normal. There i s antegradevertebral flow noted.LEFT: Not visualized due to lines and dressing. PRELIMINARY FINDINGS1. <50% stenosis in the right bulb and proximal internal carotidartery. 2. <50% stenosis in the right proximalexternal carotid artery. 3. There is antegrade vertebral flow on the right.4. Non-stenotic hard calcified plaque in the mid common carotid arteryon the right.5. The mid and distal internal carotid arteriey was not visualized dueto body habitus of patient and no bobility. PHYSICIAN INTERPRETATION Unilateral carotid duplex examination demonstrated atheroscleroticplaques in the right bulb/ CCA. Less than 50% stenosis in the right internal carotid artery. FINDINGS: Carotid Findings: Right Left Verteb.Flw Antegrade Subclavian AVF MEASUREMENTS: DOPPLERRight CCA Dist CCA Dist PSV 57.5 cm/s CCA D ist EDV 8.64 cm/sRight CCA Mid CCA Mid PSV 57.3 cm/s CCA Mid E DV 7.7 cm/sRight CCA Prox CCA Prox PSV 95.1 cm/s CCA Prox EDV 10.3 cm/sRight ICA Prox ICA Prox PSV 36.4 cm/s ICA Prox EDV 7.8 cm/sRight ECA Prox ECA Prox PSV 75.8 cm/s ECA Prox EDV 7.9 cm/sRight ICA/CCA Ratio ICA/CCA PSV 0.635 Signed 07/14/2019 08:02 Easton Knight MD, VILexington MethodistCentral Line [id number] 02:43:23Emilia Owens NP 07/14/2019 2:45 AMCentral Line InsertionPerformed by: Emilia Owens NPAuthorized by: Emilia Owens NP Consent: Consent obtained: Written Consent given by: Healthcare agent (son) Risks discussed: Arterial puncture, incorrect placement, nerve damage, infection and bleeding Alternatives discussed: No treatment and delayed treatmentUniversal protocol: Procedure explained and questions answered to patient or proxy's satisfaction: yes Immediately prior to procedure, a time out was called: yes Patient identity confirmed: Arm bandPre-procedure details: Hand hygiene: Hand hygiene performed prior to insertion Sterile barrier technique: All elements of maximal sterile technique followed Skin preparation: Chloraprep Skin preparation agent: Skin preparation agent completely dried prior to procedure Anesthesia (see MAR for exact dosages): Anesthesia method: Local infiltration Local anesthetic: Lidocaine 1% w/o epiProcedure details: Catheter type: Triple lumen Catheter size: 7 Fr Catheter length (cm): 20cm Catheter site: femoral vein Catheter Site Laterality: Left Patient position: Flat Ultrasound guidance: yes Successful placement: yes Post-procedure details: Post-procedure: Dressing applied and line sutured Assessment: Blood return through all ports and free fluid flow Patient tolerance of procedure: Tolerated well, no immediate complicationsLexington HjklqvabhVqtuyposzi9187-11-32 02:01:39* Test Item Value Reference Range Interpretation Comments Fibrinogen (test code = 16821-8) 559 mg/dL 200-450 H Lab Interpretation (test code = 32180-0) Abnormal [place] [facility] duplex venous upper [id number] 21:39:00Interface, Radiology Results In - 07/13/2019 9:40 PM [facility] Vascular Ultrasound Laboratory Upper Extremity Venous Report [id number] [address] Pat.Name: LÁZARO PETERSON Pat.ID: [id number] .Date: 07/13/2019 Refer.MD: ANGY ALVARADO MD Exam Time: 12:44:00 AM Study Type:UE Venous Height: 53in BSA: 1.91 m2 Age: 14 1950,69Y Sex: FEMALE Sonog rphr: COURTNEY Claros. Stat.:Inpatient Room: ED41 Tape Vol: VM, CPT - 4: 83886 Echo Event ID:[id number] Order ID: [id number] Reason for Study:Right arm pain and swelling. History of cellulitis ofright arm, ESRD, DM2, and HLD.Procedures: Colorflow, Grayscale/2D, Pulsed wave DopplerRace: B SUMMARY:----- DUPLEX SCAN OBSERVATIONS Right LeftIJ Normal Baker bclavian Patent PatentAxillary Normal Brachial Normal Basilic Normal Cephalic Obstructed RIGHT: The cephalic vein is non-compressible and filled withechoge stevie material within the lumen, colorlfow and Doppler is absent.The proximal axil saadia vein was not visualized. The subclavian vein isdifficult to visualize and t o see compression, although colorflow andDoppler are present. There is an AV fis keila noted in the upper arm.The internal jugular vein is small in caliber proxim ally.LEFT: The subclavian vein is difficult to visualize and seecompressions. C olorlfow and Doppler signals are present. PRELIMINARY FINDINGS1.Evidence of baker perficial venous thrombosis of the cephalic vein onthe right.2. There is an AV f istula noted in the right upper arm.3. Unable to rule out thrombosis in both rig ht and left subclavianveins due to difficulty in visualization, but colorflow an d Dopplerare present.4.Technically difficult study due to uncooperative patient and bodyhabitus.PHYSICIAN INTERPRETATION Venous examination of the right upper e xtremity and neck demonstratedno evidence of deep venous thrombosis. Evidence o f superficial venous thrombosis of the cephalic vein on theright. There is an A V fistula noted in the right upper arm. FIND INGS: Signed 07/13/2019 09:39 PMSnuny Knight MD, VIWestern Missouri Mental Health Centerrodger AlcarazUS [id number] 20:53:19Hm Interface, Radiology Results Incoming - 07/13/2019 8:56 PM CSTEXAMINATION: US GALLBLADDERCLINICAL HISTORY: stranding on CT around gallbladderCOMPARISON: None.FINDINGS:Gallbladder: There is mild to moderate distention of the gallbladd er with circumferential wall thickening measuring up to 9 mm. No definite stones are seen.CBD: 3 mm , within normal limits.Portal vein: The portal vein demonst rates normal hepatopedal flow. The portal vein measures 1 cm.IMPRESSION:Circumfe rential gallbladder wall thickening, with onion peel appearance. Acalculous chol ecystitis should be considered and correlated.[facility]-[id number] Methodist Anti Xa, [id number] 20:47:41* Test Item Value Reference Range Interpretation Comments Anti Xa, unfractionated (test code = 3274-8) >1.10 0.3-0.7 H Therapeutic Range: 0.30 - 0.70 U/mL Lab Interpretation (test code = 50853-0) Abnormal Clyde AlcarazT4, jqvd1521-32-36 20:32:18* Test Item Value Reference Range Interpretation Comments T4, free (test code = 3024-7) 1.4 ng/dL 0.9-1.7 [place] MethodistThyroid stimulating [id number] 20:32:18* Test Item Value Reference Range Interpretation Comments TSH (test code = 3016-3) 0.66 0.27- 4.20 uIU/mL [place] MethodistCT Upper Extremity W Contrast [id number] 19:37:41Hm Interface, Radiology Results 07/13/2019 7:40 PM CSTEXAMINATION: CT UPPER EXTREMITY W CONTRAST RIGHTCLINICAL HISTORY: Possible cellulitis vs AV fistula infectionTECHNIQUE: CT of the right upper arm with contrast. Reformatted images also reviewed. Automatic exposure control or iterative reconstruction te chniques used to reduce dose.COMPARISON: None.IMPRESSION:1.Right upper arm AV f istula is seen from the level of the elbow to the upper arm. The dilated segment of the AV fistula appears patent although there may be small amount of peripher al thrombus producing heterogeneity. No drainable fluid collections are seen kallie und the AV fistula. Just above the AV fistula, there is a thrombosed vascular st ructure or graft, with small amount of adjacent gas and no associated fluid jarett ection, best seen on images 98 through 111 of series 306. Small amount of gas is also noted more distally at the arterial anastomosis without collection. Findin gs should be correlated with timing and type of recent procedure.2.Bones and rodrigo nts are intact. Muscles of the right upper arm appear unremarkable.[facility]-[id number] D [place] MethodistCT Angiogram Chest W Contrast Abdomen W Contrast Pelvis W [id number] 17:58:03Hm Interface, Radiology Results 07/13/2019 6:01 PM CSTEXAMINATION: CT ANGIOGRAM CHEST ABDOMEN PELVIS W AND OR WITHOUT CONTRASTCLINICAL HISTORY: Possible mesenteric ischemiaTECHNIQUE: Multiple CT angiographic images of the chest, [...] automated exposure control and / or iterative reconstruction.COMPARISON: No IMPRESSION:CTA: Mild calcified plaque in the thoracic aorta only at the arch. The thoracic aorta is well- maintained with no stenosis, dilation or dissection.Aortic arch branch vessels are widely patent.Mild to moderate coronary artery calcifications.Abdominal aorta tapers normally with only mild calcified plaque distally. It is slightly tortuous, though no stenosis, dilation or dissection.Calcified plaque in the common and internal and external iliacs bilaterally, most pronounced in the common iliacs, which are tortuous, though appear widely patent. Calcified plaque in the internal iliacs with mild diffuse disease. The external iliacs are widely patent. Common femoral and visualized portions of profundus femoris and super ficial femoral arteries are widely patent with only mild scattered calcified migdalia que.Calcified plaque within the celiac trunk, mild, without stenosis. More prono unced calcified plaque throughout the splenic artery with mild diffuse disease d istally, otherwise well-maintained. The other celiac trunk branch vessels are wi kathya patent. Mild plaque within the common hepatic artery.The SMA demonstrates m ild calcified plaque distally, though no significant stenosis is identified. Abran cified plaque at the LORRIE origin, with possible short segment of mild stenosis at the origin, otherwise well-maintained.Minimal calcified plaque in the main renal arteries bilaterally, though otherwise well-maintained. CHEST:Bibasilar atele ctasis. Lungs otherwise clear.ET tube tip in the trachea above the pito satisf actory. Pacemaker left chest wall. Tiny amount of soft tissue gas at the right a xilla consistent with recent intervention, can be correlated with the clinical s cenario. No fluid collection.No axillary, mediastinal or hilar lymphadenopathy. Heart is enlarged. No pericardial or pleural effusion. ABDOMEN: Evaluation of so lid abdominal organs limited as they are imaged in the arterial phase only per C TA protocol. Morbid obesity. Associated beam hardening artifact from the large b loida habitus degrades image quality and decreases sensitivity of exam. Vicarious excretion of contrast in the gallbladder, with adjacent mild stranding, correlat ion with ultrasound advised.The liver is lobulated in surface contour indicating chronic liver disease, with heterogeneous enhancement somewhat nodular, inferio rly in the right hepatic lobe, likely from perfusional anomalies. No definite li onur mass is detected.Pancreas, spleen, adrenals grossly unremarkable.The kidneys are atrophic with subcentimeter hypodensities likely all cysts. PELVIS: Small v entral on the local hernia containing fat only. Normal-sized external iliac crista n lymph nodes. No free fluid or fluid collection identified within the abdomen o r pelvisUrinary bladder collapsed. Uterus and right adnexa grossly unremarkable. The left ovary is somewhat prominent in size for patient's age. No discrete mass is identified, though an outpatient ultrasound is advised once acute issues res olve.Pelvic floor relaxation with mild rectal prolapse. The sigmoid is tortuous. Colonic diverticulosis most pronounced distally. NG tube tip in the mid body of stomach. Bowel loop show no evidence of obstruction. Otherwise grossly unremark able without enteric contrast. Visualized bones show no suspicious lesion. SUMMA RY:1.Scattered calcified plaque without focal stenosis or thrombosis identified. Image quality degraded as detailed above. No bowel wall thickening to indicate ischemia.2.Stranding adjacent to the gallbladder, further evaluation by ultrasou nd is recommended.3.Many other incidental findings, see above. [facility]-[id number] [place] MethodistCT Head Wo [id number] 17:15:12Hm Interface, Radiology Results - 07/13/2019 5:18 PM CSTEXAMINATION: CT HEAD WO CONTRASTCOMPARISON: NoneCLINICAL HISTORY Altered level of consciousness (LOC) unexplained. TECHNIQUE: Non-contrast CT scan of the head with thin-section contiguous transaxial images from the skull base to the vertex. CT scans are performed using radiation dose reduction techniques. Technical factors are maine luated and adjusted to ensure appropriate moderation of exposure. Automated dose management technology is applied to adjust radiation exposure while achieving a highly diagnostic quality image.FINDINGS:Nonenhanced emergency cranial CT was p erformed at approximately 1513 hours.There is ventricular and sulcal dilatation consistent with generalized atrophy.There are white matter lucencies in the cent rum semiovale bilaterally.There is no acute hemorrhage or extra-axial mass or fl uid collectionBone settings demonstrate the calvarium to be intact. There is muc osal thickening throughout the sinuses. Bilateral symmetrical exophthalmos with increased intraorbital fat and prominence of the rectus muscles suggestive of th yroid eye disease. Please correlate clinicallyIMPRESSION:Generalized involutiona l changes and diffuse chronic microvascular disease.No acute hemorrhage.Bilatera l symmetrical exophthalmos with increased intraorbital fat and prominence of the rectus muscles suggestive of thyroid eye disease. Please correlate clinically.[facility]-[id number] FlrtpueazAnkimznbei9125-79-74 14:51:14Ehsan Richardson DO 08/04/2019 3:10 PMIntubationDate/Time: 07/13/2019 2:51 PMPerformed by: Adal Yanesuthorized by: Ehsan Richardson DO Consent: Consent obtained: Emergent situationUniversal protocol: Test results available and properly labeled: yes Imaging studies available: yes Req uired blood products, implants, devices, and special equipment available: yes Immediately prior to procedure, a time out was called: yes Patient identity confirmed: Arm band and hospital-assigned identification numberPre-procedure de tails: Patient status: Altered mental status Mallampati score: 3 Pretreatm ent medications: Fentanyl Induction: ketamine. Paralytics: RocuroniumProcedu re details: Preoxygenation: Bag valve mask CPR in progress: no Intubation method: Oral Technique: Video laryngoscopy Laryngoscope blade: Mac 3 Grade view: 2 Difficult airway?: Yes Tube size (mm): 7.5 Tube type: Cuffed Number of attempts: 1 Tube visualized through cords: yes Placement assessment : ETT to lip: 25 ETT to teeth: 24 Tube secured with: ETT contreras Breath s ounds: Equal Placement verification: chest rise, condensation, CXR verificatio n, direct visualization, equal breath sounds, ETCO2 detector and tube exhalation CXR findings: ETT in proper placePost-procedure details: Patient tolerance of procedure: Tolerated well, no immediate complicationsClyde Alcaraz Hemoglobin, [id number] 14:50:36* Test Item Value Reference Range Interpretation Comments Hemoglobin, syringe (test code = 718-7) 9.7 g/dL 12-16 L Lab Interpretation (test code = 68647-9) Abnormal [facility] MethodistLactic acid, [id number] 14:50:36* Test Item Value Reference Range Interpretation Comments Lactic acid, syringe (test code = 36137-0) 2.5 mmol/L 0.5-2.2 H Lab Interpretation (test code = 11603-7) Abnormal [facility] MethodistArterial Line [id number] 14:47:46Ehsan Richardson DO 08/04/2019 3:11 PMArterial Line InsertionDate/Time: 07/13/2019 2:47 PMPerformed by: Adal Yanes by: Ehsan Richardson DO Consent: Consent obtained: Emergent situationIndications: Indications: hemodynamic monitoring and multiple ABGs Pre-procedure details: Skin preparation: 2% ChlorhexidineSedation: Sedation type: Anxiolysis and Mary nesthesia (see MAR for exact dosages): Anesthesia method: NoneProcedure detai ls: Location: R femoral Placement technique: Seldinger Ultrasound guidance : yes Number of attempts: 1 Transducer: waveform confirmed Post-procedure details: Post-procedure: Sterile dressing applied and sutured Patient tolera nce of procedure: Tolerated well, no immediate complicationsComments: Indica tion: Hemodynamic instability Assessment: Ultrasound information and findings: - Prior to insertion of arterial line, Ultrasound used to visualized the Right : F emoral. The vessel was shown to be patent. No stenosis or thrombus identified. - Contraindication for placement with any surveyed vessels: Yes, Location: Left, R adial, Describe issue: unable to visualize, no strong palpable pulse Procedure: -Using real-time ultrasound guidance, needle tip visualized entering vessel and J-wire inserted through needle with modified Seldinger technique.-Right : Femor al cannulated successfully, longitudinal and lateral views of guide wire obtaine d via Ultrasound to verify placement. Hard copy of images placed in patient jerri t. Ultrasound Vascular access CPT: 59542 [place] MethodistHEMODIALYSIS CATHETER [id number] 14:29:59Ehsan Richardson DO 08/04/2019 12:51 PMHemodialysis catheter placementDate/Time: 07/13/2019 2:30 PMPerformed by: Rani PayanAuthorized by: Km Go MD Consent: Consent obtained: Emergent situationUniversal protocol: Relevant documents present and verified: yes Test results available and properly labeled: yes Imaging studies available: yes Required blood products, implants, devices, and special equipment available: yes Immediately prior to procedure, a time out was called: yes Patient identity confirmed: Verbally with patient and arm bandPre-procedure details: Indication: Vascular access for HD Hand hygiene: Hand hygiene performed prior to insertion Sterile barrier technique: All elements of maximal sterile technique followed Skin preparation: 2% chlorhexidine Skin preparation agent: Skin preparation agent completely dried prior to procedure Anesthesia (see MAR for exact dosages): Anesthesia method: Local infiltration Local anesthetic: Lidocaine 1% w/o epiProcedure details: Procedure supplies: Trialysis Catheter size: 24cm Catheter Site Laterality: LeftPost-procedure details: Post-procedure: Dressing applied and line sutured Patient tolerance of procedure: Tolerated well, no immediate complicationsComments: Indication: Hemodialysis Assessment: Ultrasound info rmation and findings: -Prior to insertion of CVC, Ultrasound used to visualized the Left : Internal Jugular. The vessel was shown to be patent and compressible. No stenosis or thrombus identified. -Contraindication for placement with any baker rveyed vessels: Yes, Location: Right, Internal Jugular, Describe issue: not bebeto rly visualized, short wide enck Procedure: -Using real-time ultrasound guidance, needle tip visualized entering vessel and J-wire inserted through needle with m odified Seldinger technique.-Left : Internal Jugular cannulated successfully, lo ngitudinal and lateral views of guide wire obtained via Ultrasound to verify migdalia cement. Hard copy of images placed in patient chart. Ultrasound Vascular access CPT: 74987Lrcerjv line / HD catheter CPT: 42717 [facility] ColinistD-dimer 2019-07-13 09:45:26* Test Item Value Reference Range Interpretation Comments D-dimer (test code = 89313-8) 1.45 0.00- 0.40 ug/mL FEU H Units are ug/ml Fibrinogen Equivalent Unit.When combined with low clinical probability, D-dimer results of less than 0.5 ug/ml FEU have a good negative predictive value in excluding PE or DVT. For D-dimer results greater than 0.5 ug/ml FEU further testing is indicated if PE or DVT is suspected clinically.Elevated D-dimer results have been reported in DVT, PE, and DIC cases and may indicate the pre sence of a clot. D-dimer results may be elevated due to old age, , inflammatory diseases, trauma, post-operative states, sepsis, and malignancies. Lab Interpretation (test code = 33098-2) Abnormal [facility] MethodistLactic acid level, SEPSIS - Now and repeat 2x every 3 hours 2019-07-13 07:35:06* Test Item Value Reference Range Interpretation Comments Lactic acid (test code = 50089-3) 6.6 mmol/L 0.5-2.2 HH Lab Interpretation (test code = 00309-6) Abnormal [place] MethodistOR [place] > I [id number] 19:34:22Hm Interface, Radiology Results Incoming - 07/10/2019 7:37 PM CSTEXAMINATION: OR FL > 1 HOURC-arm fluoroscopy was requested in OR. Location: [facility] OR 1Procedure: Right Upper Extremity AVF Revision W/ Graft Placement and AngioplastyStart: 1605End: 1730Fluoro Time: 2:32 minDose: 22.77 mGyTech: SWGE OEC 10IMPRESSION:Separate operative report will be issued by the physician performing the procedure.1M2R [id number] MethodistPeripheral [id number] 13:28:56Eric Samson MD 07/10/2019 1:46 PMPeripheral BlockPerformed by: Eric Samson MDAuthorized by: Duong Bang MD Patient Location: Pre-opEnd Time: 07/10/2019 1:44 PMReason for Block: at surgeon's request, post-op pain man agement, primary anesthetic Staff: Resident/COMMERCIAL COUNSEL/AA: Eric Samson MD P erformed by: Resident/COMMERCIAL COUNSEL/AAPreprocedure: patient identified, IV checked, site and side verified, risks and benefits discussed, procedure verified, surgical c onsent complete, patient position confirmed, monitors and equipment checked, pre -op evaluation complete and site marked Time Out Performed: 07/10/2019 1:31 FLORAL ASSOCIATE eripheral Nerve Block: Patient Position: Sitting Prep: ChloraPrep Monitor ing: Blood pressure monitoring, continuous pulse oximetry and heart rateBlock T ype: Interscalene (28ml for sc and 10 ml for ICBN)Laterality: RightInjection T echnique: Single injectionProcedures: ultrasound guided and nerve stimulator U ltrasound documentation: Printed/placed in chartLocal Infiltration (See MAR for details): LidocaineLoss of Twitch: 0.4 mANeedle: Needle Type: Diana Lindsay le Gauge: 22 G Needle Length: 8 cmAssessment: Injection Assessment: Visual ized needle/local anesthetic surrounding nerve, visualized pertinent vascular st ructures and nerves, needle tip visualized at all times during injection of medi cation, intermittent aspiration during local anesthetic administration and no sy mptoms of intraneural/intravenous injection Paresthesia Pain: None Heart Rate Change: No Slow Fractionated Injection: Yes Block outcome: No apparent c omplications, patient comfortable and patient tolerated procedure wellWestern Missouri Mental Health Centerrodger AlcarazPOC-Glucose [id number] 20:08:00* Test Item Value Reference Range Interpretation Comments POC-Glucose Meter (test code = 1538) 129 mg/dL 70-110 H : TESTED AT [facility] [address] [facility], [address]: Die Reamer/Clinical Laboratory Service Teacher ID = [id number] for CARLOS MCCLOUD Lab Interpretation (test code = 70189-4) Abnormal [facility] [id number] 20:08:00* Test Item Value Reference Range Interpretation Comments POC-GLUCOSE METER (BEAKER) (test code = 1538) 129 mg/dL 70-110 H : TESTED AT [address], [address]: Die Reamer/Clinical Laboratory Service Teacher ID = [id number] for CARLOS MCCLOUD POCT-GLUCOSE [id number] 16:45:00* Test Item Value Reference Range Interpretation Comments POC-GLUCOSE METER (BEAKER) (test code = 1538) 148 mg/dL 70-110 H : TESTED AT [address], [address]: Die Reamer/Clinical Laboratory Service Teacher ID = [id number] for MARIA ANTONIA ONEIL HEMODIALYSIS [id number] 16:42:03ChLloyd trinh RN 05/24/2019 4:47 PMHD terminated early per pt request due to having stomach cramps. Notified Panda Lieberman And okay to discontinue HD. Total UF-2.5L. Pt awake and alert, not in distress. Lab Results Component Value Date WBC 5.4 [...] Temp: 98.3 F (36.8 C) SpO2: 99% [facility] [id number] 12:00:00* Test Item Value Reference Range Interpretation Comments POC-GLUCOSE METER (BEAKER) (test code = 1538) 158 mg/dL 70-110 H : TESTED AT [facility] [address] [facility], [address]: Die Reamer/Clinical Laboratory Service Teacher ID = [id number] for MARIA ANTONIA ONEIL POCT-GLUCOSE [id number] 08:54:00* Test Item Value Reference Range Interpretation Comments POC-GLUCOSE METER (BEAKER) (test code = 1538) 136 mg/dL 70-110 H : TESTED AT [place] [id number] [facility], [address]: Die Reamer/Clinical Laboratory Service Teacher ID = [id number] for MARIA ANTONIA ONEIL CT, SPINE, LUMBAR, WO [id number] 08:49:00FINAL REPORT CT, SPINE, LUMBAR, WO CONTRAST INDICATION: CT lumbosacral spine - 69 yo ESRD on HD pt admitted with c/o b/l LE weakness, had steroid injection done \\E\\EE\\E\\2 weeks ago for back pain. COMPARISON: None [...] Advanced endplate degenerative changes throughout. No aggressive osse ous lesions. Spondylosis: Extensive calcification of the ligamentum flavum combi gianni with facet arthropathy producing severe canal stenosis at L2-3, L3-4, and L4 -5. Severe right foraminal stenosis at L5-S1. Moderate foraminal stenosis bilate rally at multiple other levels. Soft tissues: Extensive arterial atherosclerosis . Atrophic kidneys. IMPRESSION:Advanced degenerative changes of the lumbar spin e as above. Signed: Jorje Garcia MDReport Verified Date/Time: 05/24/2019 08:4 9:04 spine lumbar without IV [id number] 08:49:00Interface, External Ris In - 05/24/2019 8:[address], SPINE, LUMBAR, WO CONTRAST INDICATION: CT lumbosacral spine - 69 yo ESRD on HD pt admitted with c/o b/l LE weakness, had steroid injection done \\E\\EE\\E\\2 weeks ago for back pain. COMPARISON: None TECHNIQUE: Contiguous noncontrast axial images of the lumbar spine are obtained. Computer reformatted coronal and sagittal images are also provided. Axial images are available in both bone and soft tissue algorithm. DOSE REDUCTION: Dose modulation, iterative reconstructio n, and/or weight-based adjustment of the mA/kV was utilized to reduce the radiat ion dose to as low as reasonably achievable. FINDINGS: Nomenclature: L5-S1 is ax ial image 73. Alignment: Normal. Vertebrae: No acute fracture. Advanced endplate degenerative changes throughout. No aggressive osseous lesions. Spondylosis: Ex tensive calcification of the ligamentum flavum combined with facet arthropathy p roducing severe canal stenosis at L2-3, L3-4, and L4-5. Severe right foraminal s tenosis at L5-S1. Moderate foraminal stenosis bilaterally at multiple other leve ls. Soft tissues: Extensive arterial atherosclerosis. Atrophic kidneys. IMPRESS ION:Advanced degenerative changes of the lumbar spine as above. Signed: Jorje Garcia MDReport Verified Date/Time: 05/24/2019 08:49:04 [facility] [id number] 08:05:00* Test Item Value Reference Range Interpretation Comments POC-GLUCOSE METER (BEAKER) (test code = 1538) 64 mg/dL 70-110 L : TESTED AT [facility] [address] [facility], [address]: Die Reamer/Clinical Laboratory Service Teacher ID = [id number] for MARIA ANTONIA ONEIL [id number] 07:23:00* Test Item Value Reference Range Interpretation Comments Phosphorus (test code = 2777-1) 9.2 mg/dL 2.3-4.7 Lab Interpretation (test code = 57303-3) Abnormal [facility] CenterPHOSPHORUS2020-01-04 07:23:00* Test Item Value Reference Range Interpretation Comments PHOSPHORUS (BEAKER) (test code = 604) 9.2 mg/dL 2.3-4.7 Basic metabolic [id number] 07:18:00* Test Item Value Reference Range Interpretation Comments Sodium (test code = 2951-2) 136 meq/L 136-145 Potassium (test code = 2823-3) 4.8 meq/L 3.5-5.1 Chloride (test code = 2075-0) 99 meq/L 98-107 CO2 (test code = 8-9) 20 meq/L 22-29 L BUN (test code = 3094-0) 105 mg/dL 7-21 H Creatinine (test code = 2160-0) 14.41 mg/dL 0.57-1.25 H Glucose (test code = 2345-7) 77 mg/dL 70-105 Calcium (test code = 27773-7) 7.4 mg/dL 8.4-10.2 L EGFR (test code = 29614-0) 3 mL/min/1.73 sq m ESTIMATED GFR IS NOT ACCURATE CREATININE CLEARANCE IN PREDICTING GLOMERULAR FILTRATION RATE. ESTIMATED GFR IS NOT APPLICABLE FOR DIALYSIS PATIENTS. Lab Interpretation (test code = 46830-2) Abnormal [facility] CenterBASIC METABOLIC [id number] 07:18:00* Test Item Value Reference Range Interpretation Comments SODIUM (BEAKER) (test code = 381) 136 meq/L 136-145 POTASSIUM (BEAKER) (test code = 379) 4.8 meq/L 3.5-5.1 CHLORIDE (BEAKER) (test code = 382) 99 meq/L 98-107 CO2 (BEAKER) (test code = 355) 20 meq/L 22-29 L BLOOD UREA NITROGEN (BEAKER) (test code = 354) 105 mg/dL 7-21 H CREATININE (BEAKER) (test code = 358) 14.41 mg/dL 0.57-1.25 H GLUCOSE RANDOM (BEAKER) (test code = 652) 77 mg/dL 70-105 CALCIUM (BEAKER) (test code = 697) 7.4 mg/dL 8.4-10.2 L EGFR (BEAKER) (test code = 1092) 3 mL/min/1.73 sq m ESTIMATED GFR IS NOT ACCURATE CREATININE CLEARANCE IN PREDICTING GLOMERULAR FILTRATION RATE. ESTIMATED GFR IS NOT APPLICABLE FOR DIALYSIS PATIENTS. [id number] 07:16:00* Test Item Value Reference Range Interpretation Comments Magnesium (test code = 54006-0) 2.2 mg/dL 1.6-2.6 Lab Interpretation (test code = 27752-7) Normal [facility] Hospital[facility]IUM2020-01-04 07:16:00* Test Item Value Reference Range Interpretation Comments MAGNESIUM (BEAKER) (test code = 627) 2.2 mg/dL 1.6-2.6 POCT-GLUCOSE [id number] 20:09:00* Test Item Value Reference Range Interpretation Comments POC-GLUCOSE METER (BEAKER) (test code = 1538) 229 mg/dL 70-110 H : TESTED AT [address], [address]: Die Reamer/Clinical Laboratory Service Teacher ID = [id number] for CARLOS MCCLOUD POCT-GLUCOSE [id number] 17:22:00* Test Item Value Reference Range Interpretation Comments POC-GLUCOSE METER (BEAKER) (test code = 1538) 77 mg/dL 70-110 : TESTED AT [address], [address]: Die Reamer/Clinical Laboratory Service Teacher ID = [id number] for VAN POPE POCT-GLUCOSE [id number] 11:50:00* Test Item Value Reference Range Interpretation Comments POC-GLUCOSE METER (BEAKER) (test code = 1538) 114 mg/dL 70-110 H : TESTED AT [address], [address]: Die Reamer/Clinical Laboratory Service Teacher ID = [id number] for KORY STARKEY [id number] 10:00:00* Test Item Value Reference Range Interpretation Comments PHOSPHORUS (BEAKER) (test code = 604) 11.6 mg/dL 2.3-4.7 HH POCT-GLUCOSE [id number] 07:34:00* Test Item Value Reference Range Interpretation Comments POC-GLUCOSE METER (BEAKER) (test code = 1538) 136 mg/dL 70-110 H : TESTED AT [address], [address]: Die Reamer/Clinical Laboratory Service Teacher ID = [id number] for KORY STARKEY POCT-GLUCOSE [id number] 06:18:00* Test Item Value Reference Range Interpretation Comments POC-GLUCOSE METER (GISELAAKER) (test code = 1538) 134 mg/dL 70-110 H : TESTED AT [facility] [address] [facility], [address]: Die Reamer/Clinical Laboratory Service Teacher ID = [id number] for ESTELLA FONSECA CORTISOL,60 [id number] 02:32:00* Test Item Value Reference Range Interpretation Comments Cortisol, Baseline (test code = 37873-1) 3.1 mcg/dL Cortisol 30 minute (test code = 59021-8) 10.5 mcg/dL Cortisol, 60 Minute (test code = 43764-6) 11.6 ug/dL CARO (test code = CARO) ACTH STIMULATION TEST IN TERPRETATION GUIDELINES(Synonyms: Cortrosyn Test, Cosyntropin or Corticotropin Stimulation Test) Adenocorticotropic hormone (ACTH)is a tropic hormone, made in the pituitar y gland, which travels trhough the bloodstream and stimulates the cortex of the adrenal glands to release cortisol. Cortisol is a primary hormone, which aids the body's metabolism of fats, carbohydrates, and protein as well as sodium and potassium regulation. ACTH Stimulation Test: Exogenous administration of biologically active ACTH stimulates the secretion of cortisol from the adrenal gland. This test is used to evaluate adrenal function by measuring cortisol levels at baseline and at 30 and 60 minutes after the administration of 250 micrograms of cosyntropin (Cortrosyn). Patients who have received exogenous corticosteroids immediately prior to performing the ACTH Stimulation Test will often have elevated baseline cortisol levels, which may lead to erroneous interpretation of test results. The notable exception is with dexamethasone. Normal Response: An increase in cortisol after stimulation by ACTH is normal. Post-stimulation cortisol concentration should be greater than 20 mcg/dL or the rate of rise from baseline cortisol should be greater than or equal to 9 mcg/dL. Patients with sepsis or septic shock: According to a study by Saundra et al (LEBRON 2000,283(8):8966-45), the ACTH Stimulation Test provides important prognostic information. This study defined 3 groups of patients with sepsis or septic shock: 1. Good Survival: Low basal cortisol (<or=34 mcg/dL) and high ACTH response (>9mcg/dL) 2. Intermediate Survival: Low basal cortisol (<34 mcg/dL) and low response to ACTH (<or=9 mcg/dL) OR High basal cortisol (>34 mcg/dL) or high ACTH response (>9 mcg/dL) 3. Poor Survival: High basal cortisol (>34 mcg/dL) and low ACTH response (<or=9 mcg/dL). Treatment of patients with relative adrenal dysfunction may be indicated based on test results and the clinical condition of the patient. Additional information, including treatment recommendations, is available in critically ill patients, approved by the Pharmacy, Nutrition, and Therapeutics Committee on 04/29/2004 and available through the Pharmacy Policy and Procedure Section on The Source. Do not run this test if systemic hydrocortisone, methylprednisolone, prednisolone or prednisone has been administered within the past 24 hours. Draw baseline cortisol level just prior to cosyntropin administration. Administer cosyntropin 0.25 mg diluted in 2-5 mL of normal saline slow IV Push over a perio d of 2 minutes. Draw serum cortisol level 30 minutes after cosyntropin administration. Draw serum cortisol level 60 minutes after cosyntropin administration. [facility] CenterCORT[facility]OL,60 [id number] 02:32:00* Test Item Value Reference Range Interpretation Comments CORTISOL BASELINE NETWORKED (BEAKER) (test code = 2307) 3.1 mcg/dL CORTISOL 30 MINUTE NETWORKED (BEAKER) (test code = 2308) 10.5 mcg/d L CORTISOL, 60 MINUTE (BEAKER) (test code = 1805) 11.6 ug/dL ACTH STIMULATION TEST INTERPRETATION GUIDELINES(Synonyms: Cortrosyn Test, Co syntropin or Corticotropin Stimulation Test)Adenocorticotropic hormone (ACTH)is a tropic hormone, made in the pituitary gland, which travels trhough the bloodst ream and stimulates the cortex of the adrenal glands to release cortisol. Cortis ol is a primary hormone, which aids the body's metabolism of fats, carbohydrates , and protein as well as sodium and potassium regulation.ACTH Stimulation Test: Exogenous administration of biologically active ACTH stimulates the secretion of cortisol from the adrenal gland. This test is used to evaluate adrenal function by measuring cortisol levels at baseline and at 30 and 60 minutes after the adm inistration of 250 micrograms of cosyntropin (Cortrosyn). Patients who have rece ived exogenous corticosteroids immediately prior to performing the ACTH Stimulat ion Test will often have elevated baseline cortisol levels, which may lead to er roneous interpretation of test results. The notable exception is with dexamethas one.Normal Response: An increase in cortisol after stimulation by ACTH is normal . Post-stimulation cortisol concentration should be greater than 20 mcg/dL or th e rate of rise from baseline cortisol should be greater than or equal to 9 mcg/d L.Patients with sepsis or septic shock: According to a study by Saundra et al ([facility] 2000,283(8):7002-39), the ACTH Stimulation Test provides important prognostic information. This study defined 3 groups of patients with sepsis or septic shoc k: 1. Good Survival: Low basal cortisol (<or=34 mcg/dL) and high ACTH response (>9mcg/dL) 2. Intermediate Survival: Low basal cortisol (<34 mcg/dL) and low response to ACTH (<or=9 mcg/dL) OR High basal cortisol (>34 mcg/dL) or high ACTH response (>9 mcg/dL) 3. Poor Survival: High basal cortisol (>34 mcg/dL) and low ACTH response (<or=9 mcg/dL).Treatment of patients with relative adrenal dysfunction may be indicated based on test results and the clinical condition of the patient. Additional information, including treatment recommendations, is available in critically ill patients, approved by the Pharmacy, Nutrition, and Therapeutics Committee on 04/29/2004 and available through the Pharmacy Policy and Procedure Section on The Source.Do not run this test if systemic hydrocortisone, methylprednisolone, prednisolone or prednisone has been administered within the past 24 hours. Draw baseline cortisol level just prior to cosyntropin administration. Administer cosyntropin 0.25 mg diluted in 2-5 mL of normal saline slow IV Push over a period of 2 minutes. Draw serum cortisol level 30 minutes after cosyntropin administration. Draw serum cortisol level 60 minutes after cosyntropin administration. CORTISOL,30 [id number] 02:16:00* Test Item Value Reference Range Interpretation Comments Cortisol, Baseline (test code = 55864-5) 3.1 mcg/dL Cortisol, 30 Minute (test code = 65222-9) 10.5 ug/dL CARO (test code = CARO) ACTH STIMULATION TEST IN TERPRETATION GUIDELINES(Synonyms: Cortrosyn Test, Cosyntropin or Corticotropin Stimulation Test) Adenocorticotropic hormone (ACTH)is a tropic hormone, made in the pituitar y gland, which travels trhough the bloodstream and stimulates the cortex of the adrenal glands to release cortisol. Cortisol is a primary hormone, which aids the body's metabolism of fats, carbohydrates, and protein as well as sodium and potassium regulation. ACTH Stimulation Test: Exogenous administration of biologically active ACTH stimulates the secretion of cortisol from the adrenal gland. This test is used to evaluate adrenal function by measuring cortisol levels at baseline and at 30 and 60 minutes after the administration of 250 micrograms of cosyntropin (Cortrosyn). Patients who have received exogenous corticosteroids immediately prior to performing the ACTH Stimulation Test will often have elevated baseline cortisol levels, which may lead to erroneous interpretation of test results. The notable exception is with dexamethasone. Normal Response: An increase in cortisol after stimulation by ACTH is normal. Post-stimulation cortisol concentration should be greater than 20 mcg/dL or the rate of rise from baseline cortisol should be greater than or equal to 9 mcg/dL. Patients with sepsis or septic shock: According to a study by Saundra et al (LEBORN 2000,283(8):1038-45), the ACTH Stimulation Test provides important prognostic information. This study defined 3 groups of patients with sepsis or septic shock: 1. Good Survival: Low basal cortisol (<or=34 mcg/dL) and high ACTH response (>9mcg/dL) 2. Intermediate Survival: Low basal cortisol (<34 mcg/dL) and low response to ACTH (<or=9 mcg/dL) OR High basal cortisol (>34 mcg/dL) or high ACTH response (>9 mcg/dL) 3. Poor Survival: High basal cortisol (>34 mcg/dL) and low ACTH response (<or=9 mcg/dL). Treatment of patients with relative adrenal dysfunction may be indicated based on test results and the clinical condition of the patient. Additional information, including treatment recommendations, is available in critically ill patients, approved by the Pharmacy, Nutrition, and Therapeutics Committee on 04/29/2004 and available through the Pharmacy Policy and Procedure Section on The Source. Do not run this test if systemic hydrocortisone, methylprednisolone, prednisolone or prednisone has been administered within the past 24 hours. Draw baseline cortisol level just prior to cosyntropin administration. Administer cosyntropin 0.25 mg diluted in 2-5 mL of normal saline slow IV Push over a perio d of 2 minutes. Draw serum cortisol level 30 minutes after cosyntropin administration. Draw serum cortisol level 60 minutes after cosyntropin administration. [facility] METABOLIC [id number] 02:16:00* Test Item Value Reference Range Interpretation Comments SODIUM (BEAKER) (test code = 381) 134 meq/L 136-145 L POTASSIUM (BEAKER) (test code = 379) 4.9 meq/L 3.5-5.1 CHLORIDE (BEAKER) (test code = 382) 96 meq/L 98-107 L CO2 (BEAKER) (test code = 355) 19 meq/L 22-29 L BLOOD UREA NITROGEN (BEAKER) (test code = 354) 115 mg/dL 7-21 H CREATININE (BEAKER) (test code = 358) 15.11 mg/dL 0.57-1.25 H GLUCOSE RANDOM (BEAKER) (test code = 652) 129 mg/dL 70-105 H CALCIUM (BEAKER) (test code = 697) 7.6 mg/dL 8.4-10.2 L EGFR (BEAKER) (test code = 1092) 3 mL/min/1.73 sq m ESTIMATED GFR IS NOT ACCURATE CREATININE CLEARANCE IN PREDICTING GLOMERULAR FILTRATION RATE. ESTIMATED GFR IS NOT APPLICABLE FOR DIALYSIS PATIENTS. CORTISOL,30 [id number] 02:16:00* Test Item Value Reference Range Interpretation Comments CORTISOL BASELINE NETWORKED (BEAKER) (test code = 2307) 3.1 mcg/dL CORTISOL, 30 MINUTE (BEAKER) (test code = 1804) 10.5 ug/dL ACTH STIMULATION TEST INTERPRETATION GUIDELINES(Synonyms: Cortrosyn Test, Co syntropin or Corticotropin Stimulation Test)Adenocorticotropic hormone (ACTH)is a tropic hormone, made in the pituitary gland, which travels trhough the bloodst ream and stimulates the cortex of the adrenal glands to release cortisol. Cortis ol is a primary hormone, which aids the body's metabolism of fats, carbohydrates , and protein as well as sodium and potassium regulation.ACTH Stimulation Test: Exogenous administration of biologically active ACTH stimulates the secretion of cortisol from the adrenal gland. This test is used to evaluate adrenal function by measuring cortisol levels at baseline and at 30 and 60 minutes after the adm inistration of 250 micrograms of cosyntropin (Cortrosyn). Patients who have rece ived exogenous corticosteroids immediately prior to performing the ACTH Stimulat ion Test will often have elevated baseline cortisol levels, which may lead to er roneous interpretation of test results. The notable exception is with dexamethas one.Normal Response: An increase in cortisol after stimulation by ACTH is normal . Post-stimulation cortisol concentration should be greater than 20 mcg/dL or th e rate of rise from baseline cortisol should be greater than or equal to 9 mcg/d L.Patients with sepsis or septic shock: According to a study by Saundra et al (JA CT 2000,283(8):8571-45), the ACTH Stimulation Test provides important prognostic information. This study defined 3 groups of patients with sepsis or septic shoc k: 1. Good Survival: Low basal cortisol (<or=34 mcg/dL) and high ACTH response (>9mcg/dL) 2. Intermediate Survival: Low basal cortisol (<34 mcg/dL) and low response to ACTH (<or=9 mcg/dL) OR High basal cortisol (>34 mcg/dL) or high ACTH response (>9 mcg/dL) 3. Poor Survival: High basal cortisol (>34 mcg/dL) and low ACTH response (<or=9 mcg/dL).Treatment of patients with relative adrenal dysfunction may be indicated based on test results and the clinical condition of the patient. Additional information, including treatment recommendations, is available in critically ill patients, approved by the Pharmacy, Nutrition, and Therapeutics Committee on 04/29/2004 and available through the Pharmacy Policy and Procedure Section on The Source.Do not run this test if systemic hydrocortisone, methylprednisolone, prednisolone or prednisone has been administered within the past 24 hours. Draw baseline cortisol level just prior to cosyntropin administration. Administer cosyntropin 0.25 mg diluted in 2-5 mL of normal saline slow IV Push over a period of 2 minutes. Draw serum cortisol level 30 minutes after cosyntropin administration. Draw serum cortisol level 60 minutes after cosyntropin administration.MAGNESIUM 2019-05-23 02:08:00* Test Item Value Reference Range Interpretation Comments MAGNESIUM (BEAKER) (test code = 627) 2.5 mg/dL 1.6-2.6 CORTISOL,[id number] 01:28:00* Test Item Value Reference Range Interpretation Comments Cortisol, Baseline (test code = 1803) 3.1 ug/dL CARO (test code = CARO) ACTH STIMULATION TEST IN TERPRETATION GUIDELINES(Synonyms: Cortrosyn Test, Cosyntropin or Corticotropin Stimulation Test) Adenocorticotropic hormone (ACTH)is a tropic hormone, made in the pituitar y gland, which travels trhough the bloodstream and stimulates the cortex of the adrenal glands to release cortisol. Cortisol is a primary hormone, which aids the body's metabolism of fats, carbohydrates, and protein as well as sodium and potassium regulation. ACTH Stimulation Test: Exogenous administration of biologically active ACTH stimulates the secretion of cortisol from the adrenal gland. This test is used to evaluate adrenal function by measuring cortisol levels at baseline and at 30 and 60 minutes after the administration of 250 micrograms of cosyntropin (Cortrosyn). Patients who have received exogenous corticosteroids immediately prior to performing the ACTH Stimulation Test will often have elevated baseline cortisol levels, which may lead to erroneous interpretation of test results. The notable exception is with dexamethasone. Normal Response: An increase in cortisol after stimulation by ACTH is normal. Post-stimulation cortisol concentration should be greater than 20 mcg/dL or the rate of rise from baseline cortisol should be greater than or equal to 9 mcg/dL. Patients with sepsis or septic shock: According to a study by Saundra et al (LEBRON 2000,283(8):1038-45), the ACTH Stimulation Test provides important prognostic information. This study defined 3 groups of patients with sepsis or septic shock: 1. Good Survival: Low basal cortisol (<or=34 mcg/dL) and high ACTH response (>9mcg/dL) 2. Intermediate Survival: Low basal cortisol (<34 mcg/dL) and low response to ACTH (<or=9 mcg/dL) OR High basal cortisol (>34 mcg/dL) or high ACTH response (>9 mcg/dL) 3. Poor Survival: High basal cortisol (>34 mcg/dL) and low ACTH response (<or=9 mcg/dL). Treatment of patients with relative adrenal dysfunction may be indicated based on test results and the clinical condition of the patient. Additional information, including treatment recommendations, is available in critically ill patients, approved by the Pharmacy, Nutrition, and Therapeutics Committee on 04/29/2004 and available through the Pharmacy Policy and Procedure Section on The Source. Do not run this test if systemic hydrocortisone, methylprednisolone, prednisolone or prednisone has been administered within the past 24 hours. Draw baseline cortisol level just prior to cosyntropin administration. Administer cosyntropin 0.25 mg diluted in 2-5 mL of normal saline slow IV Push over a perio d of 2 minutes. Draw serum cortisol level 30 minutes after cosyntropin administration. Draw serum cortisol level 60 minutes after cosyntropin administration. [facility]ORT[facility],[id number] 01:28:00* Test Item Value Reference Range Interpretation Comments CORTISOL, BASELINE (GISELAAKER) (test code = 1803) 3.1 ug/dL ACTH STIMULATION TEST INTERPRETATION GUIDELINES(Synonyms: Cortrosyn Test, Co syntropin or Corticotropin Stimulation Test)Adenocorticotropic hormone (ACTH)is a tropic hormone, made in the pituitary gland, which travels trhough the bloodst ream and stimulates the cortex of the adrenal glands to release cortisol. Cortis ol is a primary hormone, which aids the body's metabolism of fats, carbohydrates , and protein as well as sodium and potassium regulation.ACTH Stimulation Test: Exogenous administration of biologically active ACTH stimulates the secretion of cortisol from the adrenal gland. This test is used to evaluate adrenal function by measuring cortisol levels at baseline and at 30 and 60 minutes after the adm inistration of 250 micrograms of cosyntropin (Cortrosyn). Patients who have rece ived exogenous corticosteroids immediately prior to performing the ACTH Stimulat ion Test will often have elevated baseline cortisol levels, which may lead to er roneous interpretation of test results. The notable exception is with dexamethas one.Normal Response: An increase in cortisol after stimulation by ACTH is normal . Post-stimulation cortisol concentration should be greater than 20 mcg/dL or th e rate of rise from baseline cortisol should be greater than or equal to 9 mcg/d L.Patients with sepsis or septic shock: According to a study by Saundra et al (ANA PAULA CT 2000,283(8):1038-45), the ACTH Stimulation Test provides important prognostic information. This study defined 3 groups of patients with sepsis or septic shoc k: 1. Good Survival: Low basal cortisol (<or=34 mcg/dL) and high ACTH response (>9mcg/dL) 2. Intermediate Survival: Low basal cortisol (<34 mcg/dL) and low response to ACTH (<or=9 mcg/dL) OR High basal cortisol (>34 mcg/dL) or high ACTH response (>9 mcg/dL) 3. Poor Survival: High basal cortisol (>34 mcg/dL) and low ACTH response (<or=9 mcg/dL).Treatment of patients with relative adrenal dysfunction may be indicated based on test results and the clinical condition of the patient. Additional information, including treatment recommendations, is available in critically ill patients, approved by the Pharmacy, Nutrition, and Therapeutics Committee on 04/29/2004 and available through the Pharmacy Policy and Procedure Section on The Source.Do not run this test if systemic hydrocortisone, methylprednisolone, prednisolone or prednisone has been administered within the past 24 hours. Draw baseline cortisol level just prior to cosyntropin administration. Administer cosyntropin 0.25 mg diluted in 2-5 mL of normal saline slow IV Push over a period of 2 minutes. Draw serum cortisol level 30 minutes after cosyntropin administration. Draw serum cortisol level 60 minutes after cosyntropin administration.POCT- GLUCOSE [id number] 22:36:00* Test Item Value Reference Range Interpretation Comments POC-GLUCOSE METER (BEAKER) (test code = 1538) 172 mg/dL 70-110 H : TESTED AT [place] [id number] [facility], [address]: Die Reamer/Clinical Laboratory Service Teacher ID = [id number] for ESTELLA FONSECA POCT-GLUCOSE [id number] 17:24:00* Test Item Value Reference Range Interpretation Comments POC-GLUCOSE METER (BEAKER) (test code = 1538) 130 mg/dL 70-110 H : TESTED AT [address], [address]: Die Reamer/Clinical Laboratory Service Teacher ID = [id number] for KORY STARKEY CT, BRAIN, WITHOUT [id number] 16:58:00Reason for exam:->generalized weakness, though more so in b/l proximal LE - ongoing for past 2 weeksWhat is the patient's sedation requirement?->No SedationFINAL REPORT CT, BRAIN, WITHOUT CONTRAST INDICATION: generalized weakness, though more so in b/l proximal LE - ongoing for past 2 weeksgeneralized weakness, though more so in b/l proximal LE - ongoing for past 2 weeks TECHNIQUE: Noncontrast axial imaging was obtained from the vertex to the skull base. Axial images were reconstructed using a bone algorithm. DOSE REDUCTION: Dose modulation, iterative reconstruction, and/or weight-based adjustment of the m A/kV was utilized to reduce the radiation dose to as low as reasonably achievabl e. COMPARISON: CT 11/21/2011 FINDINGS: Intracranial: Generalized cerebral atrophy with ex vacuo dilatation of the ventricular system proportionate to sulci. Scatt ered foci of hypoattenuation within the periventricular and subcortical white ma tter are a nonspecific finding commonly attributed to chronic small vessel ische anahy disease. No intracranial hemorrhage or abnormal extra-axial collection. No e vidence of acute territorial infarct. No mass effect. No hydrocephalus. Osseous structures: No fracture. No suspicious lesion. Paranasal sinuses and mastoid air cells: No evidence of sinusitis. Mastoids are clear. Orbital contents: Globes a re intact. IMPRESSION: No acute intracranial hemorrhage or territorial infarct. Generalized parenchymal volume loss and chronic microvascular changes, commensur ate with age. If there is persistent clinical concern for intracranial pathology , MR examination is recommended for further characterization. Signed: Jamaal Garcia MDReport Verified Date/Time: 05/22/2019 16:58:01 brain without IV [id number] 16:58:00Interface, External Ris In - 05/22/2019 5:[address], BRAIN, WITHOUT CONTRAST INDICATION: generalized weakness, though more so in b/l proximal LE - ongoing for past 2 weeksgeneralized weakness, though more so in b/l proximal [...] changes, commensurate with age. If there is pe rsistent clinical concern for intracranial pathology, MR examination is recommen ded for further characterization. Signed: Jorje Garcia MDReport Verified Date/ Time: 05/22/2019 16:58:01 [facility] 12 [id number] 15:50:39Interface, External Ris In - 05/22/2019 3:50 PM CSTVentricular Rate 60 BPMAtrial Rate 60 BPMQRS Duration 198 msQ-T Interval 590 msQTC Calculation(Bazett) 590 msR [place] -60 degreesT [place] 127 degreesAV dual-paced rhythmAbnormal ECGWhen compared with ECG of 18-MAY-2019 10:55,Premature ventricular complexes are no longer PresentVent. rate has decreased BY 11 BPMConfirmed by MD ARUN, TANIYA ([id number]) on 05/22/2019 3:50:33 [facility] [id number] 11:54:00* Test Item Value Reference Range Interpretation Comments POC-GLUCOSE METER (BEAKER) (test code = 1538) 145 mg/dL 70-110 H : TESTED AT [facility] [address] [facility], [address]: Die Reamer/Clinical Laboratory Service Teacher ID = [id number] for KORY STARKEY Creatine Kinase (CK)2019-05-22 11:21:00* Test Item Value Reference Range Interpretation Comments Total CK (test code = 2157-6) 53 U/L 29-200 Lab Interpretation (test code = 40925-4) Normal [facility] (CK)2019-05-22 11:21:00* Test Item Value Reference Range Interpretation Comments CREATINE KINASE TOTAL (BEAKER) (test code = 380) 53 U/L 29-20 0 Hemoglobin [id number] 09:22:00* Test Item Value Reference Range Interpretation Comments Hemoglobin A1C (test code = 4548-4) 7.2 % 4.3-6.1 H Lab Interpretation (test code = 50182-2) Abnormal [facility] CenterHEMOGLOBIN [id number] 09:22:00* Test Item Value Reference Range Interpretation Comments HEMOGLOBIN A1C (BEAKER) (test code = 368) 7.2 % 4.3-6.1 H POCT-GLUCOSE [id number] 08:47:00* Test Item Value Reference Range Interpretation Comments POC-GLUCOSE METER (BEAKER) (test code = 1538) 83 mg/dL 70-110 : TESTED AT [place] [id number] [facility], [address]: Die Reamer/Clinical Laboratory Service Teacher ID = [id number] for AHSAN MEDINA POCT-GLUCOSE [id number] 07:53:00* Test Item Value Reference Range Interpretation Comments POC-GLUCOSE METER (BEAKER) (test code = 1538) 65 mg/dL 70-110 L : TESTED AT [place] [id number] [facility], [address]: Die Reamer/Clinical Laboratory Service Teacher ID = [id number] for KORY STARKEY [id number] 06:00:00* Test Item Value Reference Range Interpretation Comments Cortisol, Total (test code = 2755) 2.7 ug/dL 3.7-19.4 L Lab Interpretation (test code = 35326-7) Abnormal [facility] CenterCORTISOL2020-01-02 06:00:00* Test Item Value Reference Range Interpretation Comments CORTISOL, TOTAL (BEAKER) (test code = 2755) 2.7 ug/dL 3.7-19.4 L TSH/Free T4 If [id number] 05:59:00* Test Item Value Reference Range Interpretation Comments TSH (test code = 61060-4) 0.43 0.35- 4.94 uIU/mL Lab Interpretation (test code = 66354-9) Normal [facility] CenterTSH/FREE T4 IF [id number] 05:59:00* Test Item Value Reference Range Interpretation Comments THYROID STIMULATING HORMONE (BEAKER) (test code = 772) 0.43 uIU/mL 0.35-4.94 BASIC METABOLIC [id number] 05:58:00* Test Item Value Reference Range Interpretation Comments SODIUM (BEAKER) (test code = 381) 137 meq/L 136-145 POTASSIUM (BEAKER) (test code = 379) 5.0 meq/L 3.5-5.1 CHLORIDE (BEAKER) (test code = 382) 98 meq/L 98-107 CO2 (BEAKER) (test code = 355) 21 meq/L 22-29 L BLOOD UREA NITROGEN (BEAKER) (test code = 354) 97 mg/dL 7-21 H CREATININE (BEAKER) (test code = 358) 12.99 mg/dL 0.57-1.25 H GLUCOSE RANDOM (BEAKER) (test code = 652) 86 mg/dL 70-105 CALCIUM (BEAKER) (test code = 697) 7.7 mg/dL 8.4-10.2 L EGFR (BEAKER) (test code = 1092) 3 mL/min/1.73 sq m ESTIMATED GFR IS NOT ACCURATE CREATININE CLEARANCE IN PREDICTING GLOMERULAR FILTRATION RATE. ESTIMATED GFR IS NOT APPLICABLE FOR DIALYSIS PATIENTS. [id number] 05:40:00* Test Item Value Reference Range Interpretation Comments MAGNESIUM (BEAKER) (test code = 627) 2.3 mg/dL 1.6-2.6 CBC (Hemogram only)2019-05-22 05:24:00* Test Item Value Reference Range Interpretation Comments WBC (test code = 6690-2) 5.4 3.5- 10.5 K/L RBC (test code = 789-8) 3.90 3.93- 5.22 M/L L MCHC (test code = 786-4) 34.0 32.2- 35.5 GM/DL Hematocrit (test code = 4544-3) 34.7 % 34.1-44.9 MCV (test code = 787-2) 89.0 fL 79.4-94.8 MCH (test code = 785-6) 30.3 pg 25.6-32.2 RDW (test code = 788-0) 14.8 % 11.7-14.4 H Platelets (test code = 777-3) 108 150- 450 K/CU MM L MPV (test code = 69994-3) 12.4 fL 9.4-12.3 H nRBC (test code = 413) 0 0- 0 /100 WBC Lab Interpretation (test code = 78562-5) Abnormal [facility] (HEMOGRAM ONLY)2019-05-22 05:24:00* Test Item Value Reference Range Interpretation Comments WHITE BLOOD CELL COUNT (BEAKER) (test code = 775) 5.4 K/ L 3.5- 10.5 RED BLOOD CELL COUNT (BEAKER) (test code = 761) 3.90 M/ L 3.93-5 .22 L HEMOGLOBIN (BEAKER) (test code = 410) 11.8 GM/DL 11.2-15.7 HEMATOCRIT (BEAKER) (test code = 411) 34.7 % 34.1-44.9 MEAN CORPUSCULAR VOLUME (BEAKER) (test code = 753) 89.0 fL 79. 4-94.8 MEAN CORPUSCULAR HEMOGLOBIN (BEAKER) (test code = 751) 30.3 pg 25.6-32.2 MEAN CORPUSCULAR HEMOGLOBIN CONC (BEAKER) (test code = 752) 34.0 GM/DL 32.2-35.5 RED CELL DISTRIBUTION WIDTH (BEAKER) (test code = 412) 14.8 % 11.7-14.4 H PLATELET COUNT (BEAKER) (test code = 756) 108 K/CU MM 150-450 L MEAN PLATELET VOLUME (BEAKER) (test code = 754) 12.4 fL 9.4-12 .3 H NUCLEATED RED BLOOD CELLS (BEAKER) (test code = 413) 0 /100 WBC 0 -0 POCT-GLUCOSE [id number] 01:53:00* Test Item Value Reference Range Interpretation Comments POC-GLUCOSE METER (BEAKER) (test code = 1538) 133 mg/dL 70-110 H : TESTED AT [facility] [address] [place] [address], [address]: Die Reamer/Clinical Laboratory Service Teacher ID = [id number] for ANTHONY LAMBERT HEMODIALYSIS [id number] 20:21:23Anju Mayen RN 05/22/2019 12:23 AMCompleted 4 hours of HD via right UA AVF, with net fluid removed of 4 liters. Asymptomatic hypotension during dialysis treatment. MAP was WDL. Report given to primary RNSara. Lab Results Component Value Date WBC 5.6 05/21/2019 HGB 12.3 05/21/2019 HCT 37.4 05/21/2019 MCV 92.1 05/21/2019 PLT 125 (L) 05/21/2019 Lab Results Component Value Date GLUCOSE 59 (L) 05/21/2019 CALCIUM 7.8 (L) 05/21/2019 NA 137 05/21/2019 K 5.9 (H) 05/21/2019 CO2 22 05/21/2019 CL 96 (L) 05/21/2019 BUN 121 (H) 05/21/2019 CREATININE 16.11 (H) 05/21/2019 Results for LÁZARO PETERSON ( ) as of 05/21/2019 20:22 Ref. Range 05/21/2019 15:42 Hepatitis B Surface Ag Latest Ref Range: Nonreactive Nonreactive [facility] B surface [id number] 17:49:00* Test Item Value Reference Range Interpretation Comments HBsAg Screen (test code = 5195-3) Nonreactive Nonreactive Lab Interpretation (test code = 65916-4) Normal [facility] SURFACE [id number] 17:49:00* Test Item Value Reference Range Interpretation Comments HEPATITIS B SURFACE ANTIGEN (2) (BEAKER) (test code = 2585) Nonreactive Nonreactive [id number] 17:29:00* Test Item Value Reference Range Interpretation Comments Lipase (test code = 3040-3) 105 U/L 8-78 H CARO (test code = CARO) Add on please Lab Interpretation (test code = 33271-1) Abnormal [facility] CenterLIPASE2020-01-01 17:29:00* Test Item Value Reference Range Interpretation Comments LIPASE (BEAKER) (test code = 749) 105 U/L 8-78 H Add on pleaseTroponin [id number] 16:28:00* Test Item Value Reference Range Interpretation Comments Troponin I (test code = 45549-5) 0.10 ng/mL 0-0.03 H CARO (test code = CARO) Troponin I (TnI) levels must be interpreted in the context of the presenting symptoms and the clinical findings. Elevated TnI levels indicate myocardial damage, but are not specific for ischemic heart disease. Elevated TnI levels are seen in patients with other cardiac conditions (including myocarditis and congestive heart failure), and slight TnI elevations occur in patients with other conditions, including sepsis, renal failure, acidosis, acute neurological disease, and persistent tachyarrhythmia. Lab Interpretation (test code = 72886-2) [facility] [id number] 16:28:00* Test Item Value Reference Range Interpretation Comments TROPONIN I (BEAKER) (test code = 397) 0.10 ng/mL 0.00-0.03 H Troponin I (TnI) levels must be interpreted in the context of the presenting sym ptoms and the clinical findings. Elevated TnI levels indicate myocardial damage, but are not specific for ischemic heart disease. Elevated TnI levels are seen in patients with other cardiac conditions (including myocarditis and congestive h eart failure), and slight TnI elevations occur in patients with other conditions , including sepsis, renal failure, acidosis, acute neurological disease, and per sistent tachyarrhythmia.POCT-GLUCOSE [id number] 15:41:00* Test Item Value Reference Range Interpretation Comments POC-GLUCOSE METER (BEAKER) (test code = 1538) 150 mg/dL 70-110 H : TESTED AT [facility] [address] [facility], [address]: Die Reamer/Clinical Laboratory Service Teacher ID = [id number] for AHSAN MEDINA BASIC METABOLIC [id number] 09:11:00* Test Item Value Reference Range Interpretation Comments SODIUM (BEAKER) (test code = 381) 137 meq/L 136-145 POTASSIUM (BEAKER) (test code = 379) 5.9 meq/L 3.5-5.1 H CHLORIDE (BEAKER) (test code = 382) 96 meq/L 98-107 L CO2 (BEAKER) (test code = 355) 22 meq/L 22-29 BLOOD UREA NITROGEN (BEAKER) (test code = 354) 121 mg/dL 7-21 H CREATININE (BEAKER) (test code = 358) 16.11 mg/dL 0.57-1.25 H GLUCOSE RANDOM (BEAKER) (test code = 652) 59 mg/dL 70-105 L CALCIUM (BEAKER) (test code = 697) 7.8 mg/dL 8.4-10.2 L EGFR (BEAKER) (test code = 1092) 3 mL/min/1.73 sq m ESTIMATED GFR IS NOT ACCURATE CREATININE CLEARANCE IN PREDICTING GLOMERULAR FILTRATION RATE. ESTIMATED GFR IS NOT APPLICABLE FOR DIALYSIS PATIENTS. Bilirubin, adult [id number] 09:09:00* Test Item Value Reference Range Interpretation Comments Total Bilirubin (test code = 1975-2) 0.9 mg/dL 0.2-1.2 Lab Interpretation (test code = 75539-1) [facility] [id number] 09:09:00* Test Item Value Reference Range Interpretation Comments Alkaline Phosphatase (test code = 6768-6) 47 U/L 40-150 Lab Interpretation (test code = 09015-4) [facility] 09:09:00* Test Item Value Reference Range Interpretation Comments AST (test code = 1920-8) 17 U/L 5-34 Lab Interpretation (test code = 80084-7) [facility] 09:09:00* Test Item Value Reference Range Interpretation Comments ALT (test code = 1742-6) 26 U/L 6-55 Lab Interpretation (test code = 64301-6) [facility] [id number] 09:09:00* Test Item Value Reference Range Interpretation Comments TROPONIN I (BEAKER) (test code = 397) 0.12 ng/mL 0.00-0.03 H Troponin I (TnI) levels must be interpreted in the context of the presenting sym ptoms and the clinical findings. Elevated TnI levels indicate myocardial damage, but are not specific for ischemic heart disease. Elevated TnI levels are seen in patients with other cardiac conditions (including myocarditis and congestive h eart failure), and slight TnI elevations occur in patients with other conditions , including sepsis, renal failure, acidosis, acute neurological disease, and per sistent tachyarrhythmia.ALKALINE [id number] 09:09:00* Test Item Value Reference Range Interpretation Comments ALKALINE PHOSPHATASE (BEAKER) (test code = 346) 47 U/L 40-150 BILIRUBIN, ADULT [id number] 09:09:00* Test Item Value Reference Range Interpretation Comments BILIRUBIN TOTAL (BEAKER) (test code = 377) 0.9 mg/dL 0.2-1.2 ALT (SGPT)2019-05-21 09:09:00* Test Item Value Reference Range Interpretation Comments ALT (SGPT) (BEAKER) (test code = 347) 26 U/L 6-55 AST (SGOT)2019-05-21 09:09:00* Test Item Value Reference Range Interpretation Comments AST (SGOT) (BEAKER) (test code = 353) 17 U/L 5-34 B-type Natriuretic Factor (BNP)2019-05-21 08:36:00* Test Item Value Reference Range Interpretation Comments BNP (test code = 83803-9) 479 pg/mL 0-100 H Lab Interpretation (test code = 21441-0) [facility]BNP)2019-05-21 08:36:00 * Test Item Value Reference Range Interpretation Comments B-TYPE NATRIURETIC PEPTIDE (BEAKER) (test code = 700) 479 pg/mL 0-100 H RAD, CHEST, 1 VIEW, NON [id number] 07:43:00Reason for exam:->CHEST PAINShould this be performed at the bedside?->YesFINAL REPORT INDICATION: CHEST PAIN TECHNIQUE: Chest radiograph, single view, portable technique. FINDINGS / IMPRESSION: The heart shadow is enlarged and there is a multilead left subclavian pacemaker. No definite pulmonary edema, sensitivity decreased because of large habitus. No focal lung abnormality, pneumothorax, or pleural effusion demonstrated. Signed: Hector Barragan MDReport Verified Date/Time: 05/21/2019 07:43:57 Reading Location: [address] Transitional Reading Room chest 1 view portable / [id number] 07:43:00Interface, External Ris In - 05/21/2019 7:46 AM CSTFINAL REPORT INDICATION: CHEST PAIN TECHNIQUE: Chest radiograph, single view, portable technique. FINDINGS / IMPRESSION: The heart shadow is enlarged and there is a multilead left subclavian pacemaker. No definite pulmonary edema, sensitivity decreased because of large habitus. No focal lung abnormality, pneumothorax, or pleural effusion demonstrated. Signed: Hector Barragan MDReport Verified Date/Time: 05/21/2019 07:43:57 Reading Location: [facility] C013T Transitional Reading Room [facility] with platelet count + automated [id number] 07:21:00* Test Item Value Reference Range Interpretation Comments WBC (test code = 6690-2) 5.6 3.5- 10.5 K/L RBC (test code = 789-8) 4.06 3.93- 5.22 M/L MCHC (test code = 786-4) 32.9 32.2- 35.5 GM/DL Hematocrit (test code = 4544-3) 37.4 % 34.1-44.9 MCV (test code = 787-2) 92.1 fL 79.4-94.8 MCH (test code = 785-6) 30.3 pg 25.6-32.2 RDW (test code = 788-0) 15.3 % 11.7-14.4 H Platelets (test code = 777-3) 125 150- 450 K/CU MM L MPV (test code = 47218-2) 12.7 fL 9.4-12.3 H nRBC (test code = 413) 0 0- 0 /100 WBC % Neutros (test code = 429) 60 % % Lymphs (test code = 430) 25 % % Monos (test code = 431) 13 % % Eos (test code = 432) 1 % % Baso (test code = 437) 0 % # Neutros (test code = 670) 3.36 1.56- 6.13 K/L # Lymphs (test code = 414) 1.43 1.18- 3.74 K/L # Monos (test code = 415) 0.74 0.24- 0.36 K/L H # Eos (test code = 416) 0.07 0.04- 0.36 K/L # Baso (test code = 417) 0.01 0.01- 0.08 K/L Immature Granulocytes-Relative (test code = 2801) 1 % 0-1 Lab Interpretation (test code = 56588-3) Abnormal [facility] W/PLT COUNT & AUTO [id number] 07:21:00* Test Item Value Reference Range Interpretation Comments WHITE BLOOD CELL COUNT (BEAKER) (test code = 775) 5.6 K/ L 3.5- 10.5 RED BLOOD CELL COUNT (BEAKER) (test code = 761) 4.06 M/ L 3.93-5 .22 HEMOGLOBIN (BEAKER) (test code = 410) 12.3 GM/DL 11.2-15.7 HEMATOCRIT (BEAKER) (test code = 411) 37.4 % 34.1-44.9 MEAN CORPUSCULAR VOLUME (BEAKER) (test code = 753) 92.1 fL 79. 4-94.8 MEAN CORPUSCULAR HEMOGLOBIN (BEAKER) (test code = 751) 30.3 pg 25.6-32.2 MEAN CORPUSCULAR HEMOGLOBIN CONC (BEAKER) (test code = 752) 32.9 GM/DL 32.2-35.5 RED CELL DISTRIBUTION WIDTH (BEAKER) (test code = 412) 15.3 % 11.7-14.4 H PLATELET COUNT (BEAKER) (test code = 756) 125 K/CU MM 150-450 L MEAN PLATELET VOLUME (BEAKER) (test code = 754) 12.7 fL 9.4-12 .3 H NUCLEATED RED BLOOD CELLS (BEAKER) (test code = 413) 0 /100 WBC 0 -0 NEUTROPHILS RELATIVE PERCENT (BEAKER) (test code = 429) 60 % LYMPHOCYTES RELATIVE PERCENT (BEAKER) (test code = 430) 25 % MONOCYTES RELATIVE PERCENT (BEAKER) (test code = 431) 13 % EOSINOPHILS RELATIVE PERCENT (BEAKER) (test code = 432) 1 % BASOPHILS RELATIVE PERCENT (BEAKER) (test code = 437) 0 % NEUTROPHILS ABSOLUTE COUNT (BEAKER) (test code = 670) 3.36 K/ L 1.56-6.13 LYMPHOCYTES ABSOLUTE COUNT (BEAKER) (test code = 414) 1.43 K/ L 1.18-3.74 MONOCYTES ABSOLUTE COUNT (BEAKER) (test code = 415) 0.74 K/ L 0. 24-0.36 H EOSINOPHILS ABSOLUTE COUNT (BEAKER) (test code = 416) 0.07 K/ L 0.04-0.36 BASOPHILS ABSOLUTE COUNT (BEAKER) (test code = 417) 0.01 K/ L 0. 01-0.08 IMMATURE GRANULOCYTES-RELATIVE PERCENT (BEAKER) (test code = 2801) 1 % 0-1 [id number] 12:53:00* Test Item Value Reference Range Interpretation Comments Potassium (test code = 2823-3) 4.8 meq/L 3.5-5.1 Lab Interpretation (test code = 76576-2) [facility] 12:53:00* Test Item Value Reference Range Interpretation Comments POTASSIUM (BEAKER) (test code = 379) 4.8 meq/L 3.5-5.1 RAD, CHEST, 1 VIEW, NON [id number] 12:12:00Reason for exam:->chest painShould this be performed at the bedside?->YesFINAL REPORT Comparison: 02/05/2019 TECHNIQUE: Single view of the chest FINDINGS: There is mild vascular congestion. No overt consolidation, edema, or large effusion. Cardiac silhouette is enlarged. Left-sided pacing device. No acute skeletal abnormality. Signed: [facility] Verified Date/Time: 2019 12:12:19 Reading Location: [address] Transitional Reading Room Comprehensive metabolic [id number] 11:58:00* Test Item Value Reference Range Interpretation Comments Protein, Total (test code = 2885-2) 7.9 6.0- 8.3 gm/dL Specimen slightly hemolyzed Albumin (test code = 20222-1) 4.0 g/dL 3.5-5 Specimen slightly hemolyzed Alkaline Phosphatase (test code = 6768-6) 49 U/L 40-150 Total Bilirubin (test code = 1975-2) 0.7 mg/dL 0.2-1.2 Specimen slightly hemolyzed Sodium (test code = 2951-2) 138 meq/L 136-145 Potassium (test code = 2823-3) 5.4 meq/L 3.5-5.1 H Specimen slightly hemolyzed Chloride (test code = 5-0) 98 meq/L 98-107 CO2 (test code = 8-9) 19 meq/L 22-29 L BUN (test code = 3094-0) 125 mg/dL 7-21 H Creatinine (test code = 2160-0) 16.10 mg/dL 0.57-1.25 H Specimen slightly hemolyzed Glucose (test code = 2345-7) 148 mg/dL 70-105 H Calcium (test code = 13173-2) 8.5 mg/dL 8.4-10.2 AST (test code = 1920-8) 23 U/L 5-34 Spe cimen slightly hemolyzed ALT (test code = 1742-6) 21 U/L 6-55 Spe cimen slightly hemolyzed EGFR (test code = 40781-7) 3 mL/min/1.73 sq m ESTIMATED GFR IS NOT ACCURATE CREATININE CLEARANCE IN PREDICTING GLOMERULAR FILTRATION RATE. ESTIMATED GFR IS NOT APPLICABLE FOR DIALYSIS PATIENTS. Lab Interpretation (test code = 12940-6) Abnormal [facility] [id number] 11:58:00* Test Item Value Reference Range Interpretation Comments TOTAL PROTEIN (BEAKER) (test code = 770) 7.9 gm/dL 6.0-8.3 Specimen slightly hemolyzed ALBUMIN (BEAKER) (test code = 1145) 4.0 g/dL 3.5-5.0 Specimen slightly hemolyzed ALKALINE PHOSPHATASE (BEAKER) (test code = 346) 49 U/L 40-150 BILIRUBIN TOTAL (BEAKER) (test code = 377) 0.7 mg/dL 0.2-1.2 Specimen slightly hemolyzed SODIUM (BEAKER) (test code = 381) 138 meq/L 136-145 POTASSIUM (BEAKER) (test code = 379) 5.4 meq/L 3.5-5.1 H Specimen slightly hemolyzed CHLORIDE (BEAKER) (test code = 382) 98 meq/L 98-107 CO2 (BEAKER) (test code = 355) 19 meq/L 22-29 L BLOOD UREA NITROGEN (BEAKER) (test code = 354) 125 mg/dL 7-21 H CREATININE (BEAKER) (test code = 358) 16.10 mg/dL 0.57-1.25 H Specimen slightly hemolyzed GLUCOSE RANDOM (BEAKER) (test code = 652) 148 mg/dL 70-105 H CALCIUM (BEAKER) (test code = 697) 8.5 mg/dL 8.4-10.2 AST (SGOT) (BEAKER) (test code = 353) 23 U/L 5-34 Specimen slightly hemolyzed ALT (SGPT) (BEAKER) (test code = 347) 21 U/L 6-55 Specimen slightly hemolyzed EGFR (BEAKER) (test code = 1092) 3 mL/min/1.73 sq m ESTIMATED GFR IS NOT ACCURATE CREATININE CLEARANCE IN PREDICTING GLOMERULAR FILTRATION RATE. ESTIMATED GFR IS NOT APPLICABLE FOR DIALYSIS PATIENTS. [id number] 11:56:00* Test Item Value Reference Range Interpretation Comments MAGNESIUM (BEAKER) (test code = 627) 2.4 mg/dL 1.6-2.6 Specimen slightly hemolyzed TROPONIN [id number] 11:54:00* Test Item Value Reference Range Interpretation Comments TROPONIN I (BEAKER) (test code = 397) 0.07 ng/mL 0.00-0.03 H Troponin I (TnI) levels must be interpreted in the context of the presenting sym ptoms and the clinical findings. Elevated TnI levels indicate myocardial damage, but are not specific for ischemic heart disease. Elevated TnI levels are seen in patients with other cardiac conditions (including myocarditis and congestive h eart failure), and slight TnI elevations occur in patients with other conditions , including sepsis, renal failure, acidosis, acute neurological disease, and per sistent tachyarrhythmia.CBC W/PLT COUNT & AUTO [id number] 11:30:00* Test Item Value Reference Range Interpretation Comments WHITE BLOOD CELL COUNT (BEAKER) (test code = 775) 7.4 K/ L 3.5- 10.5 RED BLOOD CELL COUNT (BEAKER) (test code = 761) 4.26 M/ L 3.93-5 .22 HEMOGLOBIN (BEAKER) (test code = 410) 13.2 GM/DL 11.2-15.7 HEMATOCRIT (BEAKER) (test code = 411) 39.0 % 34.1-44.9 MEAN CORPUSCULAR VOLUME (BEAKER) (test code = 753) 91.5 fL 79. 4-94.8 MEAN CORPUSCULAR HEMOGLOBIN (BEAKER) (test code = 751) 31.0 pg 25.6-32.2 MEAN CORPUSCULAR HEMOGLOBIN CONC (BEAKER) (test code = 752) 33.8 GM/DL 32.2-35.5 RED CELL DISTRIBUTION WIDTH (BEAKER) (test code = 412) 15.2 % 11.7-14.4 H PLATELET COUNT (BEAKER) (test code = 756) 123 K/CU MM 150-450 L MEAN PLATELET VOLUME (BEAKER) (test code = 754) 12.8 fL 9.4-12 .3 H NUCLEATED RED BLOOD CELLS (BEAKER) (test code = 413) 0 /100 WBC 0 -0 NEUTROPHILS RELATIVE PERCENT (BEAKER) (test code = 429) 80 % LYMPHOCYTES RELATIVE PERCENT (BEAKER) (test code = 430) 12 % MONOCYTES RELATIVE PERCENT (BEAKER) (test code = 431) 7 % EOSINOPHILS RELATIVE PERCENT (BEAKER) (test code = 432) 0 % BASOPHILS RELATIVE PERCENT (BEAKER) (test code = 437) 0 % NEUTROPHILS ABSOLUTE COUNT (BEAKER) (test code = 670) 5.95 K/ L 1.56-6.13 LYMPHOCYTES ABSOLUTE COUNT (BEAKER) (test code = 414) 0.88 K/ L 1.18-3.74 L MONOCYTES ABSOLUTE COUNT (BEAKER) (test code = 415) 0.51 K/ L 0. 24-0.36 H EOSINOPHILS ABSOLUTE COUNT (BEAKER) (test code = 416) 0.00 K/ L 0.04-0.36 L BASOPHILS ABSOLUTE COUNT (BEAKER) (test code = 417) 0.00 K/ L 0. 01-0.08 L IMMATURE GRANULOCYTES-RELATIVE PERCENT (BEAKER) (test code = 2801) 1 % 0-1 BLOOD [id number] 14:33:00* Test Item Value Reference Range Interpretation Comments CULTURE (BEAKER) (test code = 1095) No growth in 5 days BLOOD [id number] 14:33:00* Test Item Value Reference Range Interpretation Comments CULTURE (BEAKER) (test code = 1095) No growth in 5 days POCT-GLUCOSE [id number] 12:09:00* Test Item Value Reference Range Interpretation Comments POC-GLUCOSE METER (BEAKER) (test code = 1538) 160 mg/dL 70-[address] [facility] [address] [facility] [address] HEMOGLOBIN [id number] 09:17:00* Test Item Value Reference Range Interpretation Comments HEMOGLOBIN A1C (BEAKER) (test code = 368) 6.7 % 4.3-6.1 H POCT-GLUCOSE [id number] 07:53:00* Test Item Value Reference Range Interpretation Comments POC-GLUCOSE METER (BEAKER) (test code = 1538) 82 mg/dL 70-[address] [facility] [address] [facility] [address] BASIC METABOLIC [id number] 07:18:00* Test Item Value Reference Range Interpretation Comments SODIUM (BEAKER) (test code = 381) 138 meq/L 136-145 POTASSIUM (BEAKER) (test code = 379) 4.8 meq/L 3.5-5.1 CHLORIDE (BEAKER) (test code = 382) 104 meq/L 98-107 CO2 (BEAKER) (test code = 355) 27 meq/L 22-29 BLOOD UREA NITROGEN (BEAKER) (test code = 354) 31 mg/dL 7-21 H CREATININE (BEAKER) (test code = 358) 7.00 mg/dL 0.57-1.25 H GLUCOSE RANDOM (BEAKER) (test code = 652) 110 mg/dL 70-105 H CALCIUM (BEAKER) (test code = 697) 8.8 mg/dL 8.4-10.2 EGFR (BEAKER) (test code = 1092) 7 mL/min/1.73 sq m ESTIMATED GFR IS NOT ACCURATE CREATININE CLEARANCE IN PREDICTING GLOMERULAR FILTRATION RATE. ESTIMATED GFR IS NOT APPLICABLE FOR DIALYSIS PATIENTS. [id number] 07:17:00* Test Item Value Reference Range Interpretation Comments PHOSPHORUS (BEAKER) (test code = 604) 3.9 mg/dL 2.3-4.7 [id number] 07:17:00* Test Item Value Reference Range Interpretation Comments MAGNESIUM (BEAKER) (test code = 627) 2.2 mg/dL 1.6-2.6 CBC W/PLT COUNT & AUTO [id number] 06:11:00* Test Item Value Reference Range Interpretation Comments WHITE BLOOD CELL COUNT (BEAKER) (test code = 775) 5.3 K/ L 3.5- 10.5 RED BLOOD CELL COUNT (BEAKER) (test code = 761) 3.53 M/ L 3.93-5 .22 L HEMOGLOBIN (BEAKER) (test code = 410) 11.3 GM/DL 11.2-15.7 HEMATOCRIT (BEAKER) (test code = 411) 34.9 % 34.1-44.9 MEAN CORPUSCULAR VOLUME (BEAKER) (test code = 753) 98.9 fL 79. 4-94.8 H MEAN CORPUSCULAR HEMOGLOBIN (BEAKER) (test code = 751) 32.0 pg 25.6-32.2 MEAN CORPUSCULAR HEMOGLOBIN CONC (BEAKER) (test code = 752) 32.4 GM/DL 32.2-35.5 RED CELL DISTRIBUTION WIDTH (BEAKER) (test code = 412) 15.6 % 11.7-14.4 H PLATELET COUNT (BEAKER) (test code = 756) 91 K/CU MM 150-450 L MEAN PLATELET VOLUME (BEAKER) (test code = 754) 12.7 fL 9.4-12 .3 H NUCLEATED RED BLOOD CELLS (BEAKER) (test code = 413) 0 /100 WBC 0 -0 NEUTROPHILS RELATIVE PERCENT (BEAKER) (test code = 429) 54 % LYMPHOCYTES RELATIVE PERCENT (BEAKER) (test code = 430) 24 % MONOCYTES RELATIVE PERCENT (BEAKER) (test code = 431) 19 % EOSINOPHILS RELATIVE PERCENT (BEAKER) (test code = 432) 3 % BASOPHILS RELATIVE PERCENT (BEAKER) (test code = 437) 1 % NEUTROPHILS ABSOLUTE COUNT (BEAKER) (test code = 670) 2.86 K/ L 1.56-6.13 LYMPHOCYTES ABSOLUTE COUNT (BEAKER) (test code = 414) 1.25 K/ L 1.18-3.74 MONOCYTES ABSOLUTE COUNT (BEAKER) (test code = 415) 1.00 K/ L 0. 24-0.36 H EOSINOPHILS ABSOLUTE COUNT (BEAKER) (test code = 416) 0.13 K/ L 0.04-0.36 BASOPHILS ABSOLUTE COUNT (BEAKER) (test code = 417) 0.03 K/ L 0. 01-0.08 IMMATURE GRANULOCYTES-RELATIVE PERCENT (BEAKER) (test code = 2801) 1 % 0-1 POCT-GLUCOSE [id number] 22:04:00* Test Item Value Reference Range Interpretation Comments POC-GLUCOSE METER (BEAKER) (test code = 1538) 136 mg/dL 70-110 H TESTED AT [address] [address] POCT-GLUCOSE [id number] 17:41:00* Test Item Value Reference Range Interpretation Comments POC-GLUCOSE METER (BEAKER) (test code = 1538) 92 mg/dL 70-110 TESTED AT [address] [address] POCT-GLUCOSE [id number] 11:39:00* Test Item Value Reference Range Interpretation Comments POC-GLUCOSE METER (BEAKER) (test code = 1538) 203 mg/dL 70-110 H TESTED AT [address] [address] POCT-GLUCOSE [id number] 09:24:00* Test Item Value Reference Range Interpretation Comments POC-GLUCOSE METER (BEAKER) (test code = 1538) 162 mg/dL 70-110 H TESTED AT [address] [address] POCT-GLUCOSE [id number] 09:24:00* Test Item Value Reference Range Interpretation Comments POC-GLUCOSE METER (BEAKER) (test code = 1538) 69 mg/dL 70-110 L TESTED AT [address] [address] POCT-GLUCOSE [id number] 08:30:00* Test Item Value Reference Range Interpretation Comments POC-GLUCOSE METER (BEAKER) (test code = 1538) 47 mg/dL 70-110 L Will Repeat Test/TESTED AT [address] [address] BASIC METABOLIC [id number] 03:57:00* Test Item Value Reference Range Interpretation Comments SODIUM (BEAKER) (test code = 381) 134 meq/L 136-145 L POTASSIUM (BEAKER) (test code = 379) 5.5 meq/L 3.5-5.1 H CHLORIDE (BEAKER) (test code = 382) 100 meq/L 98-107 CO2 (BEAKER) (test code = 355) 26 meq/L 22-29 BLOOD UREA NITROGEN (BEAKER) (test code = 354) 53 mg/dL 7-21 H CREATININE (BEAKER) (test code = 358) 10.16 mg/dL 0.57-1.25 H GLUCOSE RANDOM (BEAKER) (test code = 652) 65 mg/dL 70-105 L CALCIUM (BEAKER) (test code = 697) 8.9 mg/dL 8.4-10.2 EGFR (BEAKER) (test code = 1092) 5 mL/min/1.73 sq m ESTIMATED GFR IS NOT ACCURATE CREATININE CLEARANCE IN PREDICTING GLOMERULAR FILTRATION RATE. ESTIMATED GFR IS NOT APPLICABLE FOR DIALYSIS PATIENTS. CBC W/PLT COUNT & AUTO [id number] 03:55:00* Test Item Value Reference Range Interpretation Comments WHITE BLOOD CELL COUNT (BEAKER) (test code = 775) 6.9 K/ L 3.5- 10.5 RED BLOOD CELL COUNT (BEAKER) (test code = 761) 3.53 M/ L 3.93-5 .22 L HEMOGLOBIN (BEAKER) (test code = 410) 11.2 GM/DL 11.2-15.7 HEMATOCRIT (BEAKER) (test code = 411) 34.3 % 34.1-44.9 MEAN CORPUSCULAR VOLUME (BEAKER) (test code = 753) 97.2 fL 79. 4-94.8 H MEAN CORPUSCULAR HEMOGLOBIN (BEAKER) (test code = 751) 31.7 pg 25.6-32.2 MEAN CORPUSCULAR HEMOGLOBIN CONC (BEAKER) (test code = 752) 32.7 GM/DL 32.2-35.5 RED CELL DISTRIBUTION WIDTH (BEAKER) (test code = 412) 15.4 % 11.7-14.4 H PLATELET COUNT (BEAKER) (test code = 756) 82 K/CU MM 150-450 L MEAN PLATELET VOLUME (BEAKER) (test code = 754) 12.6 fL 9.4-12 .3 H NUCLEATED RED BLOOD CELLS (BEAKER) (test code = 413) 0 /100 WBC 0 -0 NEUTROPHILS RELATIVE PERCENT (BEAKER) (test code = 429) 41 % LYMPHOCYTES RELATIVE PERCENT (BEAKER) (test code = 430) 36 % MONOCYTES RELATIVE PERCENT (BEAKER) (test code = 431) 20 % EOSINOPHILS RELATIVE PERCENT (BEAKER) (test code = 432) 2 % BASOPHILS RELATIVE PERCENT (BEAKER) (test code = 437) 0 % NEUTROPHILS ABSOLUTE COUNT (BEAKER) (test code = 670) 2.82 K/ L 1.56-6.13 LYMPHOCYTES ABSOLUTE COUNT (BEAKER) (test code = 414) 2.49 K/ L 1.18-3.74 MONOCYTES ABSOLUTE COUNT (BEAKER) (test code = 415) 1.37 K/ L 0. 24-0.36 H EOSINOPHILS ABSOLUTE COUNT (BEAKER) (test code = 416) 0.16 K/ L 0.04-0.36 BASOPHILS ABSOLUTE COUNT (BEAKER) (test code = 417) 0.03 K/ L 0. 01-0.08 IMMATURE GRANULOCYTES-RELATIVE PERCENT (BEAKER) (test code = 2801) 1 % 0-1 [id number] 03:50:00* Test Item Value Reference Range Interpretation Comments PHOSPHORUS (BEAKER) (test code = 604) 5.3 mg/dL 2.3-4.7 H [id number] 03:50:00* Test Item Value Reference Range Interpretation Comments MAGNESIUM (BEAKER) (test code = 627) 2.2 mg/dL 1.6-2.6 POCT-GLUCOSE [id number] 22:07:00* Test Item Value Reference Range Interpretation Comments POC-GLUCOSE METER (BEAKER) (test code = 1538) 87 mg/dL 70-110 TESTED AT [address] [address] POCT-GLUCOSE [id number] 16:06:00* Test Item Value Reference Range Interpretation Comments POC-GLUCOSE METER (BEAKER) (test code = 1538) 116 mg/dL 70-110 H TESTED AT [address] [address] POCT-GLUCOSE [id number] 12:00:00* Test Item Value Reference Range Interpretation Comments POC-GLUCOSE METER (BEAKER) (test code = 1538) 162 mg/dL 70-110 H TESTED AT [address] [address] HEMOGLOBIN [id number] 09:36:00* Test Item Value Reference Range Interpretation Comments HEMOGLOBIN A1C (BEAKER) (test code = 368) 6.8 % 4.3-6.1 H POCT-GLUCOSE [id number] 08:16:00* Test Item Value Reference Range Interpretation Comments POC-GLUCOSE METER (BEAKER) (test code = 1538) 71 mg/dL 70-[address] [facility] [address] [place] [address] VITAMIN D, [id number] 07:02:00* Test Item Value Reference Range Interpretation Comments VITAMIN D 25-OH (BEAKER) (test code = 2764) 10.2 ng/mL 6.6-49.9 Effective 02/28/2017: Reference Range ChangeNew: 6.6-49.9 ng/mL Previous: 13.0 -47.8 ng/mLRecommended Vitamin D Target Range: 30.0-40.0 ng/mLCBC W/PLT COUNT & AUTO [id number] 04:12:00* Test Item Value Reference Range Interpretation Comments WHITE BLOOD CELL COUNT (BEAKER) (test code = 775) 4.3 K/ L 3.5- 10.5 RED BLOOD CELL COUNT (BEAKER) (test code = 761) 3.42 M/ L 3.93-5 .22 L HEMOGLOBIN (BEAKER) (test code = 410) 10.7 GM/DL 11.2-15.7 L HEMATOCRIT (BEAKER) (test code = 411) 33.1 % 34.1-44.9 L MEAN CORPUSCULAR VOLUME (BEAKER) (test code = 753) 96.8 fL 79. 4-94.8 H MEAN CORPUSCULAR HEMOGLOBIN (BEAKER) (test code = 751) 31.3 pg 25.6-32.2 MEAN CORPUSCULAR HEMOGLOBIN CONC (BEAKER) (test code = 752) 32.3 GM/DL 32.2-35.5 RED CELL DISTRIBUTION WIDTH (BEAKER) (test code = 412) 15.4 % 11.7-14.4 H PLATELET COUNT (BEAKER) (test code = 756) 66 K/CU MM 150-450 L MEAN PLATELET VOLUME (BEAKER) (test code = 754) 12.8 fL 9.4-12 .3 H NUCLEATED RED BLOOD CELLS (BEAKER) (test code = 413) 0 /100 WBC 0 -0 NEUTROPHILS RELATIVE PERCENT (BEAKER) (test code = 429) 64 % LYMPHOCYTES RELATIVE PERCENT (BEAKER) (test code = 430) 18 % MONOCYTES RELATIVE PERCENT (BEAKER) (test code = 431) 16 % EOSINOPHILS RELATIVE PERCENT (BEAKER) (test code = 432) 1 % BASOPHILS RELATIVE PERCENT (BEAKER) (test code = 437) 0 % NEUTROPHILS ABSOLUTE COUNT (BEAKER) (test code = 670) 2.78 K/ L 1.56-6.13 LYMPHOCYTES ABSOLUTE COUNT (BEAKER) (test code = 414) 0.77 K/ L 1.18-3.74 L MONOCYTES ABSOLUTE COUNT (BEAKER) (test code = 415) 0.68 K/ L 0. 24-0.36 H EOSINOPHILS ABSOLUTE COUNT (BEAKER) (test code = 416) 0.05 K/ L 0.04-0.36 BASOPHILS ABSOLUTE COUNT (BEAKER) (test code = 417) 0.01 K/ L 0. 01-0.08 IMMATURE GRANULOCYTES-RELATIVE PERCENT (BEAKER) (test code = 2801) 1 % 0-1 BASIC METABOLIC [id number] 04:11:00* Test Item Value Reference Range Interpretation Comments SODIUM (BEAKER) (test code = 381) 141 meq/L 136-145 POTASSIUM (BEAKER) (test code = 379) 4.6 meq/L 3.5-5.1 CHLORIDE (BEAKER) (test code = 382) 105 meq/L 98-107 CO2 (BEAKER) (test code = 355) 27 meq/L 22-29 BLOOD UREA NITROGEN (BEAKER) (test code = 354) 39 mg/dL 7-21 H CREATININE (BEAKER) (test code = 358) 8.16 mg/dL 0.57-1.25 H GLUCOSE RANDOM (BEAKER) (test code = 652) 95 mg/dL 70-105 CALCIUM (BEAKER) (test code = 697) 9.1 mg/dL 8.4-10.2 EGFR (BEAKER) (test code = 1092) 6 mL/min/1.73 sq m ESTIMATED GFR IS NOT ACCURATE CREATININE CLEARANCE IN PREDICTING GLOMERULAR FILTRATION RATE. ESTIMATED GFR IS NOT APPLICABLE FOR DIALYSIS PATIENTS. [id number] 04:09:00* Test Item Value Reference Range Interpretation Comments PHOSPHORUS (BEAKER) (test code = 604) 4.5 mg/dL 2.3-4.7 [id number] 04:09:00* Test Item Value Reference Range Interpretation Comments MAGNESIUM (BEAKER) (test code = 627) 2.1 mg/dL 1.6-2.6 POCT-GLUCOSE [id number] 22:25:00* Test Item Value Reference Range Interpretation Comments POC-GLUCOSE METER (BEAKER) (test code = 1538) 110 mg/dL 70-[address] [facility] [address] [facility] [address] RESPIRATORY PANEL [id number] 15:54:00* Test Item Value Reference Range Interpretation Comments HUMAN METAPNEUMOVIRUS (BEAKER) (test code = 2683) Not detect ed Not detected, Equivocal RHINOVIRUS (BEAKER) (test code = 2684) Not detected Not detected, E quivocal INFLUENZA A (BEAKER) (test code = 2685) Not detected Not detected, Equivocal INFLUENZA A (NO SUBTYPE) (test code = 3606) INFLUENZA A SUBTYPE H1 (BEAKER) (test code = 2686) INFLUENZA A SUBTYPE H3 (BEAKER) (test code = 2687) INFLUENZA A SUBTYPE H1-2009 (BEAKER) (test code = 3198) INFLUENZA B (BEAKER) (test code = 2688) Not detected Not detected, Equivocal RESPIRATORY SYNCYTIAL VIRUS (BEAKER) (test code = 3199) Not detected Not detected, Equivocal PARAINFLUENZA VIRUS 1 (BEAKER) (test code = 2691) Not detect ed Not detected, Equivocal PARAINFLUENZA VIRUS 2 (BEAKER) (test code = 2692) Not detect ed Not detected, Equivocal PARAINFLUENZA VIRUS 3 (BEAKER) (test code = 2693) Not detect ed Not detected, Equivocal PARAINFLUENZA VIRUS 4 (BEAKER) (test code = 3200) Not detect ed Not detected, Equivocal ADENOVIRUS (BEAKER) (test code = 2694) Not detected Not detected, E quivocal CORONAVIRUS 229E (BEAKER) (test code = 3201) Not detected Not detected, Equivocal CORONAVIRUS HKU1 (BEAKER) (test code = 3202) Not detected Not detected, Equivocal CORONAVIRUS NL63 (BEAKER) (test code = 3203) Not detected Not detected, Equivocal CORONAVIRUS OC43 (BEAKER) (test code = 3204) Not detected Not detected, Equivocal BORDETELLA PERTUSSIS (BEAKER) (test code = 3205) Not detecte d Not detected, Equivocal CHLAMYDOPHILA PNEUMONIAE (BEAKER) (test code = 3206) Not det ected Not detected, Equivocal MYCOPLASMA PNEUMONIAE (BEAKER) (test code = 3207) Not detect ed Not detected, Equivocal Other viruses and bacteria not targeted by this PCR panel cannot be excluded; th erefore clinical correlation and follow up of serology, culture results, and oth er molecular studies is required. The results are not intended to be used as the sole means for clinical diagnosis or patient management decisions. This sample was tested at the [facility] Molecular Diagnostics Laboratory using the Next Gen [employer]ination[employer] rray Respiratory Panel. It is FDA cleared and has been verified and approved by the [facility] Molecular Diagnostics Laboratory for clinical use on nasopharyngeal sw ab specimens.The performance of the FilmArray RP has not been established in ind ividuals who received influenza vaccine. Recent administration of a nasal influ teddy vaccine may cause false positive results for Influenza A and/orInfluenza B. HEPATITIS B SURFACE [id number] 14:54:00* Test Item Value Reference Range Interpretation Comments HEPATITIS B SURFACE ANTIGEN (2) ([employer]) (test code = 2585) Nonreactive Nonreactive T4, [id number] 14:44:00* Test Item Value Reference Range Interpretation Comments FREE T4 ([employer]) (test code = 655) 0.89 ng/dL 0.70-1.48 [id number] 14:31:00* Test Item Value Reference Range Interpretation Comments PROCALCITONIN (BHARTI) (test code = 3036) 7.58 ng/mL <0.05 H SEPSIS RISK (ng/mL)Low: 0.05-0.50Intermediate: 0.51-2.00High: > =2.01TSH/FREE T4 IF [id number] 14:13:00* Test Item Value Reference Range Interpretation Comments THYROID STIMULATING HORMONE (GISELAAKER) (test code = 772) 0.26 uIU/mL 0.35-4.94 L [id number] 14:11:00* Test Item Value Reference Range Interpretation Comments CORTISOL, TOTAL ([employer]) (test code = 2755) 11.5 ug/dL 3.7-19.4 B-TYPE NATRIURETIC FACTOR (BNP)2019-02-05 13:56:00* Test Item Value Reference Range Interpretation Comments B-TYPE NATRIURETIC PEPTIDE ([employer]) (test code = 700) 831 pg/mL 0-100 H [id number] 13:44:00* Test Item Value Reference Range Interpretation Comments POTASSIUM (BEAKER) (test code = 379) 4.8 meq/L 3.5-5.1 Check 30 minutes after initial administration of D50W and Regular InsulinPOCT- LACTIC ACID, [id number] 08:20:00* Test Item Value Reference Range Interpretation Comments POC-LACTIC ACID, VENOUS (BEAKER) (test code = 2805) 1.3 mmol/L 0. 9-1.7 TESTED AT [address] [address] POCT-GLUCOSE [id number] 08:17:00* Test Item Value Reference Range Interpretation Comments POC-GLUCOSE METER (BEAKER) (test code = 1538) 168 mg/dL 70-110 H TESTED AT [address] [address] [id number] 06:52:00* Test Item Value Reference Range Interpretation Comments POTASSIUM (BEAKER) (test code = 379) 5.6 meq/L 3.5-5.1 H Specimen slightly hemolyzed K recheck, ER lab hemolyzedRAPID INFLUENZA A&B [id number] 06:41:00* Test Item Value Reference Range Interpretation Comments RAPID INFLUENZA A AG (BEAKER) (test code = 1622) Negative Negative, Inconclusive RAPID INFLUENZA B AG (BEAKER) (test code = 1623) Negative Negative, Inconclusive POCT-LACTIC ACID, [id number] 05:13:00* Test Item Value Reference Range Interpretation Comments POC-LACTIC ACID, VENOUS (BEAKER) (test code = 2805) 1.6 mmol/L 0. 9-1.7 TESTED AT [address] [address] [id number] 04:14:00* Test Item Value Reference Range Interpretation Comments PROTIME (BEAKER) (test code = 759) 16.2 seconds 11.9-14.2 H INR (BEAKER) (test code = 370) 1.4 <=5.9 PARTIAL THROMBOPLASTIN TIME (BEAKER) (test code = 760) 40.3 seconds 22.5-36.0 H Effective 10/16/2018: PT Reference Range ChangeNew: 11.9-14.2 Previous: 11.7-14. 7RECOMMENDED COUMADIN/WARFARIN INR THERAPY RANGESSTANDARD DOSE: 2.0-3.0 Include s: PROPHYLAXIS for venous thrombosis, systemic embolization; TREATMENT for venou s thrombosis and/or pulmonary embolus.HIGH RISK: Target INR is 2.5-3.5 for patie nts wiht mechanical heart valves.RAD, CHEST, 1 VIEW, NON [id number] 04:13:00 Reason for exam:->CHEST PAINReason for exam:->ABDOMINAL PAINShould this be performed at the bedside?->NoFINAL REPORT Chest, 1 view. History: Chest pain and abdominal pain. Comparison: Plain radiograph the chest dated 04/30/2018.. IMPRESSION:Left chest wall pacer device with leads overlying right atrium, right ventricle and coronary sinus. Cardiomediastinal silhouette is enlarged, unchanged. Atherosclerotic calcifications of the thoracic aorta. Prominent pulmonary vasculature is concerning for pulmonary vascular congestion without overt pulmonary edema. No lobar consolidation or pleural effusion. No pneumothorax. Osseous structures are grossly unremarkable. Signed: Robert Gaytan Verified Date/Time: 02/05/2019 04:13:28 C METABOLIC [id number] 03:55:00* Test Item Value Reference Range Interpretation Comments SODIUM (BEAKER) (test code = 381) 137 meq/L 136-145 POTASSIUM (BEAKER) (test code = 379) 5.4 meq/L 3.5-5.1 H Specimen slightly hemolyzed CHLORIDE (BEAKER) (test code = 382) 100 meq/L 98-107 CO2 (BEAKER) (test code = 355) 21 meq/L 22-29 L BLOOD UREA NITROGEN (BEAKER) (test code = 354) 62 mg/dL 7-21 H CREATININE (BEAKER) (test code = 358) 11.38 mg/dL 0.57-1.25 H Specimen slightly hemolyzed GLUCOSE RANDOM (BEAKER) (test code = 652) 145 mg/dL 70-105 H CALCIUM (BEAKER) (test code = 697) 9.8 mg/dL 8.4-10.2 EGFR (BEAKER) (test code = 1092) 4 mL/min/1.73 sq m ESTIMATED GFR IS NOT ACCURATE CREATININE CLEARANCE IN PREDICTING GLOMERULAR FILTRATION RATE. ESTIMATED GFR IS NOT APPLICABLE FOR DIALYSIS PATIENTS. CBC W/PLT COUNT & AUTO [id number] 03:30:00* Test Item Value Reference Range Interpretation Comments WHITE BLOOD CELL COUNT (BEAKER) (test code = 775) 8.9 K/ L 3.5- 10.5 RED BLOOD CELL COUNT (BEAKER) (test code = 761) 4.34 M/ L 3.93-5 .22 HEMOGLOBIN (BEAKER) (test code = 410) 13.6 GM/DL 11.2-15.7 HEMATOCRIT (BEAKER) (test code = 411) 41.8 % 34.1-44.9 MEAN CORPUSCULAR VOLUME (BEAKER) (test code = 753) 96.3 fL 79. 4-94.8 H MEAN CORPUSCULAR HEMOGLOBIN (BEAKER) (test code = 751) 31.3 pg 25.6-32.2 MEAN CORPUSCULAR HEMOGLOBIN CONC (BEAKER) (test code = 752) 32.5 GM/DL 32.2-35.5 RED CELL DISTRIBUTION WIDTH (BEAKER) (test code = 412) 15.0 % 11.7-14.4 H PLATELET COUNT (BEAKER) (test code = 756) 84 K/CU MM 150-450 L MEAN PLATELET VOLUME (BEAKER) (test code = 754) 13.2 fL 9.4-12 .3 H NUCLEATED RED BLOOD CELLS (BEAKER) (test code = 413) 0 /100 WBC 0 -0 NEUTROPHILS RELATIVE PERCENT (BEAKER) (test code = 429) 81 % LYMPHOCYTES RELATIVE PERCENT (BEAKER) (test code = 430) 8 % MONOCYTES RELATIVE PERCENT (BEAKER) (test code = 431) 10 % EOSINOPHILS RELATIVE PERCENT (BEAKER) (test code = 432) 0 % BASOPHILS RELATIVE PERCENT (BEAKER) (test code = 437) 0 % NEUTROPHILS ABSOLUTE COUNT (BEAKER) (test code = 670) 7.16 K/ L 1.56-6.13 H LYMPHOCYTES ABSOLUTE COUNT (BEAKER) (test code = 414) 0.69 K/ L 1.18-3.74 L MONOCYTES ABSOLUTE COUNT (BEAKER) (test code = 415) 0.89 K/ L 0. 24-0.36 H EOSINOPHILS ABSOLUTE COUNT (BEAKER) (test code = 416) 0.03 K/ L 0.04-0.36 L BASOPHILS ABSOLUTE COUNT (BEAKER) (test code = 417) 0.03 K/ L 0. 01-0.08 IMMATURE GRANULOCYTES-RELATIVE PERCENT (BEAKER) (test code = 2801) 1 % 0-1 POCT-LACTIC ACID, [id number] 03:25:00* Test Item Value Reference Range Interpretation Comments POC-LACTIC ACID, VENOUS (BEAKER) (test code = 2805) 2.1 mmol/L 0. 9-1.[address] [facility] [address] [place] [address] POCT-GLUCOSE [id number] 10:36:00* Test Item Value Reference Range Interpretation Comments POC-GLUCOSE METER (BEAKER) (test code = 1538) 170 mg/dL 70-110 H TESTED AT [address] [address] POCT-GLUCOSE [id number] 10:36:00* Test Item Value Reference Range Interpretation Comments POC-GLUCOSE METER (BEAKER) (test code = 1538) 127 mg/dL 70-[address] [facility] [address] [facility] [address] BLOOD [id number] 10:00:00* Test Item Value Reference Range Interpretation Comments CULTURE (BEAKER) (test code = 1095) No growth in 5 days BLOOD [id number] 10:00:00* Test Item Value Reference Range Interpretation Comments CULTURE (BEAKER) (test code = 1095) No growth in 5 days CBC W/PLT COUNT & AUTO [id number] 10:21:00* Test Item Value Reference Range Interpretation Comments WHITE BLOOD CELL COUNT (BEAKER) (test code = 775) 4.4 K/ L 3.5- 10.5 RED BLOOD CELL COUNT (BEAKER) (test code = 761) 3.10 M/ L 3.93-5 .22 L HEMOGLOBIN (BEAKER) (test code = 410) 9.4 GM/DL 11.2-15.7 L HEMATOCRIT (BEAKER) (test code = 411) 29.7 % 34.1-44.9 L MEAN CORPUSCULAR VOLUME (BEAKER) (test code = 753) 95.8 fL 79. 4-94.8 H MEAN CORPUSCULAR HEMOGLOBIN (BEAKER) (test code = 751) 30.3 pg 25.6-32.2 MEAN CORPUSCULAR HEMOGLOBIN CONC (BEAKER) (test code = 752) 31.6 GM/DL 32.2-35.5 L RED CELL DISTRIBUTION WIDTH (BEAKER) (test code = 412) 15.4 % 11.7-14.4 H PLATELET COUNT (BEAKER) (test code = 756) 88 K/CU MM 150-450 L MEAN PLATELET VOLUME (BEAKER) (test code = 754) 11.2 fL 9.4-12 .3 NUCLEATED RED BLOOD CELLS (BEAKER) (test code = 413) 0 /100 WBC 0 -0 NEUTROPHILS RELATIVE PERCENT (BEAKER) (test code = 429) 61 % LYMPHOCYTES RELATIVE PERCENT (BEAKER) (test code = 430) 19 % MONOCYTES RELATIVE PERCENT (BEAKER) (test code = 431) 17 % EOSINOPHILS RELATIVE PERCENT (BEAKER) (test code = 432) 2 % BASOPHILS RELATIVE PERCENT (BEAKER) (test code = 437) 0 % NEUTROPHILS ABSOLUTE COUNT (BEAKER) (test code = 670) 2.63 K/ L 1.56-6.13 LYMPHOCYTES ABSOLUTE COUNT (BEAKER) (test code = 414) 0.83 K/ L 1.18-3.74 L MONOCYTES ABSOLUTE COUNT (BEAKER) (test code = 415) 0.76 K/ L 0. 24-0.36 H EOSINOPHILS ABSOLUTE COUNT (BEAKER) (test code = 416) 0.08 K/ L 0.04-0.36 BASOPHILS ABSOLUTE COUNT (BEAKER) (test code = 417) 0.01 K/ L 0. 01-0.08 IMMATURE GRANULOCYTES-RELATIVE PERCENT (BEAKER) (test code = 2801) 1 % 0-1 BASIC METABOLIC [id number] 09:31:00* Test Item Value Reference Range Interpretation Comments SODIUM (BEAKER) (test code = 381) 134 meq/L 136-145 L POTASSIUM (BEAKER) (test code = 379) 4.2 meq/L 3.5-5.1 CHLORIDE (BEAKER) (test code = 382) 95 meq/L 98-107 L CO2 (BEAKER) (test code = 355) 27 meq/L 22-29 BLOOD UREA NITROGEN (BEAKER) (test code = 354) 34 mg/dL 7-21 H CREATININE (BEAKER) (test code = 358) 10.37 mg/dL 0.57-1.25 H GLUCOSE RANDOM (BEAKER) (test code = 652) 107 mg/dL 70-105 H CALCIUM (BEAKER) (test code = 697) 7.8 mg/dL 8.4-10.2 L EGFR (BEAKER) (test code = 1092) 5 mL/min/1.73 sq m ESTIMATED GFR IS NOT ACCURATE CREATININE CLEARANCE IN PREDICTING GLOMERULAR FILTRATION RATE. ESTIMATED GFR IS NOT APPLICABLE FOR DIALYSIS PATIENTS. POCT-GLUCOSE [id number] 21:11:00* Test Item Value Reference Range Interpretation Comments POC-GLUCOSE METER (BEAKER) (test code = 1538) 196 mg/dL 70-110 H TESTED AT [address] [address] POCT-GLUCOSE [id number] 18:38:00* Test Item Value Reference Range Interpretation Comments POC-GLUCOSE METER (BEAKER) (test code = 1538) 151 mg/dL 70-110 H TESTED AT [address] [address] POCT-GLUCOSE [id number] 08:41:00* Test Item Value Reference Range Interpretation Comments POC-GLUCOSE METER (BEAKER) (test code = 1538) 127 mg/dL 70-110 H TESTED AT [address] [address] BASIC METABOLIC [id number] 06:15:00* Test Item Value Reference Range Interpretation Comments SODIUM (BEAKER) (test code = 381) 137 meq/L 136-145 POTASSIUM (BEAKER) (test code = 379) 3.9 meq/L 3.5-5.1 CHLORIDE (BEAKER) (test code = 382) 96 meq/L 98-107 L CO2 (BEAKER) (test code = 355) 32 meq/L 22-29 H BLOOD UREA NITROGEN (BEAKER) (test code = 354) 26 mg/dL 7-21 H CREATININE (BEAKER) (test code = 358) 7.75 mg/dL 0.57-1.25 H GLUCOSE RANDOM (BEAKER) (test code = 652) 145 mg/dL 70-105 H CALCIUM (BEAKER) (test code = 697) 7.9 mg/dL 8.4-10.2 L EGFR (BEAKER) (test code = 1092) 6 mL/min/1.73 sq m ESTIMATED GFR IS NOT ACCURATE CREATININE CLEARANCE IN PREDICTING GLOMERULAR FILTRATION RATE. ESTIMATED GFR IS NOT APPLICABLE FOR DIALYSIS PATIENTS. [id number] 06:13:00* Test Item Value Reference Range Interpretation Comments MAGNESIUM (BEAKER) (test code = 627) 1.9 mg/dL 1.6-2.6 CBC W/PLT COUNT & AUTO [id number] 06:13:00* Test Item Value Reference Range Interpretation Comments WHITE BLOOD CELL COUNT (BEAKER) (test code = 775) 5.4 K/ L 3.5- 10.5 RED BLOOD CELL COUNT (BEAKER) (test code = 761) 3.02 M/ L 3.93-5 .22 L HEMOGLOBIN (BEAKER) (test code = 410) 9.3 GM/DL 11.2-15.7 L HEMATOCRIT (BEAKER) (test code = 411) 29.6 % 34.1-44.9 L MEAN CORPUSCULAR VOLUME (BEAKER) (test code = 753) 98.0 fL 79. 4-94.8 H MEAN CORPUSCULAR HEMOGLOBIN (BEAKER) (test code = 751) 30.8 pg 25.6-32.2 MEAN CORPUSCULAR HEMOGLOBIN CONC (BEAKER) (test code = 752) 31.4 GM/DL 32.2-35.5 L RED CELL DISTRIBUTION WIDTH (BEAKER) (test code = 412) 15.7 % 11.7-14.4 H PLATELET COUNT (BEAKER) (test code = 756) 91 K/CU MM 150-450 L MEAN PLATELET VOLUME (BEAKER) (test code = 754) 13.1 fL 9.4-12 .3 H NUCLEATED RED BLOOD CELLS (BEAKER) (test code = 413) 0 /100 WBC 0 -0 NEUTROPHILS RELATIVE PERCENT (BEAKER) (test code = 429) 60 % LYMPHOCYTES RELATIVE PERCENT (BEAKER) (test code = 430) 17 % MONOCYTES RELATIVE PERCENT (BEAKER) (test code = 431) 19 % EOSINOPHILS RELATIVE PERCENT (BEAKER) (test code = 432) 2 % BASOPHILS RELATIVE PERCENT (BEAKER) (test code = 437) 0 % NEUTROPHILS ABSOLUTE COUNT (BEAKER) (test code = 670) 3.27 K/ L 1.56-6.13 LYMPHOCYTES ABSOLUTE COUNT (BEAKER) (test code = 414) 0.94 K/ L 1.18-3.74 L MONOCYTES ABSOLUTE COUNT (BEAKER) (test code = 415) 1.05 K/ L 0. 24-0.36 H EOSINOPHILS ABSOLUTE COUNT (BEAKER) (test code = 416) 0.13 K/ L 0.04-0.36 BASOPHILS ABSOLUTE COUNT (BEAKER) (test code = 417) 0.02 K/ L 0. 01-0.08 IMMATURE GRANULOCYTES-RELATIVE PERCENT (BEAKER) (test code = 2801) 1 % 0-1 POCT-GLUCOSE [id number] 21:14:00* Test Item Value Reference Range Interpretation Comments POC-GLUCOSE METER (BEAKER) (test code = 1538) 184 mg/dL 70-110 H TESTED AT [address] [address] POCT-GLUCOSE [id number] 17:06:00* Test Item Value Reference Range Interpretation Comments POC-GLUCOSE METER (BEAKER) (test code = 1538) 182 mg/dL 70-110 H TESTED AT [address] [address] POCT-GLUCOSE [id number] 12:56:00* Test Item Value Reference Range Interpretation Comments POC-GLUCOSE METER (BEAKER) (test code = 1538) 164 mg/dL 70-110 H TESTED AT [address] [address] BASIC METABOLIC [id number] 05:29:00* Test Item Value Reference Range Interpretation Comments SODIUM (BEAKER) (test code = 381) 136 meq/L 136-145 POTASSIUM (BEAKER) (test code = 379) 4.0 meq/L 3.5-5.1 CHLORIDE (BEAKER) (test code = 382) 92 meq/L 98-107 L CO2 (BEAKER) (test code = 355) 33 meq/L 22-29 H BLOOD UREA NITROGEN (BEAKER) (test code = 354) 46 mg/dL 7-21 H CREATININE (BEAKER) (test code = 358) 10.40 mg/dL 0.57-1.25 H GLUCOSE RANDOM (BEAKER) (test code = 652) 131 mg/dL 70-105 H CALCIUM (BEAKER) (test code = 697) 7.8 mg/dL 8.4-10.2 L EGFR (BEAKER) (test code = 1092) 5 mL/min/1.73 sq m ESTIMATED GFR IS NOT ACCURATE CREATININE CLEARANCE IN PREDICTING GLOMERULAR FILTRATION RATE. ESTIMATED GFR IS NOT APPLICABLE FOR DIALYSIS PATIENTS. [id number] 05:26:00* Test Item Value Reference Range Interpretation Comments MAGNESIUM (BEAKER) (test code = 627) 2.0 mg/dL 1.6-2.6 HEPATIC FUNCTION [id number] 05:26:00* Test Item Value Reference Range Interpretation Comments TOTAL PROTEIN (BEAKER) (test code = 770) 6.9 gm/dL 6.0-8.3 ALBUMIN (BEAKER) (test code = 1145) 3.3 g/dL 3.5-5.0 L BILIRUBIN TOTAL (BEAKER) (test code = 377) 0.7 mg/dL 0.2-1.2 BILIRUBIN DIRECT (BEAKER) (test code = 706) 0.4 mg/dL 0.1-0.5 ALKALINE PHOSPHATASE (BEAKER) (test code = 346) 44 U/L 40-150 AST (SGOT) (BEAKER) (test code = 353) 27 U/L 5-34 ALT (SGPT) (BEAKER) (test code = 347) 16 U/L 6-55 CBC W/PLT COUNT & AUTO [id number] 04:56:00* Test Item Value Reference Range Interpretation Comments WHITE BLOOD CELL COUNT (BEAKER) (test code = 775) 5.3 K/ L 3.5- 10.5 RED BLOOD CELL COUNT (BEAKER) (test code = 761) 3.00 M/ L 3.93-5 .22 L HEMOGLOBIN (BEAKER) (test code = 410) 9.3 GM/DL 11.2-15.7 L HEMATOCRIT (BEAKER) (test code = 411) 28.8 % 34.1-44.9 L MEAN CORPUSCULAR VOLUME (BEAKER) (test code = 753) 96.0 fL 79. 4-94.8 H MEAN CORPUSCULAR HEMOGLOBIN (BEAKER) (test code = 751) 31.0 pg 25.6-32.2 MEAN CORPUSCULAR HEMOGLOBIN CONC (BEAKER) (test code = 752) 32.3 GM/DL 32.2-35.5 RED CELL DISTRIBUTION WIDTH (BEAKER) (test code = 412) 15.4 % 11.7-14.4 H PLATELET COUNT (BEAKER) (test code = 756) 87 K/CU MM 150-450 L MEAN PLATELET VOLUME (BEAKER) (test code = 754) 13.0 fL 9.4-12 .3 H NUCLEATED RED BLOOD CELLS (BEAKER) (test code = 413) 0 /100 WBC 0 -0 NEUTROPHILS RELATIVE PERCENT (BEAKER) (test code = 429) 56 % LYMPHOCYTES RELATIVE PERCENT (BEAKER) (test code = 430) 16 % MONOCYTES RELATIVE PERCENT (BEAKER) (test code = 431) 25 % EOSINOPHILS RELATIVE PERCENT (BEAKER) (test code = 432) 3 % BASOPHILS RELATIVE PERCENT (BEAKER) (test code = 437) 0 % NEUTROPHILS ABSOLUTE COUNT (BEAKER) (test code = 670) 2.97 K/ L 1.56-6.13 LYMPHOCYTES ABSOLUTE COUNT (BEAKER) (test code = 414) 0.85 K/ L 1.18-3.74 L MONOCYTES ABSOLUTE COUNT (BEAKER) (test code = 415) 1.31 K/ L 0. 24-0.36 H EOSINOPHILS ABSOLUTE COUNT (BEAKER) (test code = 416) 0.16 K/ L 0.04-0.36 BASOPHILS ABSOLUTE COUNT (BEAKER) (test code = 417) 0.01 K/ L 0. 01-0.08 IMMATURE GRANULOCYTES-RELATIVE PERCENT (BEAKER) (test code = 2801) 1 % 0-1 POCT-GLUCOSE [id number] 21:33:00* Test Item Value Reference Range Interpretation Comments POC-GLUCOSE METER (BEAKER) (test code = 1538) 199 mg/dL 70-[address] [facility] [address] [facility] [address] POCT-GLUCOSE [id number] 19:16:00* Test Item Value Reference Range Interpretation Comments POC-GLUCOSE METER (BEAKER) (test code = 1538) 188 mg/dL 70-[address] [facility] [address] [facility] [address] RAD, FOOT, 2 VIEWS, [id number] 17:11:00Reason for exam:->postop ,s/p surgery,foot painFINAL REPORT TECHNIQUE: Frontal and lateral radiographs of the right foot dated 04/30/2018 HISTORY: Status post foot surgery COMPARISON: None. FINDINGS:Two wires are seen traversing the interphalangeal and phalangeal metatarsal joints of the second and third digits. No fracture or dislocation. Bones are normal in density. Lisfranc joint is well aligned on these unstressed views. IMPRESSION:No fracture or dislocation.Postsurgical appearance of the foot. Signed: Jovanny Russell MDReport Verified Date/Time: 04/30/2018 17:11:27 Reading Location: [facility] Radiology Reading Room ONIN [id number] 16:39:00* Test Item Value Reference Range Interpretation Comments TROPONIN I (BEAKER) (test code = 397) 0.18 ng/mL 0.00-0.03 H Troponin I (TnI) levels must be interpreted in the context of the presenting sym ptoms and the clinical findings. Elevated TnI levels indicate myocardial damage, but are not specific for ischemic heart disease. Elevated TnI levels are seen in patients with other cardiac conditions (including myocarditis and congestive h eart failure), and slight TnI elevations occur in patients with other conditions , including sepsis, renal failure, acidosis, acute neurological disease, and per sistent tachyarrhythmia.RESPIRATORY PANEL [id number] 13:49:00* Test Item Value Reference Range Interpretation Comments HUMAN METAPNEUMOVIRUS (BEAKER) (test code = 2683) Not detect ed Not detected, Equivocal RHINOVIRUS (BEAKER) (test code = 2684) Not detected Not detected, E quivocal INFLUENZA A (BEAKER) (test code = 2685) Not detected Not detected, Equivocal INFLUENZA A (NO SUBTYPE) (test code = 3606) Not detect ed, Equivocal INFLUENZA A SUBTYPE H1 (BEAKER) (test code = 2686) Not detected, Equivocal INFLUENZA A SUBTYPE H3 (BEAKER) (test code = 2687) Not detected, Equivocal INFLUENZA A SUBTYPE H1-2009 (BEAKER) (test code = 3198) Not detected, Equivocal INFLUENZA B (BEAKER) (test code = 2688) Not detected Not detected, Equivocal RESPIRATORY SYNCYTIAL VIRUS (BEAKER) (test code = 3199) Not detected Not detected, Equivocal PARAINFLUENZA VIRUS 1 (BEAKER) (test code = 2691) Not detect ed Not detected, Equivocal PARAINFLUENZA VIRUS 2 (BEAKER) (test code = 2692) Not detect ed Not detected, Equivocal PARAINFLUENZA VIRUS 3 (BEAKER) (test code = 2693) Not detect ed Not detected, Equivocal PARAINFLUENZA VIRUS 4 (BEAKER) (test code = 3200) Not detect ed Not detected, Equivocal ADENOVIRUS (BEAKER) (test code = 2694) Not detected Not detected, E quivocal CORONAVIRUS 229E (BEAKER) (test code = 3201) Not detected Not detected, Equivocal CORONAVIRUS HKU1 (BEAKER) (test code = 3202) Not detected Not detected, Equivocal CORONAVIRUS NL63 (BEAKER) (test code = 3203) Not detected Not detected, Equivocal CORONAVIRUS OC43 (BEAKER) (test code = 3204) Not detected Not detected, Equivocal BORDETELLA PERTUSSIS (BEAKER) (test code = 3205) Not detecte d Not detected, Equivocal CHLAMYDOPHILA PNEUMONIAE (BEAKER) (test code = 3206) Not det ected Not detected, Equivocal MYCOPLASMA PNEUMONIAE (BEAKER) (test code = 3207) Not detect ed Not detected, Equivocal Other viruses and bacteria not targeted by this PCR panel cannot be excluded; th erefore clinical correlation and follow up of serology, culture results, and oth er molecular studies is required. The results are not intended to be used as the sole means for clinical diagnosis or patient management decisions. This sample was tested at the [facility] using the [employer] rray Respiratory Panel. It is FDA cleared and has been verified and approved by the [facility] for clinical use on nasal swab specim ens. It is not FDA-cleared for use on bronchial wash/lavage samples. However, fo r this sample type, validation was performed and test characteristics were deter mined and approved, by [facility] for clinical use u nder the Clinical Laboratory Improvement Amendments (CLIA) of 1988 requirements. Therefore, FDA clearance is not required. This laboratory is CLIA-certified and [employer] ([employer])-accredited to perform high complexity t esting.HEMOGLOBIN [id number] 13:03:00* Test Item Value Reference Range Interpretation Comments HEMOGLOBIN A1C (BHARTI) (test code = 368) 6.2 % 4.3-6.1 H POCT-GLUCOSE [id number] 11:50:00* Test Item Value Reference Range Interpretation Comments POC-GLUCOSE METER (BEAKER) (test code = 1538) 218 mg/dL 70-[address] [facility] [address] [place] [address] HEPATITIS B SURFACE [id number] 11:19:00* Test Item Value Reference Range Interpretation Comments HEPATITIS B SURFACE ANTIGEN (2) (BEAKER) (test code = 2585) Nonreactive Nonreactive POCT-GLUCOSE [id number] 09:06:00* Test Item Value Reference Range Interpretation Comments POC-GLUCOSE METER (BEAKER) (test code = 1538) 138 mg/dL 70-110 H TESTED AT [place] [address] TROPONIN [id number] 05:51:00* Test Item Value Reference Range Interpretation Comments TROPONIN I (BEAKER) (test code = 397) 0.21 ng/mL 0.00-0.03 HH Troponin I (TnI) levels must be interpreted in the context of the presenting sym ptoms and the clinical findings. Elevated TnI levels indicate myocardial damage, but are not specific for ischemic heart disease. Elevated TnI levels are seen in patients with other cardiac conditions (including myocarditis and congestive h eart failure), and slight TnI elevations occur in patients with other conditions , including sepsis, renal failure, acidosis, acute neurological disease, and per sistent tachyarrhythmia.RAPID INFLUENZA A&B [id number] 04:29:00* Test Item Value Reference Range Interpretation Comments RAPID INFLUENZA A AG (BEAKER) (test code = 1622) Negative Negative, Inconclusive RAPID INFLUENZA B AG (BEAKER) (test code = 1623) Negative Negative, Inconclusive TROPONIN [id number] 04:26:00* Test Item Value Reference Range Interpretation Comments TROPONIN I (BEAKER) (test code = 397) 0.20 ng/mL 0.00-0.03 HH Troponin I (TnI) levels must be interpreted in the context of the presenting sym ptoms and the clinical findings. Elevated TnI levels indicate myocardial damage, but are not specific for ischemic heart disease. Elevated TnI levels are seen in patients with other cardiac conditions (including myocarditis and congestive h eart failure), and slight TnI elevations occur in patients with other conditions , including sepsis, renal failure, acidosis, acute neurological disease, and per sistent tachyarrhythmia.B-TYPE NATRIURETIC FACTOR (BNP)2018-04-30 04:18:00* Test Item Value Reference Range Interpretation Comments B-TYPE NATRIURETIC PEPTIDE (BEAKER) (test code = 700) 2035 pg/mL 0-100 H BASIC METABOLIC [id number] 04:15:00* Test Item Value Reference Range Interpretation Comments SODIUM (BEAKER) (test code = 381) 136 meq/L 136-145 POTASSIUM (BEAKER) (test code = 379) 3.9 meq/L 3.5-5.1 CHLORIDE (BEAKER) (test code = 382) 92 meq/L 98-107 L CO2 (BEAKER) (test code = 355) 31 meq/L 22-29 H BLOOD UREA NITROGEN (BEAKER) (test code = 354) 27 mg/dL 7-21 H CREATININE (BEAKER) (test code = 358) 7.67 mg/dL 0.57-1.25 H GLUCOSE RANDOM (BEAKER) (test code = 652) 150 mg/dL 70-105 H CALCIUM (BEAKER) (test code = 697) 8.4 mg/dL 8.4-10.2 EGFR (BEAKER) (test code = 1092) 6 mL/min/1.73 sq m ESTIMATED GFR IS NOT ACCURATE CREATININE CLEARANCE IN PREDICTING GLOMERULAR FILTRATION RATE. ESTIMATED GFR IS NOT APPLICABLE FOR DIALYSIS PATIENTS. CBC W/PLT COUNT & AUTO [id number] 04:03:00* Test Item Value Reference Range Interpretation Comments WHITE BLOOD CELL COUNT (BEAKER) (test code = 775) 7.7 K/ L 3.5- 10.5 RED BLOOD CELL COUNT (BEAKER) (test code = 761) 3.54 M/ L 3.93-5 .22 L HEMOGLOBIN (BEAKER) (test code = 410) 10.9 GM/DL 11.2-15.7 L HEMATOCRIT (BEAKER) (test code = 411) 33.6 % 34.1-44.9 L MEAN CORPUSCULAR VOLUME (BEAKER) (test code = 753) 94.9 fL 79. 4-94.8 H MEAN CORPUSCULAR HEMOGLOBIN (BEAKER) (test code = 751) 30.8 pg 25.6-32.2 MEAN CORPUSCULAR HEMOGLOBIN CONC (BEAKER) (test code = 752) 32.4 GM/DL 32.2-35.5 RED CELL DISTRIBUTION WIDTH (BEAKER) (test code = 412) 15.1 % 11.7-14.4 H PLATELET COUNT (BEAKER) (test code = 756) 99 K/CU MM 150-450 L MEAN PLATELET VOLUME (BEAKER) (test code = 754) 12.3 fL 9.4-12 .3 NUCLEATED RED BLOOD CELLS (BEAKER) (test code = 413) 0 /100 WBC 0 -0 NEUTROPHILS RELATIVE PERCENT (BEAKER) (test code = 429) 62 % LYMPHOCYTES RELATIVE PERCENT (BEAKER) (test code = 430) 16 % MONOCYTES RELATIVE PERCENT (BEAKER) (test code = 431) 20 % EOSINOPHILS RELATIVE PERCENT (BEAKER) (test code = 432) 1 % BASOPHILS RELATIVE PERCENT (BEAKER) (test code = 437) 0 % NEUTROPHILS ABSOLUTE COUNT (BEAKER) (test code = 670) 4.74 K/ L 1.56-6.13 LYMPHOCYTES ABSOLUTE COUNT (BEAKER) (test code = 414) 1.24 K/ L 1.18-3.74 MONOCYTES ABSOLUTE COUNT (BEAKER) (test code = 415) 1.57 K/ L 0. 24-0.36 H EOSINOPHILS ABSOLUTE COUNT (BEAKER) (test code = 416) 0.05 K/ L 0.04-0.36 BASOPHILS ABSOLUTE COUNT (BEAKER) (test code = 417) 0.03 K/ L 0. 01-0.08 IMMATURE GRANULOCYTES-RELATIVE PERCENT (BEAKER) (test code = 2801) 1 % 0-1 POCT-LACTIC ACID, [id number] 04:00:00* Test Item Value Reference Range Interpretation Comments POC-LACTIC ACID, VENOUS (BEAKER) (test code = 2805) 1.8 mmol/L 0. 9-1.[address] [facility] [address] [facility] [address] RAD, CHEST, 1 VIEW, NON [id number] 03:22:00Reason for exam:->SHORTNESS OF BREATHShould this be performed at the bedside?->YesFINAL REPORT RAD, CHEST, 1 VIEW, NON DEPT INDICATION: SHORTNESS OF BREATH COMPARISON: Plain radiograph the chest dated 01/03/2018. FINDINGS: Portable frontal view of the chest. IMPRESSION: Support Lines: Left chest wall pacer device with leads overlying the right atrium, right ventricle and coronary sinus. Lungs and pleura: Bilateral lower lobe dependent atelectasis. Possible small right pleural effusion. No pneumothorax.Heart and mediastinum: Stable enlarged cardiomediastinal silhouette. Atherosclerotic calcifications of the tho racic aorta. Additional findings: Osseous structures are unremarkable. Signed: Robert Hodge Verified Date/Time: 04/30/2018 03:22:33 Reading Loc ation: [facility] B1 C013T Transitional Reading Room -GLUCOSE [id number] 12:07:00* Test Item Value Reference Range Interpretation Comments POC-GLUCOSE METER (BEAKER) (test code = 1538) 79 mg/dL 70-110 TESTED AT [address] [address] POCT-GLUCOSE [id number] 08:12:00* Test Item Value Reference Range Interpretation Comments POC-GLUCOSE METER (BEAKER) (test code = 1538) 55 mg/dL 70-110 L Notified SHAN NICOLE/TESTED AT [address] [address] BASIC METABOLIC [id number] 06:32:00* Test Item Value Reference Range Interpretation Comments SODIUM (BEAKER) (test code = 381) 136 meq/L 136-145 POTASSIUM (BEAKER) (test code = 379) 3.9 meq/L 3.5-5.1 CHLORIDE (BEAKER) (test code = 382) 98 meq/L 98-107 CO2 (BEAKER) (test code = 355) 27 meq/L 22-29 BLOOD UREA NITROGEN (BEAKER) (test code = 354) 24 mg/dL 7-21 H CREATININE (BEAKER) (test code = 358) 7.49 mg/dL 0.57-1.25 H GLUCOSE RANDOM (BEAKER) (test code = 652) 55 mg/dL 70-105 L CALCIUM (BEAKER) (test code = 697) 8.7 mg/dL 8.4-10.2 EGFR (BEAKER) (test code = 1092) 7 mL/min/1.73 sq m ESTIMATED GFR IS NOT ACCURATE CREATININE CLEARANCE IN PREDICTING GLOMERULAR FILTRATION RATE. ESTIMATED GFR IS NOT APPLICABLE FOR DIALYSIS PATIENTS. LACTIC ACID, VENOUS, WHOLE [id number] 05:30:00* Test Item Value Reference Range Interpretation Comments LACTATE BLOOD VENOUS (2) (BEAKER) (test code = 2872) 1.1 mmol/L 0 .5-2.2 Effective 09/22/2015: Units/Reference Range ChangeNew: 0.5-2.2 mmol/L Previous: 5 [facility]2018-01-06 05:18:00* Test Item Value Reference Range Interpretation Comments WHITE BLOOD CELL COUNT (BEAKER) (test code = 775) 5.4 K/ L 3.5- 10.5 RED BLOOD CELL COUNT (BEAKER) (test code = 761) 3.84 M/ L 3.93-5 .22 L HEMOGLOBIN (BEAKER) (test code = 410) 11.8 GM/DL 11.2-15.7 HEMATOCRIT (BEAKER) (test code = 411) 37.0 % 34.1-44.9 MEAN CORPUSCULAR VOLUME (BEAKER) (test code = 753) 96.4 fL 79. 4-94.8 H MEAN CORPUSCULAR HEMOGLOBIN (BEAKER) (test code = 751) 30.7 pg 25.6-32.2 MEAN CORPUSCULAR HEMOGLOBIN CONC (BEAKER) (test code = 752) 31.9 GM/DL 32.2-35.5 L RED CELL DISTRIBUTION WIDTH (BEAKER) (test code = 412) 13.4 % 11.7-14.4 PLATELET COUNT (BEAKER) (test code = 756) 130 K/CU MM 150-450 L MEAN PLATELET VOLUME (BEAKER) (test code = 754) 11.7 fL 9.4-12 .3 NUCLEATED RED BLOOD CELLS (BEAKER) (test code = 413) 0 /100 WBC 0 -0 POCT-GLUCOSE [id number] 20:47:00* Test Item Value Reference Range Interpretation Comments POC-GLUCOSE METER (BEAKER) (test code = 1538) 115 mg/dL 70-[address] [facility] [address] [facility] [address] POCT-GLUCOSE [id number] 17:00:00* Test Item Value Reference Range Interpretation Comments POC-GLUCOSE METER (BEAKER) (test code = 1538) 109 mg/dL 70-[address] [facility] [address] [facility] [address] POCT-GLUCOSE [id number] 12:31:00* Test Item Value Reference Range Interpretation Comments POC-GLUCOSE METER (BEAKER) (test code = 1538) 118 mg/dL 70-[address] [facility] [address] [facility] [address] [id number] 10:13:00* Test Item Value Reference Range Interpretation Comments PHOSPHORUS (BEAKER) (test code = 604) 5.0 mg/dL 2.3-4.7 H BASIC METABOLIC [id number] 08:29:00* Test Item Value Reference Range Interpretation Comments SODIUM (BEAKER) (test code = 381) 137 meq/L 136-145 POTASSIUM (BEAKER) (test code = 379) 4.2 meq/L 3.5-5.1 CHLORIDE (BEAKER) (test code = 382) 98 meq/L 98-107 CO2 (BEAKER) (test code = 355) 28 meq/L 22-29 BLOOD UREA NITROGEN (BEAKER) (test code = 354) 35 mg/dL 7-21 H CREATININE (BEAKER) (test code = 358) 10.06 mg/dL 0.57-1.25 H GLUCOSE RANDOM (BEAKER) (test code = 652) 69 mg/dL 70-105 L CALCIUM (BEAKER) (test code = 697) 8.6 mg/dL 8.4-10.2 EGFR (BEAKER) (test code = 1092) 5 mL/min/1.73 sq m ESTIMATED GFR IS NOT ACCURATE CREATININE CLEARANCE IN PREDICTING GLOMERULAR FILTRATION RATE. ESTIMATED GFR IS NOT APPLICABLE FOR DIALYSIS PATIENTS. CBC (HEMOGRAM ONLY)2018-01-05 08:11:00* Test Item Value Reference Range Interpretation Comments WHITE BLOOD CELL COUNT (BEAKER) (test code = 775) 4.7 K/ L 3.5- 10.5 RED BLOOD CELL COUNT (BEAKER) (test code = 761) 3.67 M/ L 3.93-5 .22 L HEMOGLOBIN (BEAKER) (test code = 410) 11.3 GM/DL 11.2-15.7 HEMATOCRIT (BEAKER) (test code = 411) 35.0 % 34.1-44.9 MEAN CORPUSCULAR VOLUME (BEAKER) (test code = 753) 95.4 fL 79. 4-94.8 H MEAN CORPUSCULAR HEMOGLOBIN (BEAKER) (test code = 751) 30.8 pg 25.6-32.2 MEAN CORPUSCULAR HEMOGLOBIN CONC (BEAKER) (test code = 752) 32.3 GM/DL 32.2-35.5 RED CELL DISTRIBUTION WIDTH (BEAKER) (test code = 412) 13.3 % 11.7-14.4 PLATELET COUNT (BEAKER) (test code = 756) 125 K/CU MM 150-450 L MEAN PLATELET VOLUME (BEAKER) (test code = 754) 12.1 fL 9.4-12 .3 NUCLEATED RED BLOOD CELLS (BEAKER) (test code = 413) 0 /100 WBC 0 -0 POCT-GLUCOSE [id number] 20:56:00* Test Item Value Reference Range Interpretation Comments POC-GLUCOSE METER (BEAKER) (test code = 1538) 137 mg/dL 70-110 H TESTED AT [address] [address] POCT-GLUCOSE [id number] 18:44:00* Test Item Value Reference Range Interpretation Comments POC-GLUCOSE METER (BEAKER) (test code = 1538) 137 mg/dL 70-110 H TESTED AT [address] [address] POCT-GLUCOSE [id number] 14:25:00* Test Item Value Reference Range Interpretation Comments POC-GLUCOSE METER (BEAKER) (test code = 1538) 118 mg/dL 70-110 H TESTED AT [address] [address] BASIC METABOLIC [id number] 10:04:00* Test Item Value Reference Range Interpretation Comments SODIUM (BEAKER) (test code = 381) 137 meq/L 136-145 POTASSIUM (BEAKER) (test code = 379) 4.6 meq/L 3.5-5.1 CHLORIDE (BEAKER) (test code = 382) 97 meq/L 98-107 L CO2 (BEAKER) (test code = 355) 25 meq/L 22-29 BLOOD UREA NITROGEN (BEAKER) (test code = 354) 63 mg/dL 7-21 H CREATININE (BEAKER) (test code = 358) 14.86 mg/dL 0.57-1.25 H GLUCOSE RANDOM (BEAKER) (test code = 652) 85 mg/dL 70-105 CALCIUM (BEAKER) (test code = 697) 8.5 mg/dL 8.4-10.2 EGFR (BEAKER) (test code = 1092) 3 mL/min/1.73 sq m ESTIMATED GFR IS NOT ACCURATE CREATININE CLEARANCE IN PREDICTING GLOMERULAR FILTRATION RATE. ESTIMATED GFR IS NOT APPLICABLE FOR DIALYSIS PATIENTS. [id number] 10:00:00* Test Item Value Reference Range Interpretation Comments PHOSPHORUS (BEAKER) (test code = 604) 8.6 mg/dL 2.3-4.7 H CREATINE KINASE (CK), TOTAL AND [id number] 09:57:00* Test Item Value Reference Range Interpretation Comments CREATINE KINASE TOTAL (BEAKER) (test code = 380) 155 U/L 29-20 0 CREATINE KINASE-MB (BEAKER) (test code = 750) 3.0 ng/mL 0.0-6.6 CREATINE KINASE-MB INDEX (BEAKER) (test code = 395) 1.9 % CK-MB Reference Range:<6.7 Normal6.7-10.0 Borderline>10.0 Abnormal TROPONIN [id number] 09:57:00* Test Item Value Reference Range Interpretation Comments TROPONIN I (BEAKER) (test code = 397) 0.05 ng/mL 0.00-0.03 H Troponin I (TnI) levels must be interpreted in the context of the presenting sym ptoms and the clinical findings. Elevated TnI levels indicate myocardial damage, but are not specific for ischemic heart disease. Elevated TnI levels are seen in patients with other cardiac conditions (including myocarditis and congestive h eart failure), and slight TnI elevations occur in patients with other conditions , including sepsis, renal failure, acidosis, acute neurological disease, and per sistent tachyarrhythmia.CBC W/PLT COUNT & AUTO [id number] 09:20:00* Test Item Value Reference Range Interpretation Comments WHITE BLOOD CELL COUNT (BEAKER) (test code = 775) 4.0 K/ L 3.5- 10.5 RED BLOOD CELL COUNT (BEAKER) (test code = 761) 3.36 M/ L 3.93-5 .22 L HEMOGLOBIN (BEAKER) (test code = 410) 10.5 GM/DL 11.2-15.7 L HEMATOCRIT (BEAKER) (test code = 411) 31.7 % 34.1-44.9 L MEAN CORPUSCULAR VOLUME (BEAKER) (test code = 753) 94.3 fL 79. 4-94.8 MEAN CORPUSCULAR HEMOGLOBIN (BEAKER) (test code = 751) 31.3 pg 25.6-32.2 MEAN CORPUSCULAR HEMOGLOBIN CONC (BEAKER) (test code = 752) 33.1 GM/DL 32.2-35.5 RED CELL DISTRIBUTION WIDTH (BEAKER) (test code = 412) 13.5 % 11.7-14.4 PLATELET COUNT (BEAKER) (test code = 756) 114 K/CU MM 150-450 L MEAN PLATELET VOLUME (BEAKER) (test code = 754) 12.5 fL 9.4-12 .3 H NUCLEATED RED BLOOD CELLS (BEAKER) (test code = 413) 0 /100 WBC 0 -0 NEUTROPHILS RELATIVE PERCENT (BEAKER) (test code = 429) 59 % LYMPHOCYTES RELATIVE PERCENT (BEAKER) (test code = 430) 25 % MONOCYTES RELATIVE PERCENT (BEAKER) (test code = 431) 12 % EOSINOPHILS RELATIVE PERCENT (BEAKER) (test code = 432) 3 % BASOPHILS RELATIVE PERCENT (BEAKER) (test code = 437) 0 % NEUTROPHILS ABSOLUTE COUNT (BEAKER) (test code = 670) 2.37 K/ L 1.56-6.13 LYMPHOCYTES ABSOLUTE COUNT (BEAKER) (test code = 414) 0.99 K/ L 1.18-3.74 L MONOCYTES ABSOLUTE COUNT (BEAKER) (test code = 415) 0.48 K/ L 0. 24-0.36 H EOSINOPHILS ABSOLUTE COUNT (BEAKER) (test code = 416) 0.11 K/ L 0.04-0.36 BASOPHILS ABSOLUTE COUNT (BEAKER) (test code = 417) 0.01 K/ L 0. 01-0.08 IMMATURE GRANULOCYTES-RELATIVE PERCENT (BEAKER) (test code = 2801) 1 % 0-1 POCT-GLUCOSE [id number] 07:37:00* Test Item Value Reference Range Interpretation Comments POC-GLUCOSE METER (BEAKER) (test code = 1538) 93 mg/dL 70-[address] [facility] [address] [facility] [address] CBC (HEMOGRAM ONLY)2018-01-04 05:18:00* Test Item Value Reference Range Interpretation Comments WHITE BLOOD CELL COUNT (BEAKER) (test code = 775) 4.1 K/ L 3.5- 10.5 RED BLOOD CELL COUNT (BEAKER) (test code = 761) 3.23 M/ L 3.93-5 .22 L HEMOGLOBIN (BEAKER) (test code = 410) 10.0 GM/DL 11.2-15.7 L HEMATOCRIT (BEAKER) (test code = 411) 31.0 % 34.1-44.9 L MEAN CORPUSCULAR VOLUME (BEAKER) (test code = 753) 96.0 fL 79. 4-94.8 H MEAN CORPUSCULAR HEMOGLOBIN (BEAKER) (test code = 751) 31.0 pg 25.6-32.2 MEAN CORPUSCULAR HEMOGLOBIN CONC (BEAKER) (test code = 752) 32.3 GM/DL 32.2-35.5 RED CELL DISTRIBUTION WIDTH (BEAKER) (test code = 412) 13.5 % 11.7-14.4 PLATELET COUNT (BEAKER) (test code = 756) 118 K/CU MM 150-450 L MEAN PLATELET VOLUME (BEAKER) (test code = 754) 12.1 fL 9.4-12 .3 NUCLEATED RED BLOOD CELLS (BEAKER) (test code = 413) 0 /100 WBC 0 -0 RAD, CHEST, 1 VIEW, NON [id number] 22:14:00Reason for exam:->chfShould this be performed at the bedside?->YesFINAL REPORT EXAMINATION: AP PORTABLE CHEST RADIOGRAPH CLINICAL INDICATION: Congestive heart failure IMPRESSION: Compared with 12/24/2017. A left subclavian cardiac pacing device is again noted. The leads are intact where visible. The cardiac silhouette is enlarged but stable. Mediastinal contours are also grossly unchanged. Subtle reticular opacities are again noted in both lungs with a predominantly central distribution. Atelectasis and/or scarring favored. Mild pulmonary edema or an underlying pneumonia difficult to exclude. No definite evidence of new parenchymal lung consolidation, large pleural effusion or pneumothorax. Signed: Benson Fraga MDReport Verified Date/Time: 01/03/2018 22: 14:30 Reading Location: [address] Transitional Reading Room Electronical ly signed by: BENSON FRAGA M.D. on 01/03/2018 10:14 PM POCT-GLUCOSE METER 2018-01-03 21:35:00* Test Item Value Reference Range Interpretation Comments POC-GLUCOSE METER (BEAKER) (test code = 1538) 138 mg/dL 70-[address] [facility] [address] [facility] [address] BASIC METABOLIC [id number] 20:07:00* Test Item Value Reference Range Interpretation Comments SODIUM (BEAKER) (test code = 381) 138 meq/L 136-145 POTASSIUM (BEAKER) (test code = 379) 4.7 meq/L 3.5-5.1 Specimen slightly hemolyzed CHLORIDE (BEAKER) (test code = 382) 98 meq/L 98-107 CO2 (BEAKER) (test code = 355) 24 meq/L 22-29 BLOOD UREA NITROGEN (BEAKER) (test code = 354) 57 mg/dL 7-21 H CREATININE (BEAKER) (test code = 358) 13.89 mg/dL 0.57-1.25 H Specimen slightly hemolyzed GLUCOSE RANDOM (BEAKER) (test code = 652) 98 mg/dL 70-105 CALCIUM (BEAKER) (test code = 697) 9.3 mg/dL 8.4-10.2 EGFR (BEAKER) (test code = 1092) 3 mL/min/1.73 sq m ESTIMATED GFR IS NOT ACCURATE CREATININE CLEARANCE IN PREDICTING GLOMERULAR FILTRATION RATE. ESTIMATED GFR IS NOT APPLICABLE FOR DIALYSIS PATIENTS. B-TYPE NATRIURETIC FACTOR (BNP)2018-01-03 20:02:00* Test Item Value Reference Range Interpretation Comments B-TYPE NATRIURETIC PEPTIDE (BEAKER) (test code = 700) 855 pg/mL 0-100 H CBC W/PLT COUNT & AUTO [id number] 19:35:00* Test Item Value Reference Range Interpretation Comments WHITE BLOOD CELL COUNT (BEAKER) (test code = 775) 4.4 K/ L 3.5- 10.5 RED BLOOD CELL COUNT (BEAKER) (test code = 761) 3.78 M/ L 3.93-5 .22 L HEMOGLOBIN (BEAKER) (test code = 410) 11.7 GM/DL 11.2-15.7 HEMATOCRIT (BEAKER) (test code = 411) 36.6 % 34.1-44.9 MEAN CORPUSCULAR VOLUME (BEAKER) (test code = 753) 96.8 fL 79. 4-94.8 H MEAN CORPUSCULAR HEMOGLOBIN (BEAKER) (test code = 751) 31.0 pg 25.6-32.2 MEAN CORPUSCULAR HEMOGLOBIN CONC (BEAKER) (test code = 752) 32.0 GM/DL 32.2-35.5 L RED CELL DISTRIBUTION WIDTH (BEAKER) (test code = 412) 13.7 % 11.7-14.4 PLATELET COUNT (BEAKER) (test code = 756) 125 K/CU MM 150-450 L MEAN PLATELET VOLUME (BEAKER) (test code = 754) 11.9 fL 9.4-12 .3 NUCLEATED RED BLOOD CELLS (BEAKER) (test code = 413) 0 /100 WBC 0 -0 NEUTROPHILS RELATIVE PERCENT (BEAKER) (test code = 429) 59 % LYMPHOCYTES RELATIVE PERCENT (BEAKER) (test code = 430) 29 % MONOCYTES RELATIVE PERCENT (BEAKER) (test code = 431) 9 % EOSINOPHILS RELATIVE PERCENT (BEAKER) (test code = 432) 2 % BASOPHILS RELATIVE PERCENT (BEAKER) (test code = 437) 1 % NEUTROPHILS ABSOLUTE COUNT (BEAKER) (test code = 670) 2.59 K/ L 1.56-6.13 LYMPHOCYTES ABSOLUTE COUNT (BEAKER) (test code = 414) 1.30 K/ L 1.18-3.74 MONOCYTES ABSOLUTE COUNT (BEAKER) (test code = 415) 0.40 K/ L 0. 24-0.36 H EOSINOPHILS ABSOLUTE COUNT (BEAKER) (test code = 416) 0.10 K/ L 0.04-0.36 BASOPHILS ABSOLUTE COUNT (BEAKER) (test code = 417) 0.02 K/ L 0. 01-0.08 IMMATURE GRANULOCYTES-RELATIVE PERCENT (BEAKER) (test code = 2801) 0 % 0-1 POCT-GLUCOSE [id number] 19:11:00* Test Item Value Reference Range Interpretation Comments POC-GLUCOSE METER (BEAKER) (test code = 1538) 116 mg/dL 70-[address] [facility] [address] [facility] [address] POCT-GLUCOSE [id number] 09:57:00* Test Item Value Reference Range Interpretation Comments POC-GLUCOSE METER (BEAKER) (test code = 1538) 78 mg/dL 70-110 TESTED AT [address] [address] BASIC METABOLIC [id number] 03:59:00* Test Item Value Reference Range Interpretation Comments SODIUM (BEAKER) (test code = 381) 135 meq/L 136-145 L POTASSIUM (BEAKER) (test code = 379) 3.8 meq/L 3.5-5.1 CHLORIDE (BEAKER) (test code = 382) 94 meq/L 98-107 L CO2 (BEAKER) (test code = 355) 29 meq/L 22-29 BLOOD UREA NITROGEN (BEAKER) (test code = 354) 24 mg/dL 7-21 H CREATININE (BEAKER) (test code = 358) 7.56 mg/dL 0.57-1.25 H GLUCOSE RANDOM (BEAKER) (test code = 652) 104 mg/dL 70-105 CALCIUM (BEAKER) (test code = 697) 8.4 mg/dL 8.4-10.2 EGFR (BEAKER) (test code = 1092) 7 mL/min/1.73 sq m ESTIMATED GFR IS NOT ACCURATE CREATININE CLEARANCE IN PREDICTING GLOMERULAR FILTRATION RATE. ESTIMATED GFR IS NOT APPLICABLE FOR DIALYSIS PATIENTS. POCT-GLUCOSE [id number] 17:26:00* Test Item Value Reference Range Interpretation Comments POC-GLUCOSE METER (BEAKER) (test code = 1538) 98 mg/dL 70-110 TESTED AT [address] [address] BLOOD GAS, [id number] 12:57:00* Test Item Value Reference Range Interpretation Comments PH ARTERIAL (BEAKER) (test code = 383) 7.33 7.35-7.45 L PCO2 ARTERIAL (BEAKER) (test code = 384) 52 mmHg 35-45 H PO2 ARTERIAL (BEAKER) (test code = 385) 92 mmHg 80-90 H O2 SATURATION ARTERIAL (BEAKER) (test code = 386) 96.5 % 96.0 -97.0 HCO3 ARTERIAL (BEAKER) (test code = 388) 27 mmol/L 21-29 BASE EXCESS ARTERIAL (BEAKER) (test code = 387) 0.4 mmol/L -2.0-3 .0 PATIENT TEMPERATURE (BEAKER) (test code = 1818) 37.0 C FIO2 (BEAKER) (test code = 1819) 30.0 % POCT-GLUCOSE [id number] 12:47:00* Test Item Value Reference Range Interpretation Comments POC-GLUCOSE METER (BEAKER) (test code = 1538) 77 mg/dL 70-[address] [facility] [address] [facility] [address] POCT-GLUCOSE [id number] 07:46:00* Test Item Value Reference Range Interpretation Comments POC-GLUCOSE METER (BEAKER) (test code = 1538) 93 mg/dL 70-110 TESTED AT [address] [address] BLOOD GAS, [id number] 05:32:00* Test Item Value Reference Range Interpretation Comments PH ARTERIAL (BEAKER) (test code = 383) 7.25 7.35-7.45 L PCO2 ARTERIAL (BEAKER) (test code = 384) 71 mmHg 35-45 HH PO2 ARTERIAL (BEAKER) (test code = 385) 147 mmHg 80-90 H O2 SATURATION ARTERIAL (BEAKER) (test code = 386) 98.4 % 96.0 -97.0 H HCO3 ARTERIAL (BEAKER) (test code = 388) 30 mmol/L 21-29 H BASE EXCESS ARTERIAL (BEAKER) (test code = 387) 1.2 mmol/L -2.0-3 .0 PATIENT TEMPERATURE (BEAKER) (test code = 1818) 37.5 C FIO2 (BEAKER) (test code = 1819) 40.0 % BASIC METABOLIC [id number] 04:09:00* Test Item Value Reference Range Interpretation Comments SODIUM (BEAKER) (test code = 381) 138 meq/L 136-145 POTASSIUM (BEAKER) (test code = 379) 4.6 meq/L 3.5-5.1 CHLORIDE (BEAKER) (test code = 382) 98 meq/L 98-107 CO2 (BEAKER) (test code = 355) 25 meq/L 22-29 BLOOD UREA NITROGEN (BEAKER) (test code = 354) 30 mg/dL 7-21 H CREATININE (BEAKER) (test code = 358) 9.31 mg/dL 0.57-1.25 H GLUCOSE RANDOM (BEAKER) (test code = 652) 126 mg/dL 70-105 H CALCIUM (BEAKER) (test code = 697) 8.3 mg/dL 8.4-10.2 L EGFR (BEAKER) (test code = 1092) 5 mL/min/1.73 sq m ESTIMATED GFR IS NOT ACCURATE CREATININE CLEARANCE IN PREDICTING GLOMERULAR FILTRATION RATE. ESTIMATED GFR IS NOT APPLICABLE FOR DIALYSIS PATIENTS. POCT-GLUCOSE [id number] 18:35:00* Test Item Value Reference Range Interpretation Comments POC-GLUCOSE METER (BEAKER) (test code = 1538) 132 mg/dL 70-110 H TESTED AT [address] [address] POCT-GLUCOSE [id number] 17:47:00* Test Item Value Reference Range Interpretation Comments POC-GLUCOSE METER (BEAKER) (test code = 1538) 157 mg/dL 70-110 H TESTED AT [address] [address] POCT-GLUCOSE [id number] 17:42:00* Test Item Value Reference Range Interpretation Comments POC-GLUCOSE METER (BEAKER) (test code = 1538) 121 mg/dL 70-110 H TESTED AT [address] [address] BASIC METABOLIC [id number] 08:26:00* Test Item Value Reference Range Interpretation Comments SODIUM (BEAKER) (test code = 381) 138 meq/L 136-145 POTASSIUM (BEAKER) (test code = 379) 4.7 meq/L 3.5-5.1 CHLORIDE (BEAKER) (test code = 382) 98 meq/L 98-107 CO2 (BEAKER) (test code = 355) 26 meq/L 22-29 BLOOD UREA NITROGEN (BEAKER) (test code = 354) 51 mg/dL 7-21 H CREATININE (BEAKER) (test code = 358) 12.29 mg/dL 0.57-1.25 H GLUCOSE RANDOM (BEAKER) (test code = 652) 90 mg/dL 70-105 CALCIUM (BEAKER) (test code = 697) 8.0 mg/dL 8.4-10.2 L EGFR (BEAKER) (test code = 1092) 4 mL/min/1.73 sq m ESTIMATED GFR IS NOT ACCURATE CREATININE CLEARANCE IN PREDICTING GLOMERULAR FILTRATION RATE. ESTIMATED GFR IS NOT APPLICABLE FOR DIALYSIS PATIENTS. POCT-GLUCOSE [id number] 21:39:00* Test Item Value Reference Range Interpretation Comments POC-GLUCOSE METER (BEAKER) (test code = 1538) 250 mg/dL 70-110 H TESTED AT [address] [address] BLOOD GAS, [id number] 13:14:00* Test Item Value Reference Range Interpretation Comments PH ARTERIAL (BEAKER) (test code = 383) 7.29 7.35-7.45 L PCO2 ARTERIAL (BEAKER) (test code = 384) 63 mmHg 35-45 H PO2 ARTERIAL (BEAKER) (test code = 385) 90 mmHg 80-90 O2 SATURATION ARTERIAL (BEAKER) (test code = 386) 95.8 % 96.0 -97.0 L HCO3 ARTERIAL (BEAKER) (test code = 388) 29 mmol/L 21-29 BASE EXCESS ARTERIAL (BEAKER) (test code = 387) 1.4 mmol/L -2.0-3 .0 PATIENT TEMPERATURE (BEAKER) (test code = 1818) 36.7 C FIO2 (BEAKER) (test code = 1819) 21.0 % HEMOGLOBIN [id number] 12:25:00* Test Item Value Reference Range Interpretation Comments HEMOGLOBIN A1C (BEAKER) (test code = 368) 6.9 % 4.3-6.1 H POCT-GLUCOSE [id number] 12:10:00* Test Item Value Reference Range Interpretation Comments POC-GLUCOSE METER (BEAKER) (test code = 1538) 81 mg/dL 70-110 TESTED AT [address] [address] TSH/FREE T4 IF [id number] 12:05:00* Test Item Value Reference Range Interpretation Comments THYROID STIMULATING HORMONE (BEAKER) (test code = 772) 1.55 uIU/mL 0.35-4.94 PROTHROMBIN [id number] 11:36:00* Test Item Value Reference Range Interpretation Comments PROTIME (BEAKER) (test code = 759) 14.3 seconds 11.7-14.7 INR (BEAKER) (test code = 370) 1.1 <=5.9 RECOMMENDED COUMADIN/WARFARIN INR THERAPY RANGESSTANDARD DOSE: 2.0 - 3.0 Inclu violeta: PROPHYLAXIS for venous thrombosis, systemic embolization; TREATMENT for mahi ous thrombosis and/or pulmonary embolus.HIGH RISK: Target INR is 2.5-3.5 for pat ients with mechanical heart valves.HEPATITIS B SURFACE [id number] 08:13:00* Test Item Value Reference Range Interpretation Comments HEPATITIS B SURFACE ANTIGEN (2) (BEAKER) (test code = 2585) Nonreactive Nonreactive BASIC METABOLIC [id number] 06:07:00* Test Item Value Reference Range Interpretation Comments SODIUM (BEAKER) (test code = 381) 134 meq/L 136-145 L POTASSIUM (BEAKER) (test code = 379) 7.6 meq/L 3.5-5.1 HH No hemolysis CHLORIDE (BEAKER) (test code = 382) 97 meq/L 98-107 L CO2 (BEAKER) (test code = 355) 21 meq/L 22-29 L BLOOD UREA NITROGEN (BEAKER) (test code = 354) 98 mg/dL 7-21 H CREATININE (BEAKER) (test code = 358) 18.05 mg/dL 0.57-1.25 H GLUCOSE RANDOM (BEAKER) (test code = 652) 155 mg/dL 70-105 H CALCIUM (BEAKER) (test code = 697) 8.2 mg/dL 8.4-10.2 L EGFR (BEAKER) (test code = 1092) 2 mL/min/1.73 sq m ESTIMATED GFR IS NOT ACCURATE CREATININE CLEARANCE IN PREDICTING GLOMERULAR FILTRATION RATE. ESTIMATED GFR IS NOT APPLICABLE FOR DIALYSIS PATIENTS. CREATINE KINASE (CK), TOTAL AND [id number] 06:06:00* Test Item Value Reference Range Interpretation Comments CREATINE KINASE TOTAL (BEAKER) (test code = 380) 206 U/L 29-20 0 H CREATINE KINASE-MB (BEAKER) (test code = 750) 5.9 ng/mL 0.0-6.6 CREATINE KINASE-MB INDEX (BEAKER) (test code = 395) 2.9 % CK-MB Reference Range:<6.7 Normal6.7-10.0 Borderline>10.0 Abnormal TROPONIN [id number] 06:06:00* Test Item Value Reference Range Interpretation Comments TROPONIN I (BEAKER) (test code = 397) 0.05 ng/mL 0.00-0.03 H Troponin I (TnI) levels must be interpreted in the context of the presenting sym ptoms and the clinical findings. Elevated TnI levels indicate myocardial damage, but are not specific for ischemic heart disease. Elevated TnI levels are seen in patients with other cardiac conditions (including myocarditis and congestive h eart failure), and slight TnI elevations occur in patients with other conditions , including sepsis, renal failure, acidosis, acute neurological disease, and per sistent tachyarrhythmia.RAD, CHEST, 1 VIEW, NON [id number] 05:46:00Reason for exam:->SHORTNESS OF BREATHShould this be performed at the bedside?->YesFINAL REPORT RAD, CHEST, 1 VIEW, NON DEPT INDICATION: SHORTNESS OF BREATH COMPARISON: Chest x-ray 9 months ago TECHNIQUE: Portable frontal view of the chest. IMPRESSION: Limited exam due to portable technique and und erpenetration.Stable cardiomegaly.Mild pulmonary interstitial edema.No acute oss eous abnormality. Signed: Neptali Mann MDReport Verified Date/Time: 12/25/19 05:46:05 Reading Location: [address] Transitional Reading Room Electr onically signed by: NEPTALI MANN MD on 12/24/2017 05:46 AM CBC W/PLT COUNT & AUTO [id number] 05:37:00* Test Item Value Reference Range Interpretation Comments WHITE BLOOD CELL COUNT (BEAKER) (test code = 775) 5.6 K/ L 3.5- 10.5 RED BLOOD CELL COUNT (BEAKER) (test code = 761) 3.75 M/ L 3.93-5 .22 L HEMOGLOBIN (BEAKER) (test code = 410) 11.9 GM/DL 11.2-15.7 HEMATOCRIT (BEAKER) (test code = 411) 36.9 % 34.1-44.9 MEAN CORPUSCULAR VOLUME (BEAKER) (test code = 753) 98.4 fL 79. 4-94.8 H MEAN CORPUSCULAR HEMOGLOBIN (BEAKER) (test code = 751) 31.7 pg 25.6-32.2 MEAN CORPUSCULAR HEMOGLOBIN CONC (BEAKER) (test code = 752) 32.2 GM/DL 32.2-35.5 RED CELL DISTRIBUTION WIDTH (BEAKER) (test code = 412) 13.6 % 11.7-14.4 PLATELET COUNT (BEAKER) (test code = 756) 94 K/CU MM 150-450 L MEAN PLATELET VOLUME (BEAKER) (test code = 754) 12.5 fL 9.4-12 .3 H NUCLEATED RED BLOOD CELLS (BEAKER) (test code = 413) 0 /100 WBC 0 -0 NEUTROPHILS RELATIVE PERCENT (BEAKER) (test code = 429) 68 % LYMPHOCYTES RELATIVE PERCENT (BEAKER) (test code = 430) 20 % MONOCYTES RELATIVE PERCENT (BEAKER) (test code = 431) 10 % EOSINOPHILS RELATIVE PERCENT (BEAKER) (test code = 432) 2 % BASOPHILS RELATIVE PERCENT (BEAKER) (test code = 437) 0 % NEUTROPHILS ABSOLUTE COUNT (BEAKER) (test code = 670) 3.78 K/ L 1.56-6.13 LYMPHOCYTES ABSOLUTE COUNT (BEAKER) (test code = 414) 1.11 K/ L 1.18-3.74 L MONOCYTES ABSOLUTE COUNT (BEAKER) (test code = 415) 0.57 K/ L 0. 24-0.36 H EOSINOPHILS ABSOLUTE COUNT (BEAKER) (test code = 416) 0.09 K/ L 0.04-0.36 BASOPHILS ABSOLUTE COUNT (BEAKER) (test code = 417) 0.02 K/ L 0. 01-0.08 IMMATURE GRANULOCYTES-RELATIVE PERCENT (BEAKER) (test code = 2801) 1 % 0-1 RAD, SPINE, LUMBAR, COMPLETE (MIN 4 VIEWS)2017-12-17 14:53:00Reason for exam:-> BACK PAINFINAL REPORT EXAM: AP, lateral, oblique, and coned-down lateral views of the lumbar spine. 5 total images. HISTORY PROVIDED: Back pain COMPARISON: CT abdomen 10/29/2013 IMPRESSION:There is straightening of the normal lumbar lordosis. 5 nonrib-bearing lumbar vertebral bodies are noted. No evidence of acute fracture or subluxation. There are multilevel degenerative changes including moderate disc space narrowing and vacuum phenomenon at L4-5 and nearly complete fusion with loss of the disc space at L5-S1. There is multilevel facet arthropathy most severe within the lower lumbar spine especially on the left. There atherosclerotic calcification of the aorta. The paraspinal soft tissues are otherwise unremarkable. Signed: Charlotte Ashley MDReport Verified Date/Time: 12/17/2017 14:53:36 Reading Location: [facility] Mammo Reading Room , PELVIS, WO [id number] 12:57:00Reason for exam:->BACK PAINReason for exam:->HIP PAINWhat is the patient's sedation requirement?->No SedationFINAL REPORT CT of the pelvis without contrast History: Pelvic fracture, known or suspectedBACK PAINHIP PAINconcern for late presenting hip fracture Comparisons: October 29, 2013 and November 21, 2011 Technique: CT of the pelvis was performed without contrast. Axial images were generated as were multiplanar reformatted images in the coronal and sagittal planes. 3 dimensional reconstructed images were generated on an independent workstation. This exam was performed according to our departmental dose optimization program which includes automated exposure control, adjustment of the mA and/or kV according to patient's size and/or use of iterative reconstructive technique. Findings: No acute fracture, or dislocation is identified. Symphysis pubis is congruent, but demonstrates degenerative change. Mild DJD is seen at both hips. There is also advanced degenerative change in the lower lumbar spine. Vacuum disc phenomenon is noted at L4-L5, with suspected high-grade central canal narrowing at this level. There is no evidence of joint effusion at the hips. Iliopsoas, hamstring, and gluteal tendons appear grossly intact. Pelvic musculature demonstrates normal bulk and appearance. There is scattered vascular calcification. Visualized bowel is unremarkable. Note is made of mild colonic diverticulosis. There is a fat-containing small umbilical hernia. Bladder and uterus are unremarkable. Ovaries appear somewhat large in size, but this is unchanged from the previous exams. Impression: No acute osseous abnormality is identified. Osteoarthritis. There is apparent severe central canal narrowing at L4-L5. Mild colonic diverticulosis. Small fat-containing umbilical hernia. Signed: Monika Loza Verified Date/Time: 12/17/2017 12:57:33 Reading Location: [facility] Diagnostic Imaging Reading Room - [place] [address] D CULTURE 2017-04-23 05:02:00* Test Item Value Reference Range Interpretation Comments CULTURE (BEAKER) (test code = 1095) No growth in 5 days BLOOD [id number] 17:00:00* Test Item Value Reference Range Interpretation Comments CULTURE (BEAKER) (test code = 1095) No growth in 5 days POCT-GLUCOSE [id number] 12:54:00* Test Item Value Reference Range Interpretation Comments POC-GLUCOSE METER (BEAKER) (test code = 1538) 122 mg/dL 70-[address] [facility] [address] [facility] [address] POCT-GLUCOSE [id number] 21:11:00* Test Item Value Reference Range Interpretation Comments POC-GLUCOSE METER (BEAKER) (test code = 1538) 154 mg/dL 70-110 H TESTED AT [place] [id number] [facility] [address] POCT-GLUCOSE [id number] 17:07:00* Test Item Value Reference Range Interpretation Comments POC-GLUCOSE METER (BEAKER) (test code = 1538) 146 mg/dL 70-110 H TESTED AT [place] [id number] [facility] [address] BASIC METABOLIC [id number] 15:35:00* Test Item Value Reference Range Interpretation Comments SODIUM (BEAKER) (test code = 381) 131 meq/L 136-145 L POTASSIUM (BEAKER) (test code = 379) 4.3 meq/L 3.5-5.1 CHLORIDE (BEAKER) (test code = 382) 92 meq/L 98-107 L CO2 (BEAKER) (test code = 355) 24 meq/L 22-29 BLOOD UREA NITROGEN (BEAKER) (test code = 354) 38 mg/dL 7-21 H CREATININE (BEAKER) (test code = 358) 9.87 mg/dL 0.57-1.25 H GLUCOSE RANDOM (BEAKER) (test code = 652) 210 mg/dL 70-105 H CALCIUM (BEAKER) (test code = 697) 7.5 mg/dL 8.4-10.2 L EGFR (BEAKER) (test code = 1092) 5 mL/min/1.73 sq m ESTIMATED GFR IS NOT ACCURATE CREATININE CLEARANCE IN PREDICTING GLOMERULAR FILTRATION RATE. ESTIMATED GFR IS NOT APPLICABLE FOR DIALYSIS PATIENTS. PROTHROMBIN [id number] 15:09:00* Test Item Value Reference Range Interpretation Comments PROTIME (BEAKER) (test code = 759) 16.9 seconds 11.7-14.7 H INR (BEAKER) (test code = 370) 1.4 <=5.9 RECOMMENDED COUMADIN/WARFARIN INR THERAPY RANGESSTANDARD DOSE: 2.0 - 3.0 Inclu violeta: PROPHYLAXIS for venous thrombosis, systemic embolization; TREATMENT for mahi ous thrombosis and/or pulmonary embolus.HIGH RISK: Target INR is 2.5-3.5 for pat ients with mechanical heart valves.POCT-GLUCOSE [id number] 12:59:00* Test Item Value Reference Range Interpretation Comments POC-GLUCOSE METER (BEAKER) (test code = 1538) 123 mg/dL 70-110 H TESTED AT [address] [address] POCT-GLUCOSE [id number] 08:53:00* Test Item Value Reference Range Interpretation Comments POC-GLUCOSE METER (BEAKER) (test code = 1538) 78 mg/dL 70-110 TESTED AT [address] [address] CBC W/PLT COUNT & AUTO [id number] 05:40:00* Test Item Value Reference Range Interpretation Comments WHITE BLOOD CELL COUNT (BEAKER) (test code = 775) 5.9 K/ L 3.5- 10.5 RED BLOOD CELL COUNT (BEAKER) (test code = 761) 3.42 M/ L 3.93-5 .22 L HEMOGLOBIN (BEAKER) (test code = 410) 10.6 GM/DL 11.2-15.7 L HEMATOCRIT (BEAKER) (test code = 411) 32.9 % 34.1-44.9 L MEAN CORPUSCULAR VOLUME (BEAKER) (test code = 753) 96.2 fL 79. 4-94.8 H MEAN CORPUSCULAR HEMOGLOBIN (BEAKER) (test code = 751) 31.0 pg 25.6-32.2 MEAN CORPUSCULAR HEMOGLOBIN CONC (BEAKER) (test code = 752) 32.2 GM/DL 32.2-35.5 RED CELL DISTRIBUTION WIDTH (BEAKER) (test code = 412) 15.2 % 11.7-14.4 H PLATELET COUNT (BEAKER) (test code = 756) 140 K/CU MM 150-450 L MEAN PLATELET VOLUME (BEAKER) (test code = 754) 12.2 fL 9.4-12 .3 NUCLEATED RED BLOOD CELLS (BEAKER) (test code = 413) 0 /100 WBC 0 -0 NEUTROPHILS RELATIVE PERCENT (BEAKER) (test code = 429) 76 % LYMPHOCYTES RELATIVE PERCENT (BEAKER) (test code = 430) 10 % MONOCYTES RELATIVE PERCENT (BEAKER) (test code = 431) 11 % EOSINOPHILS RELATIVE PERCENT (BEAKER) (test code = 432) 1 % BASOPHILS RELATIVE PERCENT (BEAKER) (test code = 437) 1 % NEUTROPHILS ABSOLUTE COUNT (BEAKER) (test code = 670) 4.52 K/ L 1.56-6.13 LYMPHOCYTES ABSOLUTE COUNT (BEAKER) (test code = 414) 0.59 K/ L 1.18-3.74 L MONOCYTES ABSOLUTE COUNT (BEAKER) (test code = 415) 0.63 K/ L 0. 24-0.36 H EOSINOPHILS ABSOLUTE COUNT (BEAKER) (test code = 416) 0.07 K/ L 0.04-0.36 BASOPHILS ABSOLUTE COUNT (BEAKER) (test code = 417) 0.03 K/ L 0. 01-0.08 IMMATURE GRANULOCYTES-RELATIVE PERCENT (BEAKER) (test code = 2801) 2 % 0-1 H POCT-GLUCOSE [id number] 22:18:00* Test Item Value Reference Range Interpretation Comments POC-GLUCOSE METER (BEAKER) (test code = 1538) 91 mg/dL 70-[address] [facility] [address] [facility] [address] PROTHROMBIN [id number] 21:26:00* Test Item Value Reference Range Interpretation Comments PROTIME (BEAKER) (test code = 759) 16.6 seconds 11.7-14.7 H INR (BEAKER) (test code = 370) 1.3 <=5.9 RECOMMENDED COUMADIN/WARFARIN INR THERAPY RANGESSTANDARD DOSE: 2.0 - 3.0 Inclu violeta: PROPHYLAXIS for venous thrombosis, systemic embolization; TREATMENT for mahi ous thrombosis and/or pulmonary embolus.HIGH RISK: Target INR is 2.5-3.5 for pat ients with mechanical heart valves.HEPATITIS B SURFACE [id number] 20:23:00* Test Item Value Reference Range Interpretation Comments HEPATITIS B SURFACE ANTIGEN (2) (BEAKER) (test code = 2585) Nonreactive Nonreactive POCT-GLUCOSE [id number] 19:27:00* Test Item Value Reference Range Interpretation Comments POC-GLUCOSE METER (BEAKER) (test code = 1538) 87 mg/dL 70-110 TESTED AT [place] [id number] [facility] [address] POCT-GLUCOSE [id number] 18:16:00* Test Item Value Reference Range Interpretation Comments POC-GLUCOSE METER (BEAKER) (test code = 1538) 80 mg/dL 70-110 TESTED AT [address] [address] POCT-GLUCOSE [id number] 17:35:00* Test Item Value Reference Range Interpretation Comments POC-GLUCOSE METER (BEAKER) (test code = 1538) 60 mg/dL 70-110 L Notified SHAN NICOLE/TESTED AT [address] [address] POCT-GLUCOSE [id number] 16:35:00* Test Item Value Reference Range Interpretation Comments POC-GLUCOSE METER (BEAKER) (test code = 1538) 79 mg/dL 70-110 TESTED AT [address] [address] BASIC METABOLIC [id number] 15:38:00* Test Item Value Reference Range Interpretation Comments SODIUM (BEAKER) (test code = 381) 131 meq/L 136-145 L POTASSIUM (BEAKER) (test code = 379) 7.4 meq/L 3.5-5.1 HH CHLORIDE (BEAKER) (test code = 382) 93 meq/L 98-107 L CO2 (BEAKER) (test code = 355) 21 meq/L 22-29 L BLOOD UREA NITROGEN (BEAKER) (test code = 354) 80 mg/dL 7-21 H CREATININE (BEAKER) (test code = 358) 16.23 mg/dL 0.57-1.25 H GLUCOSE RANDOM (BEAKER) (test code = 652) 84 mg/dL 70-105 CALCIUM (BEAKER) (test code = 697) 7.4 mg/dL 8.4-10.2 L EGFR (BEAKER) (test code = 1092) 3 mL/min/1.73 sq m ESTIMATED GFR IS NOT ACCURATE CREATININE CLEARANCE IN PREDICTING GLOMERULAR FILTRATION RATE. ESTIMATED GFR IS NOT APPLICABLE FOR DIALYSIS PATIENTS. CREATINE KINASE (CK), TOTAL AND [id number] 15:21:00* Test Item Value Reference Range Interpretation Comments CREATINE KINASE TOTAL (BEAKER) (test code = 380) 592 U/L 29-20 0 H CREATINE KINASE-MB (BEAKER) (test code = 750) 6.1 ng/mL 0.0-6.6 CREATINE KINASE-MB INDEX (BEAKER) (test code = 395) 1.0 % CK-MB Reference Range:<6.7 Normal6.7-10.0 Borderline>10.0 AbnormalB- TYPE NATRIURETIC FACTOR (BNP)2017-04-17 15:17:00* Test Item Value Reference Range Interpretation Comments B-TYPE NATRIURETIC PEPTIDE (BEAKER) (test code = 700) 1507 pg/mL 0-100 H RAD, CHEST, 1 VIEW, NON [id number] 15:06:00Reason for exam:->SHORTNESS OF BREATHReason for exam:->COUGHShould this be performed at the bedside?->YesFINAL REPORT TECHNIQUE: Frontal chest radiograph dated 06/17/2016. CLINICAL HISTORY: Shortness of breath, cough COMPARISON STUDY: Chest radiograph dated 04/02/2017 IMPRESSION:Left-sided, multi lead pacemaker is uncha nged. Lung volumes are low. No focal consolidation. Lungs are clear. No pleural effusion or pneumothorax. Cardiomediastinal silhouette is stable in size. No pul monary edema. Degenerative changes are seen in the spine. No fracture. Signed: Jovanny Russell MDReport Verified Date/Time: 04/17/2017 15:06:20 Reading Loc ation: [facility] Radiology Reading Room W/PLT COUNT & AUTO [id number] 14:45:00* Test Item Value Reference Range Interpretation Comments WHITE BLOOD CELL COUNT (BEAKER) (test code = 775) 7.4 K/ L 3.5- 10.5 RED BLOOD CELL COUNT (BEAKER) (test code = 761) 3.64 M/ L 3.93-5 .22 L HEMOGLOBIN (BEAKER) (test code = 410) 11.4 GM/DL 11.2-15.7 HEMATOCRIT (BEAKER) (test code = 411) 34.8 % 34.1-44.9 MEAN CORPUSCULAR VOLUME (BEAKER) (test code = 753) 95.6 fL 79. 4-94.8 H MEAN CORPUSCULAR HEMOGLOBIN (BEAKER) (test code = 751) 31.3 pg 25.6-32.2 MEAN CORPUSCULAR HEMOGLOBIN CONC (BEAKER) (test code = 752) 32.8 GM/DL 32.2-35.5 RED CELL DISTRIBUTION WIDTH (BEAKER) (test code = 412) 15.0 % 11.7-14.4 H PLATELET COUNT (BEAKER) (test code = 756) 129 K/CU MM 150-450 L MEAN PLATELET VOLUME (BEAKER) (test code = 754) 11.9 fL 9.4-12 .3 NUCLEATED RED BLOOD CELLS (BEAKER) (test code = 413) 0 /100 WBC 0 -0 NEUTROPHILS RELATIVE PERCENT (BEAKER) (test code = 429) 76 % LYMPHOCYTES RELATIVE PERCENT (BEAKER) (test code = 430) 11 % MONOCYTES RELATIVE PERCENT (BEAKER) (test code = 431) 9 % EOSINOPHILS RELATIVE PERCENT (BEAKER) (test code = 432) 1 % BASOPHILS RELATIVE PERCENT (BEAKER) (test code = 437) 0 % NEUTROPHILS ABSOLUTE COUNT (BEAKER) (test code = 670) 5.59 K/ L 1.56-6.13 LYMPHOCYTES ABSOLUTE COUNT (BEAKER) (test code = 414) 0.83 K/ L 1.18-3.74 L MONOCYTES ABSOLUTE COUNT (BEAKER) (test code = 415) 0.67 K/ L 0. 24-0.36 H EOSINOPHILS ABSOLUTE COUNT (BEAKER) (test code = 416) 0.09 K/ L 0.04-0.36 BASOPHILS ABSOLUTE COUNT (BEAKER) (test code = 417) 0.03 K/ L 0. 01-0.08 IMMATURE GRANULOCYTES-RELATIVE PERCENT (BEAKER) (test code = 2801) 2 % 0-1 H RAD, CHEST, 2 [id number] 11:26:00Reason for Exam:->ESRDFINAL REPORT PA and Lateral views of the chest dated 04/02/2017 COMPARISON: February 09, 2016 Clinical information: ESRD Comment: Heart normal in signal enlarged. AICD remains in place. Pulmonary vasculature is unremarkable. Lungs are clear. No pulmonary infiltrate or pleural effusion is present. Impression: Cardiomegaly without pulmonary edema. Signed: Samra Arroyo Verified Date/Time: 04/02/2017 11:26:12 Reading Location: [address] Radiology Reading Room -GLUCOSE [id number] 13:31:00* Test Item Value Reference Range Interpretation Comments POC-GLUCOSE METER (BEAKER) (test code = 1538) 149 mg/dL 70-110 H TESTED AT [place] [id number] [facility] [address] POCT-GLUCOSE [id number] 12:00:00* Test Item Value Reference Range Interpretation Comments POC-GLUCOSE METER (BEAKER) (test code = 1538) 128 mg/dL 70-110 H TESTED AT [address] [address] POCT-GLUCOSE [id number] 09:53:00* Test Item Value Reference Range Interpretation Comments POC-GLUCOSE METER (BEAKER) (test code = 1538) 127 mg/dL 70-110 H TESTED AT [address] [address] HEPATITIS B SURFACE [id number] 09:53:00* Test Item Value Reference Range Interpretation Comments HEPATITIS B SURFACE ANTIGEN (2) (BEAKER) (test code = 2585) Nonreactive Nonreactive For chronic HD patients, draw HBsAg with each admission then every 30 days.POCT- GLUCOSE [id number] 07:55:00* Test Item Value Reference Range Interpretation Comments POC-GLUCOSE METER (BEAKER) (test code = 1538) 196 mg/dL 70-110 H TESTED AT [address] [address] CBC W/PLT COUNT & AUTO [id number] 07:49:00* Test Item Value Reference Range Interpretation Comments WHITE BLOOD CELL COUNT (BEAKER) (test code = 775) 4.8 K/ L 3.5- 10.5 RED BLOOD CELL COUNT (BEAKER) (test code = 761) 3.62 M/ L 3.93-5 .22 L HEMOGLOBIN (BEAKER) (test code = 410) 11.5 GM/DL 11.2-15.7 HEMATOCRIT (BEAKER) (test code = 411) 36.3 % 34.1-44.9 MEAN CORPUSCULAR VOLUME (BEAKER) (test code = 753) 100.3 fL 79. 4-94.8 H MEAN CORPUSCULAR HEMOGLOBIN (BEAKER) (test code = 751) 31.8 pg 25.6-32.2 MEAN CORPUSCULAR HEMOGLOBIN CONC (BEAKER) (test code = 752) 31.7 GM/DL 32.2-35.5 L RED CELL DISTRIBUTION WIDTH (BEAKER) (test code = 412) 14.6 % 11.7-14.4 H PLATELET COUNT (BEAKER) (test code = 756) 91 K/CU MM 150-450 L MEAN PLATELET VOLUME (BEAKER) (test code = 754) 12.5 fL 9.4-12 .3 H NUCLEATED RED BLOOD CELLS (BEAKER) (test code = 413) 0 /100 WBC 0 -0 NEUTROPHILS RELATIVE PERCENT (BEAKER) (test code = 429) 66 % LYMPHOCYTES RELATIVE PERCENT (BEAKER) (test code = 430) 23 % MONOCYTES RELATIVE PERCENT (BEAKER) (test code = 431) 10 % EOSINOPHILS RELATIVE PERCENT (BEAKER) (test code = 432) 1 % BASOPHILS RELATIVE PERCENT (BEAKER) (test code = 437) 0 % NEUTROPHILS ABSOLUTE COUNT (BEAKER) (test code = 670) 3.15 K/ L 1.56-6.13 LYMPHOCYTES ABSOLUTE COUNT (BEAKER) (test code = 414) 1.12 K/ L 1.18-3.74 L MONOCYTES ABSOLUTE COUNT (BEAKER) (test code = 415) 0.46 K/ L 0. 24-0.36 H EOSINOPHILS ABSOLUTE COUNT (BEAKER) (test code = 416) 0.05 K/ L 0.04-0.36 BASOPHILS ABSOLUTE COUNT (BEAKER) (test code = 417) 0.02 K/ L 0. 01-0.08 IMMATURE GRANULOCYTES-RELATIVE PERCENT (BEAKER) (test code = 2801) 0 % 0-1 BASIC METABOLIC [id number] 07:39:00* Test Item Value Reference Range Interpretation Comments SODIUM (BEAKER) (test code = 381) 134 meq/L 136-145 L POTASSIUM (BEAKER) (test code = 379) 6.8 meq/L 3.5-5.1 HH CHLORIDE (BEAKER) (test code = 382) 99 meq/L 98-107 CO2 (BEAKER) (test code = 355) 22 meq/L 22-29 BLOOD UREA NITROGEN (BEAKER) (test code = 354) 57 mg/dL 7-21 H CREATININE (BEAKER) (test code = 358) 10.93 mg/dL 0.57-1.25 H GLUCOSE RANDOM (BEAKER) (test code = 652) 182 mg/dL 70-105 H CALCIUM (BEAKER) (test code = 697) 7.8 mg/dL 8.4-10.2 L EGFR (BEAKER) (test code = 1092) 4 mL/min/1.73 sq m ESTIMATED GFR IS NOT ACCURATE CREATININE CLEARANCE IN PREDICTING GLOMERULAR FILTRATION RATE. ESTIMATED GFR IS NOT APPLICABLE FOR DIALYSIS PATIENTS. [id number] 07:34:00* Test Item Value Reference Range Interpretation Comments PHOSPHORUS (BEAKER) (test code = 604) 7.3 mg/dL 2.3-4.7 H [id number] 07:34:00* Test Item Value Reference Range Interpretation Comments MAGNESIUM (BEAKER) (test code = 627) 2.4 mg/dL 1.6-2.6 POCT-GLUCOSE [id number] 06:53:00* Test Item Value Reference Range Interpretation Comments POC-GLUCOSE METER (BEAKER) (test code = 1538) 174 mg/dL 70-[address] [facility] [address] [facility] [address] POCT-GLUCOSE [id number] 03:12:00* Test Item Value Reference Range Interpretation Comments POC-GLUCOSE METER (BEAKER) (test code = 1538) 220 mg/dL 70-[address] [facility] [address] [facility] [address] POCT-GLUCOSE [id number] 17:20:00* Test Item Value Reference Range Interpretation Comments POC-GLUCOSE METER (BEAKER) (test code = 1538) 169 mg/dL 70-110 H TESTED AT [place] [id number] [facility] [address] BLOOD GAS, [id number] 14:52:00* Test Item Value Reference Range Interpretation Comments PH VENOUS (BEAKER) (test code = 701) 7.24 7.32-7.42 L PCO2 VENOUS (BEAKER) (test code = 755) 73 mmHg 41-51 HH PO2 VENOUS (BEAKER) (test code = 702) 32 mmHg 25-40 O2 SATURATION VENOUS (BEAKER) (test code = 703) 51.2 % 40.0-7 0.0 HCO3 VENOUS (BEAKER) (test code = 705) 31 mmol/L 21-29 H BASE EXCESS VENOUS (BEAKER) (test code = 704) 1.0 mmol/L -2.0-3.0 PATIENT TEMPERATURE (BEAKER) (test code = 1818) 36.6 C FIO2 (BEAKER) (test code = 1819) 36.0 % HGB/HCT (H&H) - STAT [id number] 14:39:00* Test Item Value Reference Range Interpretation Comments HEMOGLOBIN (BEAKER) (test code = 410) 13.7 g/dL 12.0-15.0 HEMATOCRIT (BEAKER) (test code = 411) 40.0 % 36.0-45.0 POTASSIUM-STAT [id number] 11:01:00* Test Item Value Reference Range Interpretation Comments POTASSIUM (BEAKER) (test code = 379) 4.9 meq/L 3.6-5.5 HGB/HCT (H&H) - STAT [id number] 11:01:00* Test Item Value Reference Range Interpretation Comments HEMOGLOBIN (BEAKER) (test code = 410) 12.3 g/dL 12.0-15.0 HEMATOCRIT (BEAKER) (test code = 411) 36.0 % 36.0-45.0 GLUCOSE-STAT [id number] 08:33:00* Test Item Value Reference Range Interpretation Comments GLUCOSE RANDOM (BEAKER) (test code = 652) 97 mg/dL 70-110 POTASSIUM-STAT [id number] 08:33:00* Test Item Value Reference Range Interpretation Comments POTASSIUM (BEAKER) (test code = 379) 4.8 meq/L 3.6-5.5 HGB/HCT (H&H) - STAT [id number] 08:33:00* Test Item Value Reference Range Interpretation Comments HEMOGLOBIN (BEAKER) (test code = 410) 12.7 g/dL 12.0-15.0 HEMATOCRIT (BEAKER) (test code = 411) 37.0 % 36.0-45.0 PROTHROMBIN TIME/[id number] 08:05:00* Test Item Value Reference Range Interpretation Comments PROTIME (BEAKER) (test code = 759) 19.7 seconds 11.7-14.7 H INR (BEAKER) (test code = 370) 1.7 <=5.9 RECOMMENDED COUMADIN/WARFARIN INR THERAPY RANGESSTANDARD DOSE: 2.0 - 3.0 Inclu violeta: PROPHYLAXIS for venous thrombosis, systemic embolization; TREATMENT for mahi ous thrombosis and/or pulmonary embolus.HIGH RISK: Target INR is 2.5-3.5 for pat ients with mechanical heart valves.[id number] 07:51:00* Test Item Value Reference Range Interpretation Comments PARTIAL THROMBOPLASTIN TIME (BEAKER) (test code = 760) 41.8 seconds 22.5-36.0 H PROTHROMBIN TIME/[id number] 07:50:00* Test Item Value Reference Range Interpretation Comments PROTIME (BEAKER) (test code = 759) 25.0 seconds 11.7-14.7 H INR (BEAKER) (test code = 370) 2.3 <=5.9 RECOMMENDED COUMADIN/WARFARIN INR THERAPY RANGESSTANDARD DOSE: 2.0 - 3.0 Inclu violeta: PROPHYLAXIS for venous thrombosis, systemic embolization; TREATMENT for mahi ous thrombosis and/or pulmonary embolus.HIGH RISK: Target INR is 2.5-3.5 for pat ients with mechanical heart valves.HEMOGLOBIN AND [id number] 07:47:00 * Test Item Value Reference Range Interpretation Comments HEMOGLOBIN (BEAKER) (test code = 410) 13.0 GM/DL 11.2-15.7 HEMATOCRIT (BEAKER) (test code = 411) 40.6 % 34.1-44.9 GLUCOSE-STAT [id number] 07:43:00* Test Item Value Reference Range Interpretation Comments GLUCOSE RANDOM (BEAKER) (test code = 652) 107 mg/dL 70-110 POTASSIUM-STAT [id number] 07:43:00* Test Item Value Reference Range Interpretation Comments POTASSIUM (BEAKER) (test code = 379) 4.9 meq/L 3.6-5.5
[2020-02-23] MEDS ORDERED: ULTRAM50 MG PO (16:25)
== END 2020-02-23 16:45 | disposition home or self-care (01) ==
LOC: FSED 16:10
DX: M77.8 Other enthesopathies, not elsewhere classified (principal); E11.22 Type 2 diabetes mellitus with diabetic chronic kidney disease; N18.6 End stage renal disease; Z99.2 Dependence on renal dialysis; I50.9 Heart failure, unspecified; Z99.81 Dependence on supplemental oxygen; E27.40 Unspecified adrenocortical insufficiency
CPT/HCPCS: 99283